=== PATIENT | female | born 1960 ===

== ENCOUNTER 2022-12-11 20:28 | Emergency (ER) | payer OTHER, SELFPAY ==
--- NOTE | ~2022-12-11 | XR_ITS ---
EXAMINATION: XR finger 2nd RT min 2V DATE: 12/11/2022 21:02 INDICATION: Right second digit swelling and pain TECHNIQUE: Dorsal palmar, lateral and 2 oblique views of the second digit were obtained COMPARISON: None FINDINGS: Bone alignment is normal. No fracture. Mild polyarticular osteoarthritis at the and first carpal meta carpal, second proximal and distal interphalangeal and a few of the remaining cartilage centrally vis ualized interphalangeal joints. No erosions to suggest inflammatory arthritis. Mild primarily along t he radial side predominant soft tissue swelling along the second digit. IMPRESSION: 1. Typical distribution of mild polyarticular osteoarthritis at the first carpal metacarpal and multi ple interphalangeal joints. No acute osseous abnormality. Reviewed, dictated and finalized at location A. IMPRESSION: 1. Typical distribution of mild polyarticular osteoarthritis at the first carpa l metacarpal and multiple interphalangeal joints. No acute osseous abnormality.
[2022-12-11 20:30] VITALS: BP 145/89; PULSE 91; RESP 16; TEMP 36.5; O2SAT 100
--- NOTE | 2022-12-11 20:43 | ED.WOUNDLAC ---
HPI - Wound/Laceration General Chief Complaint: Wound/Laceration Stated Complaint: finger pain Time Seen by Provider: 12/11/22 20:33 Source: patient and RN notes reviewed Mode of arrival: ambulatory Limitations: no limitations History of Present Illness HPI narrative: This is a 62 year old right hand dominant female who presents for evaluation of right index finger pain. She noticed pain around her right finger nail yesterday. She is now having throbbing pain to her finger tip. She also noticed tenderness and redness. She denies injuries. HE has been placing neosporin to her finger without relief. She has not taken any medication for pain. Related Data Home Medications Medication Instructions Recorded Confirmed atorvastatin 40 mg tablet 09/09/19 lisinopril 5 mg tablet 09/09/19 pantoprazole 40 mg tablet,delayed PO 09/09/19 release Allergies Allergy/AdvReac Type Severity Reaction Status Date / Time No Known Allergies Allergy Verified 12/11/22 20:32 Review of Systems Review of Systems: All systems reviewed & are unremarkable except as noted in HPI and below PMFSH Past Medical History Medical History (Updated 12/12/22 @ 00:00 by Meño Charlton) Hyperlipidemia Hypertension Family History Family History Other Diabetes mellitus Hypertension Social History Social History Smoking status: Former smoker Exam Const: General: no acute distress and alert Nutritional Appearance: well nourished Orientation/consciousness: patient oriented x3 HENMT: Head: normal to inspection Mouth: Yes Normal oral and palatal mucosa present Eyes: EOM: EOMs intact bilaterally Neck: Neck: normal visual inspection Chest: Chest palpation & inspection: normal inspection of the chest Resp: Effort & Inspection: normal respiratory effort Neuro: General: patient oriented x3 and moves all extremities Extrem: Other: right index finger with mild erythema around nail , no drainage, FROM present Psych: Mental Status: mental status grossly normal Affect: normal affect Attitude: cooperative Course Reevaluation(s) Reevaluation #1: I have discussed with patient plan to discharge on antibiotic. She seems to have paronychia although I do not see drainage at this point. Date: 12/11/22 Time: 21:11 Vital Signs Vital signs: Vital Signs Temperature 97.7 F 12/11/22 20:30 Pulse Rate 91 12/11/22 20:30 Respiratory Rate 16 12/11/22 20:30 Blood Pressure 145/89 H 12/11/22 20:30 Pulse Oximetry 100 12/11/22 20:30 Oxygen Delivery Room Air 12/11/22 20:30 Temperature 97.7 F 12/11/22 20:30 Pulse Rate 91 12/11/22 20:30 Respiratory Rate 16 12/11/22 20:30 Blood Pressure 145/89 H 12/11/22 20:30 Pulse Oximetry 100 12/11/22 20:30 Oxygen Delivery Room Air 12/11/22 20:30 MDM - Wound/Laceration Imaging Data Radiologist's impression: ITS Impressions Finger X-Ray 12/11/22 21:05 IMPRESSION: 1. 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 No acute osseous abnormality. Discharge Plan Discharge Clinical Impression: Paronychia Patient Disposition: Home, Self-Care Condition: Stable Instructions: Antibiotic Form, Paronychia (ED) Additional Instructions: I Recommend applying warm compress to your finger to help with inflammation. Take antibiotics as prescribed. Take aleve or ibuprofen for your pain. Prescriptions: New doxycycline monohydrate 100 mg capsule 100 mg PO BID Qty: 14 0RF No Action atorvastatin 40 mg tablet pantoprazole 40 mg tablet,delayed release (DR/EC) PO lisinopril 5 mg tablet amoxicillin 500 mg tablet 500 mg PO TID 7 Days Qty: 21 0RF Follow-up/Referrals: UNKNOWN,DOCTOR [Non-Staff]
[2022-12-11] MEDS: SULFAMETHOXAZOLE/TRIMETHOPRIM 800/160 MG DS TABLET 1 TAB PO (20:47)
[2022-12-11] MEDS: IBUPROFEN 600 MG TABLET PO (20:48)
== END 2022-12-11 21:32 | disposition home or self-care (01) ==
PROVIDERS: Emergency Provider General Practice
DX: L03.011 Cellulitis of right finger (principal); E78.5 Hyperlipidemia, unspecified; I10 Essential (primary) hypertension; Z87.891 Personal history of nicotine dependence; M19.041 Primary osteoarthritis, right hand; M18.9 Osteoarthritis of first carpometacarpal joint, unspecified
CPT/HCPCS: 73140; 99283; A9270

== ENCOUNTER 2025-03-04 18:47 | Emergency (ER) | payer OTHER, SELFPAY ==
--- OUTSIDE RECORDS SUMMARY | 2025-03-04 18:50 | XMS_ITS | Referral Summary ---
Author Organization [address] Address [address] [place] [id number] Care Team Providers Care Telecommunications Repairer Name Role Phone Erik Jeter MD Primary Care Provider Allergies Active Allergy Reactions Criticality Noted Date Comments Atorvastatin Muscle pain Medium 12/08/2020 Medications lisinopriL (PRINIVIL,ZESTR IL) 5 mg tablet 01/06/2021 Act stone rosuvastatin (CRESTOR) 20 mg tablet Take 1 tablet (20 mg total) by mouth daily Active esomeprazole DR (NexIUM) 40 mg capsule Take 40 mg by mouth 2 (two) times a day 10/12/2021 Active lidocaine (LIDODERM) 5 % 11/24/2021 Acti ve cholecalciferol (VITAMIN D-3) 5,000 unit capsule Take 1 capsule (5,000 Units total) by mouth daily Active tretinoin (RETIN-A) 0.05 % cream 09/20/2022 Active mupirocin (BACTROBAN) 2 % ointment 09/06/2022 Active azelaic acid (Finacea) 15 % gel 01/12/2022 Active fenofibrate (TRIGLIDE) 160 mg tablet 12/09/2022 Active Active Problems Problem Noted Date Diagnosed Date Adjustment reaction 01/28/2022 Alopecia 01/28/2022 Amenorrhea 01/28/2022 Overview (09/24/2022): will ask coworker to write for BCPs and patient will do home test next week if has not started and then restart; f/u if any concerns; labs ordered to recheck for other reasons; discussed BCP use Anemia 01/28/2022 Overview (09/24/2022): hx of anemia with the DUB, will see if controlling the DUB and resolved the anemia hx of anemia with the DUB, will see if controlling the DUB and resolved the anemia Carpal tunnel syndrome 01/28/2022 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 Dysfunction of eustachian tube 01/28/2022 Hyperprolactinemia 01/28/2022 Irregular menstrual cycle 01/28/2022 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 2 Overview (09/24/2022): 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 but cannot r/o basal cell ca--will send to derm--offered trial of cryo but pt perfers to be referred, due to location on side of nose bx in office would be difficult 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 but cannot r/o basal cell ca--will send to derm--offered trial of cryo but pt perfers to be referred, due to location on side of nose bx in office would be difficult Other biomechanical lesions of thoracic region 0 01/28/2022 Other diseases of lung 01/28/2022 Other disturbances of skin sensation 01/28/2022 Other headache syndrome 01/28/2022 Pain in joint, lower leg 01/28/2022 Palpitations 01/28/2022 Sinus tachycardia 01/28/2022 Symptomatic menopausal or female climacteric sta saqib 01/28/2022 PLMD (periodic limb movement disorder) 1 Assessment & Plan (10/01/2024 4:14 PM VP CARE MANAGEMENT): She is asymptomatic with respect to the PLMS and is on no medication for this. Assessment & Plan (09/23/2023 11:44 AM VP CARE MANAGEMENT): The patient denies that her limbs are moving at night when she sleeps Assessment & Plan (09/24/2022 11:54 AM VP CARE MANAGEMENT): The patient denies that her limbs are moving at night when she sleeps. Assessment & Plan (08/03/2021 1:39 PM VP CARE MANAGEMENT): Currently asymptomatic SIMRAN (obstructive sleep apnea) 08/03/2021 Overview (09/24/2022): Last Assessment & Plan: The patient will continue with CPAP therapy at 8 cm water pressure to treat obstructive sleep apnea. The patient received an order for full set of supplies. [employer] and the patient is benefitting from CPAP therapy Last Assessment & Plan: The patient will continue with CPAP therapy at 8 cm water pressure to treat obstructive sleep apnea. The patient received an order for full set of supplies. [employer] and the patient is benefitting from CPAP therapy Assessment & Plan (10/01/2024 4:14 PM VP CARE MANAGEMENT): The patient continues to benefit from CPAP at 8 cm water pressure for ongoing symptoms SIMRAN. I will have the overnight pulse oximetry recording reordered through [employer]. Her DME supplier is [employer]. She will follow up here in 1 year. Assessment & Plan (09/23/2023 11:44 AM VP CARE MANAGEMENT): Patient continue to wear her CPAP at 8 cm water pressure while sleeping. Her DME is [employer]. I have sent an order over for an overnight pulse ox to be completed on CPAP set at 8 cm water pressure due to having headaches the morning. Assessment & Plan (09/24/2022 11:53 AM VP CARE MANAGEMENT): Patient continue to wear her CPAP at 8 cm of water pressure while sleeping. Her DME is [employer]. The patient did bring her CPAP card in from her CPAP. There was incorrect information on the CPAP card. I have ordered the patient a new CPAP card set at 8 cm of water pressure to be provided by the patient. At this visit we are able to get information off of the modem. Assessment & Plan (08/03/2021 1:39 PM VP CARE MANAGEMENT): The patient will continue with CPAP therapy at 8 cm water pressure to treat obstructive sleep apnea. The patient received an order for full set of supplies. 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 Never 08/03/2021 Average Number of Drinks Not on file 021 Q3: How often do you have si x or more drinks on one occasion? Never 08/03/2021 Comments Unknown Sex and Gender Information Value Date Recorded Sex Assigned at Not on file Legal Sex Female 12:18 AM VP CARE MANAGEMENT Gender Identity Not on file Sexual Orientation Not on file Last Filed Vital Signs Vital Sign Reading Time Taken Comments Blood Pressure 116/68 10/01/2024 3:53 PM VP CARE MANAGEMENT Pulse 78 10/01/2024 3:53 PM VP CARE MANAGEMENT Temperature 36.1 C (97 F) 10/01/2024 3:53 PM VP CARE MANAGEMENT Respiratory Rate 18 10/01/2024 3:53 PM VP CARE MANAGEMENT Oxygen Saturation 97% 10/01/2024 3:53 PM VP CARE MANAGEMENT Inhaled Oxygen Concentration - - Weight 58.5 kg (129 lb) 10/01/2024 3:53 PM VP CARE MANAGEMENT Height 162.6 cm (5' 4) 10/01/2024 3:53 PM VP CARE MANAGEMENT Body Mass Index 22.14 10/01/2024 3:53 PM VP CARE MANAGEMENT Plan of Treatment Not on file Insurance [facility] Care Teams Telecommunications Repairer Relationship Specialty Start Date End Date Erik Jeter MD PCP - General Family Medicine 10/03/20
--- OUTSIDE RECORDS SUMMARY | 2025-03-04 18:50 | XMS_ITS | Clinical Summary ---
Author Organization [address] [place] [address] Address [address] [place] [id number] Care Team Providers Care Sales Operations Lead Name Role Phone Erik Jeter MD Primary [...] 1 Assessment & Plan (10/01/2024 4:14 PM TUTORING MANAGER): She is asymptomatic with respect to the PLMS and is on no medication for this. Assessment & Plan (09/23/2023 11:44 AM TUTORING MANAGER): The patient denies that her limbs are moving at night when she sleeps Assessment & Plan (09/24/2022 11:54 AM TUTORING MANAGER): The patient denies that her limbs are moving at night when she sleeps. Assessment & Plan (08/03/2021 1:39 PM TUTORING MANAGER): Currently asymptomatic SIMRAN (obstructive sleep apnea) 08/03/2021 Overview (09/24/2022): Last Assessment & Plan: The patient will continue with CPAP therapy at 8 cm water pressure to treat obstructive sleep apnea. The patient received an order for full set of supplies. [employer] and the patient is benefitting from CPAP therapy Last Assessment & Plan: The patient will continue with CPAP therapy at 8 cm water pressure to treat obstructive sleep apnea. The patient received an order for full set of supplies. [employer] and the patient is benefitting from CPAP therapy Assessment & Plan (10/01/2024 4:14 PM TUTORING MANAGER): The patient continues to benefit from CPAP at 8 cm water pressure for ongoing symptoms SIMRAN. I will have the overnight pulse oximetry recording reordered through [employer]. Her DME supplier is [employer]. She will follow up here in 1 year. Assessment & Plan (09/23/2023 11:44 AM TUTORING MANAGER): Patient continue to wear her CPAP at 8 cm water pressure while sleeping. Her DME is [employer]. I have sent an order over for an overnight pulse ox to be completed on CPAP set at 8 cm water pressure due to having headaches the morning. Assessment & Plan (09/24/2022 11:53 AM TUTORING MANAGER): Patient continue to wear her CPAP at [...] modem. Assessment & Plan (08/03/2021 1:39 PM TUTORING MANAGER): The patient will continue with CPAP therapy at 8 cm water pressure to treat obstructive sleep apnea. The patient received an order for full set of supplies. [employer] and the patient is benefitting from [...] 09/23/2023 Immunizations Immunization Administration Dates Next Due [employer] ([employer]) SARS-CoV-2 Vaccination 10/20/2020 Surgical History Surgery Date Site/Laterality Comments CHOLECYSTECTOMY Medical History Medical History Date Comments GERD (gastroesophageal reflux disease) Hypertension Sleep apnea Nasal lesion left nostril Family History Medical History Relation Name Comments Diabetes Father Family history of diabetes mellitus - (Added by TW Conv) Cancer Mother Family history of malignant neoplasm - (Added by TW Conv) Relation Name Status Comments Father Mother Social History Tobacco Use Types Packs/Day Years [...] on file Legal Sex Female 12:18 AM TUTORING MANAGER Gender Identity Not on file Sexual Orientation Not on file Obstetrics History Last Filed Vital Signs Vital Sign Reading Time Taken Comments Blood Pressure 116/68 10/01/2024 3:53 PM TUTORING MANAGER Pulse 78 10/01/2024 3:53 PM TUTORING MANAGER Temperature 36.1 C (97 F) 10/01/2024 3:53 PM TUTORING MANAGER Respiratory Rate 18 10/01/2024 3:53 PM TUTORING MANAGER Oxygen Saturation 97% 10/01/2024 3:53 PM TUTORING MANAGER Inhaled Oxygen Concentration - - Weight 58.5 kg (129 lb) 10/01/2024 3:53 PM TUTORING MANAGER Height 162.6 cm (5' 4) 10/01/2024 3:53 PM TUTORING MANAGER Body Mass Index 22.14 10/01/2024 3:53 PM TUTORING MANAGER Plan of Treatment Health Maintenance Due Date Last Done Comments Breast Cancer Screening-Mammogram 1960 Cervical Cancer Screening 1960 Colon Cancer Screening-Colonoscopy 1960 Depression Screening 1960 Hepatitis C Screening 1960 Regular Well Visit/Exam 18-64 1978 Pneumococcal vaccine <65 (1 of 2 - PCV) 1979 Zoster Vaccine (1 of 2) 2010 Covid-19 Vaccine (4 - 2023-2 5 season) 2024 04/09/2022, 06/26/2021, 10/20/2020 Influenza Vaccine (Season Ended) 2025 12/04/2021, 08/13/2020, 06/05/2015, Additional history exists DTaP/Tdap/Td Vaccine (3 - Td or Tdap) 12/05/2031 12/04/2021, 08/13/2011, 10/30/2003, Additional history exists Insurance [facility]S [facility] Care Teams Sales Operations Lead Relationship Specialty Start Date End Date Erik Jeter MD PCP - General Family Medicine 10/03/20
--- OUTSIDE RECORDS SUMMARY | 2025-03-04 18:50 | XMS_ITS | Clinical Summary ---
Author Organization [facility] [employer] Address [address] [place] [address] Care Team Providers Care Stock Lifter Name Role Phone Eder Humphrey Primary Care Provider [phone] Source Comments [facility],non-owned Affiliates and Associated Physician Practices is amultiple site organization consisting of ambulatory clinics and hospital sitesin [place], [place], [place] and [place]. This disclosure is being madepursuant to the Care Everywhere program and may not contain all information available regarding this patient. Last updated 18.[facility] [employer] Allergies Active Allergy Reactions Criticality Noted Date Comments Atorvastatin Myalgias Medium 12/08/2020 Medications * Be aware that medications may not be up to date on this document. Alwaysverify current medications with the patient. lisinopril (PRINIVIL;ZESTR IL) 5 MG tablet Take 1 (one) tablet by mouth DAILY 8 Active Ivermectin 1 % Apply to affected area as needed Cream 1 Active vitamin D3 (CHOLECALCIFERO L) 125 MCG (5000 UT) capsule Take 1 (one) capsule by mouth once daily Takes 3x per week 1 Active fenofibrate (LOFIBRA) 160 MG tablet Take 1 (one) tablet by mouth once daily 1 Active FINACEA 15 % gel Apply to affected area as needed 2 Active lidocaine (LIDODERM) 5 % patch as needed 2 Active tretinoin (Retin-A) 0.05 % cream as needed 3 Active famotidine (Pepcid) 20 MG tablet Take 1 (one) tablet by mouth as directed Takes 40 daily & 20 mg PRN in the evening. 3 Active rosuvastatin (Crestor) 20 MG tablet Take 1 (one) tablet by mouth once daily 3 Active Ruxolitinib Phosphate (Opzelura) 1.5 % CREA by Apply externally route once daily as needed Active polyethylene glycol (Golytely) solution Drink 3/4th of prep solution at 5pm the night before colonoscopy. Finish the prep at 4am the day of test. 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 Diabetes mellitus, type 2 10/11/2024 Chalazion left upper eyelid 10/11/2024 Cervicalgia 10/11/2024 Abdominal tenderness, unspecified site 5 Symptomatic menopausal or female climacteric sta saqib 01/28/2022 Sinus tachycardia 01/28/2022 Palpitations 01/28/2022 Pain in joint, lower leg 01/28/2022 Other headache syndrome 01/28/2022 Other disturbances of skin sensation 01/28/2022 Other diseases of lung 01/28/2022 Other biomechanical lesions of thoracic region 0 01/28/2022 Neoplasm of uncertain behavior of skin 2 Overview (01/28/2022): 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 but cannot r/o basal [...] nose bx in office would be difficult 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 01/28/2022 Irregular menstrual cycle 01/28/2022 Hyperprolactinemia 01/28/2022 Dysfunction of eustachian tube 01/28/2022 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 Carpal tunnel syndrome 01/28/2022 Anemia 01/28/2022 Overview (01/28/2022): hx of anemia with the DUB, will see if controlling the DUB and resolved the anemia hx of anemia with the DUB, will see if controlling the DUB and resolved the anemia Amenorrhea 01/28/2022 Overview (01/28/2022): will ask coworker to write for BCPs and patient will do home test next week if has not started and then restart; f/u if any concerns; labs ordered to recheck for other reasons; discussed BCP use Alopecia 01/28/2022 Adjustment reaction 01/28/2022 PLMD (periodic limb movement disorder) Overview (01/28/2022): Last Assessment & Plan: Currently asymptomatic SIMRAN (obstructive sleep apnea) 08/03/2021 Overview (01/28/2022): Last Assessment & Plan: The patient will continue with CPAP therapy at 8 cm water pressure to treat obstructive sleep apnea. The patient received an order for full set of supplies. [employer] and the patient is benefitting from CPAP therapy Last Assessment & Plan: The patient will continue with CPAP therapy at 8 cm water pressure to treat obstructive sleep apnea. The patient received an order for full set of supplies. [employer] and the patient is benefitting from CPAP therapy Elevated blood sugar 12/08/2020 Acid reflux 03/13/2018 Nonalcoholic steatohepatitis (NGO) 11/15/2017 Overview (02/08/2023): 10/06/20 Fibroscan CAP 340, LSM 5.1 kPa 10/26/21 Fibroscan CAP 359, LSM 5.0 kPa 02/07/23 Fibroscan CAP 337, LSM 4.6 kPa Essential hypertension 09/29/2017 Overview (01/28/2022): repeat BP 122/88; cont to monitor Precordial pain 09/22/2017 Hypertriglyceridemia 09/22/2017 Abnormal ECG 09/22/2017 Arthralgia of shoulder 02/07/2015 Social History Tobacco Use Types Packs/Day Years Used Date Smoking Tobacco: Former Cigarettes 1 - 1991 Smokeless Tobacco: Never Comments:quit 20 years ago Alcohol Use Standard Drinks/Week Comments No 0 (1 standard drink = 0.6 oz pur e alcohol) Comments No Sex and Gender Information Value Date Recorded Sex Assigned at Not on file Legal Sex Female 3:27 PM CDT Gender Identity Not on file Sexual Orientation Not on file Last Filed Vital Signs Vital Sign Reading Time Taken Comments Blood Pressure 115/66 10/15/2024 11:45 AM MACHINIST APPRENTICE [employer] Pulse 69 10/15/2024 11:45 AM [employer]ACHINIST [employer]ICE [employer] Temperature 36.7 C (98.1 F) 10/15/2024 10:33 AM MACHINIST APPRENTICE [employer]OD Respiratory Rate 16 10/15/2024 11:45 AM MACHINIST APPRENTICE [employer]OD Oxygen Saturation 96% 10/15/2024 11:45 AM MACHINIST APPRENTICE WO[employer] Inhaled Oxygen Concentration - - Weight 59 kg (130 lb) 10/11/2024 12:44 PM [employer]ACHINIST [employer]ICE [employer] Height 162.6 cm (5' 4) 10/11/2024 12:44 PM [employer]INIST [employer]ICE [employer] Body Mass Index 22.31 10/11/2024 12:44 PM [employer]ACHINIST [employer]ICE [employer] Plan of Treatment Upcoming Encounters Date Type Department Care Team (Late st Contact Info) Description 10/17/2025 11:30 AM MACHINIST APPRENTICE WOOD Procedure visit [facility] [address] [place] [phone] 10/17/2025 12:00 PM MACHINIST APPRENTICE [employer] Office Visit [facility] [address] [facility], [place] [phone] Ryley Martinez MD [address] [facility] [address] [place] [phone] Health Maintenance Due Date Last Done Comments COLOGUARD (AGES 45-75) - COLON CA SCREENING 1960 CT COLONOGRAPHY - COLON CA SCREENING 1960 FIT - COLON CA SCREENING 1960 FLEX SIG - COLON CA SCREENING 1960 MAMMOGRAM 1960 HIV SCREENING 1975 HEPATITIS C SCREENING 05/11/1978 DTAP/TDAP/TD VACCINES (1 - Tdap) 1979 PNEUMOCOCCAL VACCINE 50+ (1 of 2 - PCV) 1979 PAP SMEAR 1981 ZOSTER VACCINE (1 of 2) 2010 COVID-19 VACCINE (4 - season) 2024 04/09/2022, 06/26/2021, 10/20/2020 DEPRESSION SCREENING 08/15/2024 DIABETES - URINE PROTEIN SCREENING 08/15/2024 DIABETES RETINOPATHY SCREENING 10/11/2024 01/28/2022 DIABETES-FOOT EXAM WITH MONOFILAMENT 10/11/2024 DIABETES-HGB A1C 10/12/2024 04/12/2024, , 03/06/2020 INFLUENZA VACCINE (#1) 2025 , 08/13/2020, 06/05/2015, Additional history exists DIABETES-SERUM CREATININE 07/30/20252023, 04/12/2024, 09/04/2023, Additional history exists COLON MONITORING 10/15/2034 10/15/2024, 10/2024, 05/22/2021, Additional history exists COLONOSCOPY - COLON CA SCREENING 10/15/2034 10/15/2024, 10/15/2024, 05/22/2021, Additional history exists Colorectal Cancer Screening 10/15/2034 Respiratory Syncytial Virus (RSV) Vaccine Pt: or over 60 yrs (1 - 1-dose 75+ series) 2035 HEPATITIS B VACCINE Aged Out No longe r eligible based on patient's age to complete this topic HIB VACCINE Aged Out No longer eligi ble based on patient's age to complete this topic HPV VACCINE Aged Out No longer eligi ble based on patient's age to complete this topic MENINGOCOCCAL (Group B) VACCINE SHARED DECISION-MAKING Aged Out No longer eligible based on patient's age to complete this topic MENINGOCOCCAL GROUPS A/C/Y/W VACCINE Aged Out No longer eligible based on patient's age to complete this topic Goals Goal Patient Goal Type Associated Problems Recent Progress Patient-Stated? Author Medication Management General On track( 025 1:36 PM MACHINIST APPRENTICE WOOD) Tamika Monterroso RN Note: Expected end date: ongoing Interventions: Take all medications as prescribed Let your doctor know right away about any changes in your medications Make sure to request a refill of your medication at least one week prior to your last dose Procedures Procedure Name Priority Date/Time Associated Diagnosis Comments ENDOSCOPY, COLON, DIAGNOSTIC Routine 10/15/2024 10:49 AM [employer]ACHINIST [employer] COMPREHENSIVE METABOLIC PANEL Routine 07/30/2024 1:55 PM [employer]ACHINIST [employer] Acute diarrhea Nausea and vomiting, unspecified vomiting type HEMOGLOBIN A1C Routine 04/12/2024 2:33 PM CDT Metabolic dysfunction-associa sujata steatotic liver disease (MASLD) from Last 3 Months or Most Recently Relevant to Health Maintenance Results * Endoscopy, Colon, Diagnostic (10/15/2024 10:49 AM MACHINIST APPRENTICE WOOD) Report Endoscopy POC Endoscopy Department Report _ Patient Name: Bárbara Simon Procedure Date: 10/15/2024 10:49 AM Date of : 1960 Classification: Outpatient Gender: Female Ethnicity: Not or Race: _ Providers: Page Morris DO Referring MD: Eder Humphrey (Referring ) Procedure: Colonoscopy Indications: High risk colon cancer surveillance: Personal history of colonic polyps, Last colonoscopy: May 2021 Medications: Monitored Anesthesia Care Description of Procedure: Pre-Anesthesia Assessment: - Prior to the procedure, a History and Physical was performed, and patient medications and allergies were reviewed. The patient's tolerance of previous anesthesia was also reviewed. The risks and benefits of the procedure and the sedation options and risks were discussed with the patient. All questions were answered, and informed consent was obtained. Prior Anticoagulants: The patient has taken no anticoagulant or antiplatelet agents. ASA Grade Assessment: II - A patient with mild systemic disease. After reviewing the risks and benefits, the patient was deemed in satisfactory condition to undergo the procedure. After I obtained informed consent, the scope was passed under direct vision. Throughout the procedure, the patient's blood pressure, pulse, and oxygen saturations were monitored continuously. The Colonoscope was introduced through the anus and advanced to the terminal ileum, with identification of the appendiceal orifice and IC valve. The colonoscopy was performed without difficulty. The patient tolerated the procedure well. The quality of the bowel preparation was evaluated using the BBPS (Hollins Bowel Preparation Scale) with scores of: Right Colon = 3, Transverse Colon = 3 and Left Colon = 3 (entire mucosa seen well with no residual staining, small fragments of stool or opaque liquid). The total BBPS score equals 9. The terminal ileum, ileocecal valve, appendiceal orifice, and rectum were photographed. Findings: The perianal and digital rectal examinations were normal. The terminal ileum appeared normal. Two sessile polyps were found in the sigmoid colon. The polyps were 3 to 6 mm in size. These polyps were removed with a cold snare. Resection and retrieval were complete. Scattered small and large-mouthed diverticula were found in the entire colon. There was no evidence of diverticular bleeding. Non-bleeding internal hemorrhoids were found during retroflexion. The hemorrhoids were small and Grade I (internal hemorrhoids that do not prolapse). Estimated Blood Loss: Estimated blood loss: none. Complications: No immediate complications. Impression: - The examined portion of the ileum was normal. - Two 3 to 6 mm polyps in the sigmoid colon, removed with a cold snare. Resected and retrieved. - Moderate diverticulosis in the entire examined colon, most severe in the ascending colon. - Small internal hemorrhoids. Recommendation: - Discharge patient to home. - Patient has a contact number available for emergencies. The signs and symptoms of potential delayed complications were discussed with the patient. Return to normal activities tomorrow. Written discharge instructions were provided to the patient. - Continue present medications. - Await pathology results. - Repeat colonoscopy in 5 years for surveillance based on pathology results. - High fiber diet. Goal of 30 grams of fiber daily. - You can keep a food diary for one day to calculate your typical daily fiber intake and then supplement the rest with an [id number] fiber supplement. - Increasing your fiber intake gradually will slow down progression of the diverticular disease as well as regulate your bowels. You can use an over the counter fiber supplement such as sugar free metamucil. Begin by mixing this powder in a glass of water, 2 teaspoons twice per day for two weeks, then increase to 4 teaspoons twice per day for two weeks. Next increase to 6 teaspoons twice per day and continue this indefinitely. Consider adding high fiber foods into your diet. For example, add one apple every day for snack. Attending Participation: I personally performed the entire procedure. Procedure Code(s): --- Professional --- 86758, Colonoscopy, flexible; with removal of tumor(s), polyp(s), or other lesion(s) by snare technique Diagnosis Code(s): --- Professional --- Z86.010, Personal history of colonic polyps K64.0, First degree hemorrhoids D12.5, Benign neoplasm of sigmoid colon K57.30, Diverticulosis of large intestine without perforation or abscess without bleeding CPT copyright 2021 [employer]. All rights reserved. The codes documented in this report are preliminary and upon miter operator review may be revised to meet current compliance requirements. Page Morris DO 10/15/2024 11:35:49 AM This report has been signed electronically. Note Initiated On: 10/15/2024 10:49 AM Number of Addenda: [id number] [place] [address] PROVATION 10/15/2024 10:4 9 AM MACHINIST APPRENTICE WOOD us Page Morris DO GI PROCEDURE ORDERABLES Edited R esult - Final [facility] TANK[facility] * (ABNORMAL) COMPREHENSIVE METABOLIC PANEL (07/30/2024 1:55 PM [facility]) BUN 20 7 - 26 mg/dL 07/30/2024 3:03 PM [facility] Creatinine 0.96 0.56 - 0.96 mg/dL 07/30/2024 3:03 PM [facility] Sodium 139 136 - 145 mmol/L 07/30/2024 3:03 PM [facility] Potassium 3.5 3.5 - 4.5 mmol/L 07/30/2024 3:03 PM [facility] Chloride 107 98 - 107 mmol/L 07/30/2024 3:03 PM [facility] CO2 23 22 - 29 mmol/L 07/30/2024 3:03 PM [facility] Glucose 122(H) 70 - 99 mg/dL 07/30/2024 3:03 PM [facility] Calcium 9.4 8.4 - 10.2 mg/dL 07/30/2024 3:03 PM [facility] Protein Total 7.8 6.0 - 8.3 g/dL 07/30/2024 3:03 PM [facility] Albumin 4.2 3.4 - 5.0 g/dL 07/30/2024 3:03 PM [facility] Bilirubin Total 0.6 0.2 - 1.2 mg/dL 07/30/2024 3:03 PM [facility] Alkaline Phosphatase 90 40 - 150 U/L 07/30/2024 3:03 PM [facility] ALT 22 5 - 55 U/L 07/30/2024 3:03 PM [facility] AST 24 5 - 34 U/L 07/30/2024 3:03 PM [facility] Anion Gap 9 6 - 16 07/30/2024 3:03 PM [facility] BUN/Creatinine Ratio 21 7 - 23 07/30/2024 3:03 PM [facility] Osmolality Calculated 292 275 - 295 mOsm/kg 07/30/2024 3:03 PM [facility] Albumin/Globulin Ratio 1.2 1.1 - 2.3 07/30/2024 3:03 PM [facility] eGFR by CKD-EPI 66(L) >=90 mL/min/1.7 3 m2 07/30/2024 3:03 PM [facility] Blood BLOOD SPECIMEN / Unknown Lab Venipuncture / Unknown 07/30/2024 1:55 PM [employer]ACHIN[employer]ICE [employer]OD 07/30/2024 2:35 PM [facility] Davonte Adames DO LAB - CHEMISTRY ORDERABLES Final Result Performing Organization Address City/[facility]/ZIP Co de Phone Number [address] [phone], [place] [phone] * (ABNORMAL) HEMOGLOBIN A1C (04/12/2024 2:33 PM CDT) Hemoglobin A1c 6.5(H) <=5.6 % 04/12/2024 6:11 PM CDT [facility] Estimated Average Glucose 140 mg/dL 04/12/2024 6:11 PM T [facility] Comment: HbA1c Interpretation: Normal : < 5.7% Pre-diabetes: 5.7-6.4% Diabetes: Equal to or greater than 6.5% Test results diagnostic of diabetes should be repeated for confirmation. Treatment target values recommended by ADA and other clinical organizations should be used to evaluate metabolic control in patients. Reference: [place] [employer], Standards of Care in Diabetes -2020 In patients 70 years and older consider HbA1c target range of 7.0-7.5% (Reference: Gerry Urbina, et al. JAMDA. 2012) The Sebia assay for the measurement of HbA1c is a National Glycohemoglobin Standardization Program (NGSP) certified method. Blood BLOOD SPECIMEN / Unknown Lab Venipuncture / Unknown 04/12/2024 2:33 PM CDT 04/12/2024 5:28 PM CDT Ryley Martinez MD LAB - CHEMISTRY ORDERABLES Final Result Performing Organization Address City/[facility]/ZIP Co de Phone Number [address] [address], [place] [phone] from Last 3 Months or Most Recently Relevant to Health Maintenance Insurance [facility] [place] Care Teams Stock Lifter Relationship Specialty Start Date End Date Eder Humphrey [address] [facility] [address] [place] [phone] PCP - General 04/12/24
--- OUTSIDE RECORDS SUMMARY | 2025-03-04 18:50 | XMS_ITS | Encounter Summary ---
Author Organization [facility] Address [address] [place] [address] Care Team Providers Care Panama Hat Hydraulic Press Operator Name Role Phone Nadja Stewart MD Unavailable [phone] Eirk Jeter MD Primary Care Provider [phone] None, Provider Primary Care Provider Unavaila ble Encounter Details Date Type Department Care Team (Late Contact Info) Description 06/04/2020 Abstract [facility] at [address] [address] [place], [place] Social History Tobacco Use Types Packs/Day Years Used Date Smoking Tobacco: Former Cigarettes 0.1 4 Smokeless Tobacco: Never Alcohol Use Standard Drinks/Week Comments No 0 (1 standard drink = 0.6 oz pur e alcohol) Comments Unknown Sex and Gender Information Value Date Recorded Sex Assigned at Not on file Legal Sex Female 1:49 AM CDT Gender Identity Not on file Sexual Orientation Not on file 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 No / Unsure 06/02/2020 3:12 PM CDT documented as of this encounter Plan of Treatment Upcoming Encounters Date Type Department Care Team (Late st Contact Info) Description 12/25/2025 1:00 PM CDT Office Visit [facility], [address] [address] Nadja Stewart MD [facility]. [address] [address] documented as of this encounter Procedures Procedure Name Priority Date/Time Associated Diagnosis Comments COMPREHENSIVE METABOLIC PANEL Routine 11/11/2023 LIPID PANEL Routine 11/11/2023 LIPID PANEL Routine 09/03/2022 CBC, MANUAL DIFF Routine 09/03/2022 AST/SGOT Routine 12/04/2021 LIPID PANEL Routine 12/04/2021 ALT/SGPT Routine 12/04/2021 COMPREHENSIVE METABOLIC PANEL Routine 04/29/2021 LIPID PANEL Routine 04/29/2021 HEMOGLOBIN, GLYCOSYLATED Routine 04/29/2021 LIPID PANEL Routine 12/03/2020 VITAMIN D, 25 OH Routine 12/03/2020 CBC (OUTSIDE LAB) Routine 10/28/2020 COMPREHENSIVE METABOLIC PANEL Routine 10/28/2020 IRON BINDING TEST Routine 10/28/2020 IRON Routine 10/28/2020 FERRITIN Routine 10/28/2020 AST/SGOT Routine 07/04/2020 LIPID PANEL Routine 07/04/2020 ALT/SGPT Routine 07/04/2020 FERRITIN Routine 04/17/2020 IRON BINDING TEST Routine 03/19/2020 IRON Routine 03/19/2020 FERRITIN Routine 03/19/2020 COMPREHENSIVE METABOLIC PANEL Routine 03/06/2020 LIPID PANEL Routine 03/06/2020 HEMOGLOBIN, GLYCOSYLATED Routine 03/06/2020 VITAMIN D, 25 OH Routine 03/06/2020 FERRITIN Routine 03/06/2020 CBC (OUTSIDE LAB) Routine 02/22/2020 THYROID STIM HORMONE TSH Routine 02/22/2020 documented in this encounter Results * COMPREHENSIVE METABOLIC PANEL (11/11/2023) SODIUM S/P/B 143 POTASSIUM S/P/B 3.8 CO2 25 CHLORIDE S/P/B 108 GLUCOSE 122 mg/dL CALCIUM S/P/B 9.8 BUN 17 CREATININE S/P/B 0.90 0.5 - 1.0 EGFR NON-AFR. AMER. 72 <=90 ALKALINE PHOSPHATASE S/P/B 83 ALT 22 AST 23 BILIRUBIN TOTAL S/P/B 0.4 ALBUMIN S/P/B 4.2 3.5 - 5.0 TOTAL PROTEIN S/P/B 7.2 11/11/2023 us Default History [facility] LABORATORY Final Result * LIPID PANEL (11/11/2023) CHOLESTEROL 126 HDL 68 TRIGLYCERIDES 81 LDL (CALCULATED) 49 11/11/2023 us Default History [facility] LABORATORY Edited Result - Final * LIPID PANEL (09/03/2022) CHOLESTEROL 196 TRIGLYCERIDES 189 HDL 77 LDL (CALCULATED) 85 Narrative Resulting Agency Comment us Default History [facility] LABORATORY Final Result * CBC, MANUAL DIFF (09/03/2022) WBC 6.1 HGB 12.9 HCT 39.3 PLT 234 Narrative Resulting Agency Comment us Default History [facility] LABORATORY Final Result * ALT/SGPT (12/04/2021) ALT 49 12/04/2021 us Doc [facility] Final Result * AST/SGOT (12/04/2021) AST 43 12/04/2021 [facility] Final Result * LIPID PANEL (12/04/2021) CHOLESTEROL 213 HDL 69 TRIGLYCERIDES 205 LDL (CALCULATED) 111 12/04/2021 [facility] Edited Resul t - Final * HEMOGLOBIN, GLYCOSYLATED (04/29/2021) HGB A1C 6.2 % 04/29/2021 us Doc [facility] Final Result * LIPID PANEL (04/29/2021) CHOLESTEROL 176 HDL 71 TRIGLYCERIDES 205 LDL (CALCULATED) 70 04/29/2021 us Doc [facility] Final Result * COMPREHENSIVE METABOLIC PANEL (04/29/2021) SODIUM S/P/B 142 POTASSIUM S/P/B 4.1 CO2 26 CHLORIDE S/P/B 103 GLUCOSE 105 mg/dL CALCIUM S/P/B 10.5 BUN 13 CREATININE S/P/B 0.90 0.5 - 1.0 EGFR AFR. AMER. 80 <=90 EGFR NON-AFR. AMER. 70 <=90 ALKALINE PHOSPHATASE S/P/B 97 ALT 33 AST 26 BILIRUBIN TOTAL S/P/B 0.5 ALBUMIN S/P/B 4.2 3.5 - 5.0 TOTAL PROTEIN S/P/B 7.3 04/29/2021 us Doc [facility] Final Result * VITAMIN D, 25 OH (12/03/2020) VITAMIN D 25 HYDROXY S/P/B 10.4 12/03/2020 us Doc [facility] Final Result * LIPID PANEL (12/03/2020) CHOLESTEROL 209 HDL 63 TRIGLYCERIDES 275 LDL (CALCULATED) 97 12/03/2020 us Doc [facility] Final Result * IRON BINDING TEST (10/28/2020) IRON BINDING CAPACITY 254 10/28/2020 us Doc [facility] Final Result * IRON (10/28/2020) IRON 80 10/28/2020 us Doc [facility] Edited Resul t - Final * CBC (OUTSIDE LAB) (10/28/2020) WBC 6.1 HGB 12.7 HCT 37.3 PLT 191 10/28/2020 us Doc [facility] LAB-OUTSIDE/ABSTRACTED Edite d Result - Final * COMPREHENSIVE METABOLIC PANEL (10/28/2020) Pathologist [facility] SODIUM S/P/B 145 POTASSIUM S/P/B 3.9 CO2 25 CHLORIDE S/P/B 108 GLUCOSE 102 mg/dL CALCIUM S/P/B 8.7 BUN 14 CREATININE S/P/B 0.90 0.5 - 1.0 EGFR AFR. AMER. 80 <=90 EGFR NON-AFR. AMER. 70 <=90 ALKALINE PHOSPHATASE S/P/B 135 ALT 28 AST 20 BILIRUBIN TOTAL S/P/B 0.4 ALBUMIN S/P/B 4.3 3.5 - 5.0 TOTAL PROTEIN S/P/B 7.0 10/28/2020 us Doc [facility] Final Result * FERRITIN (10/28/2020) [facility] FERRITIN 194.7 10/28/2020 us Doc [facility] Edited Resul t - Final * LIPID PANEL (07/04/2020) [facility] CHOLESTEROL 203 HDL 67 TRIGLYCERIDES 242 LDL (CALCULATED) 98 07/04/2020 us Doc [facility] Final Result * ALT/SGPT (07/04/2020) [facility] ALT 28 6 - 55 07/04/2020 us Doc [facility] Final Result * AST/SGOT (07/04/2020) [facility] AST 25 5 - 34 07/04/2020 us Doc [facility] Final Result * FERRITIN (04/17/2020) [facility] FERRITIN 197.8 10 - 120 04/17/2020 us Doc [facility] Final Result * FERRITIN (03/19/2020) FERR[facility]IN 231.4 10 - 120 03/19/2020 us Doc [facility] Final Result * IRON BINDING TEST (03/19/2020) IRON BINDING CAPACITY 280 250 - 450 03/19/2020 us Doc [facility] Final Result * IRON (03/19/2020) IRON 66 27 - 159 03/19/2020 us Doc [facility] Final Result * HEMOGLOBIN, GLYCOSYLATED (03/06/2020) HGB A1C 5.9 % 03/06/2020 us Doc [facility] Final Result * VITAMIN D, 25 OH (03/06/2020) VITAMIN D 25 HYDROXY S/P/B 16.2 03/06/2020 us Doc [facility] Final Result * LIPID PANEL (03/06/2020) CHOLESTEROL 290 HDL 66 TRIGLYCERIDES 408 LDL (CALCULATED) 162 03/06/2020 us Doc [facility] Final Result * FERRITIN (03/06/2020) FERRITIN 256.5 10 - 120 03/06/2020 us Doc [facility] Final Result * (ABNORMAL) COMPREHENSIVE METABOLIC PANEL (03/06/2020) SODIUM S/P/B 142 POTASSIUM S/P/B 4.1 CO2 27 CHLORIDE S/P/B 104 GLUCOSE 90 mg/dL CALCIUM S/P/B 9.9 BUN 11 CREATININE S/P/B 0.80 0.5 - 1.0 EGFR AFR. AMER. 93(A) <=90 EGFR NON-AFR. AMER. 81 <=90 ALKALINE PHOSPHATASE S/P/B 132 ALT 31 AST 25 BILIRUBIN TOTAL S/P/B 0.7 ALBUMIN S/P/B 4.3 3.5 - 5.0 TOTAL PROTEIN S/P/B 8.1 03/06/2020 us Doc [facility] Final Result * THYROID STIM HORMONE, TSH (02/22/2020) Pathologist [facility] TSH 2.62 0.34 - 4.94 02/22/2020 us Doc [facility] Final Result * CBC (OUTSIDE LAB) (02/22/2020) Pathologist [facility] WBC 6.0 HGB 12.6 HCT 38.0 PLT 226 02/22/2020 us Doc [facility] LAB-OUTSIDE/ABSTRACTED Final Result documented in this encounter Visit Diagnoses Not on filedocumented in this encounter Additional Health Concerns Infection Onset Date Last Indicated Resolved Time COVID-19 Rule Out 09/04/2023 09/04/2023 09/04/2023 5:56 PM CUST[employer]S VERIFIER documented as of this encounter Care Teams Panama Hat Hydraulic Press Operator Relationship Specialty Start Date End Date Erik Jeter MD [address] [phone] PCP - General FAMILY PRACTICE 05/15/20 02/04/25 None, Provider, PCP - General UNKNOWN PHYSICIAN SPECIALTY 02/05/25 Nadja Stewart MD [facility]. [facility] [address] [place], [place] [id number] [place] [employer] Sander Setter CARDIOVASCULAR DISEASE 09/08/17 documented as of this encounter
--- OUTSIDE RECORDS SUMMARY | 2025-03-04 18:52 | XMS_ITS | Patient Health Record ---
Author Organization [facility] Address [address] [place], [place] [id number] Care Team Providers Care Gas Torch Solderer Name Role Phone KWESI VILLALPANDO Unavailable [phone] Marek Lyles Unavailable Unavailable Reason For Referral No Information Plan Of Treatment No Information Insurance Providers Payer Name Payer Address Payer Phone Subscriber Number Group Number Insured Name Patient Relationship to Insured Coverage Start Date Coverage End Date [facility] [address] [place] [address] [id number] [id number] SIMON Self - patient is the insured
--- OUTSIDE RECORDS SUMMARY | 2025-03-04 18:52 | XMS_ITS | Continuity of Care Document ---
Author Name [facility] Organization [facility] Care Team Providers Care Bottle Capper Name Role Phone [facility] Unavailable Unavailable Problems Combined list of problems from Department of Defense and Veterans Affairs facilities. It does not include entries that were removed or entered in error. Problem Status Onset Date Problem Type Date of Resolution Comments Source Somatic dysfunction of back region Active 025 Diagnosis 6130C-Af -C-375Th [facility]gr[facility] yu Adjustment disorder Active 022 Condition 0055C-37 5th [facility] Alopecia Active 022 Condition 5C-37 5th [facility] Anemia1 Active 022 Condition Outside Source Comment: Overview: hx of anemia with the DUB, will [...] controlling the DUB and resolved the anemia 6130C-Af -C-375Th [facility] yu Obstructive sleep apnea syndrome5 Active 021 Condition Outside Source Comment: Overview: Last Assessment & Plan: The patient will continue with CPAP therapy at 8 cm water pressure to treat obstructive sleep apnea. The patient received an order for full set of supplies. [employer] and the patient is benefitting from CPAP therapy Last Assessment & Plan: The patient will continue with CPAP therapy at 8 cm water pressure to treat obstructive sleep apnea. The patient received an order for full set of supplies. [employer] and the patient is benefitting from CPAP therapy 5C-37 5th [facility] Periodic limb movement disorder6 Active 021 Condition Outside Source Comment: Overview: Last Assessment & Plan: The patient denies that her limbs are moving at night when she sleeps 6130C-Af -C-375Th [facility] Gastroesophageal reflux disease Active 018 Condition 0055C-37 5th [facility] Nonalcoholic steatohepatitis4 Active 018 Condition Outside Source Comment: Overview: 10/06/20 Fibroscan CAP 340, LSM 5.1 kPa 10/26/21 Fibroscan CAP 359, LSM 5.0 kPa 6130C-Af -C-375Th Medgr[facility] Essential hypertension2 Active 018 Condition Outside Source Comment: Overview: repeat BP 122/88; cont to monitor 5C-37 5th [facility] Cervicalgia Active Condition 6130C-Af -C-375Th Med[facility] Diabetes mellitus type 2 Active Condition 6130C-Af -C-375Th Medgrp-S [facility] Diverticulosis Active Condition 0055C-3 7 5th [facility] Hyperlipidemia3 Active Condition Outs [place] Source Comment: renew meds, labs due next month 6130C-Af -C-375Th Medgrp[facility]S [facility] Hyperprolactinemia Active Condition 613 0C-Af -C-375Th Medgr[facility]-S [facility] Narcolepsy Active Condition 6130C-Af -C-375Th Medgr[facility] Vitamin D deficiency, unspecified Active Condition 0055C-37 5th [facility] Chalazion left upper eyelid Active Condition DoD Abdominal tenderness, unspecified site Active Condition DoD Other disturbances of skin sensation Active Condition DoD Other biomechanical lesions of sacral region Active Condition DoD Other biomechanical lesions of thoracic region Active Condition DoD Other biomechanical lesions of lumbar region Active Condition DoD TENSION-TYPE HEADACHE Inactive Condition DoD NORMAL ROUTINE HISTORY AND PHYSICAL ADULT (18-65) Inactive Condition DoD ACNE CYSTIC Inactive Condition DoD CHALAZION LEFT EYE Inactive Condition Do D HERPES SIMPLEX TYPE I Inactive Condition DoD Outpatient Physician Consultation Active Condition DoD PATELLAR CHONDROMALACIA Active Condition DoD joint pain, localized in the knee Active Condition DoD VAGINITIS Inactive Condition DoD X-Ray Chest Lungs Multiple Pulmonary Nodules Active Condition DoD cough Inactive Condition DoD irregular length of menstrual periods Active Condition DoD EUSTACHIAN TUBE DYSFUNCTION Active Condition DoD FINGER SPRAIN LEFT HAND Inactive Condition DoD HEADACHE SYNDROMES Active Condition DoD OTITIS MEDIA ACUTE SEROUS LEFT EAR Inactive Condition DoD earache Inactive Condition DoD ADJUSTMENT DISORDER Active Condition Do D MENOPAUSE SYMPTOMATIC Active Condition DoD CERVICAL NEOPLASM - ENDOCERVIX Active Condition DoD visit for: screening exam diabetes mellitus Inactive Condition DoD SINUS TACHYCARDIA Active Condition DoD HYPERPROLACTINEMIA Active Condition DoD MUSCLE SPASM Inactive Condition DoD Laboratory Studies Inactive Condition Do D abdominal pain in the right upper belly (RUQ) Inactive Condition DoD Alopecia Active Condition DoD visit for: screening exam malignant neoplasm breast Inactive Condition DoD Cervix Sample Taken For Pap Smear Inactive Condition DoD UPPER RESPIRATORY INFECTION Inactive Condition DoD CERUMEN IMPACTION - RIGHT EAR Inactive Condition DoD FINGER SPRAIN Inactive Condition DoD NARCOLEPSY Active Condition DoD IRRITABLE BOWEL SYNDROME Inactive Condition lower abd pain, characteristic relief with BM suggestive of spasm, will try Levsin and see if that works. Offered C-scope screening. Pt declines at this pt. Fam hx not first degree relative will not push unless symptoms not relieved or more characteristic bloody stool, change in bowel habits occur DoD Snoring Inactive Condition see above (ordered in [place] due to ALHTA issues) DoD UTERINE NEOPLASM, BENIGN - LEIOMYOMA Inactive Condition minimal c hange from 10/18 DoD lightheadedness Inactive Condition 2 ep isodes, brief in nature, several days ago--labs reassuring. Discussed with patient options from here. Ensuring she is getting enough fluids, eating and sleeping well is always beneficial. This may have been a viral illness that has passed. Certainly her disposion to hypoglycemia may have contributed. And then other more concerning reasons for lightheadedness cannot be discounted but without other associated are less likely. Suggestions as to next approach were reivewed. Pt agreed to keep a log of symptoms. If they are recuring she is to note eating patterns, time of day, and any associated symptoms. Any red flag symptoms she will seek care--chest pain, palpitations, SOB, diaphoresis, HUSTON, actual syncope. DoD urinary frequency increased Inactive Condition will screen for infection and sugar, FBS in the intolarnt range. DoD visit for: contraceptive surveillance pill Inactive Condition pt has 3 r f's left DoD pelvic pain Inactive Condition nl US, f ibroid not likely source of pain; discussed possible GI eval for pain, could consider referral to SHAFT HEADMAN MD for poss diag lap if pain persists DoD visit for: screening exam for malignant neoplasm cervix Inactive Condition DoD Gynecologic Services Contraceptive Management Inactive Condition renewed DoD FATIGUE Inactive Condition likely rel ated to freq noctural awakings -- will get sleep study DoD SINUSITIS Inactive Condition Pt with ea rly sinusitis, but with her substantial history of severe sxs and the amount of facial pain/puffiness will give rx for abx to use if she does not improve in the next couple of days. Asked her to try symptomatic treatment first to see if she improves. Counseled on importance of using the whole course of abx when she does take it. DoD visit for: issue repeat prescription Inactive Condition A-Pt wit h BCP needP-Refilled until next pap due DoD PALPITATIONS Inactive Condition event m onitor reviewed in chart review--normal, no murmur on exam . Pt quite concerned and has hx of ?abnl valve--will send to cards and see if they wish to do echo to better clarify symptoms. Possible MVP DoD METRORRHAGIA Inactive Condition DoD CARPAL TUNNEL SYNDROME Active Condition DoD Occupational Therapy Inactive Condition Good progress -- goals are ongoing. DoD HYPERLIPIDEMIA Active Condition renew meds, labs due next month DoD Blood Pressure Isolated Elevated Active Condition DoD feared medical condition not demonstrated Inactive Condition DoD abdominal pain above the pubic area (suprapubic) Inactive Condition I am uncertain as to the source of this discomfort, but I do not feel that it is likely something serious. I recommended to the patient that she do a pain diary and bring this back for my review. DoD ANEMIA Active Condition hx of anem ia with the DUB, will see if controlling the DUB and resolved the anemia DoD joint pain fingers Inactive Condition e rosiooloy unclear, will do OT testing and get reading on formal strength. May need EMG. 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 I reviewed with her the Neurology note and my understanding from that. Offfered to her a second opinion referral if she desired. However at this time she declined stating if symptoms persist she would (the lightheadedness). DoD MENOMETRORRHAGIA Inactive Condition DoD PICA Inactive Condition Will check CBC. DoD visit for: administrative purpose Inactive Condition discussed offic e vs OR scope, Dr bojorquez only does in OR; Dr Mcneal would do in either place, pt desires to make appt with Dr Mcneal to discuss 2 different options in detail DoD MENORRHAGIA Inactive Condition abn US; pt states had difficulty with in office EMB, unsure would tolerate in office hysteroscopy. Will discuss with SHAFT HEADMAN MD on Tuesday and determine plan for in office scope or scheduled in OR. 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 she said she will. if still having symptoms, consider adding singulair. if still not improving, referr DoD EPIDERMAL INCLUSION CYST Inactive Condition lesion is probably EIC and I explained that this is benign, nonmalignant but if annoying to patient could remove. she would like upholstery cutter to look at it and remove and do full skin exam. referral entered. [facility] Preventive Medicine Estab Patient Checkup Adult 40-64 Inactive Condition ordered mammogram. pt will have well woman and breast exam at [facility] ob dept. DoD Medications Combined list of outpatient medications from Department of Defense and Veterans Affairs facilities.Medications provided include 1) outpatient medications from the last 15 months, and 2) patient-reported medications. Medication Details Route Status Patient Instructions Prescription Expires Prescription Number Last Dispense Date Ordering Provider Order Date Order Qty Source azelaic acid 15% topical gel 1 appl(s), Topical, BID, # 30 g, 0 total refill(s ), Rudolph gonzalez, Pharmacy : [facility] Topica l (on the skin) Ordered 4 2023 30.0 6130C-A f-C-375 Th Medgrp Dominik azelaic acid 15% topical gel 0 Refill(s ), 0 total refill(s ), Soft Stop Discont inued 11/06/20242024 6130C-A f-C-375 Th Medgrp- Dominik azelaic acid 15% topical gel APPLY TO AFFECTED AREAS OF FACE TWICE A DAY NEEDED FOR ROSACEA FLARE DIRECTED , # 50 g, 6 total refill(s ), Acute Complet ed 08/31/2023 3 2023 50.0 Ambulat ory Pharmac y calcium (as carbonate) 600 mg oral tablet 0 Refill(s ), 0 total refill(s ), Soft Stop [facility] cholecalcif alan 125 mcg (5,000 units) capsule See Instruct ions, # 36 EA, 3 total refill(s ), Acute Complet ed 08/31/2023 3 2023 36.0 Ambulat ory Pharmac y cholecalcif alan 125 mcg (5000 intl units) oral capsule 0 Refill(s ), once daily Takes 3x per week, 0 total refill(s ), Soft Stop Discont inued 09/19/20232023 0055C-3 75th MED[facility]- Dominik conjugated estrogens 0.625 mg/g vaginal cream with applicator PLACE 1GM VAGINALL Y TWO TIMES PER WEEK; APPLY SMALL AMOUNT TO POST INTROITU S DAILY, # 30 g, 3 total refill(s ), Acute Complet ed 08/31/2023 3 2023 30.0 Ambulat ory Pharmac y desonide 0.05% ointment [15g] See Instruct ions, Topical, # 30 g, 1 total refill(s ), Hard Stop Topica l (on the skin) Complet ed 10/09/2024 4 2024 30.0 Ambulat ory Pharmac y desonide 0.05% topical ointment See Instruct ions, PRN dry skin, Topical TID, # 60 g, 1 total refill(s ), Maintena nce, Pharmacy : [facility] Ordered 5 2024 60.0 0055C-3 [facility] esomeprazol e 40 mg oral delayed release capsule 90 cap(s), 0 total refill(s ), Soft Stop Discont inued 03/08/20232022 6130C-A f-C-375 Th Medgrp- Dominik esomeprazol e DR 40 mg capsule See Instruct ions, # 30 EA, 5 total refill(s ), Hard Stop Complet ed 09/19/2023 3 2023 30.0 Ambulat ory Pharmac y famotidine 20 mg oral tablet 1 tab(s), Oral, Daily, # 90 tab(s), 3 total refill(s ), Maintena nce, Pt takes Famotidi ne 40mg in AM and 20mg in PM, Pharmacy : [facility] Oral (given by mouth) Ordered 5 2024 90.0 6130C-A f-C-375 Th Medgrp- Dominik famotidine 20 mg oral tablet 90 tab(s), 0 Refill(s ), 0 total refill(s ), Soft Stop Discont inued 09/19/20232023 0055C-3 75th [facility]- Dominik famotidine 20 mg tablet See Instruct ions, # 90 EA, 2 total refill(s ), Acute Complet ed 07/06/2023 3 2022 90.0 Ambulat ory Pharmac y famotidine 40 mg oral tablet 90 tab(s), 0 Refill(s ), 0 total refill(s ), Soft Stop Discont inued 09/13/20232023 0055C-3 75th [facility]- Dominik famotidine 40 mg tablet = 1 tab(s), Oral, every day at bedtime, # 90 EA, 0 total refill(s ), Soft Stop Oral (given by mouth) Ordered 5 2024 90.0 Ambulat ory Pharmac y fenofibrate 160 mg oral tablet 1 tab(s), Oral, Daily, # 90 tab(s), 3 total refill(s ), [facility], Pharmacy : [facility] Oral (given by mouth) Ordered 2024 90.0 6130C-A f-C-375 Th Medgrp- Dominik fenofibrate 160 mg oral tablet 90 tab(s), 0 total refill(s ), Soft Stop Discont inued 09/13/20232023 6130C-A f-C-375 Th Medgrp- Dominik fenofibrate 160 mg oral tablet 1 tab(s), Oral, Daily, # 90 tab(s), 3 total refill(s ), [facility], Pharmacy : [facility] Oral (given by mouth) Ordered 09/13/2024 5 2023 90.0 6130C-A f-C-375 Th Medgrp- Dominik fenofibrate 160 mg tablet See Instruct ions, # 90 EA, 1 total refill(s ), Acute Discont inued 09/19/2023 3 2023 90.0 Ambulat ory Pharmac y fenofibrate 54 mg oral tablet 90 tab(s), 0 total refill(s ), Soft Stop Discont inued 09/13/20232023 6130C-A f-C-375 Th Medgrp- Dominik fenofibrate 54 mg oral tablet 1 tab(s), Oral, Daily, # 90 tab(s), 3 total refill(s ), [facility], Pharmacy : [facility] Oral (given by mouth) Ordered 5 2024 90.0 6130C-A f-C-375 Th Medgrp- Dominik Finacea 15% topical gel 50 g, 0 total refill(s ), Soft Stop Complet ed 09/19/20232023 6130C-A f-C-375 Th Medgrp- Dominik Freestyle Lite Monitor See Instruct ions, Use to check blood glucose every morning and evening, # 1 EA, 0 total refill(s ), Maintena nce, Supply, [facility] Ordered 4 2023 1.0 6130C-A f-C-375 Th Medgrp- Dominik glucose test strip (freestyle lite) 1 strip(s) , N/A, AC and bedtime, # 200 EA, 0 total refill(s ), Maintena nce, Supply, Pharmacy : [facility] Not Applic able Ordered 4 2023 200.0 6130C-A f-C-375 Th Medgrp- Dominik GoLYTELY 3350 with electrolyte powder (4000mL) See Instruct ions, # 4000 mL, 0 total refill(s ), Hard Stop Discont inued 11/06/2024 4 2024 4000.0 Ambulat ory Pharmac y isopropyl alcohol 70% topical pad 1 EA, N/A, As Directed , # 200 EA, 3 total refill(s ), Maintena nce, Supply, Pharmacy : [facility] Not Applic able Ordered 4 2023 200.0 6130C-A f-C-375 Th Medgrp- Dominik ivermectin 1% topical cream 0 Refill(s ), 0 total refill(s ), Soft Stop Complet ed 09/19/20232023 0055C-3 75th [facility] lancet freestyle 28g See Instruct ions, Use to check blood glucose, # 200 EA, 0 total refill(s ), Maintena nce, Supply, [facility] Ordered 4 2023 200.0 6130C-A f-C-375 Th Medgrp- Dominik Lexapro 10 mg oral tablet 1 tab(s), Oral, Daily, # 30 tab(s), 0 total refill(s ), Maintena nce, Pharmacy : [facility] Oral (given by mouth) Ordered 5 2024 30.0 6130C-A f-C-375 Th Medgrp- Dominik lidocaine 5% topical film 1 patch(es ), Topical, Daily, Leave on for up to 12 hours within a 24 hour period (12 hours on, 12 hours off), # 30 patch(es ), 3 total refill(s ), [facility], Pharmacy : [facility] Topica l (on the skin) Ordered 4 2023 30.0 6130C-A f-C-375 Th Medgrp- Dominik lidocaine 5% topical film 0 Refill(s ), as needed, 0 total refill(s ), Soft Stop Complet ed 09/19/20232023 0055C-3 75th [facility] lidocaine 5% topical film 0 Refill(s ), 0 total refill(s ), Soft Stop Discont inued 11/09/20232023 6130C-A f-C-375 Th Medgrp- Dominik lidocaine 5% topical film 1 patch(es ), Topical, Daily, remove patches after 12 hours, X 30 days, # 30 patch(es ), 3 total refill(s ), Acute, Pharmacy : [facility] Topica l (on the skin) Complet ed 03/08/2024 4 2023 30.0 6130C-A f-C-375 Th Medgrp- Dominik lisinopril 5 mg oral tablet 1 tab(s), Oral, Daily, for blood pressure , # 90 tab(s), 3 total refill(s ), [facility], Pharmacy : [facility] Oral (given by mouth) Discont inued 09/17/2024 4 2024 90.0 6130C-A f-C-375 Th Medgrp- Dominik lisinopril 5 mg oral tablet 90 tab(s), 0 total refill(s ), Soft Stop Discont inued 09/13/20232023 6130C-A f-C-375 Th Medgrp- Dominik lisinopril 5 mg oral tablet 1 tab(s), Oral, Daily, # 90 tab(s), 3 total refill(s ), [facility], Pharmacy : [facility] Oral (given by mouth) Ordered 5 2024 90.0 6130C-A f-C-375 Th Medgrp- Dominik lisinopril 5 mg tablet See Instruct ions, # 90 EA, 2 total refill(s ), Acute Complet ed 07/06/2023 3 2022 90.0 Ambulat ory Pharmac y loperamide 2 mg capsule See Instruct ions, # 30 EA, 0 total refill(s ), Hard Stop Complet ed 08/08/2024 4 2023 30.0 Ambulat ory Pharmac y MetFORMIN (Eqv-Fortam et) 500 mg oral tablet, extended release 1 tab(s), Oral, Daily, # 90 tab(s), 0 total refill(s ), [facility], Pharmacy : [facility] Oral (given by mouth) Discont inued 09/12/2024 4 2024 90.0 6130C-A f-C-375 Th Medgrp- Dominik MetFORMIN (Eqv-Fortam et) 500 mg oral tablet, extended release 1 tab(s), Oral, Daily, # 90 tab(s), 3 total refill(s ), [facility], Pharmacy : [facility] Oral (given by mouth) Ordered 5 2024 90.0 6130C-A f-C-375 Th Medgrp- Dominik mupirocin 2% topical cream See Instruct ions, PRN rash, apply a thin film to rash by right eye as needed, # 30 g, 1 total refill(s ), [facility], Pharmacy : [facility] Ordered 4 2023 30.0 0055C-3 75th [facility]- [facility] mupirocin 2% topical cream 0 Refill(s ), 0 total refill(s ), Soft Stop Discont inued 11/07/20232023 6130C-A f-C-375 Th Medgrp- Dominik mupirocin 2% topical ointment 22 g, 0 total refill(s ), Soft Stop Complet ed 09/19/20232023 6130C-A f-C-375 Th Medgrp- Dominik ondansetron 4 mg tablet See Instruct ions, # 30 EA, 0 total refill(s ), Hard Stop Discont inued 11/06/2024 4 2024 30.0 Ambulat ory Pharmac y Opzelura 1.5% topical cream Apply external ly, 0 Refill(s ), by Apply external ly route once daily, 0 total refill(s ), Soft Stop Complet ed 09/19/20232023 0055C-3 75th [facility] Pepcid 20 mg oral tablet 1 tab(s), Oral, BID, # 180 tab(s), 3 total refill(s ), [facility], Pharmacy : [facility] Oral (given by mouth) Discont inued 03/28/2024 4 2023 180.0 6130C-A f-C-375 Th Medgrp- Dominik Pepcid 40 mg oral tablet 1 tab(s), Oral, every day at bedtime, # 90 tab(s), 2 total refill(s ), [facility], Pharmacy : [facility] Oral (given by mouth) Discont inued 10/31/2024 5 2024 90.0 6130C-A f-C-375 Th Medgrp- Dominik Pepcid 40 mg oral tablet 1 tab(s), Oral, every day at bedtime, # 90 tab(s), 3 total refill(s ), [facility], Pharmacy : [facility] Oral (given by mouth) Discont inued 03/28/2024 4 2023 90.0 6130C-A f-C-375 Th Medgrp- Dominik pimecrolimu s 1% topical cream 30 g, 0 Refill(s ), APPLY TOPICALL Y TO THE AFFECTED AREA EVERY NIGHT AT BEDTIME FOR 14 DAYS APPLY TO EYE EVERY NIGHT AT BEDTIME FOR 14 DAYS, 0 total refill(s ), Soft Stop Ordered 02/23/ 2024 6130C-A f-C-375 Th Medgrp- Dominik polyethylen e glycol 3350 with electrolyte s oral powder for reconstitut ion 0 Refill(s ), Drink 1/2 of prep at 5pm the night before test. Finish the prep at 4am the day of test., 0 total refill(s ), Soft Stop Discont inued 11/07/20232023 6130C-A f-C-375 Th Medgrp- Dominik Premarin 0.625 mg/g vaginal cream with applicator 30 unknown unit, 0 total refill(s ), Soft Stop Complet ed 09/19/20232023 6130C-A f-C-375 Th Medgrp- Dominik rosuvastati n 20 mg oral tablet 1 tab(s), Oral, Daily, for choleste rol, # 90 tab(s), 3 total refill(s ), Maintena [facility], Pharmacy : [facility] Oral (given by mouth) Ordered 5 2024 90.0 6130C-A f-C-375 Th Medgrp- Dominik rosuvastati n 20 mg oral tablet 90 tab(s), 0 total refill(s ), Soft Stop Discont inued 09/19/20232023 6130C-A f-C-375 Th Medgrp- Dominik rosuvastati n 20 mg oral tablet 1 tab(s), Oral, Daily, 90 tab(s), # 90 tab(s), 3 total refill(s ), [facility], Pharmacy : [facility] Oral (given by mouth) Discont inued 02/07/2025 5 2024 90.0 6130C-A f-C-375 Th Medgrp- Dominik rosuvastati n 20 mg tablet See dose instruct ions in comments , # 90 EA, 2 total refill(s ), Acute Complet ed 07/06/2023 3 2022 90.0 Ambulat ory Pharmac y tretinoin 0.05% cream [45g] See Instruct ions, Topical, # 45 g, 1 total refill(s ), Hard Stop Topica l (on the skin) Complet ed 10/11/2024 4 2024 45.0 Ambulat ory Pharmac y tretinoin 0.05% topical cream APPLY TO FACE AT BEDTIME DIRECTED , # 45 g, 5 total refill(s ), Acute Complet ed 09/19/2023 3 2023 45.0 Ambulat ory Pharmac y tretinoin 0.05% topical cream 0 Refill(s ), 0 total refill(s ), Soft Stop Discont inued 09/13/20232023 0055C-3 75[facility] tretinoin 0.05% topical cream See Instruct ions, Apply to entire face qhs, no sooner than 15min after washing and moisturi zing, # 45 g, 6 total refill(s ), Rudolph [facility], Pharmacy : [facility] Ordered 5 2024 45.0 0055C-3 75[facility]ik triamcinolo ne 0.1% topical ointment 15 g, APPLY TO AFFECTED AREA DAILY NEEDED FOR RASH. DO NOT USE LONGER THAN 1 WEEK, 0 total refill(s ), Soft Stop Discont inued 11/06/20242024 6130C-A f-C-375 Th Medgrp- Dominik triamcinolo ne 0.1% topical ointment See Instruct ions, apply a thin film to affected area on dry patches 2-3x/wk prn, # 60 g, 1 total refill(s ), Rudolph [facility] [place], Pharmacy : [facility] Ordered 5 2024 60.0 0055C-3 [facility]- [place] Vitamin D3 5000 Unknown, ORAL, 1 Refill(s ), 0 total refill(s ), Soft Stop Discont inued 09/13/20232023 6130C-A f-C-375 [facility]- [place] Vitamin D3 125 mcg (5000 intl units) oral capsule 36 cap(s), 0 total refill(s ), Soft Stop Discont inued 09/13/20232023 6130C-A f-C-375 [facility]- [place] Vitamin D3 125 mcg (5000 intl units) oral capsule 1 cap(s), Oral, Daily, with food, # 90 cap(s), 3 total refill(s ), Maintena yimie, Pharmacy : [facility] Oral (given by mouth) Discont inued 11/07/20232023 90.0 0055C-3 [facility]- [place] Vitamin D3 125 mcg (5000 intl units) oral tablet 1 tab(s), Oral, Daily, # 90 tab(s), 3 total refill(s ), Maintena nce, original order by Mrs. Rodriguez, Pharmacy : [facility] Oral (given by mouth) Ordered 5 2024 90.0 0055C-3 [facility]- [place] Vitamin D3 125 mcg (5000 intl units) oral tablet 1 tab(s), Oral, Daily, # 90 tab(s), 3 total refill(s ), Maintena nce, original order by Mrs. Rodriguez, Pharmacy : [facility] Oral (given by mouth) Discont inued 11/06/2024 5 2024 90.0 0055C-3 [facility] [place] Voltaren 1% topical gel See instruct ions, Apply small amount to affected area topicall y four times daily as needed for pain. Max total body dose of 32 grams per day, # 100 g, 0 total refill(s ), Maintena yimie, Pharmacy : [facility] Discont inued 09/13/2023 3 2023 100.0 6130C-A f-C-375 Th [facility] Dominik Allergies, Adverse Reactions, Alerts Combined list of allergies from Department of Defense and Veterans Affairs facilities. It does not include entries that were removed or entered in error. Substance Category Reaction Severity Reaction type Status Date Reported Comments Source atorvastatin Propensity to adverse reactions to drug Myalgias Mild Active 1 6130C-A f-C-375 Th [facility]- Dominik LIPITOR Drug allergy (disorder) active 1 DoD Immunizations Combined list of available immunizations from the Department of Defense and Veterans Affairs facilities. 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 complet ed COVID-19 vaccine(N ovavax 12y+) 09/09/23 Given 0055C-3 [facility] COVID Vaccine Moderna 2021 zzLef t Arm complet ed COVID Vaccine Moderna 04/09/22 Given Ambulat ory Pharmac y COVID Vaccine Moderna 2021 complet ed COVID Vaccine Moderna 04/09/22 Given Ambulat ory Pharmac y SARS-COV-2 (COVID-19) vaccine, mRNA, spike protein, LNP, preservative free, 100 mcg or 50 mcg dose 1 2021 Unknown, Provider Moderna [employer] (MOD) complet ed SARS-COV- 2 (COVID-19 ) vaccine, mRNA, spike protein, LNP, preservat stone free, 100 mcg or 50 mcg dose DoD tetanus-dipht h toxoids (Td) adult/adol 2021 zzRig ht Arm [id number] 09 sanofi pasteur complet ed tetanus-d iphth toxoids (Td) adult/ado l 12/04/21 Given Ambulat ory Pharmac y influenza, injectable, quadrivalent- pf 2021 zzRig ht Arm [id number] 150 GlaxoSmithKli ne complet ed influenza , injectabl e, quadrival ent-pf 12/04/21 Given Ambulat ory Pharmac y influenza, injectable, quadrivalent- pf 2021 [id number] 150 GlaxoSmithKli ne complet ed influenza , injectabl e, quadrival ent-pf 12/04/21 Given Ambulat ory Pharmac y tetanus-dipht h toxoids (Td) adult/adol 2021 [id number] 09 sanofi pasteur complet ed tetanus-d iphth toxoids (Td) adult/ado l 12/04/21 Given Ambulat ory Pharmac y influenza virus vaccine, unspecified 2021 CAPTCHRISTOPH ERRWEISGARBER [id number] 88 complet ed influenza virus vaccine, unspecifi ed 12/04/21 Recorded 6130C-A f-C-375 [facility] tetanus and diphtheria toxoids, adsorbed, preservative free, for adult use (2 Lf of tetanus toxoid and 2 Lf of diphtheria toxoid) 1 2021 Unknown, Provider [id number] 09 Sanofi Pasteur ([facility]) complet ed tetanus and diphtheri a toxoids, adsorbed, preservat stone free, for adult use (2 Lf of tetanus toxoid and 2 Lf of diphtheri a toxoid) DoD Influenza, injectable, quadrivalent, preservative free 1 2021 Unknown, Provider [id number] [address] [place] [address] (SKB) complet ed Influenza , injectabl e, quadrival ent, preservat stone free DoD SARS-CoV-2 (COVID-19) Ad26 vaccine, rec 2020 212 complet ed SARS-CoV- 2 (COVID-19 ) Ad26 vaccine, rec 06/26/21 Given Ambulat ory Pharmac y COVID-19 vaccine, vector-nr, rS-Ad26, PF, 0.5 mL 2020 ALUL, () Not Given COVID-19 vaccine, vector-nr , rS-Ad26, PF, 0.5 mL DoD SARS-CoV-2 (COVID-19) Ad26 vaccine, rec 2020 TRANSCR IBED 212 complet ed SARS-CoV- 2 (COVID-19 ) Ad26 vaccine, rec 10/20/20 Given Ambulat ory Pharmac y SARS-CoV-2 (COVID-19) Ad26 vaccine, rec 2020 TRANSCR IBED 212 complet ed SARS-CoV- 2 (COVID-19 ) Ad26 vaccine, rec 10/20/20 Given Ambulat ory Pharmac y SARS-COV-2 (COVID-19) vaccine, vector non-replicati ng, recombinant spike protein-Ad26, preservative free, 0.5 mL 1 2020 Unknown, Provider 212 Marva (ADÁN) complet ed SARS-COV- 2 (COVID-19 ) vaccine, vector non-repli cating, recombina nt spike protein-A d26, preservat stone free, 0.5 mL DoD influenza, injectable, quadrivalent- pf [facility] [id number] 150 Se[employer]irus complet ed influenza , injectabl e, quadrival ent-pf 08/13/20 Given Ambulat ory Pharmac y influenza, injectable, quadrivalent- pf 2019 [id number] 868 150 Se[employer] complet ed influenza , injectabl e, quadrival ent-pf 08/13/20 Given Ambulat ory Pharmac y influenza virus vaccine, unspecified 2019 GILSON MERCADOBER [id number] 88 complet ed influenza virus vaccine, unspecifi ed 08/13/20 Recorded 6130C-A f-C-375 Th [facility] Influenza, injectable, quadrivalent, preservative free 1 2019 Unknown, Provider [id number] 868 150 Seqirus (SEQ) complet ed Influenza , injectabl e, quadrival ent, preservat stone free DoD influenza, injectable, quadrivalent- pf [id number] GlaxoSmithKli ne complet ed influenza , injectabl e, quadrival ent-pf 06/05/15 Given Ambulat ory Pharmac y influenza, injectable, quadrivalent- pf 2014 [id number] 150 GlaxoSmithKli ne complet ed influenza , injectabl e, quadrival ent-pf 06/05/15 Given Ambulat ory Pharmac y influenza virus vaccine, unspecified 2014 RENERISTOPH PAVITHRAGARBER [id number] 88 complet ed influenza virus vaccine, unspecifi ed 06/05/15 Recorded 6130C-A f-C-375 Th [facility] Influenza, injectable, quadrivalent, preservative free 1 2014 Unknown, Provider [id number] 150 [employer] (SKB) complet ed Influenza , injectabl e, quadrival ent, preservat stone free DoD influenza, seasonal, injectable-pf 2013 zzRig Arm [id number] 140 Novartis Pharmaceut[employer] ls complet ed influenza , seasonal, injectabl e-pf 05/31/14 Given Ambulat ory Pharmac y influenza, seasonal, injectable-pf 2013 [id number] 140 Novartis Pharmaceutica ls complet ed influenza , seasonal, injectabl e-pf 05/31/14 Given Ambulat ory Pharmac y influenza virus vaccine, unspecified 2013 GILSON ALVARENGA [id number] 88 complet ed influenza virus vaccine, unspecifi ed 05/31/14 Recorded 6130C-A f-C-375 [facility] [place] Influenza, seasonal, injectable, preservative free 1 2013 Unknown, Provider [id number] 140 [employer]. (NOV) complet ed Influenza , seasonal, injectabl e, preservat stone free DoD influenza, seasonal, injectable-pf 2012 zzLef t Arm [id number] 140 sanofi pasteur complet ed influenza , seasonal, injectabl e-pf 06/01/13 Given Ambulat ory Pharmac y influenza, seasonal, injectable-pf 2012 [id number] 140 sanofi pasteur complet ed influenza , seasonal, injectabl e-pf 06/01/13 Given Ambulat ory Pharmac y influenza virus vaccine, unspecified 2012 GILSON ALVARENGA [id number] 88 complet ed influenza virus vaccine, unspecifi ed 06/01/13 Recorded 6130C-A f-C-375 [facility] [place] Influenza, seasonal, injectable, preservative free 3 2012 Unknown, Provider [id number] 140 Sanofi Pasteur ([facility]) complet ed Influenza , seasonal, injectabl e, preservat stone free DoD influenza, seasonal, injectable-pf 2012 zzLef t Arm [id number] 140 sanofi pasteur complet ed influenza , seasonal, injectabl e-pf 08/28/12 Given Ambulat ory Pharmac y influenza virus vaccine, unspecified 2012 GILSON ALVARENGA [id number] 88 complet ed influenza virus vaccine, unspecifi ed 08/28/12 Recorded 6130C-A f-C-375 [facility] [place] Influenza, seasonal, injectable, preservative free 2 2012 Unknown, Provider [id number] 140 Sanofi Pasteur ([facility]) complet ed Influenza , seasonal, injectabl e, preservat stone free DoD tetanus, diphtheria, acellular pertu is 2010 zEdis t Arm [id number] 115 [facility] complet ed tetanus, diphtheri a, acellular pertussis 08/13/11 Given Ambulat ory Pharmac y tetanus, diphtheria, acellular pertu is 2010 [id number] 115 [facility] complet ed tetanus, diphtheri a, acellular pertussis 08/13/11 Given Ambulat ory Pharmac y tetanus toxoid, reduced diphtheria toxoid, and acellular pertu is vaccine, adsorbed 1 2010 Unknown, Provider [id number] 115 [facility] (SKB) complet ed tetanus toxoid, reduced diphtheri a toxoid, and acellular pertussis vaccine, adsorbed DoD tetanus-dipht h toxoids (Td) adult/adol 2003 zzLef t Arm [id number] 09 sanofi pasteur complet ed tetanus-d iphth toxoids (Td) adult/ado l 10/30/03 Given Ambulat ory Pharmac y tetanus and diphtheria toxoids, adsorbed, preservative free, for adult use (2 Lf of tetanus toxoid and 2 Lf of diphtheria toxoid) 1 2003 Unknown, Provider [id number] 09 Sanofi Pasteur ([facility]) complet ed tetanus and diphtheri a toxoids, adsorbed, preservat stone free, for adult use (2 Lf of tetanus toxoid and 2 Lf of diphtheri a toxoid) DoD influenza virus vaccine, whole virus 2002 zzLef t Arm [id number] 16 sanofi pasteur complet ed influenza virus vaccine, whole virus 07/25/03 Given Ambulat ory Pharmac y influenza virus vaccine, whole virus 2002 [id number] 16 sanofi pasteur complet ed influenza virus vaccine, whole virus 07/25/03 Given Ambulat ory Pharmac y influenza virus vaccine, unspecified 2002 CAPTCHRISTOPH ERRWEISGARBER [id number] 88 complet ed influenza virus vaccine, unspecifi ed 07/25/03 Recorded 6130C-A f-C-375 [facility] influenza virus vaccine, whole virus 1 2002 Unknown, Provider [id number] 16 Sanofi Pasteur ([facility]) complet ed influenza virus vaccine, whole virus DoD tuberculin purified protein derivative 2001 [id number] 96 sanofi pasteur complet ed tuberculi n purified protein derivativ e 02/14/02 Given Ambulat ory Pharmac y hepatitis A adult vaccine 2000 zzLef t Arm [id number] 52 [employer] complet ed hepatitis A adult vaccine 12/21/00 Given Ambulat ory Pharmac y hepatitis B adult vaccine 2000 zzLef t Arm 43 complet ed hepatitis B adult vaccine 12/21/00 Given Ambulat ory Pharmac y hepatitis A adult vaccine 2000 [id number] 52 [employer]ck & [employer] Inc complet ed hepatitis A adult vaccine 12/21/00 Given Ambulat ory Pharmac y hepatitis B adult vaccine 2000 43 complet ed hepatitis B adult vaccine 12/21/00 Given Ambulat ory Pharmac y HepB, Adult 2000 DARLENERUNN ER 43 complet ed Result Comment: Route: Unknown Manufactu rer: () 0055C-3 [facility]- [place] hepatitis B vaccine, adult dosage 3 2000 Unknown, Provider 43 () complet ed hepatitis B vaccine, adult dosage DoD hepatitis A vaccine, adult dosage 2 2000 Unknown, Provider [id number] 52 Merck (MSD) complet ed hepatitis A vaccine, adult dosage DoD tuberculin purified protein derivative 2000 [id number] 96 [employer] complet ed Patient Tolerance : Negative Ambulat ory Pharmac y tuberculin skin test; purified protein derivative solution, intradermal 1 2000 Unknown, Provider [id number] 96 [employer] (CON) complet ed tuberculi n skin test; purified protein derivativ e solution, intraderm al DoD hepatitis B adult vaccine 1998 zzLef t Arm 43 complet ed hepatitis B adult vaccine 05/19/99 Given Ambulat ory Pharmac y hepatitis B adult vaccine 1998 43 complet ed hepatitis B adult vaccine 05/19/99 Given Ambulat ory Pharmac y HepB, Adult [facility] ER 43 complet ed Result Comment: Route: Unknown Manufactu rer: () 0055C-3 [facility]- [place] hepatitis B vaccine, adult dosage 2 1998 Unknown, Provider 43 () complet ed hepatitis B vaccine, adult dosage DoD typhoid vaccine, inactivated 1998 zzLef t Arm 101 complet ed typhoid vaccine, inactivat ed 04/15/99 Given Ambulat ory Pharmac y typhoid vaccine, inactivated 1998 101 complet ed typhoid vaccine, inactivat ed 04/15/99 Given Ambulat ory Pharmac y typhoid vaccine, parenteral, other than acetone-kille d, dried 1 1998 Unknown, Provider 41 () complet ed typhoid vaccine, parentera l, other than acetone-k illed, dried DoD hepatitis B adult vaccine 1998 zzLef t Arm 43 complet ed hepatitis B adult vaccine 04/14/99 Given Ambulat ory Pharmac y hepatitis A adult vaccine 1998 zzLef t Arm 52 complet ed hepatitis A adult vaccine 04/14/99 Given Ambulat ory Pharmac y HepB, Adult 1998 CHRISTO ER 43 complet ed Result Comment: Route: Unknown Manufactu rer: () 0055C-[address] [place] [address] hepatitis B vaccine, adult dosage 1 1998 Unknown, Provider 43 () complet ed hepatitis B vaccine, adult dosage DoD hepatitis A vaccine, adult dosage 1 1998 Unknown, Provider 52 () complet ed hepatitis A vaccine, adult dosage DoD measles/mumps /rubella virus vaccine 1993 zzLef t Arm 03 complet ed measles/m umps/rube lla virus vaccine 06/09/94 Given Ambulat ory Pharmac y tetanus-dipht h toxoids (Td) adult/adol 1993 zzLef t Arm 09 complet ed tetanus-d iphth toxoids (Td) adult/ado l 06/09/94 Given Ambulat ory Pharmac y tetanus-dipht h toxoids (Td) adult/adol 1993 09 complet ed tetanus-d iphth toxoids (Td) adult/ado l 06/09/94 Given Ambulat ory Pharmac y measles/mumps /rubella virus vaccine 1993 03 complet ed measles/m umps/rube lla virus vaccine 06/09/94 Given Ambulat ory Pharmac y measles, mumps and rubella virus vaccine 1 1993 Unknown, Provider 03 () complet ed measles, mumps and rubella virus vaccine DoD tetanus and diphtheria toxoids, adsorbed, preservative free, for adult use (2 Lf of tetanus toxoid and 2 Lf of diphtheria toxoid) 1 1993 Unknown, Provider 09 () complet ed tetanus and diphtheri a toxoids, adsorbed, preservat stone free, for adult use (2 Lf of tetanus toxoid and 2 Lf of diphtheri a toxoid) DoD hepatitis A adult vaccine 1990 zzLef t Arm 52 complet ed hepatitis A adult vaccine 04/14/91 Given Ambulat ory Pharmac y hepatitis A adult vaccine 1990 52 complet ed hepatitis A adult vaccine 04/14/91 Given Ambulat ory Pharmac y hepatitis A vaccine, adult dosage 1 1990 Unknown, Provider 52 () complet ed hepatitis A vaccine, adult dosage DoD Results Combined list of recent chemistry, hematology and other laboratory results from Department of Defense and Veterans Affairs, ranging from 15 months to all on record, depending upon the facility. Order Name Results Value Reference Range Date Interpretation Specimen Comments Source Chemistry eGFR CKD EPI 56 mL/min /1.73_ m2 11/06 Interpretive Data: Estimated Glomerular Filtration Rate (eGFR) calculated using the 2020 Chronic Kidney Disease-Epid emiology (CKD-EPI) Collaboratio n creatinine equation; units of measure are mL/min/1.73 m2. Results are only valid for adults (>=18 years) whose serum creatinine is in steady state. eGFR calculations are not valid for patients with acute kidney injury and for patients on dialysis. Creatinine-b ased estimates of kidney function may also be inaccurate in patients with reduced creatinine generation due to decreased muscle mass (e.g., malnutrition , severe hypoalbumine demetri, sarcopenia, chronic neuromuscula r disease, amputations, severe heart failure or liver disease) and in patients with increased creatinine generation due to increased muscle mass (e.g., muscle builders, anabolic steroids) or increased dietary intake. CKD is diagnosed based on abnormalitie s of kidney structure or function, present for >3 months, with implications for health and disease. CKD is classified and staged based on cause, eGFR and albuminuria (quantified as urine albumin to creatinine ratio). An eGFR >60 mL/min/1.73 m2 in the absence of increased urine albumin excretion or structural abnormalitie s does not CKD. eGFR provides only an estimate of measured GFR within +/- 30% for most patients. As mentioned, nutritional status and muscle mass, among many factors, may lead to inaccuracy in the estimate. Consider ordering the creatinine-c ystatin C panel if better accuracy is needed for clinical decision-miller ing. eGFR (mL/min/1.73 m2) CKD stage Interpretati on Normal 60-89 Mild decrease 45-59 Mild to moderate decrease 30-44 Moderate to severe decrease 15-29 Severe decrease <15 Kidney [address] [place] [address] Chemistry Vitamin D 25 OH 57.2 ng/mL 30.0 - 100.0 11/06 N Interpretive Data: Classificati on of Vitamin D Status: Deficient: <20 ng/mL Insufficient : 20-29 ng/mL Sufficient: 30-100 ng/mL Possible Toxicity: >100 ng/mL This assay is for the quantitative determinatio n of total 25 (OH) vitamin D. It is intended as an aid in the determinatio n of vitamin D sufficiency. Results should always be interpreted in conjunction with the patient's medical history, clinical presentation , and other findings. Testing performed by Electrochemi luminescence . 5600A-U [id number] Chemistry LDL 91 mg/dL 100 - 130 11/06 L Interpretive Data: AGES 0-19: Desirable: < 110 mg/dL Borderline High: 110-129 mg/dL High: >/= 130 mg/dL ADULTS: Desirable: <100 mg/dL Near/above optimal: 100-130 mg/dL Borderline High: 131-159 mg/dL High: 160-189 mg/dL Very High: 190 mg/dL [address] [place] [address] Chemistry LDL/HDL 1 11/[address] [place] [address] Chemistry Triglycerid es 121 mg/dL 7 - 149 11/06 N Interpretive Data: AGES 0-9: Desirable: < 75 mg/dL Borderline High: 75-99 mg/dL High: >/= 100 mg/dL AGES 10-19: Desirable: < 90 mg/dL Borderline High: 90-129 mg/dL High: >/= 130 mg/dL ADULTS: Desirable: < 150 mg/dL Borderline High: 150-199 mg/dL High: >/= 240 mg/dL Very High: >/= 500 mg/dL [address] [place] [address] Chemistry Chol/HDL 2 mg/dL 11/[address] [place] [address] Chemistry HDL Cholesterol 92 mg/dL 40 - 59 11/06 H Interpretive Data: HDL (HIGH DENSITY LIPOPROTEIN) : ADULTS: Low: < 40 mg/dL High: >/= 60 mg/dL AGES 0 -19: Low: < 40 mg/dL Borderline Low: 40 - 45 mg/dL Acceptable: > 45 mg/dL [address] [place] [address] Chemistry Cholesterol Total 205 mg/dL 11/06 H Interpretive Data: According to the [place] [employer]: AGES 0-19: Desirable: < 170 mg/dL Borderline High: 170-199 mg/dL High Blood Cholesterol: >/= 200 mg/dL ADULTS: Desirable < 200 mg/dL Borderline High: 200-239 mg/dL High Blood Cholesterol: >/= 240 mg/dL [address] [place] [address] Chemistry TSH 2.320 mIU/L 0.270 - 4.200 11/06 N Interpretive Data: Recommend: TPO/Thyroper oxidase Antibody when TSH result is > 4.2 uIU/mL 5600A-U [facility] Hematology Hematocrit 39 % 34 - 46 11/06 N - [address] [place] [address] Hematology Hemoglobin 12.9 g/dL 11.0 - 15.0 11/06 N [address] [place] [address] Chemistry CO2 26 mmol/L 22 - 29 11/06 N -[address] [place] [address] Chemistry Chloride 107 mmol/L 98 - 107 11/06 N -[address] [place] [address] Chemistry AGAP 8.00 0.00 - 15.00 11/06 N -[address] [place] [address] Chemistry Creatinine Level 1.10 mg/dL 0.57 - 1.11 11/06 N 5A-[address] [place] [address] Chemistry Glucose Lvl 101 mg/dL 74 - 99 11/06 H -[address] [place] [address] Chemistry Albumin 4.40 g/dL 3.50 - 5.20 11/06 N 0055A-[address] [place] [address] Chemistry Alk Phos 81 U/L 40 - 150 11/06 N 005-[address] [place] [address] Chemistry Potassium Lvl 4.2 mmol/L 3.5 - 5.1 11/06 N 0055A-[address] [place] [address] Chemistry AST 18 U/L 5 - 34 11/06 N 0055A-[address] [place] [address] Chemistry ALT 16 U/L 5 - 55 11/06 N 0055A-3 [facility] Chemistry Protein Total 7.7 g/dL 6.4 - 8.3 11/06 N 0055A-[address] [place] [address] Chemistry BUN 23 mg/dL 7 - 20 11/06 H 5A-[address] [place] [address] Chemistry Bilirubin Total 0.3 mg/dL 0.2 - 1.2 11/06 N 5A-3 [facility] Chemistry BUN/Creat Ratio 21 mg/dL 12 - 20 11/06 H 5A-[address] [place] [address] Chemistry Sodium 141 mmol/L 136 - 145 11/06 N -[address] [place] [address] Chemistry Calcium 10.1 mg/dL 8.4 - 10.2 11/06 N - [address] [place] [address] Chemistry Vitamin B12 394 pg/mL 232 - 1245 11/06 N Interpretive Data: Samples should not be taken from patients receiving therapy with high biotin doses (i.e. >5 mg/day) until at least 8 hours following the last biotin administrati on. 0117A-A F-ASU-5 9 [facility] Chemistry Folate Lvl 8.1 ng/mL 4.8 - 24.2 11/06 N Interpretive Data: Samples should not be taken from patients receiving therapy with high biotin doses (i.e. >5 mg/day) until at least 8 hours following the last biotin administrati on. Please note that these values were obtained in the [place] during National Health and Nutrition Examination Survey (NHANES), 1999 -2004. it should be taken into consideratio n that differences in the expected values may exist with respect to population and dietary status. 0117A-A F-ASU-5 9th [facility] Chemistry TIBC 385 ug/dL 250 - 400 11/06 N 5600A-U [facility] Chemistry Transferrin Sat 18 % 14 - 50 11/06 N 5600A-U [facility] Chemistry Iron 70 ug/dL 37 - 145 11/06 N Interpretive Data: METHODOLOGY: Testing performed by colorimetric assay. 5600A-U [facility] Chemistry UIBC, 315.0 ug/dL 112.0 - 347.0 11/06 N 5600A-U [facility] Chemistry Ferritin Lvl 328.00 ng/mL 13.00 - 150.00 11/06 H Interpretive Data: METHODOLOGY: Testing performed by electrochemi luminescent immunoassay (ECLIA). 5600A-U [facility] Chemistry Hemoglobin A1c 6.1 % 4.0 - 5.6 11/06 H Interpretive Data: Normal: 4.0 - 5.6% Increased Risk: 5.7 - 6.4% Diabetic Range: 6.5% For patients without diabetes, the normal range for the hemoglobin A1c test is between 4% and 5.6%. Hemoglobin A1c levels between 5.7% and 6.4% indicate increased risk of diabetes, and levels of 6.5% or higher indicate diabetes. Because studies have repeatedly shown that [id number]-[id number] ol diabetes results in complication s from the disease, the goal for people with diabetes is a hemoglobin A1c less than 7%. The higher the hemoglobin A1c, the higher the risks of developing complication s related to diabetes. If confirmation is needed, consider recalling the patient and ordering Hemoglobin Electrophore sis. - [address] [place] [address] Chemistry eAvg Glucose 128 mg/dL 11/06-[address] [place] [address]- Dominik Chemistry Ur Microalbumi n 7 mg/L 06/04 N Interpretive Data: To minimize intra-indivi dual variation, analysis of three random urine samples collected over the course of a week has also been recommended. -[address] [place] [address]- [place] Chemistry Ur Creat 79 mg/dL 06/04-[address] [place] [address]- [place] Chemistry Ur Microalb/Ur Creat Ratio 9 mg/gCr 06/04 N -[address] [place] [address]- [place] Chemistry Ur Microalbumi n 13 mg/L 11/10 N Interpretive Data: To minimize intra-indivi dual variation, analysis of three random urine samples collected over the course of a week has also been recommended. -[address] [place] [address]- [place] Chemistry ALT 22 U/L 5 - 55 11/10 N -[address] [place] [address] Chemistry Alk Phos 83 U/L 40 - 150 11/10 N 0055A-[address] [place] [address] Chemistry Albumin 4.20 g/dL 3.50 - 5.20 11/10 N 0055A-[address] [place] [address] Chemistry Sodium 143 mmol/L 136 - 145 11/10 N 0055A-[address] [place] [address] Chemistry Potassium Lvl 3.8 mmol/L 3.5 - 5.1 11/10 N 0055A-[address] [place] [address] Chemistry AGAP 10.00 0.00 - 15.00 11/10 N 0055A-[address] [place] [address] Chemistry Glucose Lvl 122 mg/dL 74 - 99 11/10 H 5A-[address] [place] [address] Chemistry Creatinine Level 0.90 mg/dL 0.57 - 1.11 11/10 N 0055A-[address] [place] [address] Chemistry Protein Total 7.2 g/dL 6.4 - 8.3 11/10 N 0055A-[address] [place] [address] Chemistry CO2 25 mmol/L - 11/10 N 0055A-[address] [place] [address] Chemistry Chloride 108 mmol/L 98 - 107 11/10 H 5A-[address] [place] [address] Chemistry Calcium 9.8 mg/dL 8.4 - 10.2 11/10 N 0055A-[address] [place] [address] Chemistry BUN 17 mg/dL 7 - 20 11/10 N 0055A-[address] [place] [address] Chemistry Bilirubin Total 0.4 mg/dL 0.2 - 1.2 11/10 N 0055A-[address] [place] [address] Chemistry AST 23 U/L 5 - 34 11/10 N 0055A-[address] [place] [address] Chemistry BUN/Creat Ratio 19 mg/dL 12 - 20 11/10 N 0055A-[address] [place] [address] Chemistry TSH 1.760 mIU/L 0.270 - 4.200 11/10 N Interpretive Data: Recommend: TPO/Thyroper oxidase Antibody when TSH result is > 4.2 uIU/mL 5600A-U [facility] Chemistry Chol/HDL 2 mg/dL 11/10 0055A-[address] [place] [address] Chemistry Cholesterol Total 126 mg/dL 11/10 N Interpretive Data: According to the [place] [employer]: AGES 0-19: Desirable: < 170 mg/dL Borderline High: 170-199 mg/dL High Blood Cholesterol: >/= 200 mg/dL ADULTS: Desirable < 200 mg/dL Borderline High: 200-239 mg/dL High Blood Cholesterol: >/= 240 mg/dL [address] [place] [address] Chemistry LDL 49 mg/dL 100 - 130 11/10 L Interpretive Data: AGES 0-19: Desirable: < 110 mg/dL Borderline High: 110-129 mg/dL High: >/= 130 mg/dL ADULTS: Desirable: <100 mg/dL Near/above optimal: 100-130 mg/dL Borderline High: 131-159 mg/dL High: 160-189 mg/dL Very High: 190 mg/dL [address] [place] [address] Domin[facility] Chemistry HDL Cholesterol 68 mg/dL 40 - 59 11/10 H Interpretive Data: HDL (HIGH DENSITY LIPOPROTEIN) : ADULTS: Low: < 40 mg/dL High: >/= 60 mg/dL AGES 0 -19: Low: < 40 mg/dL Borderline Low: 40 - 45 mg/dL Acceptable: > 45 mg/dL [address] [place] [address] Dominik Chemistry Triglycerid es 81 mg/dL 7 - 149 11/10 N Interpretive Data: AGES 0-9: Desirable: < 75 mg/dL Borderline High: 75-99 mg/dL High: >/= 100 mg/dL AGES 10-19: Desirable: < 90 mg/dL Borderline High: 90-129 mg/dL High: >/= 130 mg/dL ADULTS: Desirable: < 150 mg/dL Borderline High: 150-199 mg/dL High: >/= 240 mg/dL Very High: >/= 500 mg/dL [address] [place] [address] Dominik Chemistry LDL/HDL 1 11/[address] [place] [address] Dominik Chemistry Hemoglobin A1c 6.9 % 4.0 - 5.6 11/10 H Interpretive Data: Normal: 4.0 - 5.6% Increased Risk: 5.7 - 6.4% Diabetic Range: 6.5% For patients without diabetes, the normal range for the hemoglobin A1c test is between 4% and 5.6%. Hemoglobin A1c levels between 5.7% and 6.4% indicate increased risk of diabetes, and levels of 6.5% or higher indicate diabetes. Because studies have repeatedly shown that rcg-rg-ecipq ol diabetes results in complication s from the disease, the goal for people with diabetes is a hemoglobin A1c less than 7%. The higher the hemoglobin A1c, the higher the risks of developing complication s related to diabetes. If confirmation is needed, consider recalling the patient and ordering Hemoglobin Electrophore sis. 0055A-3 [facility] Chemistry eAvg Glucose 151 mg/dL 11/10 0055A-3 [facility] Chemistry TSH 1.760 mIU/L 0.270 - 4.200 11/10 N Interpretive Data: Recommend: TPO/Thyroper oxidase Antibody when TSH result is > 4.2 uIU/mL 5600A-U [employer] Chemistry Vitamin D 25 OH 22.4 ng/mL 30.0 - 100.0 11/10 L Interpretive Data: Classificati on of Vitamin D Status: Deficient: <20 ng/mL Insufficient : 20-29 ng/mL Sufficient: 30-100 ng/mL Possible Toxicity: >100 ng/mL This assay is for the quantitative determinatio n of total 25 (OH) vitamin D. It is intended as an aid in the determinatio n of vitamin D sufficiency. Results should always be interpreted in conjunction with the patient's medical history, clinical presentation , and other findings. Testing performed by [employer] . 5600A-U [facility] Chemistry eGFR CKD EPI 72 mL/min /1.73_ m2 11/10 Interpretive Data: Estimated Glomerular Filtration Rate (eGFR) calculated using the 2020 Chronic Kidney Disease-Epid emiology (CKD-EPI) Collaboratio n creatinine equation; units of measure are mL/min/1.73 m2. Results are only valid for adults (>=18 years) whose serum creatinine is in steady state. eGFR calculations are not valid for patients with acute kidney injury and for patients on dialysis. Creatinine-b ased estimates of kidney function may also be inaccurate in patients with reduced creatinine generation due to decreased muscle mass (e.g., malnutrition , severe hypoalbumine demetri, sarcopenia, chronic neuromuscula r disease, amputations, severe heart failure or liver disease) and in patients with increased creatinine generation due to increased muscle mass (e.g., muscle builders, anabolic steroids) or increased dietary intake. CKD is diagnosed based on abnormalitie s of kidney structure or function, present for >3 months, with implications for health and disease. CKD is classified and staged based on cause, eGFR and albuminuria (quantified as urine albumin to creatinine ratio). An eGFR >60 mL/min/1.73 m2 in the absence of increased urine albumin excretion or structural abnormalitie s does not CKD. eGFR provides only an estimate of measured GFR within +/- 30% for most patients. As mentioned, nutritional status and muscle mass, among many factors, may lead to inaccuracy in the estimate. Consider ordering the creatinine-c ystatin C panel if better accuracy is needed for clinical decision-miller ing. eGFR (mL/min/1.73 m2) CKD stage Interpretati on Normal 60-89 Mild decrease 45-59 Mild to moderate decrease 30-44 Moderate to severe decrease 15-29 Severe decrease <15 Kidney failure 0055A-3 [facility] Vital Signs Combined list of inpatient and outpatient Vital Signs from Department of Defense and Veterans Affairs, ranging from 12 months to all on record, depending upon the facility. Vital Sign Value Date Comments Source Temperature Oral 36.7 Courtney 09/19/2023 21:09:00 0275S-Vy-V-[facility] Peripheral Pulse Rate 77 bpm 05/31/2024 14:08:00 0351I-Ss-E-[facility] Respiratory Rate 14 br/min 05/31/2024 14:08:00 1066D-Nf-B-[facility] Temperature Oral 36.6 Courtney 05/31/2024 14:08:00 8802A-Rr-Y-[facility] BP Site Left arm 05/31/2024 14:08:00 6130C -Af-C-[facility] Blood Pressure Manual Automatic 05/31/2024 14:08:00 2657L-Pe-X-[facility] Systolic Blood Pressure 97 mm[Hg] 05/31/2024 14:08:00 6074V-Fp-R-[facility] Diastolic Blood Pressure 64 mm[Hg] 05/31/2024 14:08:00 1890C-Ar-F-[facility] Mean Arterial Pressure, Calc 75 mm[Hg] 05/31/2024 14:08:00 7244U-Ec-B-3 [facility] Respiratory Rate 16 br/min 01/10/2024 14:06:00 3209I-Be-V-[facility] BP Site Right arm 01/09/2025 15:16:00 6130C -Af-C-[facility] Systolic Blood Pressure 117 mm[Hg] 01/09/2025 15:16:00 5579Z-Cl-Y-[facility] Diastolic Blood Pressure 70 mm[Hg] 01/09/2025 15:16:00 9371X-Ih-C-[facility] Peripheral Pulse Rate 83 bpm 01/09/2025 15:16:00 8640G-Bn-V-[facility] Mean Arterial Pressure, Calc 86 mm[Hg] 01/09/2025 15:16:00 3767P-Mj-B-3 [facility] Blood Pressure Manual Automatic 01/09/2025 15:16:00 0557A-Cx-I-[facility] Mean Arterial Pressure, Calc 95 mm[Hg] 11/30/2024 19:10:00 8420Q-Xe-G-3 [facility] Peripheral Pulse Rate 104 bpm 11/30/2024 19:10:00 6721J-Ac-K-[facility] Respiratory Rate 16 br/min 11/30/2024 19:10:00 6272R-Ma-X-[facility] BP Site Left arm 11/30/2024 19:10:00 6130C -Af-C-[facility] Blood Pressure Manual Automatic 11/30/2024 19:10:00 1296K-Ag-G-[facility] Systolic Blood Pressure 119 mm[Hg] 11/30/2024 19:10:00 7554E-Yv-C-[facility] Diastolic Blood Pressure 83 mm[Hg] 11/30/2024 19:10:00 0388B-Bq-V-[facility] Blood Pressure Manual Automatic 09/21/2024 19:18:00 0686W-Oa-J-[facility] Peripheral Pulse Rate 103 bpm 09/21/2024 19:18:00 9255K-Ud-C-[facility] Respiratory Rate 22 br/min 09/21/2024 19:18:00 1558H-Mq-U-[facility] Temperature Oral 37.3 Courtney 09/21/2024 19:18:00 8555P-Ag-X-[facility] BP Site Left arm 09/21/2024 19:18:00 6130C -Af-C-[facility] Systolic Blood Pressure 101 1 09/21/2024 19:18:00 6360G-Kg-A-[facility] Diastolic Blood Pressure 67 mm[Hg] 09/21/2024 19:18:00 4060C-Uo-A-[facility] Mean Arterial Pressure, Calc 78 mm[Hg] 09/21/2024 19:18:00 7925F-Xn-I-3 [facility] Systolic Blood Pressure 115 mm[Hg] 09/14/2024 16:51:00 7130T-Au-Q-[facility] Diastolic Blood Pressure 73 mm[Hg] 09/14/2024 16:51:00 3575W-Nz-M-[facility] BP Site Left arm 09/14/2024 16:51:00 6130C -Af-C-[facility] Blood Pressure Manual Automatic 09/14/2024 16:51:00 0542S-Mt-C-[facility] Peripheral Pulse Rate 70 bpm 09/14/2024 16:51:00 0441N-Gp-I-[facility] Mean Arterial Pressure, Calc 87 mm[Hg] 09/14/2024 16:51:00 6713R-Dx-W-3 [facility] BP Site Right arm 02/04/2025 15:22:00 6130C -Af-C-[facility] Blood Pressure Manual Automatic 02/04/2025 15:22:00 0090J-Ss-D-[facility] Mean Arterial Pressure, Calc 73 mm[Hg] 02/04/2025 15:22:00 2818L-Ua-J-3 [facility] Peripheral Pulse Rate 92 bpm 02/04/2025 15:22:00 3261J-Dx-O-[facility] Systolic Blood Pressure 96 mm[Hg] 02/04/2025 15:22:00 6853E-Fc-D-[facility] Diastolic Blood Pressure 62 mm[Hg] 02/04/2025 15:22:00 5861Z-Tf-K-[facility] Respiratory Rate 14 br/min 05/17/2024 20:16:00 7773T-Zl-L-[facility] Respiratory Rate 18 br/min 11/04/2023 14:38:00 4630M-Cy-P-[facility] Temperature Oral 36.5 Courtney 09/13/2023 21:08:00 0055C-[facility] Temperature Oral 36.7 Courtney 12/02/2023 13:45:00 3985V-Qu-M-[facility] Respiratory Rate 16 br/min 12/02/2023 13:45:00 5894L-Vh-C-[facility] Respiratory Rate 18 br/min 01/31/2024 20:09:00 4954N-Py-C-[facility] Mean Arterial Pressure, Calc 77 mm[Hg] 11/06/2024 18:06:00 0055C-[facility] Systolic Blood Pressure 101 mm[Hg] 11/06/2024 18:06:00 0055C-[facility] Diastolic Blood Pressure 65 mm[Hg] 11/06/2024 18:06:00 0055C-[facility] BP Site Left arm 11/06/2024 18:06:00 0055C -[facility] Temperature Oral 36.6 Courtney 11/06/2024 18:06:00 0055C-[facility] Peripheral Pulse Rate 98 bpm 11/06/2024 18:06:00 0055C-[facility] Blood Pressure Manual Automatic 11/06/2024 18:06:00 0055C-[facility] Peripheral Pulse Rate 92 bpm 06/29/2024 21:03:00 8232C-Os-J-[facility] Blood Pressure Manual Automatic 06/29/2024 21:03:00 8586Z-Rv-Z-[facility] BP Site Left arm 06/29/2024 21:03:00 6130C -Af-C-[facility] Systolic Blood Pressure 114 mm[Hg] 06/29/2024 21:03:00 1345F-Zf-A-[facility] Diastolic Blood Pressure 72 mm[Hg] 06/29/2024 21:03:00 5521S-Dq-P-[facility] Mean Arterial Pressure, Calc 86 mm[Hg] 06/29/2024 21:03:00 1690W-Vy-E-3 [facility] Peripheral Pulse Rate 97 bpm 12/12/2024 15:07:00 9445Y-Gr-L-[facility] Respiratory Rate 18 br/min 12/12/2024 15:07:00 8750Q-Wl-J-[facility] BP Site Left arm 12/12/2024 15:07:00 6130C -Af-C-[facility] Systolic Blood Pressure 114 mm[Hg] 12/12/2024 15:07:00 3840Y-Uz-O-[facility] Diastolic Blood Pressure 72 mm[Hg] 12/12/2024 15:07:00 5119B-Rs-Z-[facility] Mean Arterial Pressure, Calc 86 mm[Hg] 12/12/2024 15:07:00 9530M-Wq-C-3 [facility] Blood Pressure Manual Automatic 12/12/2024 15:07:00 8155Q-Qo-Y-[facility] BP Site Left arm 09/12/2024 16:52:00 6130C -Af-C-[facility] Blood Pressure Manual Automatic 09/12/2024 16:52:00 2668D-Ti-B-[facility] Respiratory Rate 18 br/min 09/12/2024 16:52:00 5428M-Nn-G-[facility] Temperature Oral 36.8 Courtney 09/12/2024 16:52:00 2134T-Bo-G-[facility] Mean Arterial Pressure, Calc 85 mm[Hg] 09/12/2024 16:52:00 9252C-Lo-Y-3 [facility] Peripheral Pulse Rate 98 bpm 09/12/2024 16:52:00 7046F-Jp-H-[facility] Systolic Blood Pressure 100 mm[Hg] 09/12/2024 16:52:00 1252Y-Bh-M-[facility] Diastolic Blood Pressure 78 mm[Hg] 09/12/2024 16:52:00 8053F-Oe-I-[facility] Encounters Combined list of: 1) Encounters from Department of Veterans Affairs facilities going backup to the last 18 months, not all VA inpatient encounters are included; 2) Encounters from the Department of Defense facilities going backup to 280 months. Location Location Details Encounter Type Encounter Number Reason For Visit Attending Provider ADM Date DC Date Status Disposition Source [address] [place] [address] Dominik MILLAB ([facility] [facility])(Janae rology) OUTPATIENT [id number] left arm PINKY Odell 07/21 Released w/o Limitations [address] [place] [address] Dominik MILLAB ([facility])(N eurolog y) [address] [place] [address] [place] [facility]Janae rology[place] TELE CONSULT [id number] PINKY MITCHELL 11/[address] [place] [address] Domin[place] [facility] eurolog y[place] [address] [place] [address] Dominik LOYOLAB [facility]Janae rology[place] TELE CONSULT [id number] PINKY MITCHELL 01/[address] [place] [address] Dominik MILLAB [facility]N eurolog y[place] [address] [place] [address] Dominik LO[place]AB [facility]co [place] [facility] Fam Res Tm Green) OUTPATIENT [id number] f/u sinus SPRING LAYNE 02/16 Released w/o Limitations [address] [place] [address] Dominik LOYOLAB ([facility] [facility])(S cott [facility] Fam Res Tm Green) [address] [place] [address] Dominik [place] [facility]Janae rology) TELE CONSULT [id number] PINKY MITCHELL 02/[address] [place] [address] Dominik MILLAB [facility]N eurolog y) [address] [place] [address] Dominik MILLAB [facility]Tin matology) OUTPATIENT [id number] skin lesion not resolvi ng DONNY ORONA L 03/30 Released w/o Limitations [address] [place] [address] Dominik B ([facility])(D ermatol ogy) [address] [place] [address] Dominik B ([facility] [facility])(Sco tt [facility] FAMRES Tm Blue) OUTPATIENT [id number] Irregul ar periods PRIETO ORTIZ L 07/14 Released w/o Limitations [address] [place] [address] Dominik B [facility] [facility] FAMRES Tm Blue) [address] [place] [address] Dominik B [facility]Sco tt [facility] FAMRES Tm Blue) OUTPATIENT [id number] 2wk period, hx of BCP usage to control irregul corinnaphi SARAHY GUERRA Beatrice 09/21 Released w/o Limitations [address] [place] [address] Dominik B ([facility] [facility])(S cott [facility] FAMRES Tm Blue) [address] [place] [address] Dominik [facility])(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) OUTPATIENT [id number] menomet rorrhag ia CASSIUS RODRIGUEZ 09/29 Released w/o Limitations [address] [place] [address] Dominik B [facility]G ynecolo gy) [address] [place] [address] Dominik B [facility]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) TELE CONSULT [id number] Boo RODRIGUEZ, CASSIUS R 10/28 [facility] [employer] ([facility])(G ynecolo gy) [facility] [employer] ([facility] [place])(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) TELE CONSULT [id number] U/S Results CASSIUS RODRIGUEZ R 11/12 [facility] [employer] ([facility])(G ynecolo gy) [facility] [employer] ([facility] [place] [facility])(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) TELE CONSULT [id number] U/S Results CASSIUS RODRIGUEZ R 11/18 [facility] [employer] ([facility] [facility])(G ynecolo gy) [facility] [employer] ([facility])(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) TELE CONSULT [id number] f/u CASSIUS RODRIGUEZ R 11/[address] [place] [address] Group [employer] ([facility])(G ynecolo gy) [facility] [employer] ([facility])(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) OUTPATIENT [id number] Discuss Hystero scopy (Per Ann Marie ) ANTHONY MCNEAL 12/23 Released w/o Limitations [facility] [employer] ([facility])(G ynecolo gy) [facility] [employer] ([facility])(Janae rology) TELE CONSULT [id number] PINKY MITCHELL 12/28 [facility] [employer] ([facility] [place])(N eurolog y) [facility] [employer] ([facility] [facility])(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) OUTPATIENT [id number] Hystero scopy ANTHONY MCNEAL 12/30 Released w/o Limitations [facility] [employer] ([facility] [facility])(G ynecolo gy) [facility] [employer] ([facility] [facility])(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) TELE CONSULT [id number] emb results ANTHONY MCNEAL 01/05 [facility] [employer] ([facility])(G ynecolo gy) [facility] [employer] ([facility] [place])(Janae rology) TELE CONSULT [id number] PINKY MITCHELL 01/12 [facility] [employer] ([facility])(N eurolog y) [facility] [employer] ([facility] [facility])(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) TELE CONSULT [id number] ANTHONY MCNEAL 01/[address] [place] [address] [employer] ([facility])(G ynecolo gy) [facility] Dominik LOYOLAB ([facility])(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) TELE CONSULT [id number] nurse call - do not call pt (ua test result) ANTHONY MCNEAL 01/[address] [place] [address] Dominik LOYOLAB ([facility] [facility])(G ynecolo gy) [address] [place] [address] [employer] ([facility])(Janae rology) OUTPATIENT [id number] PINKY MITCHELL 01/19 Released w/o Limitations [address] [place] [address] Dominik LOYOLAB ([facility])(N eurolog y) [facility] Dominik LOYOLAB ([facility] [place])(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) TELE CONSULT [id number] test result ANTHONY MCNEAL 01/[address] [place] [address] Dominik LOYOLAB ([facility] [facility])(G ynecolo gy) [address] [place] [address] [employer] [facility]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) TELE CONSULT [id number] calling for test results ANTHONY MCNEAL 02/[address] [place] [address] Dominik LOYOL[place] [facility]G ynecolo gy) [address] [place] [address] Dominik [place]YOLAB [facility]Sco tt [facility] Fam Res Tm Green) OUTPATIENT [id number] well woman exam TIFF FAM 05/31 Released w/o Limitations [address] [place] [address] Dominik LOYOLAB ([facility] [facility])(S cott [facility] Fam Res Tm Green) [address] [place] [address] Dominik [place] [facility]Occ upational Therapy) OUTPATIENT [id number] joint pain fingers CHE WYATT A 06/03 Released w/o Limitations [facility] Dominik LOYOLAB ([facility])(O ccupati onal Therapy ) [facility] Dominik [place]YOLAB [facility]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) OUTPATIENT [id number] 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 ANTHONY MCNEAL 06/14 Released w/o Limitations [address] [place] [address] Dominik LOYOLAB ([facility])(G ynecolo gy) [facility] [employer] ([facility])(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) TELE CONSULT [id number] blood pressur e check ANTHONY MCNEAL 06/[address] [place] [address] [employer] [facility]G ynecolo gy) [facility] [employer] ([facility])(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) TELE CONSULT [id number] B/p checkup ANTHONY MCNEAL 06/[address] [place] [address] Dominik ELIZONDO ([facility] [facility])(G ynecolo gy) [address] [place] [address] Dominik ELIZONDO ([facility] [facility])(Sco tt [facility] Fam Res Tm Green) TELE CONSULT [id number] lab results TIFF FAM 06/[address] [place] [address] Dominik ELIZONDO ([facility] [facility])(S cott [facility] Fam Res Tm Green) [address] [place] [address] Dominik ELIZONDO ([facility])(Occ upational Therapy) OUTPATIENT [id number] CHE WYATT 06/28 Released w/o Limitations [address] [place] [address] Dominik ELIZONDO ([facility] [place])(O ccupati onal Therapy ) [address] [place] [address] Dominik ELIZONDO ([facility] [place])(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 PHONE:[phone]*H TIFF FAM 01/04 Released w/o Limitations [address] [place] [address] Dominik ELIZONDO ([facility]S cott [facility] [employer] [place]) [address] [place] [address] Dominik ELIZONDO ([facility] [facility])(Sco tt [facility] [employer] [place]) TELE CONSULT [id number] End[employer] py results /BP concern s TIFF FAM 02/[address] [place] [address] Dominik ELIZONDO ([facility])(S cott [facility] [place]) [address] [place] [address] Dominik ELIZONDO ([facility] [facility])(Sco tt [facility] [employer] [place] [place]) OUTPATIENT [id number] fol upper endosco VINOD Macias 03/23 Released w/o Limitations [address] [place] [address] Dominik ELIZONDO ([facility] [facility])(S cott [facility] [employer]) [address] [place] [address] Dominik ELIZONDO ([facility] [facility])(Sco tt [facility] F[facility] [employer] [place]) OUTPATIENT [id number] 2 spots on nose, not going away 229 [id number]# TIFF FAM 05/02 Released w/o Limitations [address] [place] [address] Dominik ELIZONDO ([facility] [facility])(S cott [facility] [employer]) [address] [place] [address] Dominik ELIZONDO ([facility]Sco tt [facility] F[facility] [employer]) TELE CONSULT [id number] lab results TIFF FAM 05/[address] [place] [address] Group Dominik LOYOLAB ([facility] [facility])(S cott [facility] F[facility] [employer] [place]) [address] [place] [address] Dominik LOYOLAB ([facility])(Sco tt [facility] Fam [employer] [place]) TELE CONSULT [id number] Med request TIFF FAM 06/[address] [place] [address] Group Dominik LOYOLAB ([facility])(S cott [facility] F[facility] [employer] [place] [place]) [address] [place] [address] Dominik LOYOLAB [facility] [facility] FAMRES Tm [employer]) OUTPATIENT [id number] sinus congest OLGA Weems 06/20 Released w/o Limitations [address] [place] [address] Dominik LOYOLAB ([facility] [facility])(S cott [facility] FAM[employer]) [address] [place] [address] Dominik [place]AB [facility] [facility] F[facility] [employer] [place]) OUTPATIENT [id number] fol triglyc erides/ hrt monitor TIFF FAM 07/03 Released w/o Limitations [address] [place] [address] Dominik LOYOLAB ([facility] [facility]S cott [facility] [employer] [place]) [address] [place] [address] Dominik LOYOLAB [facility]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) OUTPATIENT [id number] annual exam CASSIUS RODRIGUEZ 11/13 Released w/o Limitations [address] [place] [address] Dominik LOYOLAB ([facility] [facility])(G ynecolo gy) [address] [place] [address] Dominik LOYOLAB ([facility])(Sco tt [facility] [employer]) OUTPATIENT [id number] F/U ELEV. CHOLEST ALAN TIFF FAM 11/22 Released w/o Limitations [address] [place] [address] Dominik LOYOLAB ([facility]S cott [facility] [employer]) [address] [place] [address] Dominik LOYOLAB [facility]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) TELE CONSULT [id number] returne d your call CASSIUS RODRIGUEZ 11/[address] [place] [address] Dominik LOYOLAB [facility]G ynecolo gy) [address] [place] [address] Dominik LOYOLAB [facility] [facility] F[facility] [employer] [place]) OUTPATIENT [id number] f/u results TIFF FAM 12/18 Released w/o Limitations [address] [place] [address] Dominik LOYOLAB ([facility] [facility])(S [facility] F[facility] [employer]) [facility] Dominik LOYOLAB ([facility]Sco tt [facility] [place] [place]) OUTPATIENT [id number] one ovary that manish madrigal ev al for mri TIFF FAM 04/30 Released w/o Limitations [facility] Dominik LOYOLAB ([facility]S [facility] [employer]) [facility] [employer] ([facility] [facility]Sco tt [facility] Fam Res [employer] [place]) TELE CONSULT [id number] Non-for mulary medicat ion - PCM EVE Palumbo 05/[address] [place] [address] Dominik LOYOLAB ([facility] [facility]S [facility] [employer] [place]) [address] [place] [address] Dominik LOYOLAB ([facility])(Occ upational Therapy) OUTPATIENT [id number] FINGER SPRAIN JIMMY HUMPHRIES L 05/08 Released w/o Limitations [facility] Dominik LOYOLAB ([facility] [facility])(O ccupati onal Therapy ) [address] [place] [address] Dominik LOYOLAB ([facility]Sco tt [facility] F[employer]) OUTPATIENT [id number] pelvic exam TIFF FAM 05/20 Released w/o Limitations [facility] Dominik LOYOLAB ([facility])(S [facility] F[employer]) [address] [place] [address] [employer] ([facility] [facility])(Occ upational Therapy) OUTPATIENT [id number] LILA HUMPHRIESA L 05/24 Released w/o Limitations [address] [place] [address] [employer] ([facility] [facility])(O ccupati onal Therapy ) [facility] [employer] ([facility])(Occ upational Therapy) OUTPATIENT [id number] DAVID HIGUERA 05/29 Released w/o Limitations [address] [place] [address] [employer] ([facility])(O ccupati onal Therapy ) [address] [place] [address] [employer] ([facility])(Occ upational Therapy) OUTPATIENT [id number] OLGA LOGAN 05/31 Released w/o Limitations [address] [place] [address] [employer] ([facility])(O ccupati onal Therapy ) [address] [place] [address] [employer] ([facility])(Occ upational Therapy) OUTPATIENT [id number] OLGA LOGAN 06/03 Released w/o Limitations [address] [place] [address] [employer] ([facility] [facility])(O ccupati onal Therapy ) [facility] Dominik MILLAB ([facility])(Occ upational Therapy) OUTPATIENT [id number] DAVID HIGUERA 06/11 Released w/o Limitations Medical [facility] Dominik MILLAB ([facility] [facility])(O ccupati onal Therapy ) [facility] Dominik MILLAB ([facility])(Sco tt [facility] F[employer]) OUTPATIENT [id number] Sinus problem s SHAWN PARRA 08/16 Released w/o Limitations Medical [facility] Dominik MILLAB ([facility])(S cott OF F[facility] [employer]) [facility] Dominik MILLAB ([facility])(Sco tt [facility] Fam Res [employer]) TELE CONSULT [id number] Call Back TIFF FAM 08/[address] [place] [address] Dominik MILLAB ([facility])(S cott [facility] F[employer]) [address] [place] [address] Dominik MILLAB ([facility] [facility])(Sco tt [facility] Fam [employer]) OUTPATIENT [id number] left ear pain,no drainag e CHARIS CLARK 08/23 Released w/o Limitations Medical [facility] Dominik MILLAB ([facility] [facility])(S cott OF F[employer]) [address] [place] [address] Dominik MILLAB ([facility])(Sco tt [facility] Fam [employer]) OUTPATIENT [id number] pap smear [phone] TIFF FAM 01/09 Released w/o Limitations [address] [place] [address] Dominik MILLAB ([facility] [facility])(S cott OF [employer]) [facility] Dominik MILLAB ([facility])(Sco tt [facility] Fam Res [employer]) TELE CONSULT [id number] Lab results TIFF FAM 01/15 [facility] [employer] ([facility])(S cott OF F[employer]) [facility] [employer] ([facility])(Sco tt [facility] FAMRES Tm Blue) TELE CONSULT [id number] medical inquiry TIFF FAM 01/[address] [place] [address] [employer] ([facility])(S cott [facility] FAMRES Tm Blue) [address] [place] [address] [employer] ([facility])(Sco tt [facility] FAMRES Tm Blue) TELE CONSULT [id number] medical inquiry TIFF FAM 02/06 [facility] Dominik MILLAB ([facility] [facility])(S cott OF FAMRES Tm Blue) [facility] Dominik MILLAB ([facility])(Sco tt [facility] FAMRES [employer]m [employer]) TELE CONSULT [id number] medical /lab concern TIFF FAM 04/24 [facility] Dominik MILLAB ([facility])(S cott OF FAMRES [employer]m Blue) [facility] Dominik MILLAB ([facility] [facility])(Sco tt [facility] Fam Res [employer]) OUTPATIENT [id number] flu [phone] MURALI BENNETT 05/16 Released w/o Limitations [facility] Dominik MILLAKevin ([facility])(S cott OF F[facility] [employer]) [facility] Dominik [facility]ILLAKevin [facility] Fam Res [place] [place]) OUTPATIENT [id number] F/U FROM A PROCEDU RE [phone] TIFF FAM 07/28 Released w/o Limitations [facility] Dominik MILLAKevin ([facility])(S cott [facility] Fam [employer]) [facility] Dominik MILLAKevin ([facility])(Sco tt [facility] Fam Res [employer]) TELE CONSULT [id number] med refill TIFF FAM 09/17 [facility] Dominik MILLAKevin ([facility])(S cott [facility] Fam [facility] [employer] [place]) [facility] Dominik MILLAKevin ([facility])(Sco tt [facility] Fam Res [employer]) TELE CONSULT [id number] change med TIFF FAM 12/02 [facility] Dominik MILLAKevin ([facility])(S cott [facility] Fam [employer] [place]) [facility] Dominki MILLAB ([facility])(Sco tt [facility] Fam Res [employer]) TELE CONSULT [id number] request s call back TIFF FAM 12/15 [facility] Dominik MILLAKevin ([facility])(S cott [facility] F[facility] [employer] [place]) [facility] Dominik [place]ILLAKevin [facility] Fam Res [employer] [place]) OUTPATIENT [id number] 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 [id number] TIFF FAM 02/26 Released w/o Limitations [facility] Dominik MILLAB ([facility] [facility])(S cott [facility] Fam Res [employer] [place]) [address] [place] [address] Dominik MILLAKevin [facility] Fam Res [place] [place]) TELE CONSULT [id number] lab results TIFF FAM 03/[address] [place] [address] Dominik MILLAKevin [facility] [facility] Fam Res [place] [place]) [address] [place] [address] Dominik MILLAKevin [facility] tt [facility] Fam Res [place] [place]) TELE CONSULT [id number] mammo results TIFF FAM 04/[address] [place] [address] Dominik ELIZONDO [facility] [facility] Fam [employer] [place] [place]) [address] [place] [address] Dominik MILLAKevin [facility] tt [facility] Fam Res [employer] [place]) TELE CONSULT [id number] med refill MICHAEL CHAIDEZ 05/[address] [place] [address] Dominik MILLAKevin [facility] [facility] Fam [employer] [place] [place]) [address] [place] [address] Dominik MILLAKevin [facility] tt [facility] FAMRES Tm Blue) TELE CONSULT [id number] referra l renewal MICHAEL CHAIDEZ 07/[address] [place] [address] Dominik ELIZONDO [facility] [facility] FAMRES [employer]m Blue) [address] [place] [address] Dominik MILLAKevin [facility] tt [facility] Fam [employer] [place]) TELE CONSULT [id number] T con for referra gillespie for cardiol ogy Dr Fam phone [phone] TIFF FAM 08/[address] [place] [address] Dominik MILLAKevin [facility] [facility] Fam [employer] [place] [place]) [address] [place] [address] Dominik MILLAKevin [facility] Fam Res [place] [place]) OUTPATIENT [id number] resched -f/u female issues ASHLEY POLK 09/28 Released w/o Limitations [address] [place] [address] Dominik MILLAKevin [facility] [facility] Fam [employer] [place]) [address] [place] [address] Dominik MILLAKevin [facility] [place] [facility] Fam [employer] [place]) OUTPATIENT [id number] Female concern s TIFF FAM 10/22 Released w/o Limitations [address] [place] [address] Dominik ELIZONDO [facility] [facility] Fam [employer] [place]) [address] [place] [address] Dominik ELIZONDO [facility]Sco tt [facility] Fam Res [place] [place]) TELE CONSULT [id number] T con for med refill Dr Fam phone [phone] TIFF FAM 11/[address] [place] [address] Group Dominik LOYOLAB ([facility])(S cott OF Fam Res [employer]) [address] [place] [address] Dominik LOYOLAB ([facility] [facility])(Sco tt [facility] Fam Res [place] [place]) TELE CONSULT [id number] rx refill - [phone] CAD VLC [phone] 1c TIFF FAM 12/[address] [place] [address] Dominik LOYOLAB ([facility])(S cott OF Fam [employer]) [address] [place] [address] Dominik LOYOLAB ([facility])(Sco tt [facility] Fam Res [employer]) OUTPATIENT [id number] ear pain [phone] CUAUHTEMOC FROST 12/11 Released w/o Limitations [address] [place] [address] Dominik LOYOLAB ([facility])(S cott [facility] Fam [employer]) [address] [place] [address] [employer] ([facility])(Sco tt [facility] Fam Res [employer] [place]) TELE CONSULT [id number] T con for F/U appt Dr Fam phone [phone] HARLYE GAMINO 12/[address] [place] [address] Dominik LOYOLAB ([facility])(S cott [facility] Fam [employer]) [address] [place] [address] [employer] ([facility])(Sco tt [facility] Fam [employer] [place]) OUTPATIENT [id number] f/u left ear infecti on TIFF FAM 12/28 Released w/o Limitations [address] [place] [address] Dominik LOYOLAB ([facility])(S cott [facility] Fam [employer]) [address] [place] [address] Dominik LOYOLAB ([facility])(Sco tt [facility] Fam [employer] [place] [place]) OUTPATIENT [id number] Pap/Cheri ual exam TIFF FAM 01/14 Released w/o Limitations [address] [place] [address] Dominik LOYOLAB ([facility]S cott [facility] Fam [employer]) [address] [place] [address] [employer] ([facility] [place])(Sco tt [facility] Fam Res [place] [place]) OUTPATIENT [id number] FU L ear TIFF FAM 01/28 Released w/o Limitations [address] [place] [address] Dominik LOYOLAB ([facility]S cott [facility] Fam [employer]) [address] [place] [address] [employer] ([facility])(Sco tt [facility] Fam Res [place] [place]) TELE CONSULT [id number] mammo results TIFF FAM 05/[address] [place] [address] Dominik LOYOLAB ([facility])(S cott OF Fam [employer]) [address] [place] [address] Dominik LOYOLAB ([facility] [facility])(Sco tt [facility] Fam Res [employer] [place]) TELE CONSULT [id number] Meds needed/ Sarwat /fxs TIFF FAM 06/[address] [place] [address] Dominik LOYOLAB [facility] OF Fam [employer] [place] [place]) [address] [place] [address] Dominik LOYOLAB [facility] [place] [facility] Fam Res [employer] [place]) TELE CONSULT [id number] Meds refills /Lindsa y/fxs TIFF FAM 07/[address] [place] [address] Dominik B [facility] [facility] Fam [employer] [place]) [address] [place] [address] Dominik LOYOLAB [facility]S[facility] tt [facility] Fam Res [place] [place]) TELE CONSULT [id number] request ing appt sooner - Sarwat - [phone] - tsg PRADIP SEHFFIELD 07/[address] [place] [address] Dominik [facility])(S cott [facility] Fam Res [place]) [address] [place] [address] Dominik LOYOLAB [facility]Sco [place] [facility] FAMRES Tm Blue) OUTPATIENT [id number] f\u cough TIFF FAM 07/23 Released w/o Limitations [address] [place] [address] Dominik [facility])(S cott [facility] FAMRES Tm Blue) [address] [place] [address] Dominik LOYOLAB [facility]Sco tt [facility] Fam Res [place] [place]) TELE CONSULT [id number] xray results TIFF FAM 07/[address] [place] [address] Dominik MILLAB [facility]S cott [facility] Fam Res [place] [place]) [address] [place] [address] Dominik MILLAB [facility]Sco tt [facility] Fam Res [employer] [place]) TELE CONSULT [id number] CT results - Sarwat [phone] - tsg TIFF FAM 07/[address] [place] [address] Dominik B [facility]S cott [facility] Fam Res [place] [place]) [address] [place] [address] [employer] [facility]Sco tt [facility] Fam Res [place] [place]) TELE CONSULT [id number] lab results TIFF FAM 08/[address] [place] [address] Dominik ELIZONDO [facility]S cott [facility] Fam Res [place] [place]) [address] [place] [address] Dominik ELIZONDO ([facility] [facility]Sco tt [facility] Fam Res [place] [place]) TELE CONSULT [id number] HARLEY Sanford 09/[address] [place] [address] Dominik ELIZONDO ([facility]S cott [facility] Fam Res [place] [place]) [address] [place] [address] Dominik ELIZONDO [facility]Sco tt [facility] Fam Res [employer]) TELE CONSULT [id number] Notes Entered by: SYLVIE MANZO CIA 15 Oct 2011 1445 ------- ------- ------- ------- -- Refill meds - Sarwat - cad/pm TIFF FAM 10/[address] [place] [address] Dominik ELIZONDO ([facility]S cott [facility] Fam Res [place]) [address] [place] [address] [facility]Sco tt [facility] Fam Res [employer]) OUTPATIENT [id number] f/u ultraso und [id number] TIFF FAM 10/25 Released w/o Limitations [address] [place] [address] Dominik ELIZONDO [facility]S [place] [facility] Fam Res [employer]) [address] [place] [address] Dominik ELIZONDO [facility]Sco tt [facility] Fam Res [employer]) TELE CONSULT [id number] TIFF Calzada 11/[address] [place] [address] Dominik ELIZONDO ([facility])(S cott [facility] Fam Res [employer] [address] [place] [address] Dominik [facility]Sco tt [facility] FAMRES Tm Blue) TELE CONSULT [id number] MED Issue TIFF FAM 12/[address] [place] [address] Dominik ELIZONDO [facility]S [place] [facility] FAMRES [employer]m Blue) [address] [place] [address] Dominik ELIZONDO [facility]Sco tt [facility] FAMRES [employer]m Blue) TELE CONSULT [id number] virtual clinic encount er TIFF FAM 12/[address] [place] [address] Dominik ELIZONDO [facility]S [place] [facility] FAMRES [employer]m [employer]) [address] [place] [address] Dominik ELIZONDO [facility]Sco tt [facility] Fam Res [employer]) OUTPATIENT [id number] FU discuss meds/la st visit w/provi tin TIFF FAM J 12/29 Released w/o Limitations [address] [place] [address] Dominik LOYOLAB ([facility] [facility]S cott [facility] Fam Res [employer] [address] [place] [address] Dominik LOYOLAB [facility]Sco tt [facility] FAMRES Tm Blue) TELE CONSULT [id number] TIFF Hernadez 01/[address] [place] [address] Dominik LOYOLAB [facility]S cott [facility] FAMRES Tm Blue) [address] [place] [address] Dominik LOYOLAB [facility]Sco tt [facility] FAMRES [employer]m Blue) OUTPATIENT [id number] pain in both knees SARAHY CADET 03/23 Released w/o Limitations [address] [place] [address] Dominik LOYOLAB ([facility] [facility]S cott OF FAMRES [employer]m Blue) [address] [place] [address] Dominik LOYOLAB [facility]S[facility] FAMRES Tm Blue) TELE CONSULT [id number] Notes Entered by: ANDRE MOHAN 03 May 2012 1030 ------- ------- ------- ------- -- Jorge cerrato tlt SARAHY CADET 05/[address] [place] [address] Dominik [place] [facility]S [place] [facility] FAMRES Tm Blue) [address] [place] [address] Dominik [place] [facility]Sco tt [facility] FAMRES Tm Blue) OUTPATIENT [id number] F/U [phone] SARAHY CADET 05/26 Released w/o Limitations [address] [place] [address] Dominik [place] [facility]S cott [facility] FAMRES Tm Blue) [address] [place] [address] Dominik [place] [facility]Sco tt [facility] FAMRES Tm Blue) TELE CONSULT [id number] Notes Entered by: SARAHY CADET 09 Jun 2012 1423 ------- ------- ------- ------- -- Xray results SARAHY CADET 06/[address] [place] [address] Dominik MILLAKevin [facility]S cott [facility] FAMRES Tm Blue) [address] [place] [address] Dominik MILLAB [facility]Sco tt [facility] FAMRES Tm Blue) TELE CONSULT [id number] Notes Entered by: TIFF BOOTH 24 Jul 2012 1344 ------- ------- ------- ------- -- Network Results - DERMATO LOGY 2 TIFF FAM 07/[address] [place] [address] Dominik [facility])(S cott OF FAMRES Tm Blue) [address] [place] [address])(Sco tt [facility] FAMRES Tm Blue) OUTPATIENT [id number] Sore on lips [phone] KHADAR CHURCH 08/17 Released w/o Limitations [address] [place] [address] Dominik [facility]S cott [facility] FAMRES Tm Blue) [address] [place] [address] Dominik B [facility]Sco tt [facility] FAMRES Tm Blue) TELE CONSULT [id number] Notes Entered by: ANDRE MOHAN 18 Aug 2012 0854 ------- ------- ------- ------- -- JOSE Funez 08/[address] [place] [address] Dominik [facility])(S cott [facility] FAMRES Tm Blue) [address] [place] [address] Dominik [facility])(Sco tt [facility] FAMRES Tm Blue) TELE CONSULT [id number] Notes Entered by: ANDRE MOHAN 13 Sep 2012 1101 ------- ------- ------- ------- -- Eye pain JOSE Shah 09/[address] [place] [address] Dominik [facility])(S cott [facility] FAMRES Tm Blue) [address] [place] [address] Dominik [facility])(Sco tt [facility] FAMRES Tm Blue) OUTPATIENT [id number] right eye lower corner, somethi there scratch ing eye [phone] SARAHY CADET 09/15 Released w/o Limitations [address] [place] [address] Dominik [facility]S cott [facility] FAMRES Tm Blue) [address] [place] [address] Dominik [facility])(Sco tt [facility] FAMRES Tm Blue) TELE CONSULT [id number] Notes Entered by: JOSE FUNES 14 Nov 2012 1642 ------- ------- ------- ------- -- Dr. Cadet: Renewed triglid e 160 mg po daily #90, w/#3ref ills, fax to SARAHY Devine 11/[address] [place] [address])(S cott [facility] FAMRES Tm Blue) [address] [place] [address])(Sco tt [facility] FAMRES Tm Blue) TELE CONSULT [id number] Notes Entered by: ANDRE MOHAN 10 Jan 2013 1543 ------- ------- ------- ------- -- Discuss aamir [facility] anjel for special [id number] [phone] or [phone] JOSE FUNES 01/[address] [place] [address])(S cott [facility] FAMRES Tm Blue) [address] [place] [address])(Sco tt [facility] FAMRES Tm Blue) TELE CONSULT [id number] Notes Entered by: DILMA CAMERON 09 Mar 2013 1208 ------- ------- ------- ------- -- EST - Chichi - [phone] [id number]) JOSE FUNES 03/[address] [place] [address])(S cott [facility] FAMRES Tm Blue) [address] [place] [address])(Sco tt [facility] FAMRES Tm Blue) OUTPATIENT [id number] Pt st an appt for sachi SALCEDO-LINDA ARREDONDO 03/26 Released w/o Limitations [address] [place] [address])(S cott [facility] FAMRES Tm Blue) [address] [place] [address])(Sco tt [facility] Fam Res Tm Green) TELE CONSULT [id number] Notes Entered by: CORONA TAYLOR 17 Apr 2013 1320 ------- ------- ------- ------- -- Network Results -DERMAT OLOGY 3 SARAHY CADET 04/[address] [place] [address])(S [facility] Fam Res Tm Green) [address] [place] [address] Dominik [facility])(Sco tt [facility] FAMRES Tm Blue) OUTPATIENT [id number] ANNUAL WELL WOMEN EXAM (PAP) SARAHY CADET 04/23 Released w/o Limitations [address] [place] [address] Dominik ELIZONDO [facility]S [facility] FAMRES Tm Blue) [address] [place] [address] Dominik [facility])(Sco tt [facility] Tm Blue) TELE CONSULT [id number] Notes Entered by: ANDRE MOHAN 25 Apr 2013 1515 ------- ------- ------- ------- -- Mucinex not ordered Chichi [phone]-call back when meds are in SARAHY CADET 04/[address] [place] [address] Dominik MILLAKevin [facility] [address] [place] [address] Dominik [facility])([facility]co tt [facility] Tm Blue) TELE CONSULT [id number] Notes Entered by: LUISANA PEÑA 27 Apr 2013 1116 ------- ------- ------- ------- -- Medicat ion request KELVIN PEÑA 04/[address] [place] [address] Dominik MILLAKevin [facility]S [facility] FAMRES Tm Blue) [address] [place] [address] Dominik ELIZONDO [facility]Sco tt [facility] Fam Res Tm Green) TELE CONSULT [id number] Notes Entered by: SARAHY CADET 28 Apr 2013 0718 ------- ------- ------- ------- -- pap JUANJOSE HILTON 04/[address] [place] [address] Dominik [facility]S [facility] Fam Res Tm Green) [address] [place] [address] Dominik [facility])(Sco tt [facility] FAMRES Tm Blue) TELE CONSULT [id number] Notes Entered by: MARVEL JEFF 04 Jul 2013 0856 ------- ------- ------- ------- -- Lab order MARVEL JEFF 07/[address] [place] [address] Dominik [facility] [facility]S [facility] FAMRES Tm Blue) [address] [place] [address] Dominik [facility])(Sco tt [facility] Fam Res Tm Green) TELE CONSULT [id number] Notes Entered by: SARAHY CADET 11 Jul 2013 0028 ------- ------- ------- ------- -- labs SARAHY CADET 07/[address] [place] [address] Dominik [facility])(S [facility] Fam Res Tm Green) [address] [place] [address] Dominik B [facility]Sco tt [facility] FAMRES Tm Blue) OUTPATIENT [id number] [facility] [id number] SARAHY CADET 08/13 Released w/o Limitations [address] [place] [address] Dominik [facility]S [facility] FAMRES Tm Blue) [address] [place] [address] Dominik [place] [facility]Sco tt [facility] FAMRES Tm Blue) TELE CONSULT [id number] Notes Entered by: SHAWN RAMIREZ 27 Aug 2013 1400 ------- ------- ------- ------- -- Rx Renewal -MARVEL Grace 08/[address] [place] [address] Dominik [facility])([facility] FAMRES Tm Blue) [address] [place] [address] Dominik [facility]Sco tt [facility] Fam Res Tm Gold) TELE CONSULT [id number] Notes Entered by: SARAHY CADET 28 Aug 2013 1335 ------- ------- ------- ------- -- Pineal cyst SARAHY CADET 08/[address] [place] [address] Dominik ELIZ[place]DO [facility]S [facility] Fam Res Tm Gold) [address] [place] [address] Dominik [place] [facility]Sco tt [facility] FAMRES Tm Blue) TELE CONSULT [id number] Notes Entered by: TIFF BOOTH 08 Oct 2013 1240 ------- ------- ------- ------- -- Network Results - DERMATO LOGY - 10/02/13 MATIAS-LINDA ARREDONDO 10/[address] [place] [address] Dominik [employer] [facility]S cott [facility] FAMRES Tm Blue) [address] [place] [address] [employer] [facility]Sco tt [facility] Fam Res Tm Gold) TELE CONSULT [id number] Notes Entered by: SHONA HURST 28 Dec 2013 0632 ------- ------- ------- ------- -- Sx/stom ach pain/wi lson/22 0.6970* SAPPHIRE HENRY 12/[address] [place] [address] Dominik [facility] [facility]S [facility] Fam Res Tm Gold) [address] [place] [address] [employer] [facility]Nmo tt [facility] Fam Res Tm Gold) TELE CONSULT [id number] Notes Entered by: MARVEL JEFF 03 Jan 2014 0808 ------- ------- ------- ------- -- MARVEL Swan 01/[address] [place] [address] Dominik [place] [facility]S [facility] Fam Res Tm Gold) [address] [place] [address] [employer] [facility]Nmo tt [facility] Fam Res Tm Gold) OUTPATIENT [id number] physica l - cough - [phone] SARAHY CADET 06/03 Released w/o Limitations [address] [place] [address] Dominik [facility] [facility]S [facility] Fam Res Tm Gold) [address] [place] [address] Dominik B [facility]) OUTPATIENT [id number] [facility] SARAHY CADET 06/07 Released w/o Limitations [address] [place] [address] [employer] [facility]M inor Proced[facility] re Clinic) [address] [place] [address] [employer] [facility]Nmo tt [facility] Fam Res Tm Red) TELE CONSULT [id number] Notes Entered by: SARAHY CADET 19 Jun 2014 1107 ------- ------- ------- ------- -- SARAHY Raya 06/[address] [place] [address] Dominik MILLAB [facility]S [facility] Fam Res Tm Red) [address] [place] [address] Dominik [place] [facility]Sco tt [facility] Fam Res Tm Gold) TELE CONSULT [id number] Notes Entered by: ALEJANDRO VILLELA 20 Jun 2014 1536 ------- ------- ------- ------- -- Medicat ion Solis /CHICHI /ALEJANDRO RETANA 06/20 Released to Self [facility] Dominik [facility] [facility]S [facility] Fam Res Tm Gold) [facility] Dominik MILLAB [facility]) OUTPATIENT [id number] F/U LBP SARAHY CADET 07/01 Released w/o Limitations [facility] Dominik MILLAB ([facility]M inor Procedu re Clinic) [address] [place] [address] Group Dominik MILLAB [facility]Nmo [facility] Fam Res Tm Gold) OUTPATIENT [id number] routine exam SARAHY CADET 07/08 Released w/o Limitations [address] [place] [address] Group Dominik MILLAB ([facility])(S [facility] Fam Res Tm Gold) [facility] Dominik MILLAB [facility]) OUTPATIENT [id number] F/U LOW BACK PAIN. SARAHY CADET 07/23 Released w/o Limitations [address] [place] [address] Group Dominik LOYOLAB ([facility])(M inor Procedu re Clinic) [address] [place] [address] Group Dominik MILLAB [facility] Fam Res Tm Red) TELE CONSULT [id number] Notes Entered by: SARAHY CADET 23 Jul 2014 1408 ------- ------- ------- ------- -- Endomet rial strip SARAHY CADET 07/[address] [place] [address] Group Dominik LOYOLAB ([facility])(S [facility] Fam Res Tm Red) [facility] Dominik MILLAB ([facility])(Min or Procedure Clinic) OUTPATIENT [id number] lower back pain SHAY HUGHES 08/21 Released w/o Limitations [address] [place] [address] Group Dominik MILLAB ([facility])(M inor Procedu re Clinic) [facility] Dominik MILLAB ([facility])(Sco tt [facility] Fam Res Tm Green) TELE CONSULT [id number] Notes Entered by: ALLISON NIXON 22 Aug 2014 0951 ------- ------- ------- ------- -- Network Results - Physica l Therapy 5 SARAHY CADET 08/[address] [place] [address] Dominik MILLAKevin [facility]S cott OF Fam Res Tm Green) [address] [place] [address] Dominik [facility])(Sco tt [facility] Fam Res Tm Green) OUTPATIENT [id number] Notes Entered by: SARAHY CADET 03 Sep 2014 1648 ------- ------- ------- ------- -- neck and SARAHY Yoon 09/03 Released w/o Limitations [address] [place] [address] Dominik MILLAKevin [facility]S cott [facility] Fam Res Tm Green) [address] [place] [address] Dominik MILLAKevin [facility]Sco tt [facility] [employer] Tm Blue) TELE CONSULT [id number] Notes Entered by: PRADIP MARQUEZ 13 Sep 2014 1357 ------- ------- ------- ------- -- Network results Physica l Therapy 015 SARAHY CADET 09/[address] [place] [address] Dominik MILLAKevin [facility] [address] [place] [address] Dominik MILLAKevin [facility] Procedure [facility]) OUTPATIENT [id number] F/U right neck and SHAY Beltran 09/25 Released w/o Limitations [address] [place] [address] Dominik MILLAKevin [facility]M [facility]or Proced[facility] re Clinic) [address] [place] [address] Dominik MILLAB [facility]Sco tt [facility] [employer] Res Tm Green) TELE CONSULT [id number] Notes Entered by: ALLISON NIXON 02 Oct 2014 1041 ------- ------- ------- ------- -- Network Results - Physica l Therapy 5 SARAHY CADET 10/[address] [place] [address] Dominik MILLAKevin [facility]S cott [facility] [employer] Res Tm Green) [address] [place] [address] Dominik [facility])(Min or Procedure Clinic) OUTPATIENT [id number] f/u upper back and neck pain DC OLIVEIRA Hugh 10/24 Released w/o Limitations [address] [place] [address] Dominik [facility])( inor Procedu re Clinic) [address] [place] [address] Dominik [facility])(Nmo tt [facility] Fam Res Tm Gold) OUTPATIENT [id number] f/u ultraso und SARAHY CADET 10/29 Released w/o Limitations [address] [place] [address] Dominik [facility])(S [facility] Fam Res Tm Gold) [address] [place] [address] Dominik [facility])([facility] FAMRES Tm Blue) TELE CONSULT [id number] Notes Entered by: PRADIP MARQUEZ 05 Nov 2014 1013 ------- ------- ------- ------- -- Network results Physica l Therapy 015 SARAHY CADET 11/[address] [place] [address] Dominik [facility])([facility] FAMRES Tm Blue) [address] [place] [address] Dominik [facility])(Min or Procedure Clinic) OUTPATIENT [id number] F/U BACK PAIN HAILEEJAYNA KernsVerna Nelson 11/15 Released w/o Limitations [address] [place] [address] Dominik [facility])([facility] Procedu re [facility]) [address] [place] [address] Dominik [facility])(Nmo tt [facility] Fam Res Tm Gold) TELE CONSULT [id number] Notes Entered by: SARAHY CADET 20 Nov 2014 1228 ------- ------- ------- ------- -- clautro phobia SARAHY CADET 11/[address] [place] [address] Dominik [facility])([facility] Fam Res Tm Gold) [address] [place] [address] Dominik [facility])([facility] tt [facility] Fam Res Tm Gold) TELE CONSULT [id number] Notes Entered by: SHANTEL BROWNE 29 Nov 2014 1506 ------- ------- ------- ------- -- Open SAKSHI / Chichi / [phone] TITA BROWNE 11/29 Referred for Appointment [employer] Dominik LOYOLAB ([facility])([facility] Fam Res Tm Gold) [facility] Dominik LOYOLAB ([facility])([facility] Fam Res Tm Gold) TELE CONSULT [id number] Notes Entered by: MAYO ELENA 03 Dec 2014 0738 ------- ------- ------- ------- -- TITA Roldan 12/03 Referred for Appointment [employer] Dominik LOYOLAB ([facility])([facility] Fam Res Tm Gold) [facility] Dominik [facility] Fam Res Tm Gold) TELE CONSULT [id number] Notes Entered by: SHANTEL BROWNE 20 Dec 2014 1417 ------- ------- ------- ------- -- MRI results / Chichi / [phone] TITA BROWNE 12/20 Referred for Appointment [facility] Dominik LOYOLAB ([facility])([facility] Fam Res Tm Gold) [facility] Dominik [facility] [facility]) OUTPATIENT [id number] F/U UPPER BACK DC OLIVEIRA 01/17 Released w/o Limitations [employer] Dominik LOYOLAB ([facility])(M inor Procedu re Clinic) [facility] Dominik LOYOLAB ([facility])(Min or Procedure Clinic) OUTPATIENT [id number] F/U SARAHY SKELTON 01/31 Released w/o Limitations [employer] Dominik LOYOLAB ([facility])(M inor Procedu re Clinic) [facility] Dominik LOYOLAB ([facility])(Min or Procedure Clinic) OUTPATIENT [id number] adolph frost f/u DC OLIVEIRA 02/10 Released w/o Limitations [employer] ([facility])(M inor Procedu re Clinic) [facility] Dominik MILLAB ([facility])([facility] Fam Res Tm Gold) TELE CONSULT [id number] Notes Entered by: MAYO ELENA 21 Feb 2015 1344 ------- ------- ------- ------- -- Micaelvis retro referra TITA Mcdermott 02/21 Referred for Appointment [facility] Dominik LOYOLAB ([facility])(S [facility] Fam Res Tm Gold) [facility] Dominik LOYOLAB ([facility])(Min or Procedure Clinic) OUTPATIENT [id number] F/u left shoulde r. JAKET appoint DC De Luna 03/13 Released w/o Limitations [facility] Dominik LOYOLAB ([facility])(M inor Procedu re Clinic) [facility] Dominik LOYOLAB ([facility])(Sco tt [facility] Fam Res Tm Gold) TELE CONSULT [id number] Notes Entered by: MAYO ELENA 07 Apr 2015 0751 ------- ------- ------- ------- -- Perlita medicat TITA Hutchison 04/07 Referred for Appointment [facility] Dominik LOYOLAB ([facility])(S [facility] Fam Res Tm Gold) [facility] Dominik LOYOLAB ([facility])(Min or Procedure Clinic) OUTPATIENT [id number] F/U JAKET DC OLIVEIRA 04/24 Released w/o Limitations [facility] Dominik LOYOLAB ([facility])(M inor Procedu re Clinic) [facility] Dominik LOYOLAB ([facility])(Min or Procedure Clinic) OUTPATIENT [id number] Upper back/ne ck pain DC OLIVEIRA 06/03 Released w/o Limitations [facility] Dominik LOYOLAB ([facility])(M inor Procedu re Clinic) [facility] [employer] ([facility])(Sco tt [facility] Fam Res Tm Red) OUTPATIENT [id number] X/B head congest ion, mucus/ PAN vargas JORDAN J 06/16 Released w/o Limitations [facility] [employer] ([facility])(S cott [facility] Fam Res Tm Red) [facility] [employer] ([facility])(Sco tt [facility] FAMRES Tm Blue) OUTPATIENT [id number] R- foot pains X 1week,2 [id number] SHAY HUGHES 06/23 Released w/o Limitations [address] [place] [address] Dominik ELIZONDO [facility] FAMRES Tm Blue) [address] [place] [address] Dominik ELIZONDO [facility] Fam Res Tm Gold) TELE CONSULT [id number] Notes Entered by: FLORIDA HARRY 26 Jun 2015 0820 ------- ------- ------- ------- -- Med questio n/althea r/ 0730-16 30 TITA BROWNE 06/26 Referred for Appointment [address] [place] [address] Dominik ELIZONDO [facility] Fam Res Tm Gold) [address] [place] [address] Dominik ELIZONDO [facility] Fam Res Tm Gold) TELE CONSULT [id number] Notes Entered by: VERNON MARCOS 26 Jun 2015 1039 ------- ------- ------- ------- -- Network Results -ORTHOP EDICS 01/20/15 SDG SHAY ROGERS 06/[address] [place] [address] Dominik ELIZONDO [facility] Fam Res Tm Gold) [address] [place] [address] Dominik ELIZONDO [facility] Fam Res Tm Gold) TELE CONSULT [id number] Notes Entered by: ALEJANDRO VILLELA 27 Jun 2015 1106 ------- ------- ------- ------- -- Medicat ion request /Cecilia h/[phone] PIERO REDMAN 06/[address] [place] [address] Dominik ELIZONDO [facility] Fam Res Tm Gold) [address] [place] [address] Dominik ELIZONDO [facility] Procedure Clinic) OUTPATIENT [id number] F/U OMT SHAY HUGHES 07/03 Released w/o Limitations [address] [place] [address] Dominik ELIZONDO [facility]M inor Procedu re Clinic) [address] [place] [address] Dominik MIKHAIL [facility] Procedure [facility]) OUTPATIENT [id number] f/u VERNON OLIVEIRAR S 07/31 Released w/o Limitations [facility] [employer] EL[employer]ONDO ([facility]M inor Procedu re Clinic) [address] [place] [address] Group [employer] ELIZON[employer] ([facility])(Min or Procedure Clinic) OUTPATIENT [id number] F/U OMT VERNON OLIVEIRAR S 08/28 Released w/o Limitations [facility] [employer] EL[employer] ([facility]M inor Procedu re Clinic) [address] [place] [address] Group [employer] ELIZ[employer] ([facility]Min or Procedure Clinic) OUTPATIENT [id number] f/u VERNON OLIVEIRAR S 09/09 Released w/o Limitations [facility] [employer] ([facility]M inor Procedu re Clinic) [address] [place] [address] Group [facility] [place]ONDO [facility] [facility] Fam Res Tm Gold) TELE CONSULT [id number] Notes Entered by: MAYO ELENA 26 Sep 2015 1629 ------- ------- ------- ------- -- Micare medicat ion request TITA BROWNE 09/26 Referred for Appointment [address] [place] [address] Group [employer] ELIZONDO ([facility])(S cott [facility] Fam Res Tm Gold) [address] [place] [address] Group [employer] ELIZON[employer] ([facility])(Min or Procedure Clinic) OUTPATIENT [id number] f/u OMT CONCHA PERLA 10/09 Released w/o Limitations [facility] [employer] ([facility]M inor Procedu re Clinic) [address] [place] [address] Group [employer] ELIZON[employer] ([facility]Min or Procedure Clinic) OUTPATIENT [id number] f/u OMT STEPHANY MUIR 10/22 Released w/o Limitations [address] [place] [address] Group [employer] ELIZON[employer] ([facility]M inor Procedu re Clinic) [address] [place] [address] Group [employer] LOYOLAB ([facility])(Sco tt [facility] Fam Res Tm Gold) TELE CONSULT [id number] Notes Entered by: FLORIDA HARRY 03 Nov 2015 0842 ------- ------- ------- ------- -- NAL UC F/U and Retro ref req/Sny tin/[phone] TITA BROWNE 11/02 Referred for Appointment [employer] ([facility])([facility] Fam Res Tm Gold) [employer] ([facility])(Min or Procedure Clinic) OUTPATIENT [id number] f/u ANITHA Clay 11/17 Released w/o Limitations [employer] ([facility]M inor Procedu re Clinic) [employer] ([facility])([facility] Fam Res Tm Gold) TELE CONSULT [id number] Notes Entered by: Kevin PLATT 26 Nov 2015 1555 ------- ------- ------- ------- -- Referra TITA Mcdermott (Snyder ) 11/25 Referred for Appointment [employer] ([facility])([facility] Fam Res Tm Gold) [facility] [employer] ([facility])(Min or Procedure Clinic) OUTPATIENT [id number] F/U OMT STEPHANY MUIR 12/02 Released w/o Limitations [employer] ([facility])(M inor Procedu re Clinic) [facility] [employer] LOYOLAB ([facility])([facility] Fam Res Tm Gold) TELE CONSULT [id number] Notes Entered by: Kevin PLATT 08 Dec 2015 1613 ------- ------- ------- ------- -- Med refmakenna (TITA Card 12/07 Referred for Appointment [employer] ([facility])([facility] Fam Res Tm Gold) [employer] ([facility])(Min or Procedure Clinic) OUTPATIENT [id number] f/u OMT PIERO REDMAN 12/16 Released w/o Limitations [employer] ([facility])(M inor Procedu re Clinic) [employer] ([facility]Min or Procedure Clinic) OUTPATIENT [id number] F/U OMT SARWAT MCNALLY 03/05 Released w/o Limitations [employer] ([facility]M inor Procedu re Clinic) [employer] ([facility])(Sco tt [facility] Fam Res Tm Gold) OUTPATIENT [id number] R side pain x 2 wks SHAY ROGERS 03/25 Released w/o Limitations [employer] ([facility])(S cott [facility] Fam Res Tm Gold) [facility] [employer] ([facility]Min or Procedure Clinic) OUTPATIENT [id number] NECK PAIN SHALA MOSER Santosh 04/05 Released w/o Limitations [employer] ([facility] [facility])(M inor Procedu re Clinic) [facility] [employer] ([facility]Min or Procedure Clinic) OUTPATIENT [id number] F/U OMT] GEOVANNA BELTRAN 05/07 Released w/o Limitations [employer] ([facility] [facility])(M inor Procedu re Clinic) [facility] [employer] ([facility]Min or Procedure Clinic) OUTPATIENT [id number] F/U OMT STACIA RAINES 05/28 Released w/o Limitations [employer] ([facility])(M inor Procedu re Clinic) [facility] [employer] ([facility])(Sco tt [facility] Fam Res Tm Gold) OUTPATIENT [id number] Derm issue on chest [id number] MATIAS-LINDA ARREDONDO 06/01 Released w/o Limitations [employer] ([facility])(S [facility] Fam Res Tm Gold) [facility] [employer] ([facility])(Sco tt [facility] FAMRES Tm Blue) TELE CONSULT [id number] Notes Entered by: PRADIP MARQUEZ 08 Jun 2016 1227 ------- ------- ------- ------- -- Network results Urgent Care 016 SHAY ANDERSEN 06/08 [employer] ([facility])(S [facility] FAMRES Tm Blue) [facility] [employer] ([facility])(Min or Procedure Clinic) OUTPATIENT [id number] OMT f/u DC OLIVEIRA 06/30 Released w/o Limitations [address] [place] [address] [employer] ([facility])(M inor Procedu re Clinic) [address] [place] [address] [employer] ([facility])(Min or Procedure Clinic) OUTPATIENT [id number] Inflame d seborrh eic keratos is CA RODRIGUEZ 07/05 Released w/o Limitations [address] [place] [address] [employer] LOY[employer] ([facility])( inor Procedu re Clinic) [address] [place] [address] [facility] [place] [facility] Fam Res Tm Red) TELE CONSULT [id number] Notes Entered by: Hugh RODRIGUEZ 19 Jul 2016 1548 ------- ------- ------- ------- -- Biopsy Results SHARI MORENO 07/[address] [place] [address] [employer] LOY[employer] ([facility])(S [facility] Fam Res Tm Red) [address] [place] [address] [facility] [place] tt [facility] Fam Res Tm Gold) TELE CONSULT [id number] Notes Entered by: Carlitos COPELAND 19 Jul 2016 1603 ------- ------- ------- ------- -- Skin Tissue Biopsy Results Request / Darren/ 220.697 0 - CA Azar 07/[address] [place] [address] [employer] LOYOLAB ([facility])(S [facility] Fam Res Tm Gold) [address] [place] [address] [facility] [place]OL[facility] [place] Procedure [facility]) OUTPATIENT [id number] T f/u ARASH FONTANEZ 07/21 Released w/o Limitations [address] [place] [address] [employer] LOY[employer] ([facility])(M inor Procedu re Clinic) [address] [place] [address] [facility] LO[place]OLAB [facility]Nmo tt [facility] Fam Res Tm Gold) TELE CONSULT [id number] Notes Entered by: VERNELL KERN 28 Jul 2016 1114 ------- ------- ------- ------- -- Biopsy Results / Darren / [phone] 0 - TITA Velasco 07/28 Referred for Appointment [address] [place] [address] [employer] LOYOLAB [facility] Fam Res Tm Gold) [facility] [employer] LOY[employer]Sco tt [facility] Fam Res Tm Green) TELE CONSULT [id number] Notes Entered by: LINDA HOLBROOK 12 Aug 2016 0938 ------- ------- ------- ------- -- LINDA Roldan 08/[address] [place] [address] Group [employer] LOYOLAB [facility]S [facility] Fam Res Tm Green) [address] [place] [address] Group [employer] LOY[employer] ([facility])(Sco tt [facility] Fam Res Tm Gold) OUTPATIENT [id number] f/u on biospy - invite [facility] Tiffany to this appt - [id number] LINDA MCKINNEY 08/24 Released w/o Limitations [address] [place] [address] Group [employer] LOY[employer] ([facility])(S [facility] Fam Res Tm Gold) [address] [place] [address] [employer] [place] Procedure [place]) OUTPATIENT [id number] F/U OMT neck . LIONEL TORRES 09/01 Released w/o Limitations [address] [place] [address] Group [employer] LOYOLAB ([facility])(M inor Procedu re Clinic) [address] [place] [address] [employer]ik MILLAB [facility]Tin matology) OUTPATIENT [id number] Actinic keratos is JUAN MORALES 09/24 Released w/o Limitations [address] [place] [address] [employer] MILLAB ([facility])(D ermatol ogy) [address] [place] [address] [employer] M[employer] ([facility])(Min or Procedure Clinic) OUTPATIENT [id number] OMT F/U shoulde rs and neck DC OLIVEIRA 09/27 Released w/o Limitations [address] [place] [address] Group [employer] ([facility])(M inor Procedu re Clinic) [address] [place] [address] [employer] MILLAB [facility]Tin matology) OUTPATIENT [id number] Notes Entered by: EDDA DAI 01 Oct 2016 0956 ------- ------- ------- ------- -- Suture Removal JUAN MORALES 10/01 Released w/o Limitations [address] [place] [address] [employer] ([facility])(D ermatol ogy) [facility] [employer] ([facility])(Min or Procedure Clinic) OUTPATIENT [id number] OMT f/u LIONEL TORRES 10/13 Released w/o Limitations [employer] ([facility])(M inor Procedu re Clinic) [facility] [employer] ([facility])(Min or Procedure Clinic) OUTPATIENT [id number] OMT F/u DC OLIVEIRA 11/08 Released w/o Limitations [employer] ([facility])(M inor Procedu re Clinic) [facility] [employer] ([facility])(Car e Coordinat ion Clinic) TELE CONSULT [id number] Notes Entered by: BRENDA SANCHEZ 15 Nov 2016 1042 ------- ------- ------- ------- -- HU AUSTIN iVllasenor 11/15[facility] [employer] MILL[employer] ([facility])(C are Coordin ation Clinic) [facility] [employer] ([facility])(Min or Procedure Clinic) OUTPATIENT [id number] OMT f/u DC OLIVEIRA 12/13 Released w/o Limitations [employer] ([facility])(M inor Procedu re Clinic) [facility] [employer] ([facility])(Min or Procedure Clinic) OUTPATIENT [id number] OMT f/u SHAY HUGHES 12/31 Released w/o Limitations [employer] ([facility])(M inor Procedu re Clinic) [facility] [employer] ([facility])(Tin matology) OUTPATIENT [id number] poss keloid on chest JUAN MORALES 01/03 Released w/o Limitations [facility] [employer] ([facility])(D ermatol ogy) [facility] [employer] ([facility])(Sco tt [facility] Fam Res Tm Gold) OUTPATIENT [id number] left thumb pain - [id number] ROXANNA SANTILLAN 01/18 Released w/o Limitations [employer] ([facility])(S cott [facility] Fam Res Tm Gold) [facility] [employer] ([facility])(Sco tt [facility] Fam Res Tm Red) TELE CONSULT [id number] Notes Entered by: HARLEY SANDERSON 19 Jan 2017 1134 ------- ------- ------- ------- -- Sx: Sx persist /Splint for thumb/C agle/61 8.220.6 970/clm SHARI MORENO 01/[address] [place] [address] [facility] Kevin [facility]S cott [facility] Res Tm Red) [address] [place] [address] Dominik [facility]) TELE CONSULT [id number] Notes Entered by: Helena GILES 21 Jan 2017 1533 ------- ------- ------- ------- -- Network Results PHYSICA L/OCCUP ATIONAL Therapy 017 TODD KNIGHT 01/[address] [place] [address] [facility] Kevin [facility] Tm Blue) [address] [place] [address] [facility]ik [facility])(Sco tt [facility] Blue) OUTPATIENT [id number] OMT f/u SHAY HUGHES 02/02 Released w/o Limitations [address] [place] [address] Dominik Kevin [facility]S cott [facility] FAMRES Tm Blue) [address] [place] [address] Dominik [facility])(Min or Procedure Clinic) OUTPATIENT [id number] Trigger injecti on HSAY HUGHES 02/04 Released w/o Limitations [address] [place] [address] Dominik Kevin [facility] inor Procedu re Clinic) [address] [place] [address] Dominik B [facility]) OUTPATIENT [id number] OMT f/u SHAY HUGHES 03/03 Released w/o Limitations [address] [place] [address] Dominik Kevin [facility]S cott [facility] FAMRES Tm Blue) [address] [place] [address] Dominik B [facility]Sco tt [facility] Tm Blue) TELE CONSULT [id number] Notes Entered by: PRADIP MARQUEZ 16 Mar 2017 0821 ------- ------- ------- ------- -- Network results Physica l Therapy 017 SHAY STEWART 03/[address] [place] [address] [employer] ELIZONDO ([facility])(S cott [facility] FAMRES Tm Blue) [address] [place] [address] [employer]ik ELIZONDO ([facility])(Sco tt [facility] Fam Res Tm Green) OUTPATIENT [id number] derm check on neck DC OLIVEIRA 03/25 Released w/o Limitations [address] [place] [address] [employer] ELIZONDO ([facility])(S cott [facility] Fam Res Tm Green) [address] [place] [address] [employer] MILLAB ([facility])(Min or Procedure Clinic) OUTPATIENT [id number] OMT f/u CAROL ANN KHAN 04/08 Released w/o Limitations [address] [place] [address] [employer]ik MILLAKevin ([facility])(M inor Procedu re Clinic) [address] [place] [address] [employer]ik MILL[employer] ([facility])(Sco tt [facility] Fam Res Tm Green) OUTPATIENT [id number] Abdomin al issues, white tongue, 220.697 0 DC OLIVEIRA 04/26 Released w/o Limitations [address] [place] [address] [employer] ELIZ[employer]DO ([facility])(S cott [facility] Fam Res Tm Green) [address] [place] [address] [employer]ik MILLAKevin ([facility])(Min or Procedure Clinic) OUTPATIENT [id number] OMT F/U SHOULDE R PAIN. STACIA RAINES 05/13 Released w/o Limitations [address] [place] [address] [employer] ([facility])(M inor Procedu re Clinic) [address] [place] [address] Dominik MILLAB [facility]Sco tt [facility] Fam Res Tm Green) OUTPATIENT [id number] OMT F/U cervica l pain. DC OLIVEIRA 06/15 Released w/o Limitations [address] [place] [address] [employer] ([facility])(S cott [facility] Fam Res Tm Green) [address] [place] [address] [employer] ([facility])(Min or Procedure Clinic) OUTPATIENT [id number] OMT f/u SHALA MOSER 07/15 Released w/o Limitations [address] [place] [address] [employer] ([facility])(M inor Procedu re Clinic) [address] [place] [address] [employer] ([facility])(Sco tt [facility] Fam Res Tm Green) OUTPATIENT [id number] L and R heel pain, 667.107 9 DC OLIVEIRA Hugh 08/19 Released w/o Limitations [address] [place] [address] [facility]S [facility] Fam Res Tm Green) [address] [place] [address] Dominik [facility])(Sco tt [facility] Res Tm Green) TELE CONSULT [id number] Notes Entered by: JIMMY SONG 26 Aug 2017 0753 ------- ------- ------- ------- -- Request to speak to the nurse - Referra verna Rodriguez - - tsg SHRAI MORENO 08/[address] [place] [address] Dominik [facility])(S [facility] Res Green) [address] [place] [address] Dominik [facility])(Min or Procedure Clinic) OUTPATIENT [id number] F/U OMT cervica l and thoraci c somatic dysfunc tion. BARON COPELAND 09/08 Released w/o Limitations [address] [place] [address] Dominik [facility])(M inor Procedu re Clinic) [address] [place] [address] [facility]Min or Procedure Clinic) OUTPATIENT [id number] OMT F/U cervica l, thoraci c nad upper extremi ty somatic dysfunc tion. LORNA GARCIA 10/05 Released w/o Limitations [address] [place] [address] Dominik [facility])(M inor Procedu re Clinic) [address] [place] [address] Dominik [facility])([facility]) TELE CONSULT [id number] Notes Entered by: iDane MORENO 06 Oct 2017 2314 ------- ------- ------- ------- -- Request s med refill for Lipitor , contact #:[phone] SHARI MORENO 10/[address] [place] [address] [facility] [address] [place] [address] [facility])(Sco tt [facility] Res Tm Green) TELE CONSULT [id number] Notes Entered by: Carlitos VALDIVIA 10 Oct 2017 1430 ------- ------- ------- ------- -- Network results Dermato logy 018 CA CROCKER 10/[address] [place] [address])(S cott [facility] Fam Res Tm Green) [address] [place] [address])(Sco tt [facility] Fam Res Tm Green) TELE CONSULT [id number] Notes Entered by: SHEILA ARCHIBALD 14 Oct 2017 1154 ------- ------- ------- ------- -- Medical Necessi ty Form for Med Lore /Tiffany/ SHARI MORENO 10/[address] [place] [address])(S cott [facility] Fam Res Tm Green) [address] [place] [address])(Sco tt [facility] Fam Res Tm Green) TELE CONSULT [id number] Notes Entered by: VERNON MARCOS 24 Oct 2017 1336 ------- ------- ------- ------- -- Network Results -CARDIO LOGY 09/22/17 CA BROWN 10/[address] [place] [address])(S cott [facility] Fam Res Tm Green) [address] [place] [address])(Sco tt [facility] Fam Res Tm Green) TELE CONSULT [id number] Notes Entered by: Carlitos COPELAND 24 Oct 2017 1549 ------- ------- ------- ------- -- Medicat ion Not in Pharmac y/ Tiffany/ [phone] or [phone] 0 - SHARI Price 10/[address] [place] [address])(S cott [facility] Fam Res Tm Green) [address] [place] [address])(Min or Procedure Clinic) OUTPATIENT [id number] OMT F/U Somatic dysfunc tion, thoraci c, head and rib cage. SHALA MOSER 10/28 Released w/o Limitations [address] [place] [address])(M inor Procedu re Clinic) [address] [place] [address])(Bas e Operation al Medicine Clin) TELE CONSULT [id number] Notes Entered by: Randal OLIVEIRA 31 Oct 2017 1522 ------- ------- ------- ------- -- Non-for mulary request DC OLIVEIRA 10/[address] [place] [address] Dominik [facility])(B ase Operati onal Medicin e Clin) [address] [place] [address])(Sco tt [facility] FAMRES Tm Blue) TELE CONSULT [id number] Notes Entered by: SUZANNE MONET 01 Nov 2017 1348 ------- ------- ------- ------- -- Network Results - Dermato logy 09/13/17 CA RODRIGUEZ 11/[address] [place] [address])(S cott [facility] FAMRES Tm Blue) [address] [place] [address])(Sco tt [facility] Fam Res Tm Green) OUTPATIENT [id number] right knee pain/di scomfor t x 2 weeks LORNA GARCIA 11/28 Released w/o Limitations [address] [place] [address])(S cott [facility] Fam Res Tm Green) [address] [place] [address])(Sco tt [facility] Fam Res Tm Green) OUTPATIENT [id number] OMT F/U somsati c dysfunc tions of cervica l and toracic ,rib cage. PERLA HOSKINS 12/02 Released w/o Limitations [address] [place] [address])(S cott [facility] Fam Res Tm Green) [address] [place] [address])(Sco tt [facility] Fam Res Tm Green) TELE CONSULT [id number] Notes Entered by: VICKIE ROWE 15 Dec 2017 1442 ------- ------- ------- ------- -- Med Renewal Request / Tiffany/ [phone] 0 - aleshatonya SHARI MORENO 12/[address] [place] [address] Dominik ELIZONDO [facility]S cott [facility] Fam Res Tm Green) [address] [place] [address] Dominik [facility]Sco tt [facility] Fam Res Tm Green) OUTPATIENT [id number] OMT F/U segment al and somatic dysfunc tion cervica l/rib cage. JAVIER HUA 01/11 Released w/o Limitations [address] [place] [address] Dominik ELIZONDO [facility]S cott [facility] Fam Res Tm Green) [address] [place] [address] Dominik ELIZONDO [facility]Sco tt [facility] Fam Res Tm Green) TELE CONSULT [id number] Notes Entered by: PERLA HOSKINS 17 Jan 2018 1045 ------- ------- ------- ------- -- PERLA Ribera 01/[address] [place] [address] Dominik ELIZONDO [facility]S cott [facility] Fam Res Tm Green) [address] [place] [address] Dominik ELIZONDO [facility]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) OUTPATIENT [id number] annual wwe - [phone] or [phone] CASSIUS RODRIGUEZ 01/24 Released w/o Limitations [address] [place] [address] Dominik ELIZONDO [facility]G ynecolo gy) [address] [place] [address] Dominik ELIZONDO [facility]Sco tt [facility] Fam Res Tm Green) OUTPATIENT [id number] OMT segment al and somatic dysfuns tion thoraci c region. SHALA MOSER 03/06 Released w/o Limitations [address] [place] [address] Dominik ELIZONDO [facility]S cott [facility] [facility] [employer] [employer]) [address] [place] [address] Dominik [place]IZONDO [facility]Sco [place] [facility] [employer]) OUTPATIENT [id number] OMT PERLA HOSKINS 04/10 Released w/o Limitations [address] [place] [address] Dominik ELIZONDO [facility] [facility] [employer]) [address] [place] [address] Dominik LOYOLAB [facility]Sco tt [facility] [employer]) OUTPATIENT [id number] trigger finger LORNA GARCIA 05/31 Released w/o Limitations [address] [place] [address] Dominik ELIZONDO [facility] [facility] [employer]) [address] [place] [address] Group Dominik ELIZONDO ([facility])(Sco tt [facility] [employer]) OUTPATIENT [id number] right ear pain BARON COPELAND 06/01 Released w/o Limitations [address] [place] [address] Dominik ELIZONDO [facility] [facility] [employer]) [address] [place] [address] Dominik [facility]co tt [facility] [employer]) OUTPATIENT [id number] OMT F/U somatic thoraci c dysfunc david. STEPHANY MUIR 06/16 Released w/o Limitations [address] [place] [address] Dominik ELIZONDO [facility] [facility] [employer]) [address] [place] [address] Dominik ELIZONDO [facility]Sco tt [facility] [employer]) TELE CONSULT [id number] Notes Entered by: VICKIE ROWE 03 Jul 2018 1421 ------- ------- ------- ------- -- Next Step of Treatme nt - R Hand X-ray/ Tiffany/ - LORNA Oneil 07/03 Referred for Appointment [address] [place] [address] Dominik ELIZONDO [facility] [facility] [employer]) [address] [place] [address] Dominik ELIZONDO [facility]Sco tt [facility] [employer]) TELE CONSULT [id number] Notes Entered by: SHEILA ARCHIBALD 17 Oct 2018 0908 ------- ------- ------- ------- -- Referra l Renewal Request /Tiffany/ [phone] SHARI MORENO 10/17 Referred for Appointment [address] [place] [address] Group Dominik ELIZONDO [facility] [facility] [employer]) [address] [place] [address] Dominik [facility]DO [facility]co tt [facility] [employer]) OUTPATIENT [id number] OMT/nec k,mid back LORNA GARCIA 11/02 Released w/o Limitations [address] [place] [address] Dominik ELIZONDO [facility] [facility] [employer]) [facility] Dominik ELIZONDO ([facility]Sco tt [facility] [employer]) OUTPATIENT [id number] OMT LORNA GARCIA 11/23 Released w/o Limitations [facility] Dominik ELIZONDO ([facility])(S cott [facility] [employer]) [facility] Dominik ELIZONOD [facility]) OUTPATIENT [id number] Notes Entered by: KURT DICKENS 08 Dec 2018 1439 ------- ------- ------- ------- -- Pre-KURT Medel 12/08 Released w/o Limitations [address] [place] [address] Group Dominik ELIZONDO [facility]N utritio efren Medicin e) [facility] Dominik ELIZONDO ([facility])(Sco tt [facility] [employer]) OUTPATIENT [id number] OMT F/U upper back pain LORNA GARCIA 12/18 Released w/o Limitations [facility] Dominik ELIZONDO ([facility])(S cott [facility] [employer]) [facility] Dominik ELIZONDO [facility]Sco tt [facility] [employer]) TELE CONSULT [id number] 3 Notes Entered by: CHAPITO PRICE 04 Jan 2019 1438 ------- ------- ------- ------- -- Husam lam /tiffany/ SHARI Mcnamara 01/04 Referred for Appointment [facility] Dominik ELIZONDO ([facility]S cott [facility] [employer]) [facility] Dominik [facility]co tt [facility] [employer]) OUTPATIENT [id number] 0 OMT F/U upper back pain LORNA GARCIA 01/29 Released w/o Limitations [address] [place] [address] Group Dominik ELIZONDO ([facility])(S cott [facility] [employer]) [facility] Dominik ELIZONDO [facility]Sco tt [facility] [employer]) TELE CONSULT [id number] Notes Entered by: FLORIDA HARRY 06 Feb 2019 0928 ------- ------- ------- ------- -- Med renewal /tiffany/ SARAHY Albright 02/06 Medication Refill Forwarded [address] [place] [address] Dominik ELIZONDO [facility] [facility] [employer]) [address] [place] [address] Dominik [facility])(Sco tt [facility] [employer]) TELE CONSULT [id number] Notes Entered by: VERNON MARCOS 07 Mar 2019 1000 ------- ------- ------- ------- -- Network Results DERM 02/22/19 CA BROWN 03/[address] [place] [address] Dominik [facility])(S cott [facility] [employer]) [address] [place] [address])(Sco tt [facility] [employer]) OUTPATIENT [id number] shoulde r pain [phone] LORNA GARCIA 05/15 Released w/o Limitations [address] [place] [address] Dominik [facility])(S cott [facility] [employer]) [address] [place] [address])(Sco tt [facility] [employer]) OUTPATIENT [id number] 9 R- elbow pain,[phone] CA RODRIGUEZ 06/07 Released w/o Limitations [address] [place] [address])(S cott [facility] [employer]) [address] [place] [address])(Sco tt [facility] [employer]) TELE CONSULT [id number] Notes Entered by: HARLEY SANDERSON 12 Jun 2019 1243 ------- ------- ------- ------- -- Med Renewal /Rad Results /Tiffany/ 220.697 0/SHARI Hammond 06/12 Medication Refill Forwarded [address] [place] [address] [facility]S cott [facility] [employer]) [address] [place] [address] Dominik [facility])(Sco tt [facility] [employer]) TELE CONSULT [id number] 5 Notes Entered by: Hugh RODRIGUEZ 14 Jun 2019 1518 ------- ------- ------- ------- -- XRAY results SHARI MORENO 06/14 Other Not Elsewhere Classified [address] [place] [address] Dominik ELIZONDO [facility] [facility] [employer]) [address] [place] [address] Dominik LOYOLAB [facility]Sco tt [facility] [employer]) OUTPATIENT [id number] left arm rash [phone] KWESI OLVERA V 11/11 Released w/o Limitations [address] [place] [address] Dominik LOYOLAB [facility] cott [facility] [employer]) [address] [place] [address] Dominik LOYOLAB [facility]Sco tt [facility] [employer]) OUTPATIENT [id number] 3 VIRTUAL -[phone] pain in buttock s going down legs when laying down LORNA GARCIA 02/03 Released w/o Limitations [address] [place] [address] Dominik ELIZONDO [facility] cott [facility] [employer]) [address] [place] [address] Dominik [place] [facility]Sco tt [facility] [employer]) OUTPATIENT [id number] 3 OMT/HIP PAIN NAHUN MADDOX 02/11 Released w/o Limitations [address] [place] [address] Dominik [facility]AB [facility]S cott [facility] [employer]) [address] [place] [address] Dominik B [facility]Spo rts Med Clinic/Pa in Mgmt) OUTPATIENT [id number] SPORT/O MT EVAL NAHUN MADDOX 03/03 Released w/o Limitations [address] [place] [address] Dominik LOYOLAB [facility]S ports [facility] Pain Mgmt) [address] [place] [address] Dominik B [facility]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) OUTPATIENT [id number] vaginal wart - [phone] CASSIUS RODRIGUEZ 03/04 Released w/o Limitations [address] [place] [address] Dominik MILLAB [facility]G ynecolo gy) [address] [place] [address] Dominik B [facility]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) TELE CONSULT [id number] Notes Entered by: JOSE RODRIGUEZ 07 Mar 2020 1614 ------- ------- ------- ------- -- results KEVINCORYMITUL T 03/07 Referred for Appointment [address] [place] [address])(G susan gy) [address] [place] [address])(Sco tt [facility] [employer]) TELE CONSULT [id number] Notes Entered by: CHAPITO PRICE 11 Mar 2020 1416 ------- ------- ------- ------- -- referra l request /schelb [phone] SHARI Mcnamara 03/11 Referred for Appointment [address] [place] [address])(S cott [facility] [employer]) [address] [place] [address])(Sco tt [facility] F[employer]) OUTPATIENT [id number]: per [address] Jeter -f/u hair loss DON JETER 03/18 Released w/o Limitations [address] [place] [address] Dominik [facility]S cott [facility] [employer]) [address] [place] [address] Dominik [facility])(Sco tt [facility] F[employer]) TELE CONSULT [id number] Notes Entered by: DON JETER 19 Mar 2020 1624 ------- ------- ------- ------- -- Lab follow up DON JETER 03/[address] [place] [address] Dominik [facility])(S cott [facility] [employer]) [address] [place] [address] Dominik [facility])(Sco tt [facility] F[employer]) TELE CONSULT [id number] Notes Entered by: SHEILA ARCHIBALD 20 Mar 2020 1453 ------- ------- ------- ------- -- Referra l Renewal Request /Schelb SHARI MORENO 03/20 Immediate Referral [address] [place] [address] Dominik [facility])(S [facility] F[employer]) [address] [place] [address] Dominik LOYOLAKevin [facility]Spo rts Med Clinic/Pa in Mgmt) OUTPATIENT [id number] SPORT/O MT F/U MADDOXNAHUN BECK 03/24 Released w/o Limitations [address] [place] [address] Dominik Kevin [facility]S ports [facility]/ Pain Mgmt) [address] [place] [address] Dominik Kevin [facility]po [facility]ts Med Clinic/Pa in Mgmt) TELE CONSULT [id number] Notes Entered by: DON JETER 28 Mar 2020 1346 ------- ------- ------- ------- -- Lab follow up DON JETER 03/[address] [place] [address] Dominik ELIZONDO [facility]S ports [facility] Pain Mgmt) [address] [place] [address] Dominik Kevin [facility]Sco tt [facility] F[employer]) TELE CONSULT [id number] 8 Notes Entered by: CHAPITO PRICE 31 Mar 2020 0854 ------- ------- ------- ------- -- returne d phone call/la robbie/Annalee [phone] or [phone] DON Louis 03/[address] [place] [address] Dominik MILLAKevin [facility]S [facility] [place] [place]) [address] [place] [address] Dominik [facility]Sco tt [facility] [employer]) OUTPATIENT [id number] In-Pers on - L Leg Wasp sting x 1 week increas ing OMEGA DAMIAN 04/03 Released w/o Limitations [address] [place] [address] Dominik MILLAKevin [facility]S [facility] F[employer]) [address] [place] [address] Dominik MILLAKevin [facility]Sco tt [facility] F[employer]) TELE CONSULT [id number] Notes Entered by: BETTY RAYMUNDO RET 08 Apr 2020 1241 ------- ------- ------- ------- -- RX Renewal /Joni y/ *SHARI Fish 04/08 Medication Refill Forwarded [address] [place] [address] Dominik ELIZONDO ([facility])(S cott [facility] [employer]) [address] [place] [address] Dominik ELIZONDO ([facility])(Sco tt [facility] FAMRES [employer]m [employer]) TELE CONSULT [id number] Notes Entered by: JAVON HANDLEY 08 Apr 2020 1417 ------- ------- ------- ------- -- Prescri ption Renewal Request SHARI MORENO 04/08 Other Not Elsewhere Classified [address] [place] [address] Dominik ELIZONDO ([facility])(S cott [facility] FAM[employer]) [address] [place] [address] Dominik ELIZONDO [facility]co tt [facility] FAMRES [employer]m [employer]) OUTPATIENT [id number] OMT/nec k shoulde r f/u NAHUN MADDOX 04/11 Released w/o Limitations [address] [place] [address] Dominik ELIZONDO [facility]S cott [facility] FAM[employer]) [address] [place] [address] Dominik ELIZONDO [facility]Sco tt [facility] [employer] Res [employer]) TELE CONSULT [id number] Notes Entered by: DON JETER 20 Apr 2020 1336 ------- ------- ------- ------- -- Lab follow up DON JETER 04/[address] [place] [address] Dominik ELIZONDO ([facility])(S cott [facility] [employer]) [address] [place] [address] Dominik ELIZONDO [facility]Spo rts Med Clinic/Pa in Mgmt) OUTPATIENT [id number] SPORT/R IGHT ANKLE/F OOT PAIN NAHUN MADDOX 04/25 Released w/o Limitations [address] [place] [address] Dominik ELIZONDO ([facility])(S ports Med Clinic/ Pain Mgmt) [address] [place] [address] Dominik ELIZONDO [facility]Sco tt [facility] FAM[employer]m [employer]) OUTPATIENT [id number] OMT/sci DC Del Rosario 04/28 Released w/o Limitations [address] [place] [address] Dominik ELIZONDO ([facility])(S cott [facility] FAM[employer]) [address] [place] [address] Dominik ELIZONDO [facility]Sco tt [facility] [employer]) OUTPATIENT [id number] OMT/PER DR MADDOX/ UPPER/L OWER BACK SILVINO BELLA E 05/06 Released w/o Limitations [address] [place] [address] Dominik ELIZONDO ([facility])(S cott [facility] [employer]) [address] [place] [address] Dominik MILLAKevin [facility]Spo rts Med Clinic/Pa in Mgmt[facility] OUTPATIENT [id number] SPORT/R IGHT FOOT NUMBNES S F/U ENRRIQUE LOTT E 05/06 Released w/o Limitations [address] [place] [address] Dominik ELIZONDO [facility]S ports [facility]/ Pain Mgmt) [address] [place] [address] Dominik MILLAKevin [facility]Sco tt [facility] FAM[employer]m [employer]) OUTPATIENT [id number] 2 OMT/f/u per Dr. Calderon/DC Miller T 05/15 Released w/o Limitations [address] [place] [address] Dominik ELIZONDO ([facility])(S cott [facility] FAM[employer]) [address] [place] [address] Dominik MILLAKevin [facility]co tt [facility] F[employer]) OUTPATIENT [id number] 3 OMT/LBP /SCACRU M SILVINO BELLA E 05/20 Released w/o Limitations [address] [place] [address] Dominik MILLAKevin [facility]S cott [facility] F[employer]) [address] [place] [address] Dominik MILLAKevin [facility]co tt [facility] FAM[employer]m [employer]) OUTPATIENT [id number] 9 OMT/F/U DC CALDERON T 06/05 Released w/o Limitations [address] [place] [address] Dominik ELIZONDO [facility]S cott [facility] FAM[employer]) [address] [place] [address] Dominik MILLAKevin [facility]co tt [facility] Fam [employer]) OUTPATIENT [id number] 4 OMT/F/U SILVINO BELLA E 06/17 Released w/o Limitations [address] [place] [address] Dominik ELIZONDO [facility]S cott [facility] F[employer]) [address] [place] [address] Dominik ELIZONDO [facility]Sco tt [facility] Fam [employer]) TELE CONSULT [id number] Notes Entered by: Diane MORENO 18 Jul 2020 1059 ------- ------- ------- ------- -- Request stat referra l to gastro appt on Aug 03, derm and sleep disorde SHARI Johnson 07/18 Immediate Referral [address] [place] [address] Dominik MILLAKevin [facility] Fam [employer] [place]) [address] [place] [address] Dominik MILLAKevin [facility]Sco tt [facility] FAM[employer]m [employer]) OUTPATIENT [id number] 4 OMT/nec k/shoul tin/gunjan k pain BRUE, DC T 07/30 Released w/o Limitations [address] [place] [address] Dominik MIKHAIL [facility]S cott [facility] FAM[employer]m [employer]) [address] [place] [address] Dominik MILLAKevin [facility]Sco tt [facility] Fam Res [employer]) OUTPATIENT [id number] In Person - right hand, thumb finger nail SILVINO BELLA 08/20 Released w/o Limitations [address] [place] [address] Dominik MILLAKevin ([facility])(S cott [facility] Fam [employer]) [address] [place] [address] Dominik MILLAKevin [facility]Sco tt [facility] FAM[employer]m Blue) OUTPATIENT [id number] 9 OMT/gunjan k pain BRUE, DC T 09/04 Released w/o Limitations [address] [place] [address] Dominik MILLAKevin [facility]S cott [facility] FAM[employer]m [employer]) [address] [place] [address] Dominik MILLAKevin [facility]Sco tt [facility] Fam Res [employer]) TELE CONSULT [id number] Notes Entered by: MELIDA BISWAS 11 Sep 2020 1349 ------- ------- ------- ------- -- Network results Dermato logy 021 ELLIE LIPSCOMB 09/11 Released to [facility] [address] [place] [address] Dominik MILLAKevin [facility]S cott [facility] Fam [employer]) [address] [place] [address] Dominik MILLAKevin [facility]Sco tt [facility] FAMRES Tm Blue) OUTPATIENT [id number] OMT/NEC K/SHOUL TIN/GUNJAN K BRUE, DC T 09/18 Released w/o Limitations [address] [place] [address] Dominik MILLAKevin [facility]S cott [facility] FAMRES [employer]m Blue) [address] [place] [address] Dominik MILLAKevin [facility]Sco tt OF Fam Res Tm Green) TELE CONSULT [id number] 5 Notes Entered by: VICKIE ROWE 03 Oct 2020 0947 ------- ------- ------- ------- -- 2nd Opinion Dermato logy Husam Torrez / Steffany / - ajSHARI Pelletier 10/03 Immediate Referral [address] [place] [address] Dominik ELIZONDO [facility]S cott [facility] Fam [employer]) [address] [place] [address] Dominik ELIZONDO [facility]Sco tt [facility] FAMRES Tm Blue) OUTPATIENT [id number] OMT/GUNJAN DC GOLDSTEIN 10/06 Released w/o Limitations [address] [place] [address] Dominik ELIZONDO [facility]S cott [facility] FAMRES Tm Blue) [address] [place] [address] Dominik ELIZONDO [facility]Sco tt [facility] Fam Res [employer]m [employer]) TELE CONSULT [id number] Notes Entered by: Carlitos VALDIVIA 13 Oct 2020 0903 ------- ------- ------- ------- -- Network results Oncolog y 020 DON BLAND 10/[address] [place] [address] Dominik ELIZONDO [facility]S cott [facility] Fam Res [employer] [place]) [address] [place] [address] Dominik ELIZONDO [facility]Sco tt [facility] Fam Res [employer]) TELE CONSULT [id number] Notes Entered by: JUANJOSE HILTON 13 Oct 2020 1547 ------- ------- ------- ------- -- Covid vaccine DON JETER 10/[address] [place] [address] Dominik ELIZONDO [facility]S cott [facility] Fam Res [employer] [place]) [address] [place] [address] Dominik ELIZONDO [facility]Sco tt [facility] Fam Res [employer]) OUTPATIENT [id number] 4 covid vaccine DON Castanon 10/22 Released w/o Limitations [address] [place] [address] Dominik ELIZONDO [facility]S cott [facility] Fam [employer]) [address] [place] [address])(Nmo tt [facility] Fam Res [employer]m [employer]) TELE CONSULT [id number] 6 Notes Entered by: VICKIE ROWE 27 Oct 2020 1134 ------- ------- ------- ------- -- Lab Test Request - Blanca Machado/ Steffany / -- ARI Zuñiga 10/27 Released to [employer] [address] [place] [address])(S [facility] Fam Res [employer]m [employer]) [address] [place] [address])(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) TELE CONSULT [id number] 6 Notes Entered by: JOSE RODRIGUEZ 08 Dec 2020 1240 ------- ------- ------- ------- -- results ROXANNA LYNNE 12/08 Other Not Elsewhere Classified [address] [place] [address])(Jasvir santoyo) [address] [place] [address])(Nmo tt [facility] Res Tm Green) TELE CONSULT [id number] Notes Entered by: JOSE MICHAEL 02 Feb 2021 1508 ------- ------- ------- ------- -- Network results Dermato logy 021 BF DON JETER 02/[address] [place] [address] Dominik [facility])(S [facility] Res Tm Green) [address] [place] [address])(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) TELE CONSULT [id number] Notes Entered by: JOSE RODRIGUEZ 05 May 2021 1310 ------- ------- ------- ------- -- results GETACHEW LEBRON 05/05 Other Not Elsewhere Classified [address] [place] [address] Group [facility](G ynecolo gy) [address] [place] [address] Dominik [facility])(Sco tt [facility] [employer] Tm Blue) TELE CONSULT [id number] Notes Entered by: NORMA SOW 11 May 2021 1340 ------- ------- ------- ------- -- Med STACIA Taylor 05/[address] [place] [address])(S cott [facility] FAMRES Tm Blue) [address] [place] [address])(Sco tt [facility] Fam Res Tm Green) TELE CONSULT [id number] 6 Notes Entered by: JUANJOSE HILTON 26 May 2021 1448 ------- ------- ------- ------- -- left leg numbnes SHARI Kidd 05/26 Referred for Appointment [address] [place] [address])(S cott [facility] Fam Res Tm [place]) [address] [place] [address])(Sco tt [facility] Fam Res Tm Green) OUTPATIENT [id number] F2F: left leg numbnes s x2 wks DON JETER 05/29 Released w/o Limitations [address] [place] [address] Group Dominik ELIZONDO ([facility])(S cott [facility] Fam Res [place]m [place]) [address] [place] [address] Dominik [facility])(Sco tt [facility] Fam Res Tm Green) TELE CONSULT [id number] 5 Notes Entered by: Diane MORENO 10 Jun 2021 1222 ------- ------- ------- ------- -- Renew cardiol ogy SHARI Valdez 06/10 Immediate Referral [address] [place] [address] Dominik [facility]S cott [facility] Fam Res Tm Green) [address] [place] [address] Dominik [facility])(Sco tt [facility] FAMRES Tm Blue) TELE CONSULT [id number] Notes Entered by: FRANCIS PARKER 15 Jun 2021 1323 ------- ------- ------- ------- -- Referra l request /issue with renewal SHARI MORENO 06/15 Other Not Elsewhere Classified [address] [place] [address] Dominik [facility]S cott [facility] FAMRES Tm Blue) [address] [place] [address] Dominik [facility])(Sco tt [facility] Fam Res Tm Green) OUTPATIENT [id number] OMT/LOW BACK/HI P/KNEE CHAPITO RODRIGUEZ 06/24 Released w/o Limitations [address] [place] [address] Group Dominik [place] [facility]S cott [facility] Fam Res Tm [place]) [address] [place] [address] Dominik B [facility]Sco tt [facility] Fam Res Tm Green) TELE CONSULT [id number] 5 Notes Entered by: BETTY RAYMUNDO RET 13 Jul 2021 0740 ------- ------- ------- ------- -- SX: Multi [facility] refusal /Schelb y/ *prc SHARI MORENO 07/13 Other Not Elsewhere Classified [address] [place] [address] Group Dominik ELIZONDO [facility]S cott [facility] Fam Res [employer] [place]) [address] [place] [address] Dominik ELIZONDO [facility]Sco tt [facility] Fam Res Tm Green) TELE CONSULT [id number] Notes Entered by: SHEILA ARCHIBALD 13 Jul 2021 1116 ------- ------- ------- ------- -- STAT Referra l Request (appt Jun)/Nm robbie/Annalee [phone] SHARI MORENO 07/13 Immediate Referral [address] [place] [address] Dominik ELIZONDO [facility]S cott [facility] Fam Res [employer] [place]) [address] [place] [address] Dominik ELIZONDO [facility]Sco tt [facility] Fam Res Tm Green) TELE CONSULT [id number] Notes Entered by: CA MASSEY 15 Jul 2021 1351 ------- ------- ------- ------- -- Referra l Request DANYELLE SAENZ 07/15 Released to Self Care [address] [place] [address] Dominik ELIOZNDO [facility]S cott [facility] Fam Res [place]m [place]) [address] [place] [address] Dominik ELIZONDO [facility]Sco tt [facility] Fam Res Tm Green) TELE CONSULT [id number] Notes Entered by: JOSE MICHAEL 17 Jul 2021 1449 ------- ------- ------- ------- -- Network results Dermato logy 021 BF DON JETER 07/[address] [place] [address] Dominik [place] [facility]S cott [facility] Fam Res [place]m [place]) [address] [place] [address] Dominik [facility]Sco tt [facility] Fam Res Tm Green) OUTPATIENT [id number] OMT/LOW BACK/HI P/KNEE CHAPITO RODRIGUEZ 07/24 Released w/o Limitations [address] [place] [address] Dominik [facility] [facility]S cott [facility] Fam Res [place] [place]) [address] [place] [address] Dominik [facility]Sco tt [facility] Fam Res Tm Green) TELE CONSULT [id number] Notes Entered by: JOSE MICHAEL 27 Jul 2021 1030 ------- ------- ------- ------- -- Network results Otolary ngology [ENT] 021 STACIA RODRIGUEZ 07/[address] [place] [address])(S cott [facility] Fam Res Tm Green) [address] [place] [address])(Sco tt [facility] Fam Res Tm Green) TELE CONSULT [id number] Notes Entered by: BRIGITTE TY 21 Aug 2021 1333 ------- ------- ------- ------- -- Perlita Torrez /Dr. Goins/ DON JETER 08/[address] [place] [address])(S cott [facility] Fam Res Tm Green) [address] [place] [address])([facility]) TELE CONSULT [id number] Notes Entered by: ZACHARY MORALES 01 Sep 2021 1714 ------- ------- ------- ------- -- Medicat ion CHRISSIE Secure SHARI Juarez 09/01 Medication Refill Forwarded [address] [place] [address])(S cott [facility] FAMRES Tm Blue) [address] [place] [address])(Sco tt [facility] Fam Res Tm Green) TELE CONSULT [id number] 5 Notes Entered by: Beatrice METCALF 22 Sep 2021 0859 ------- ------- ------- ------- -- SHARI CEVALLOS 09/22 Immediate Referral [address] [place] [address])(S cott [facility] Fam Res Tm Green) [address] [place] [address])(Sco tt [facility] Fam Res Tm Green) TELE CONSULT [id number] Notes Entered by: SOLEDAD PAINTING 12 Oct 2021 1029 ------- ------- ------- ------- -- Sx-Skin Rash:ST AT Referra l Request /SCHELB Y/ TANO KEY 10/12 Immediate Referral [address] [place] [address])(S cott [facility] Fam Res Tm Green) [address] [place] [address])(Sco tt [facility] Fam Res Tm Green) TELE CONSULT [id number] Notes Entered by: SHEILA ARCHIBALD 15 Oct 2021 0934 ------- ------- ------- ------- -- Referra l Renewal Request /Schelb SHARI MORENO 10/15 Released to Self Care [address] [place] [address])(S cott [facility] Fam Res Tm Green) [address] [place] [address])(Sco tt [facility] Fam Res Tm Green) TELE CONSULT [id number] Notes Entered by: Carlitos VALDIVIA 23 Oct 2021 1022 ------- ------- ------- ------- -- Network results Optomet ry 021 and 022 DON BLAND 10/[address] [place] [address])(S cott [facility] Fam Res Tm Green) [address] [place] [address])(Sco tt [facility] Fam Res Tm Green) TELE CONSULT [id number] 5 Notes Entered by: MELIDA BISWAS 12 Nov 2021 1336 ------- ------- ------- ------- -- Network Results Dermato logy 022 MURALI COBOS 11/[address] [place] [address] Dominik [facility])(S cott [facility] Fam Res Tm Green) [address] [place] [address])(Sco tt [facility] Fam Res Tm Green) OUTPATIENT [id number] MRI FOLLOW 40 MIN DON JETER 11/23 Released w/o Limitations [address] [place] [address])(S cott [facility] Fam Res Tm [place]) [address] [place] [address])(Sco tt [facility] Fam Res Tm Green) TELE CONSULT [id number] 1 Notes Entered by: Randal PAYAN 14 Dec 2021 0838 ------- ------- ------- ------- -- Network results ENT 12/09/19 22 DON HERNANDEZ 12/[address] [place] [address])(S cott [facility] Fam Res Tm Green) [address] [place] [address])(Sco tt [facility] Fam Res Tm Green) OUTPATIENT [id number] OMT/NEC K/BACK PAIN SAPPHIRE HORTA 12/17 Released w/o Limitations [address] [place] [address])(S cott [facility] Fam Res Tm [place]) [address] [place] [address])(Sco tt [facility] Fam Res Tm Green) TELE CONSULT [id number] 9 Notes Entered by: VICKIE ROWE 22 Dec 2021 1432 ------- ------- ------- ------- -- Ophthal corinna Rabagoq-Opt jerri Tubbs/Agustin/ Steffany /[phone] or DON JETER 12/[address] [place] [address] Dominik [facility])(S cott [facility] Fam Res Tm Green) [address] [place] [address])(Sco tt [facility] Fam Res Tm Green) TELE CONSULT [id number] Notes Entered by: Leslie CULP 18 Jan 2022 1034 ------- ------- ------- ------- -- Network results Dermato logy 022 DON CLALAWAY 01/[address] [place] [address] Dominik ELIZONDO [facility]S cott [facility] Fam Res Tm Green) [address] [place] [address] Dominik LOYOLAB ([facility])(Sco tt [facility] Fam Res Tm Green) TELE CONSULT [id number] Notes Entered by: Leslie CULP 21 Jan 2022 0903 ------- ------- ------- ------- -- Network results Physica l Therapy 022-08/2021 DON CALLAWAY 01/[address] [place] [address] Dominik ELIZONDO [facility]S cott [facility] Fam Res Tm Green) [address] [place] [address] Dominik LOYOLAB ([facility])(Sco tt [facility] Fam Res Tm Green) OUTPATIENT [id number] OMT FOLLOW UP BARI FAGAN 01/22 Released w/o Limitations [address] [place] [address] Dominik ELIZONDO ([facility])(S cott [facility] Fam Res Tm Green) [address] [place] [address] Dominik ELIZONDO ([facility])(Sco tt [facility] Fam Res Tm Green) TELE CONSULT [id number] Notes Entered by: YUSUF AGUIRRE 28 Jan 2022 1019 ------- ------- ------- ------- -- Network results Otolary ngology [ENT] 022 DON JOHN 01/[address] [place] [address] Dominik ELIZONDO ([facility])(S cott [facility] Fam Res Tm Green) [address] [place] [address] Dominik ELIZONDO ([facility])(Sco tt [facility] Fam Res Tm Green) OUTPATIENT [id number] OMT/NEC K/SHOUL TIN/GUNJAN K/LEFT HIP SAPPHIRE HORTA 02/18 Released w/o Limitations [address] [place] [address] Dominik LOYOLAB ([facility])(S cott [facility] Fam Res Tm Green) [address] [place] [address] Dominik LOYOLAB ([facility])(Sco tt [facility] Fam Res Tm Green) OUTPATIENT [id number] F2F - stomach cramps STARLA LOPEZ 03/12 Released w/o Limitations [address] [place] [address] Dominik ELIZONDO ([facility])(S cott [facility] Fam Res Tm Green) [address] [place] [address] Dominik ELIZONDO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 TO EST PAT,PARENT,GUARD NOT ORIG REL ASSESS & MGT SRV PROV W/IN PREV 7 DAYS NOR LEAD ASSESS & MGT SRV/PX W/IN NXT 24 HR/SOON APT;5-10 MIN MED DIS 11/02 DoD OSTEOPATHIC MANIPULATIVE TREATMENT (OMT); 1-2 BODY REGIONS INVOLVED 10/26 DoD TELE ASSESS & MGT SRV PROV QUAL NONPHYS HLTH CARE PRO TO EST PAT,PARENT,GUARD NOT ORIG REL ASSESS & MGT SRV PROV W/IN PREV 7 DAYS NOR LEAD ASSESS & MGT SRV/PX W/IN NXT 24 HR/SOON APT;5-10 MIN MED DIS 09/26 DoD OSTEOPATHIC MANIPULATIVE TREATMENT (OMT); 3-4 BODY REGIONS INVOLVED 09/11 DoD OSTEOPATHIC MANIPULATIVE TREATMENT (OMT); 3-4 BODY REGIONS INVOLVED 08/28 DoD OSTEOPATHIC MANIPULATIVE TREATMENT (OMT); 3-4 BODY REGIONS INVOLVED 07/31 DoD OSTEOPATHIC MANIPULATIVE TREATMENT (OMT); 5-6 BODY REGIONS INVOLVED 07/03 DoD TELE ASSESS & MGT SRV PROV QUAL NONPHYS HLTH CARE PRO TO EST PAT,PARENT,GUARD NOT ORIG REL ASSESS & MGT SRV PROV W/IN PREV 7 DAYS NOR LEAD ASSESS & MGT SRV/PX W/IN NXT 24 HR/SOON APT;5-10 MIN MED DIS 06/26 DoD OSTEOPATHIC MANIPULATIVE TREATMENT (OMT); 3-4 BODY REGIONS INVOLVED 10/22 /2015 DoD OSTEOPATHIC MANIPULATIVE TREATMENT (OMT); 1-2 BODY REGIONS INVOLVED 04/24 DoD TELE ASSESS & MGT SRV PROV QUAL NONPHYS HLTH CARE PRO TO EST PAT,PARENT,GUARD NOT ORIG REL ASSESS & MGT SRV PROV W/IN PREV 7 DAYS NOR LEAD ASSESS & MGT SRV/PX W/IN NXT 24 HR/SOON APT;5-10 MIN MED DIS 04/07 DoD OSTEOPATHIC MANIPULATIVE TREATMENT (OMT); 3-4 BODY REGIONS INVOLVED 03/13 DoD TELE ASSESS & MGT SRV PROV QUAL NONPHYS HLTH CARE PRO TO EST PAT,PARENT,GUARD NOT ORIG REL ASSESS & MGT SRV PROV W/IN PREV 7 DAYS NOR LEAD ASSESS & MGT SRV/PX W/IN NXT 24 HR/SOON APT;5-10 MIN MED DIS 02/21 DoD OSTEOPATHIC MANIPULATIVE TREATMENT (OMT); 1-2 BODY REGIONS INVOLVED 02/19 DoD OSTEOPATHIC MANIPULATIVE TREATMENT (OMT); 1-2 BODY REGIONS INVOLVED 02/04 DoD OSTEOPATHIC MANIPULATIVE TREATMENT (OMT); 3-4 BODY REGIONS INVOLVED 01/21 DoD TELE ASSESS & MGT SRV PROV QUAL NONPHYS HLTH CARE PRO TO EST PAT,PARENT,GUARD NOT ORIG REL ASSESS & MGT SRV PROV W/IN PREV 7 DAYS NOR LEAD ASSESS & MGT SRV/PX W/IN NXT 24 HR/SOON APT;5-10 MIN MED DIS 12/03 DoD OSTEOPATHIC MANIPULATIVE TREATMENT (OMT); 1-2 BODY REGIONS INVOLVED 11/19 DoD OSTEOPATHIC MANIPULATIVE TREATMENT (OMT); 3-4 BODY REGIONS INVOLVED 10/24 DoD OSTEOPATHIC MANIPULATIVE TREATMENT (OMT); 3-4 BODY REGIONS INVOLVED 09/03 DoD OSTEOPATHIC MANIPULATIVE TREATMENT (OMT); 3-4 BODY REGIONS INVOLVED 08/22 DoD OSTEOPATHIC MANIPULATIVE TREATMENT (OMT); 3-4 BODY REGIONS INVOLVED 07/23 DoD OSTEOPATHIC MANIPULATIVE TREATMENT (OMT); 3-4 BODY REGIONS INVOLVED 07/02 DoD TELE ASSESS & MGT SRV PROV QUAL NONPHYS HLTH CARE PRO TO EST PAT,PARENT,GUARD NOT ORIG REL ASSESS & MGT SRV PROV W/IN PREV 7 DAYS NOR LEAD ASSESS & MGT SRV/PX W/IN NXT 24 HR/SOON APT;5-10 MIN MED DIS 06/20 DoD OSTEOPATHIC MANIPULATIVE TREATMENT (OMT); 3-4 BODY REGIONS INVOLVED 06/07 DoD TELE ASSESS & MGT SRV PROV QUAL NONPHYS HLTH CARE PRO TO EST PAT,PARENT,GUARD NOT ORIG REL ASSESS & MGT SRV PROV W/IN PREV 7 DAYS NOR LEAD ASSESS & MGT SRV/PX W/IN NXT 24 HR/SOON APT;5-10 MIN MED DIS 12/28 DoD TELE ASSESS & MGT SRV PROV QUAL NONPHYS HLTH CARE PRO TO EST PAT,PARENT,GUARD NOT ORIG REL ASSESS & MGT SRV PROV W/IN PREV 7 DAYS NOR LEAD ASSESS & MGT SRV/PX W/IN NXT 24 HR/SOON APT;5-10 MIN MED DIS 04/27 DoD SCREENING [facility]; OBTAINING, PREPARING AND CONVEYANCE OF CERVICAL OR VAGINAL SMEAR TO LABORATORY 04/23 DoD TELE ASSESS & MGT SRV PROV QUAL NONPHYS HLTH CARE PRO TO EST PAT,PARENT,GUARD NOT ORIG REL ASSESS & MGT SRV PROV W/IN PREV 7 DAYS NOR LEAD ASSESS & MGT SRV/PX W/IN NXT 24 HR/SOON APT;5-10 MIN MED DIS 01/10 DoD ENDOMETRIAL SAMPLING (BIOPSY) WITH OR WITHOUT ENDOCERVICAL SAMPLING (BIOPSY), WITHOUT CERVICAL DILATION, ANY METHOD (SEPARATE PROCEDURE) 10/25 DoD TELE ASSESS & MGT SRV PROV QUAL NONPHYS HLTH CARE PRO TO EST PAT,PARENT,GUARD NOT ORIG REL ASSESS & MGT SRV PROV W/IN PREV 7 DAYS NOR LEAD ASSESS & MGT SRV/PX W/IN NXT 24 HR/SOON APT;5-10 MIN MED DIS 10/14 DoD TELE ASSESS & MGT SRV PROV QUAL NONPHYS HLTH CARE PRO TO EST PAT,PARENT,GUARD NOT ORIG REL ASSESS & MGT SRV PROV W/IN PREV 7 DAYS NOR LEAD ASSESS & MGT SRV/PX W/IN NXT 24 HR/SOON APT;5-10 MIN MED DIS 07/29 DoD TELE ASSESS & MGT SRV PROV QUAL NONPHYS HLTH CARE PRO TO EST PAT,PARENT,GUARD NOT ORIG REL ASSESS & MGT SRV PROV W/IN PREV 7 DAYS NOR LEAD ASSESS & MGT SRV/PX W/IN NXT 24H/SOON APT; 11-20 MIN MED DIS 07/20 DoD TELE ASSESS & MGT SRV PROV QUAL NONPHYS HLTH CARE PRO TO EST PAT,PARENT,GUARD NOT ORIG REL ASSESS & MGT SRV PROV W/IN PREV 7 DAYS NOR LEAD ASSESS & MGT SRV/PX W/IN NXT 24 HR/SOON APT;5-10 MIN MED DIS 07/06 DoD TELE ASSESS & MGT SRV PROV QUAL NONPHYS HLTH CARE PRO TO EST PAT,PARENT,GUARD NOT ORIG REL ASSESS & MGT SRV PROV W/IN PREV 7 DAYS NOR LEAD ASSESS & MGT SRV/PX W/IN NXT 24 HR/SOON APT;5-10 MIN MED DIS 06/15 DoD REMOVAL IMPACTED CERUMEN REQUIRING INSTRUMENTATION, UNILATERAL 01/14 DoD TELE ASSESS & MGT SRV PROV QUAL NONPHYS HLTH CARE PRO TO EST PAT,PARENT,GUARD NOT ORIG REL ASSESS & MGT SRV PROV W/IN PREV 7 DAYS NOR LEAD ASSESS & MGT SRV/PX W/IN NXT 24 HR/SOON APT;5-10 MIN MED DIS 12/17 DoD TELE ASSESS & MGT SRV PROV QUAL NONPHYS HLTH CARE PRO TO EST PAT,PARENT,GUARD NOT ORIG REL ASSESS & MGT SRV PROV W/IN PREV 7 DAYS NOR LEAD ASSESS & MGT SRV/PX W/IN NXT 24 HR/SOON APT;5-10 MIN MED DIS 11/04 DoD SCREENING [facility]; OBTAINING, PREPARING AND CONVEYANCE OF CERVICAL OR VAGINAL SMEAR TO LABORATORY 02/26 DoD SCREENING [facility]; OBTAINING, PREPARING AND CONVEYANCE OF CERVICAL OR VAGINAL SMEAR TO LABORATORY 01/09 DoD THERAPEUTIC PROCEDURE, 1 OR MORE AREAS, EACH 15 MINUTES; THERAPEUTIC EXERCISES TO DEVELOP STRENGTH AND ENDURANCE, RANGE OF MOTION AND FLEXIBILITY 06/11 DoD THERAPEUTIC PROCEDURE, 1 OR MORE AREAS, EACH 15 MINUTES; THERAPEUTIC EXERCISES TO DEVELOP STRENGTH AND ENDURANCE, RANGE OF MOTION AND FLEXIBILITY 06/03 DoD THERAPEUTIC PROCEDURE, 1 OR MORE AREAS, EACH 15 MINUTES; THERAPEUTIC EXERCISES TO DEVELOP STRENGTH AND ENDURANCE, RANGE OF MOTION AND FLEXIBILITY 05/31 DoD WRIST HAND ORTHOSIS, WITHOUT JOINTS, MAY INCLUDE SOFT INTERFACE, STRAPS, CUSTOM FABRICATED, INCLUDES FITTING AND ADJUSTMENT 05/29 [facility] FINGER SPLINT, STATIC 05/24 [facility] APPLICATION OF FINGER SPLINT; STATIC 05/08 [facility] SCREENING [facility]; OBTAINING, PREPARING AND CONVEYANCE OF CERVICAL OR VAGINAL SMEAR TO LABORATORY 11/13 [facility] THERAPEUTIC ACTIVITIES, DIRECT (ONE-ON-ONE) PATIENT CONTACT (USE OF DYNAMIC ACTIVITIES TO IMPROVE FUNCTIONAL PERFORMANCE), EACH 15 MINUTES 06/28 [facility] SPLINT SUPPLIES, MISCELLANEOUS (INCLUDES THERMOPLASTICS, STRAPPING, FASTENERS, PADDING AND OTHER SUPPLIES) 06/03 [facility] SCREENING PAPANICOLAOU SMEAR; OBTAINING, PREPARING AND CONVEYANCE OF CERVICAL OR VAGINAL SMEAR TO LABORATORY 05/31 [facility] HYSTEROSCOPY, DIAGNOSTIC (SEPARATE PROCEDURE) 12/30 [facility] OPHTHALMOSCOPY, EXTENDED, WITH RETINAL DRAWING (EG, FOR RETINAL DETACHMENT, MELANOMA), WITH INTERPRETATION AND REPORT; INITIAL 07/17 [facility] ENDOMETRIAL SAMPLING (BIOPSY) WITH OR WITHOUT ENDOCERVICAL SAMPLING (BIOPSY), WITHOUT CERVICAL DILATION, ANY METHOD (SEPARATE PROCEDURE) 01/01 [facility] AMBULANCE SERVICE, BASIC LIFE SUPPORT, EMERGENCY TRANSPORT (BLS-EMERGENCY) 09/17 [facility] WEAR ECG RHYTHM DERIVE MON FOR 24 HR,CONT COMP MON & NON-CONT REC,& REAL-TIME DATA ANAL UTILIZING DEVICE CAPABLE PROD INTERMIT FULL-SIZE WAVEFORM TRACING,POSS PAT ACTIV;INC MON&RT ANAL,PHYS REV & INT 10/04 [facility] SCREENING PAPANICOLAOU SMEAR; OBTAINING, PREPARING AND CONVEYANCE OF CERVICAL OR VAGINAL SMEAR TO LABORATORY 07/23 [facility] Osteopathic Manip Treatment (OMT) 5-6 Body Regions Involved Osteopathic Manip Treatment (OMT) 5-6 Body Regions Involved 15983 01/29 LORNA GARCIA [facility] Osteopathic Manip Treatment (OMT) 3-4 Body Regions Involved Osteopathic Manip Treatment (OMT) 3-4 Body Regions Involved 00649 12/19 LORNA GARCIA [facility] Medical Nutrition Therapy Initial A e ment, Intervention Medical Nutrition Therapy Initial Assessment, Intervention 79613 12/11 KURT DICKENS [facility] Osteopathic Manip Treatment (OMT) 3-4 Body Regions Involved Osteopathic Manip Treatment (OMT) 3-4 Body Regions Involved 19406 11/24 GARCIAJOHNLORNABLANCHE Leahy Osteopathic Manip Treatment (OMT) 1-2 Body Regions Involved Osteopathic Manip Treatment (OMT) 1-2 Body Regions Involved 64982 11/03 FLORENTIN GARCIALOLLY Leahy Osteopathic Manip Treatment (OMT) 1-2 Body Regions Involved Osteopathic Manip Treatment (OMT) 1-2 Body Regions Involved 49672 06/19 STEPHANY MUIR Osteopathic Manip Treatment (OMT) 1-2 Body Regions Involved Osteopathic Manip Treatment (OMT) 1-2 Body Regions Involved 48938 05/31 GARCIAJOHN FrostLORNABLANCHE Leahy Osteopathic Manip Treatment (OMT) 1-2 Body Regions Involved Osteopathic Manip Treatment (OMT) 1-2 Body Regions Involved 11129 04/11 PERLA HOSKINS Osteopathic Manip Treatment (OMT) 1-2 Body Regions Involved Osteopathic Manip Treatment (OMT) 1-2 Body Regions Involved 14554 03/08 SHALA MOSER Screening papanicolaou smear; obtaining, preparing and conveyance of cervical or vaginal smear to laboratory 01/24 CASSIUS RODRIGUEZ Mobilization Soft Ti ue Mobilization Soft Tissue 31607 01/12 JAVIER HUA Osteopathic Manip Treatment (OMT) 3-4 Body Regions Involved Osteopathic Manip Treatment (OMT) 3-4 Body Regions Involved 14095 01/12 JAVIER HUA Non-Physician Phone Call To Patient/Provider Brief (5-10min) Non-Physician Phone Call To Patient/Provider Brief (5-10min) 46699 12/16 SHARI MORENO Mobilization Soft Ti ue Mobilization Soft Tissue 71832 12/05 PERLA HOSKINS Osteopathic Manip Treatment (OMT) 3-4 Body Regions Involved Osteopathic Manip Treatment (OMT) 3-4 Body Regions Involved 92234 12/05 PERLA HOSKINS Non-Physician Phone Call To Patient/Provider Brief (5-10min) Non-Physician Phone Call To Patient/Provider Brief (5-10min) 78750 11/01 SHARI MORENO Osteopathic Manip Treatment (OMT) 1-2 Body Regions Involved Osteopathic Manip Treatment (OMT) 1-2 Body Regions Involved 43733 10/31 SHALA MOSER Non-Physician Phone Call To Patient/Provider Brief (5-10min) Non-Physician Phone Call To Patient/Provider Brief (5-10min) 31352 10/27 SHARI MORENO Non-Physician Phone Call To Patient/Provider Brief (5-10min) Non-Physician Phone Call To Patient/Provider Brief (5-10min) 44553 10/07 DC OLIVEIRA Mobilization Soft Ti ue Mobilization Soft Tissue 83837 10/06 LORNA GARCIA Osteopathic Manip Treatment (OMT) 3-4 Body Regions Involved Osteopathic Manip Treatment (OMT) 3-4 Body Regions Involved 84880 10/06 LORNA GARCIA Osteopathic Manip Treatment (OMT) 3-4 Body Regions Involved Osteopathic Manip Treatment (OMT) 3-4 Body Regions Involved 27418 09/08 BARON COPELAND [facility] Non-Physician Phone Call To Patient/Provider Brief (5-10min) Non-Physician Phone Call To Patient/Provider Brief (5-10min) 57874 08/26 SHARI MORENO Osteopathic Manip Treatment (OMT) 3-4 Body Regions Involved Osteopathic Manip Treatment (OMT) 3-4 Body Regions Involved 91522 07/18 SHALA MOSER Osteopathic Manip Treatment (OMT) 3-4 Body Regions Involved Osteopathic Manip Treatment (OMT) 3-4 Body Regions Involved 50754 06/17 DC OLIVEIRA Osteopathic Manip Treatment (OMT) 3-4 Body Regions Involved Osteopathic Manip Treatment (OMT) 3-4 Body Regions Involved 31809 05/16 STACIA RAINES Osteopathic Manip Treatment (OMT) 3-4 Body Regions Involved Osteopathic Manip Treatment (OMT) 3-4 Body Regions Involved 53804 04/11 CAROL ANN KHAN Destruction Of Benign Lesion By Any Method 1 - 14 Lesions Destruction Of Benign Lesion By Any Method 1 - 14 Lesions 01777 03/28 DC OLIVEIRA Osteopathic Manip Treatment (OMT) 5-6 Body Regions Involved Osteopathic Manip Treatment (OMT) 5-6 Body Regions Involved 86580 03/04 SHAY HUGHES [facility] Ultrasonic Guidance For Needle Biopsy Ultrasonic Guidance For Needle Biopsy 73402 02/07 SHAY HUGHES Injection Of Tendon Sheath Injection Of Tendon Sheath 96383 02/07 SHAY HUGHES Osteopathic Manip Treatment (OMT) 5-6 Body Regions Involved Osteopathic Manip Treatment (OMT) 5-6 Body Regions Involved 66782 02/03 SHAY HUGHES [facility] Non-Physician Phone Call To Patient/Provider Brief (5-10min) Non-Physician Phone Call To Patient/Provider Brief (5-10min) 65544 01/19 SHARI MORENO [facility] Osteopathic Manip Treatment (OMT) 5-6 Body Regions Involved Osteopathic Manip Treatment (OMT) 5-6 Body Regions Involved 84413 01/03 SHAY HUGHES [facility] Intralesional Injections - Up To Seven Intralesional Injections - Up To Seven 45483 01/03 JUAN MORALES [facility] Osteopathic Manip Treatment (OMT) 3-4 Body Regions Involved Osteopathic Manip Treatment (OMT) 3-4 Body Regions Involved 07457 12/13 DC OLIVEIRA [facility] Case Management, each 15 minutes 11/15 AUSTIN SANCHEZ [facility] Osteopathic Manip Treatment (OMT) 3-4 Body Regions Involved Osteopathic Manip Treatment (OMT) 3-4 Body Regions Involved 69967 11/12 DC OLIVEIRA [facility] Osteopathic Manip Treatment (OMT) 5-6 Body Regions Involved Osteopathic Manip Treatment (OMT) 5-6 Body Regions Involved 43491 10/14 LIONEL TORRES [facility] Postoperative Visit, Without Charge Postoperative Visit, Without Charge 21537 10/01 JUAN MORALES [facility] Osteopathic Manip Treatment (OMT) 1-2 Body Regions Involved Osteopathic Manip Treatment (OMT) 1-2 Body Regions Involved 25288 09/30 DC OLIVEIRA [facility] Biopsy Skin Biopsy Skin 31194 09/24 JUAN MORALES [facility] Osteopathic Manip Treatment (OMT) 3-4 Body Regions Involved Osteopathic Manip Treatment (OMT) 3-4 Body Regions Involved 77862 09/02 LIONEL TORRES [facility] Non-Physician Phone Call To Patient/Provider Brief (5-10min) Non-Physician Phone Call To Patient/Provider Brief (5-10min) 42329 07/29 TITA BROWNE [facility] Osteopathic Manip Treatment (OMT) 5-6 Body Regions Involved Osteopathic Manip Treatment (OMT) 5-6 Body Regions Involved 13162 07/22 ARASH FONTANEZ [facility] Shaving Of Lesion Trunk Up to .5cm Shaving Of Lesion Trunk Up to .5cm 55093 07/07 CA RODRIGUEZ [facility] Osteopathic Manip Treatment (OMT) 1-2 Body Regions Involved Osteopathic Manip Treatment (OMT) 1-2 Body Regions Involved 81248 07/05 DC OLIVEIRA [facility] Osteopathic Manip Treatment (OMT) 5-6 Body Regions Involved Osteopathic Manip Treatment (OMT) 5-6 Body Regions Involved 30576 05/10 GEOVANNA BELTRAN [facility] Osteopathic Manip Treatment (OMT) 3-4 Body Regions Involved Osteopathic Manip Treatment (OMT) 3-4 Body Regions Involved 12368 04/05 SHALA MOSER [facility] Osteopathic Manip Treatment (OMT) 3-4 Body Regions Involved Osteopathic Manip Treatment (OMT) 3-4 Body Regions Involved 84334 01/12 PIERO REDMAN [facility] Osteopathic Manip Treatment (OMT) 3-4 Body Regions Involved Osteopathic Manip Treatment (OMT) 3-4 Body Regions Involved 08111 12/04 GEOVANNY DAVILA [facility] Non-Physician Phone Call To Patient/Provider Brief (5-10min) Non-Physician Phone Call To Patient/Provider Brief (5-10min) 14405 SHARI MORENO [facility] Osteopathic Manip Treatment (OMT) 3-4 Body Regions Involved Osteopathic Manip Treatment (OMT) 3-4 Body Regions Involved 63903 NAHUN MADDOX [facility] Osteopathic Manip Treatment (OMT) 5-6 Body Regions Involved Osteopathic Manip Treatment (OMT) 5-6 Body Regions Involved 41038 DC CALDERON [facility] Osteopathic Manip Treatment (OMT) 3-4 Body Regions Involved Osteopathic Manip Treatment (OMT) 3-4 Body Regions Involved 61901 SILVINO BELLA Diagnosis and tx options discussed with pt. Pt educated on OMT and techniques to be used for tx. Risks and benefits discussed. Informed procedure can be stopped at any time per pt request. Pt verbally consented to tx. Pt lying in prone position. At the level of dysfunction, hands were placed on either side of the spine over the transverse processes. A rotational force was applied to engage the restrictive barrier. A rotational HVLA thrust was then applied to reach the anatomic barrier. Pt was positioned in right lateral recumbent position. Pt's left hip was placed into a flexed position. The right innominate was grasped with the cephalad palm placed over the ASIS and the caudad hand overlying the iliac crest. The posterior rotational restrictive barrier was engaged and a small HVLA thrust was applied to reach the anatomic barrier. Still technique was then performed on the left SI joint. The left knee was grasped with the other hand over the left SI joint. A force vector of approximately 5 lbs was applied through the femur while the left hip was passively rotated in a counterclockwise motion. Pt was then re-positioned in the left lateral recumbent position in order to treat the compensatory side. The right hip was placed into extension and the iliac crest was grasped with both hands. The anterior restrictive barrier was engaged and a small HVLA thrust was applied to reach the anatomic barrier. Still technique was then performed on the right SI joint. The right knee was grasped with the other hand placed over the right SI joint. A force vector of approximately 5 lbs was applied through the femur while the right hip was passively rotated in a counterclockwise motion. Pt repositioned to supine position. ASIS, iliac crests, and medial malleoli landmarks were reassessed. Left ASIS, iliac crest, and medial malleoli inferior. Pt's left leg was grasped at the calf and the hip was internally rotated. A superior pressure through the leg was applied into the acetabular joint to engage the restrictive barrier. A corrective HVLA thrust was applied through the restrictive barrier to reach the anatomic barrier. The anatomic landmarks were re-assessed. Left inferior sheer dysfunction resolved. Pt re-positioned in the seated position and seated flexion test re-assessed with motion testing. Somatic dysfunction resolved with symmetry of motion observed at sacral base, PSIS, and L5. Pt verbalized techniques were well tolerated. Reports improvement in pain. Pt placed in seated position. Standing behind pt, one hand was placed on rib at the level of dysfunction and the other hand was wrapped around front of pt and placed on pt's shoulder on the side of dysfunction. A compression vector of approximately 5 lbs was applied through the shoulder to the rib. The pt was then passively positioned indirectly and moved directly through the restrictive barrier. Pt was returned to a neutral seated position and the force vector released. Pt returned to seated position and ribs were re-assessed using motion testing. Symmetry observed and somatic dysfunction resolved. Pt verbalized techniques were well tolerated. Reports improvement in pain Pt placed in seated position. Standing behind pt. Pt was instructed to place hands behind head. Provider's hands were placed through opening of arms and behind pt's head on top of pt's hand. Pt instructed to inhale and then exhale while bringing elbows together. An anterior and upward force was applied to the pt's thoracic spine at this time. Articulation of the spine was heard. Pt returned to seated position and thoracic spine was re-assessed using motion testing. Symmetry observed and somatic dysfunction resolved. Pt verbalized techniques were well tolerated. Reports improvement in pain DoD Non-Physician Phone Call To Pt/Provider Intermed (11-20 min) Non-Physician Phone Call To Pt/Provider Intermed (11-20 min) 70741 SHARI MORENO [facility] Osteopathic Manip Treatment (OMT) 1-2 Body Regions Involved Osteopathic Manip Treatment (OMT) 1-2 Body Regions Involved 68564 CHAPITO RODRIGUEZ DoD Modalities Vasopneumatic Device Modalities Vasopneumatic Device 16768 SAPPHIRE HORTA [facility] Screening papanicolaou smear; obtaining, preparing and conveyance of cervical or vaginal smear to laboratory CASSIUS RODRIGUEZ DoD Waiver services; not otherwise specified (NOS) BARI FAGAN [facility] Osteopathic Manip Treatment (OMT) 3-4 Body Regions Involved Osteopathic Manip Treatment (OMT) 3-4 Body Regions Involved 34198 11/19 ANITHA COLBY [facility] Non-Physician Phone Call To Patient/Provider Brief (5-10min) Non-Physician Phone Call To Patient/Provider Brief (5-10min) 95757 11/02 TITA BROWNE Osteopathic Manip Treatment (OMT) 1-2 Body Regions Involved Osteopathic Manip Treatment (OMT) 1-2 Body Regions Involved 57534 10/26 STEPHANY MUIR [facility] Non-Physician Phone Call To Patient/Provider Brief (5-10min) Non-Physician Phone Call To Patient/Provider Brief (5-10min) 08443 09/30 TITA BROWNE Osteopathic Manip Treatment (OMT) 3-4 Body Regions Involved Osteopathic Manip Treatment (OMT) 3-4 Body Regions Involved 68150 09/18 DC OLIVEIRA Osteopathic Manip Treatment (OMT) 3-4 Body Regions Involved Osteopathic Manip Treatment (OMT) 3-4 Body Regions Involved 36329 09/02 DC OLIVEIRA Osteopathic Manip Treatment (OMT) 3-4 Body Regions Involved Osteopathic Manip Treatment (OMT) 3-4 Body Regions Involved 31192 07/31 DC OLIVEIRA Osteopathic Manip Treatment (OMT) 5-6 Body Regions Involved Osteopathic Manip Treatment (OMT) 5-6 Body Regions Involved 74115 07/03 SHAY HUGHES [facility] Non-Physician Phone Call To Patient/Provider Brief (5-10min) Non-Physician Phone Call To Patient/Provider Brief (5-10min) 10039 06/26 TITA BROWNE Osteopathic Manip Treatment (OMT) 3-4 Body Regions Involved Osteopathic Manip Treatment (OMT) 3-4 Body Regions Involved 26859 06/05 DC OLIVEIRA Osteopathic Manip Treatment (OMT) 3-4 Body Regions Involved Osteopathic Manip Treatment (OMT) 3-4 Body Regions Involved 63810 04/28 DC OLIVEIRA Non-Physician Phone Call To Patient/Provider Brief (5-10min) Non-Physician Phone Call To Patient/Provider Brief (5-10min) 08754 04/07 TITA BROWNE Osteopathic Manip Treatment (OMT) 3-4 Body Regions Involved Osteopathic Manip Treatment (OMT) 3-4 Body Regions Involved 33358 03/13 DC OLIVEIRA Non-Physician Phone Call To Patient/Provider Brief (5-10min) Non-Physician Phone Call To Patient/Provider Brief (5-10min) 91249 02/21 TITA BROWNE Osteopathic Manip Treatment (OMT) 1-2 Body Regions Involved Osteopathic Manip Treatment (OMT) 1-2 Body Regions Involved 52125 02/19 DC OLIVEIRA DoD Osteopathic Manip Treatment (OMT) 3-4 Body Regions Involved Osteopathic Manip Treatment (OMT) 3-4 Body Regions Involved 84783 02/04 SARAHY CADET Osteopathic Manip Treatment (OMT) 3-4 Body Regions Involved Osteopathic Manip Treatment (OMT) 3-4 Body Regions Involved 31575 01/22 DC OLIVEIRA S [facility] Non-Physician Phone Call To Patient/Provider Brief (5-10min) Non-Physician Phone Call To Patient/Provider Brief (5-10min) 25708 12/03 TITA BROWNE Osteopathic Manip Treatment (OMT) 3-4 Body Regions Involved Osteopathic Manip Treatment (OMT) 3-4 Body Regions Involved 68671 11/19 SHRADDHA THOMPSON Osteopathic Manip Treatment (OMT) 3-4 Body Regions Involved Osteopathic Manip Treatment (OMT) 3-4 Body Regions Involved 45268 10/24 DC OLIVEIRA [facility] Osteopathic Manip Treatment (OMT) 3-4 Body Regions Involved Osteopathic Manip Treatment (OMT) 3-4 Body Regions Involved 85155 09/03 SARAHY CADET Osteopathic Manip Treatment (OMT) 3-4 Body Regions Involved Osteopathic Manip Treatment (OMT) 3-4 Body Regions Involved 94294 08/22 SHAY HUGHES Osteopathic Manip Treatment (OMT) 3-4 Body Regions Involved Osteopathic Manip Treatment (OMT) 3-4 Body Regions Involved 58475 07/23 SARAHY CADET Osteopathic Manip Treatment (OMT) 3-4 Body Regions Involved Osteopathic Manip Treatment (OMT) 3-4 Body Regions Involved 78198 07/02 SARAHY CADET Non-Physician Phone Call To Patient/Provider Brief (5-10min) Non-Physician Phone Call To Patient/Provider Brief (5-10min) 92969 06/21 ALEJANDRO VILLELA [facility] Internet Med Svc Qual Nonphys Healthcare Prof Estab Patient Internet Med Svc Qual Nonphys Healthcare Prof Estab Patient 08757 06/20 ALEJANDRO VILLELA Osteopathic Manip Treatment (OMT) 3-4 Body Regions Involved Osteopathic Manip Treatment (OMT) 3-4 Body Regions Involved 85134 06/07 SARAHY CADET Non-Physician Phone Call To Patient/Provider Brief (5-10min) Non-Physician Phone Call To Patient/Provider Brief (5-10min) 50303 12/28 SAPPHIRE HENRY [facility] Non-Physician Phone Call To Patient/Provider Brief (5-10min) Non-Physician Phone Call To Patient/Provider Brief (5-10min) 15298 04/27 KELVIN PEÑA [facility] Screening papanicolaou smear; obtaining, preparing and conveyance of cervical or vaginal smear to laboratory 04/23 SARAHY CADET Non-Physician Phone Call To Patient/Provider Brief (5-10min) Non-Physician Phone Call To Patient/Provider Brief (5-10min) 60577 01/12 JOSE FUNES [facility] Biopsy Endometrial, Without Cervical Dilation Biopsy Endometrial, Without Cervical Dilation 16699 10/28 TIFF FAM Non-Physician Phone Call To Patient/Provider Brief (5-10min) Non-Physician Phone Call To Patient/Provider Brief (5-10min) 11129 10/17 TIFF FAM Non-Physician Phone Call To Patient/Provider Brief (5-10min) Non-Physician Phone Call To Patient/Provider Brief (5-10min) 63519 07/29 TIFF FAM Non-Physician Phone Call To Pt/Provider Intermed (11-20 min) Non-Physician Phone Call To Pt/Provider Intermed (11-20 min) 14711 07/21 PRADIP SHEFFIELD [facility] Non-Physician Phone Call To Patient/Provider Brief (5-10min) Non-Physician Phone Call To Patient/Provider Brief (5-10min) 74341 07/06 TIFF FAM Non-Physician Phone Call To Patient/Provider Brief (5-10min) Non-Physician Phone Call To Patient/Provider Brief (5-10min) 31152 06/16 TIFF FAM Cerumen Removal Right Ear 01/18 TIFF FAM Non-Physician Phone Call To Patient/Provider Brief (5-10min) Non-Physician Phone Call To Patient/Provider Brief (5-10min) 23954 12/17 HARLEY GAMINO Non-Physician Phone Call To Patient/Provider Brief (5-10min) Non-Physician Phone Call To Patient/Provider Brief (5-10min) 15509 11/05 TIFF FAM Screening papanicolaou smear; obtaining, preparing and conveyance of cervical or vaginal smear to laboratory 02/26 TIFF FAM Electrocardiogram Electrocardiogram 25680 02/26 TIFF FAM Screening papanicolaou smear; obtaining, preparing and conveyance of cervical or vaginal smear to laboratory 01/10 TIFF FAM Cerumen Removal Right Ear Irrigation 08/16 SHAWN PARRA Physical Therapy: ___ Se ion Segments, 15 Minutes Each Physical Therapy: ___ Session Segments, 15 Minutes Each 89020 06/11 DAVID HIGUERA Modalities Paraffin Bath Modalities Paraffin Bath 69597 06/11 DAVID HIGUERA Modalities Paraffin Bath Modalities Paraffin Bath 26839 06/03 OLGA LOGAN Physical Therapy: ___ Se ion Segments, 15 Minutes Each Physical Therapy: ___ Session Segments, 15 Minutes Each 93308 06/03 OLGA LOGAN Physical Therapy: ___ Se ion Segments, 15 Minutes Each Physical Therapy: ___ Session Segments, 15 Minutes Each 75092 05/31 OLGA LOGAN Modalities Paraffin Bath Modalities Paraffin Bath 93670 05/31 OLGA LOGAN Wrist-hand orthosis, without joints, may include soft interface, straps, custom fabricated, includes fitting and adjustment 05/29 DAVID HIGUERA Splint supplies, miscellaneous (includes thermoplastics, strapping, fasteners, padding and other supplies) 05/29 KALEN DAVID Rosenbaum [facility] Physical Therapy: ___ Se ion Segments, 15 Minutes Each Physical Therapy: ___ Session Segments, 15 Minutes Each 96253 05/29 DAVID HIGUERA Armond Modalities Paraffin Bath Modalities Paraffin Bath 03645 05/29 KALEN, DAVID W Armond Finger splint, static 05/24 JIMMY HUMPHRIES [facility] Occupational Therapy Re-Evaluation Occupational Therapy Re-Evaluation 40341 05/24 JIMMY HUMPHRIES Orthopedic Splinting Of The Finger Orthopedic Splinting Of The Finger 23273 05/08 BRADENELLISJIMMY [facility] Occupational Therapy Evaluation Occupational Therapy Evaluation 81095 05/08 JIMMY HUMPHRIES Screening papanicolaou smear; obtaining, preparing and conveyance of cervical or vaginal smear to laboratory 11/13 CASSIUS RODRIGUEZ [facility] Training And Self-Care Skills Training And Self-Care Skills 19744 06/28 CHE WYATT PT A e ment Kinetic Training PT Assessment Kinetic Training 37766 06/28 CHE WYATT Occupational Therapy Evaluation Occupational Therapy Evaluation 88404 06/03 CHE WYATT PT A e ment Kinetic Training PT Assessment Kinetic Training 34563 06/03 CHE WYATT Splinting Wrist Static Neutral Position Splinting Wrist Static Neutral Position 43011 06/03 CHE WYATT Splint supplies, miscellaneous (includes thermoplastics, strapping, fasteners, padding and other supplies) 06/03 CHE WYATT Screening papanicolaou smear; obtaining, preparing and conveyance of cervical or vaginal smear to laboratory 05/31 TIFF FAM [facility] Biopsy Endometrial, Without Cervical Dilation Biopsy Endometrial, Without Cervical Dilation 73261 12/30 ANTHONY MCNEAL [facility] Fiberoptic Examinations Hysteroscopy Fiberoptic Examinations Hysteroscopy 08044 12/30 ANTHONY MCNEAL [facility] Social History Combined list of available smoking, tobacco, and other social history from Department of Defense and Veterans Affairs facilities. Social History Type Response Date Comment [facility] e Sex Representation Female (finding) 10/20/2022 Unknown Organization Tobacco Frequent/Daily exposure to secondhand smoke in indoor/confined spaces No. Cigarette use: Former-cigarette user. Average PACKS per day: (10 cigarettes = 0.5 packs) 0.25. Total years of smoking cigarettes: 2. *Total pack years (*reqd for current/former users to complete the Rec. Packs/day times total years) 1. *Stopped cigarettes age (*required for former users to complete the Recommendation) 22 Years. Other Tobacco use: Never-other tobacco user (not cigarettes). Ambulatory Pharmacy Sexual Orientation Ambula tory Pharmacy Gender identity Ambulator y Pharmacy This section is an empty social history section. DoD Assessment and Plan Combined list of future care activities from Department of Defense and Veterans Affairs facilities (e.g., assessment and plan notes, appointments, orders, and referrals). Additional future care activities may be listed in the Plan of Care section. Result Assessment and Plan Date Source Assessment and Plan Extracted from:Title : FM - OMT of Upper and Lower Back Author: PRASHANT CORTEZ MD Date: 02/04/25 1. S omatic dysfunction of back region Stretching Demonstrated: Yes Plan: 1) P t to drink plenty of water tonight 2) M ay take Tylenol as needed for pain next 48hrs 3) A pply ice or heat for additional relief 4) F ollow up: as needed 2-4 weeks Chronic medical issues and preventative health measures not addressed due to the specialty nature of this visit. Recommended annual HCM visits and regular follow up for chronic medical issues. Prashant Cortez DO. CARLOS Castañeda, Display Director, PGY-2 [facility] [employer] Addendum by JOHN RODRIGUEZ MD, Family Medicine on February 14, 2025 17:44:07 CDT I was present and available in the family medicine clinic during the patient's appointment.? The case was discussed with me and I agree with the assessment and plan as documented. ? HLF Extracted from:Title: [facility]-OMTLHip_Office Clinic Note Author: STARLA CANTU DO Date: 01/09/25 1. S omatic dysfunction of hip region Stretching Demonstrated: Yes Plan: 1) P t to drink plenty of water tonight 2) M ay take Tylenol as needed for pain next 48hrs 3) A pply ice or heat for additional relief 4) F ollow up: as needed 2-4 weeks C hronic medical issues and preventative health measures not addressed due to the specialty nature of this visit. Recommended annual HCM visits and regular follow up for chronic medical issues. Capt FLORENTINO (), [facility] Display Director Physician, PGY-[address] [place] [address] [employer], [place], [place] [id number] [place] [address] Family Medicine Residency Program 3 [facility], [address], [place] [address] Addendum by CONCHA CHEN MD on January 10, 2025 14:49:25 CDT I certify that I was immediately available to review and discuss this patient. T he resident discussed the diagnosis and treatment plan for this patient with me [id number]. I agree with these written findings and plan. Maj Dahiana Chen DO, CAM Sports/Family Medicine Faculty Physician [address] [place] [address], OS/SGGF [facility] Dominik ELIZONDO, MD Extracted from:Title: Acne/rosacea, Melanonychia Author: JAVIER COTTRELL MD Date: 12/25/24 1. O ther rosacea Ordered: tretinoin topical(tretinoin 0.05% topical cream), See Instructions, Apply to entire face qhs, no sooner than 15min after washing and moisturizing, # 45 g, 6 total refill(s), Maintenance, Pharmacy: [facility] [Not filled] 2. O ther nail disorders Ordered: Referral Request 2.0 - DoD DOMINIK ELIZONDO DERMATOLOGY OUTPATIENT ENCOUNTER CC: R harris HPI: 64 Years o ld Yury 3 Female p resents reporting a cne/rosacea for many years, uses azelaic acid gel and tretinoin, mostly controlled, needs refill of tretinoin. Also reports melanonychia on nails for 5+ years, slowly changing now on many nails, has been followed by [facility] who has all records and she would prefer to stay with them if able for continuity of care. Family Hx: N oncontributory Personal Hx: No skin cancer Other: N/A ROS: DVPRS Pain scale (related to skin): 0/10 Changing moles? (unless o/w noted in HPI): N o Rash? (unless o/w noted in HPI): No Other: N/A EXAM: General: Well-developed, Mood/Affect normal, Alert/Oriented Conjunctivae/Eyelids: Normal Eccrine/Apocrine glands: Normal _ A skin exam of the s calp, hair, face, eyes, ears, neck, decolletage, and upper extremities (including digits/nails) was unremarkable except for the following: - slight blush to cheeks - m ultiple similar hyperpigmented longitudinal streaks on thumbs and other fingernails ASSESSMENT/PLAN 1. A cne/rosacea overlap - R efilled tretinoin - avoid triggers - f/u with [facility] 2. 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 - This is common, particularly in darker skin types, and can slowly develop over time with multiple longitudinal bands of increased color of varying widths in multiple fingernails. Melanonychia can also result from other benign reasons such as a benign sunspot (lentigo), a benign melanocytic nevus growing at the nailfold, or skin inflammation around the nail fold (e.g. infection, trauma, eczema). - Medications can also cause melanonychia in one or multiple nails. - Although rare, melanoma is another cause of melanonychia, but this typically occurs rapidly over the span of a few months. It is usually a solitary sharply demarcated dark black or brown line on a single digit that is rapidly growing/widening and is associated with hyperpigmentation of the nailfold or cuticle (aka Sarmiento sign ) . Other possible concerning features include width greater than 6mm, a width greater at the nailfold than at the tip of the nail (triangle shape), multiple colors within the s marianne band of pigment, bleeding, ulceration, and nail dystrophy. ?None of these red flags present today. - Pt instructed that if they notice any rapid changes or darkening to schedule f/u. - Given that pt has been seen for years at [facility] and they have records, best for her to see them for c ontinuity of care, referral placed Active Duty: No Patient e ducated on dermatological diagnoses/recommendations a s above. All questions answered. I spent 15+ cumulative minutes providing care to the patient (e.g. chart review, obtaining history, performing a skin exam, counseling/educating the patient, and documentation). Any medication change(s) were reviewed during the visit, and patient verbalized understanding. An updated med list was offered/provided to patient at the end of the encounter. Patient has been educated about the importance of medication adherence and maintaining accurate list of medications. //SIGNED// Javier Cottrell MD, FAAD [employer], [employer], [employer], FS Plug Assembler Dermatopathologist Securities Dealer, [facility] [address] [place], [place] Extracted from:Title: Office Clinic Note - Referrals/Lab results Author: DAVONTE CESAR, DO Date: 12/12/24 1. S douglas ferritin high est, stable. Prior h/o elevated ferritin and est with [facility] hematology. Requesting referral for continuity of care for ongoing management. Ordered: Referral Request 2.0 - DoD 2. R osacea est, controlled. Pt est with dermatology and requesting referral for continuity of care. Ordered: Referral Request 2.0 - DoD 3. D iverticulosis of colon est, controlled. Referral placed for gastroenterology for ongoing management. R eviewed daily fiber supplementation. Goal for 30g fiber daily. Ordered: Referral Request 2.0 - DoD 4. L aboratory test result abnormal acute, unknown control. Pt with elevated BUN and requesting repeat lab to confirm resolution. BMP ordered. Will f/u once lab has resulted. Ordered: Basic Metabolic Panel Maj Davonte Cesar DO Family Medicine Faculty Physician [address] [place] [address] Dominik ELIZONDO Extracted from:Title: [facility]_Office Clinic Note Author: STARLA CANTU, Date: 11/30/24 1. S omatic dysfunction of cervicothoracic region Stretching Demonstrated: Yes Plan: 1) P t to drink plenty of water tonight 2) M ay take Tylenol as needed for pain next 48hrs 3) A pply ice or heat for additional relief 4) F ollow up: as needed 2-4 weeks Chronic medical issues and preventative health measures not addressed due to the specialty nature of this visit. Recommended annual HCM visits and regular follow up for chronic medical issues. Capt Shelia GOOD), [facility] Display Director Physician, PGY-[address] [place] [address] [employer]GF, [place] [address] [facility] Family Medicine Residency Program 3 [facility], [address], [place] [address] Addendum by DONAL RUTLEDGE MD on December 19, 2024 08:37:01 CDT I was present and available in the family medicine clinic to discuss the patient's care during the time of the appointment. I agree with the resident's assessment and plan as documented. 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 E ncounter for gynecological examination (general) (routine) with abnormal findings Over 50% of m inute visit spent face to face with patient on education, reviewing history, and developing plan of care. Continue monthly BSE and yearly well woman exams. Return to clinic in 1 year. Exercise: 30 minutes of moderate exercise 5 days a week including cardio and strength training is recommended for a healthy lifestyle. T his should be in addition to your normal daily work/routine. If you are trying to lose weight more exercise along with a healthy diet is recommended. Supplements/Vitamins: If you are not following, or able to follow a well-balanced diet indicated below due to personal or medical reasons, it is recommended you take a m ultivitamin. This is especially important if you are trying to get as w omen need additional folic acid before and during (400-1000 micrograms per day). Daily calcium intake should be around 1200 mg per day w hich is 120% of the recommended daily allowance if looking at food labels.? W e recommend V itamin D3 2,000-3,000 international units a day i f you have not already been identified with an insufficiency or deficiency. Nutrition: A healthy diet with protein, vegetables, fruits, grains, and dairy is advised. More information including example serving sizes can be found at h ttps://www.choosemyplate.gov/.& #160; T hese amounts are appropriate for individuals who get less than 30 minutes per day of moderate physical activity, beyond normal daily activities. Those who are more physically active may be able to consume more while staying within calorie needs. Ordered: Lipid Panel MG Mammo Vijay Screening Bilateral 2. V itamin D deficiency, unspecified con't vit d ; will recheck lab Ordered: cholecalciferol(Vitamin D3 125 mcg (5000 intl units) oral tablet), 1 tab(s), Oral, Daily, # 90 tab(s), 3 total refill(s), Maintenance, original order by Mrs. Rodriguez, Pharmacy: [facility] [Not filled] Vitamin D 25 Hydroxy Level 3. R harris Ordered: desonide topical(desonide 0.05% topical ointment), See Instructions, PRN dry skin, Topical TID, # 60 g, 1 total refill(s), Maintenance, Pharmacy: [facility] [Federal Rx: #60 last filled 11/06/24] triamcinolone topical(triamcinolone 0.1% topical ointment), See Instructions, apply a thin film to affected area on dry patches 2-3x/wk prn, # 60 g, 1 total refill(s), Maintenance, Pharmacy: [facility] [Federal Rx: #60 last filled 11/06/24] 4. O ther specified abnormal findings of blood chemistry eat small, frequent meals, avoid simple sugars, eat more complex carbs Ordered: Comprehensive Metabolic Panel 5. O ther specified counseling PCV, RSV due; f/u with immunizations after completes mammo 6. F atigue will check labs, low vit d c an contribute; to f/u with PCM if labs nl for further eval Ordered: Ferritin Hemoglobin and Hematocrit Iron Studies Panel TSH w/ Reflex FT4 and Total T3 Vitamin B12 and Folate Panel Orders: *Glomerular Filtration Rate, Estimated Pt questions addressed and written discharge instructions were provided to the patient. Cassius Rodriguez [facility] CATERERS HELPER Domin[facility] Extracted from:Title: [facility] - Cough and Congestion Author: PAN BINGHAM MD Date: 09/21/24 1. V iral upper respiratory tract infection A cute, improving History and physical examination consistent with viral upper respiratory tract infection. Likely influenza A due to current prevalence, but unable to swab at this time due to testing availability. Discussed she would be outside treatment window for Tamiflu regardless, and the expected course of time for a viral illness such as the flu. - Discussed supportive measures including honey, tea, humidifiers - Tylenol/ibuprofen as needed for fever/discomfort - Advised to avoid Mucinex-D, and to use regular guaifenesin without D portion. - Precautions given on when/if to be evaluated in the ER. - Follow up in 2 weeks if no improvement in symptoms. Capt Keisha Lira, [facility] Display Director, PGY-2 [employer] Addendum by CECILIO HA MD on October 05, 2024 17:33:21 POLICE ACADEMY PROGRAM COORDINATOR I was present and available in the Family Medicine clinic to discuss this patient's care for the duration of the appointment. I agree with the resident's assessment and plan as documented with the following addendum: None. Cecilio Ha MD, FMOB Family Medicine - Obstetrics [facility] Faculty Physician Extracted from:Title: [facility] - OMT Author: PAN BINGHAM MD Date: 09/14/24 1. S omatic dysfunction of cervicothoracic region Stretching Demonstrated: Cervical/scalene Plan: 1) P t to drink plenty of water tonight 2) M ay take Tylenol as needed for pain next 48hrs 3) A pply ice or heat for additional relief 4) F ollow up: as needed 2-4 weeks C hronic medical issues and preventative health measures not addressed due to the specialty nature of this visit. Recommended annual HCM visits and regular follow up for chronic medical issues. 2. S omatic dysfunction of bilateral upper extremities S ee above. Capt Shelia Lira), [facility], Display Director, PGY-2 [employer] Addendum by DONAL RUTLEDGE MD on September 18, 2024 07:31:46 POLICE ACADEMY PROGRAM COORDINATOR I was present and available in the family medicine clinic to discuss the patient's care during the time of the appointment. I agree with the resident's assessment and plan as documented. Donal Rutledge MD, Faculty, [facility], Attending Physician Extracted from:Title: Office Clinic Note - Decreased Hearing, Anxiety Author: DAVONTE CESAR DO Date: 09/12/24 1. D ecreased hearing chronic, uncontrolled. Ear exam without e/o impacter cerumen. Recommendation for pt to have formal audiogram for further evaluation. Referral placed. Ordered: Referral Request 2.0 - DoD 2. A nxiety Acute, c ontrolled. HPI and PE c/w anxiety. No SI/HI. Stable on current regimen. No complaint of s/e of medication non-adherence. Good social support. Recommendations: - Counseling for stress management techniques - Discussed complimentary treatments: Exercise, Yoga, Meditation, Herbal Supplements - Pharmacologic management: [X] I nitiate S SRI/SNRI therapy; Lexapro [X] Plan to treat for minimum of 12 months prior to discontinuing to decrease risk of relapse [X] Discussed with patient that peak onset of action for SSRI/SNRI therapy is 4 weeks [X] Plan to continue initial therapy for 4-6 weeks [X] After initial therapy, plan to titrate to effective dose every 1-2 weeks [X] If no response to SSRI/SNRI therapy; taper dose and plan to initiate another SSRI/SNRI - ER for SI/SA/HI - Follow up: 4 weeks Ordered: escitalopram(Lexapro 10 mg oral tablet), 1 tab(s), Oral, Daily, # 30 tab(s), 0 total refill(s), Maintenance, Pharmacy: [facility] [Not filled] 3. D iabetes mellitus chronic, controlled. Last A1c 01/21. initiated on Metformin in Jul 2024. Repeat A1c ordered. Pt will need diabetic f/u scheduled for ongoing management. Metformin r efilled. Ordered: metFORMIN(MetFORMIN (Eqv-Fortamet) 500 mg oral tablet, extended release), 1 tab(s), Oral, Daily, # 90 tab(s), 3 total refill(s), Maintenance, Pharmacy: [facility] [Not filled] Hemoglobin A1c Farhad Davonte Cesar DO Family Medicine Faculty Physician [address] [place] [address], [facility] [employer] Extracted from:Title: DM Office Clinic Note Author: KATHYA MANN Date: 07/03/24 1. D iabetes mellitus type 2 The following education provided. Reviewed basic n utrition - carb counting, building a healthy plate with portion control. Discussed picking one item she would like to work on that is not sugar gm counting. Suggested building a healthy plate by using the 'The My Plate method. Patient agreed. Reviewed the Meal Planning handout she was provided in class to help with f ood choices and determining portion sizes. Patient is c oncerned that the foods she likes to eat are not on the planning guide. The plan is for her to keep a food diary of what she likes to eat and send me the log. The educational adviser and I can help modify the food log if needed. I advised patient she still desires a referral I am happy to request one, but if she would like to work with me then a referral is not required. & #160;Pt declined nutrition referral at this time and states she would like to work with me. Patient to activate Glucometer RX a nd once she has the machine she will call to schedule an appt with me. Smart Goals not established at this time. Plan to work on SMART Goals at next visit. Patient previously refused continued DM services but has agreed to health coaching. DM f/u: Email sent with DM intake questionnaire. Diabetes Essential class 01 Aug 2024 @ 0900. Patient v/u of all education provided and does not have any questions at this time. She will f/u with as planned. Encounter complete and forwarded to PCM for review and co-signature. REF [place] [employer] Standards of Care in Diabetes 2 024 Kathya Mann, KOLBY Disease [employer] [address] [place] [address] Dominik MENEZES Extracted from:Title: [facility]-OMT_Office Clinic Note Author: STARLA CANTU DO Date: 06/29/24 1. S omatic dysfunction of cervical region Stretching Demonstrated: Yes Plan: 1) P t to drink plenty of water tonight 2) M ay take Tylenol as needed for pain next 48hrs 3) A pply ice or heat for additional relief 4) F ollow up: as needed 2-4 weeks C hronic medical issues and preventative health measures not addressed due to the specialty nature of this visit. Recommended annual HCM visits and regular follow up for chronic medical issues. 2. S omatic dysfunction of head region As above. 3. S omatic dysfunction of cervicothoracic region As above. Capt FLORENTINO (), [facility] Display Director Physician, PGY-[address] [place] [address] Operations [employer]/SGGF, [place], [place] [id number] [place] [address] Family Medicine Residency Program [address] [place] [address], [address], [place] [address] Addendum by CONCHA CHEN MD on July 03, 2024 09:38:03 POLICE ACADEMY PROGRAM COORDINATOR I certify that I was immediately available to review and discuss this patient. T he resident discussed the diagnosis and treatment plan for this patient with me [id number]. I agree with these written findings and plan. Maj Dahiana Chen DO, CAQSM Sports/Family Medicine Faculty Physician [address] [place] [address], HCOS/SGGF [facility] [place] Extracted from:Title: Office Clinic Note - OMT, T2DM Author: DAVONTE CESAR DO Date: 05/31/24 1. C ervicalgia Stretching Demonstrated: Yes Plan: 1) P t to drink plenty of water tonight 2) M ay take Tylenol as needed for pain next 48hrs 3) A pply ice or heat for additional relief 4) F ollow up: as needed 2-4 weeks C hronic medical issues and preventative health measures not addressed due to the specialty nature of this visit. Recommended annual HCM visits and regular follow up for chronic medical issues. 2. D iabetes mellitus type 2 Acute, c ontrolled N o evidence of nephropathy, neuropathy, or retinopathy. H bA1C i s at goal (<7). M icroalbumin/Creatinine ratio D UE. L ipids a re at goal (<100) p er AHA/ACC guidelines. Recommendations: - Labs: O rdered the following: [_] HbA1C [_] Lipid Panel [_] CMP [X] Microalbumin/Creatinine ratio [ ] CBC - Medications: - Cardiovascular: [X] BP at goal (<130/80 per AHA/ACC guidelines) [X] Continue SHANDA-i/ARB therapy [X] Continue Statin therapy -Lifestyle Modifications: [X] Nutrition: D iscussed dietary modifications (Mediterranean diet) [X] Physical activity: encouraged increased activity with goal of 150min moderate exertion weekly [X] Sleep: reviewed sleep hygiene; goal of 6-8hr/night [X] Behavioral modification: pt has good social support [X] Smoking cessation (if applicable): encouraged tobacco cessation [X] Patient education: Disease management referral placed -Prevention: [X] Encouraged annual optometry evaluation; referral placed [X] Encouraged annual dental evaluation [X] Annual foot examination performed: 05/31/2024 Follow Up: --------- Entry A1C <7.5% recommendations: - Initiate oral monotherapy: Metformin - Goal A1C: <7% per ADA guidelines Ordered: Microalbumin Panel, Urine Referral Request 2.0 - DoD Referral Request 2.0 - DoD Maj Davonte Cesar DO Family Medicine Faculty Physician [facility], [facility] Dominik ELIZONDO Extracted from:Title: [facility] - Annual Well Author: ISIDRO CRISTOBAL DO Date: 05/17/24 1. W ell female adult Preventative Medicine / HCM visit with no emergent concerns. ----- VACCINES: - Advised annual flu vaccine - Advised pneumococcal vaccine (age 65 or 19-64 if have r isk factors: smoking, DM, immunocompromised) - Advised COVID-19 vaccine ----- - Cervical Cancer Screening: U TD - Breast C ancer Screening: UTD - L rojelio Cancer Screening: N/A - C olon Cancer Screening: DUE ----- BONE DENSITY: N /A ----- SEXUAL HEALTH: UTD ----- : N /A ----- METABOLIC: - L ipid screening: U TD - D M screening: UTD ----- DIET: -Mediterranean: Discussed that the Mediterranean diet consists of a diet high in fruits, vegetables, whole grains, etc. Mediterranean diet has been associated with decreased incidence of stroke and CVD. Handout was provided on the Mediterranean diet for patient to review at home. ----- SUBSTANCE USE: - T obacco use: D enies - Alcohol use: Denies - Illicit drug use: Denies ----- OTHER: - Discussed wearing safety belts, helmets (if motorcycle rider), sunscreen, smoke detectors in home ----- FOLLOW UP: - Annually Ordered: metFORMIN(MetFORMIN (Eqv-Fortamet) 500 mg oral tablet, extended release), 1 tab(s), Oral, Daily, # 90 tab(s), 0 total refill(s), Maintenance, 1 tab(s) Oral Daily, Pharmacy: [facility] [Not filled] 2. D iabetes mellitus Last A1c on record 6 .9. Georgette loyd is never been on any sort of medication for glycemic control. S he has been told o adamaris the last few years that she is borderline diabetic. -Discussed initiation of metformin a t this time. P rach is amenable -Urine microalbumin w ithin goal -Patient will [place] [facility] [place] [place] to see if she has a more recent A1c -RTC in 3 m [facility] for A1c recheck Ordered: metFORMIN(MetFORMIN (Eqv-Fortamet) 500 mg oral tablet, extended release), 1 tab(s), Oral, Daily, # 90 tab(s), 0 total refill(s), Maintenance, 1 tab(s) Oral Daily, Pharmacy: [facility] [Not filled] 3. P eroneal nerve entrapment Patient presenting with p ain a nd s ensory changes along the distribution of the peroneal nerve t hat is exacerbated by k neeling. Suspect p eroneal nerve e ntrapment to be the most likely etiology of her symptoms at this time. -MRI of the left lower extremity to evaluate for peroneal nerve entrapment -If peroneal nerve entrapment indicated, consider referral to sports management for corticosteroid injection -If no peroneal nerve entrapment visualized, consider physical therapy referral for treatment of possible hypertonic IT band Ordered: MRI Lower Extremity w/ + w/o Cnt Left Orders: azelaic acid topical(azelaic acid 15% topical gel), 1 appl(s), Topical, BID, # 30 g, 0 total refill(s), Maintenance, 1 appl(s) Topical BID, Pharmacy: [facility] [Not filled] Isidro Cristobal DO Display Director, PGY-3 [employer] Addendum by IFTIKHAR BARNETT DO on May 18, 2024 09:25:58 CDT I certify that I was present for case discussion in the Family Medicine preceptor room at the time of this encounter. I have reviewed the note and agree with the findings, assessment, and plan except as I have documented below. Follow up as listed. All labs/imaging/consults to be followed by the ordering provider. Iftikhar Barnett DO, Capt, [facility], Staff Physician Extracted from:Title: Virtual, SHAFT HEADMAN US results Author: CASSIUS RODRIGUEZ CATERERS HELPER Date: 11/07/23 1. P elvic and perineal pain small fibroid not likely associated with twinges of pain; possible GI or MS source; has GI f/u planned 2. L eiomyoma of uterus, unspecified stable with minimal change 3. O ther specified counseling enc to get mammo and lab appt scheduled to complete; discussed vit d dosing, osteoporosis screening, GI f/u; meds; RTC yearly exam Orders: mupirocin topical(mupirocin 2% topical cream), See Instructions, PRN rash, apply a thin film to rash by right eye as needed, # 30 g, 1 total refill(s), Maintenance, apply a thin film to rash by right eye as needed,PRN:rash, Pharmacy: [facility] [Not filled] Cassius Rodriguez [facility] GERARDO Lehman [facility] Extracted from:Title: SHAFT HEADMAN WWE/urge incont Author: CASSIUS RODRIGUEZ NP Date: 09/13/23 1. E ncounter for gynecological examination (general) (routine) with abnormal findings Over 50% of m inute visit spent face to face with patient on education, reviewing history, and developing plan of care. Continue monthly BSE and yearly well woman exams. Return to clinic in 1 year. Exercise: 30 minutes of moderate exercise 5 days a week including cardio and strength training is recommended for a healthy lifestyle. T his should be in addition to your normal daily work/routine. If you are trying to lose weight more exercise along with a healthy diet is recommended. Supplements/Vitamins: If you are not following, or able to follow a well-balanced diet indicated below due to personal or medical reasons, it is recommended you take a m ultivitamin. This is especially important if you are trying to get as w omen need additional folic acid before and during (400-1000 micrograms per day). Daily calcium intake should be around 1200 mg per day w hich is 120% of the recommended daily allowance if looking at food labels.? W e recommend V itamin D3 2,000-3,000 international units a day i f you have not already been identified with an insufficiency or deficiency. Nutrition: A healthy diet with protein, vegetables, fruits, grains, and dairy is advised. More information including example serving sizes can be found at h ttps://www.choosemyplate.gov/.& #160; T hese amounts are appropriate for individuals who get less than 30 minutes per day of moderate physical activity, beyond normal daily activities. Those who are more physically active may be able to consume more while staying within calorie needs. t o schedule mammo for 6wks after last covid vaccine Ordered: cholecalciferol(Vitamin D3 125 mcg (5000 intl units) oral capsule), 1 cap(s), Oral, Daily, with food, # 90 cap(s), 3 total refill(s), Maintenance, 1 cap(s) Oral Daily,Instr:with food, Pharmacy: [facility] [Not filled] TSH w/ Reflex FT4 and Total T3 Vitamin D 25 Hydroxy Level MG Mammo Vijay Screening Bilateral 2. P elvic and perineal pain schedule virtual appt for 2-3days after US appt to discuss results Ordered: US Pelvis w/ Transvag non-OB Complete 3. O ther specified abnormal findings of blood chemistry d ecrease carbs to decrease TG; repeat labs fasting eat small, frequent meals, avoid simple sugars, eat more complex carbs Ordered: Hemoglobin A1c Lipid Panel 4. U rge incontinence keep voiding diary; bladder irritants handout given; f/u if desires further intervention [facility]ius [facility] CATERERS HELPER [facility] Extracted from:Title: Immunizations Author: USMAN VARGAS, EMT Date: 09/09/23 Encounter has Screening Questions previously completed. Refer to screening questions for additional information of vaccination given and clearance. More information is also available in the Immunization Tab for patient's history of vaccinations. Closing Encounter for administrative completion. Future Appointments Appointment Date: 03/11/2025 10:00:00 AM Scheduled Provider: PRASHANT CORTEZ MD Location: [address] [place] [address] Appointment Type: PC FTR Future Scheduled TestsLaboratoryBasic Metabolic Panel 12/12/24 03/04/2025 [id number] [facility] Assessment and Plan Extracted from:Title : FM - OMT of Upper and Lower Back Author: PRASHANT CORTEZ MD Date: 02/04/25 1. S omatic dysfunction of back region Stretching Demonstrated: Yes Plan: 1) P t to drink plenty of water tonight 2) M ay take Tylenol as needed for pain next 48hrs 3) A pply ice or heat for additional relief 4) F ollow up: as needed 2-4 weeks Chronic medical issues and preventative health measures not addressed due to the specialty nature of this visit. Recommended annual HCM visits and regular follow up for chronic medical issues. DO. Garry Mulligan [employer], Display Director, PGY-2 [place] Addendum by JOHN RODRIGUEZ MD, Family Medicine on February 14, 2025 17:44:07 CDT I was present and available in the family medicine clinic during the patient's appointment.? The case was discussed with me and I agree with the assessment and plan as documented. ? HLF Extracted from:Title: [facility]-OMTL[facility]ip_Office Clinic Note Author: STARLA CANTU DO Date: 01/09/25 1. S omatic dysfunction of hip region Stretching Demonstrated: Yes Plan: 1) P t to drink plenty of water tonight 2) M ay take Tylenol as needed for pain next 48hrs 3) A pply ice or heat for additional relief 4) F ollow up: as needed 2-4 weeks C hronic medical issues and preventative health measures not addressed due to the specialty nature of this visit. Recommended annual HCM visits and regular follow up for chronic medical issues. Capt FLORENTINO (), [facility] Display Director Physician, PGY-[address] [place] [address]/SGGF, [address] Family Medicine Residency Program [address] [place] [address], [address], [place] [address] Addendum by CONCHA CHEN MD on January 10, 2025 14:49:25 CDT I certify that I was immediately available to review and discuss this patient. T he resident discussed the diagnosis and treatment plan for this patient with me [id number]. I agree with these written findings and plan. Maj Dahiana Chen DO, [facility] Sports/Family Medicine Faculty Physician [address] [place] [address], OS/SGGF O [facility] [place], [place] Extracted from:Title: Acne/rosacea, Melanonychia Author: JAVIER COTTRELL MD Date: 12/25/24 1. O ther rosacea Ordered: tretinoin topical(tretinoin 0.05% topical cream), See Instructions, Apply to entire face qhs, no sooner than 15min after washing and moisturizing, # 45 g, 6 total refill(s), Maintenance, Pharmacy: [facility] [Not filled] 2. O ther nail disorders Ordered: Referral Request 2.0 - [facility] D[facility] OUTPATIENT ENCOUNTER CC: Santosh harris HPI: 64 Years o ld Yury 3 Female p resents reporting a cne/rosacea for many years, uses azelaic acid gel and tretinoin, mostly controlled, needs refill of tretinoin. Also reports melanonychia on nails for 5+ years, slowly changing now on many nails, has been followed by [facility] who has all records and she would prefer to stay with them if able for continuity of care. Family Hx: N oncontributory Personal Hx: No skin cancer Other: N/A ROS: DVPRS Pain scale (related to skin): 0/10 Changing moles? (unless o/w noted in HPI): N o Rash? (unless o/w noted in HPI): No Other: N/A EXAM: General: Well-developed, Mood/Affect normal, Alert/Oriented Conjunctivae/Eyelids: Normal Eccrine/Apocrine glands: Normal _ A skin exam of the s calp, hair, face, eyes, ears, neck, decolletage, and upper extremities (including digits/nails) was unremarkable except for the following: - slight blush to cheeks - m ultiple similar hyperpigmented longitudinal streaks on thumbs and other fingernails ASSESSMENT/PLAN 1. A cne/rosacea overlap - R efilled tretinoin - avoid triggers - f/u with [facility] 2. 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 - This is common, particularly in darker skin types, and can slowly develop over time with multiple longitudinal bands of increased color of varying widths in multiple fingernails. Melanonychia can also result from other benign reasons such as a benign sunspot (lentigo), a benign melanocytic nevus growing at the nailfold, or skin inflammation around the nail fold (e.g. infection, trauma, eczema). - Medications can also cause melanonychia in one or multiple nails. - Although rare, melanoma is another cause of melanonychia, but this typically occurs rapidly over the span of a few months. It is usually a solitary sharply demarcated dark black or brown line on a single digit that is rapidly growing/widening and is associated with hyperpigmentation of the nailfold or cuticle (aka Sarmiento sign ) . Other possible concerning features include width greater than 6mm, a width greater at the nailfold than at the tip of the nail (triangle shape), multiple colors within the s marianne band of pigment, bleeding, ulceration, and nail dystrophy. ?None of these red flags present today. - Pt instructed that if they notice any rapid changes or darkening to schedule f/u. - Given that pt has been seen for years at [facility] dermatology and they have records, best for her to see them for c ontinuity of care, referral placed Active Duty: No Patient e ducated on dermatological diagnoses/recommendations a s above. All questions answered. I spent 15+ cumulative minutes providing care to the patient (e.g. chart review, obtaining history, performing a skin exam, counseling/educating the patient, and documentation). Any medication change(s) were reviewed during the visit, and patient verbalized understanding. An updated med list was offered/provided to patient at the end of the encounter. Patient has been educated about the importance of medication adherence and maintaining accurate list of medications. //SIGNED// Javier Cottrell MD, FAAD [employer], [facility], , FS Plug Assembler Dermatopathologist Securities Dealer, [address] Extracted from:Title: Office Clinic Note - Referrals/Lab results Author: DAVONTE CESAR DO Date: 12/12/24 1. S douglas ferritin high est, stable. Prior h/o elevated ferritin and est with [facility]. Requesting referral for continuity of care for ongoing management. Ordered: Referral Request 2.0 - [facility] 2. R osacea est, controlled. Pt est with dermatology and requesting referral for continuity of care. Ordered: Referral Request 2.0 - [facility] 3. D iverticulosis of colon est, controlled. Referral placed for gastroenterology for ongoing management. R eviewed daily fiber supplementation. Goal for 30g fiber daily. Ordered: Referral Request 2.0 - [facility]D 4. L aboratory test result abnormal acute, unknown control. Pt with elevated BUN and requesting repeat lab to confirm resolution. BMP ordered. Will f/u once lab has resulted. Ordered: Basic Metabolic Panel Farhad Davonte Cesar DO Family Medicine Faculty Physician [address] [place] [address] Dominik ELIZONDO Extracted from:Title: [facility]/Trap_Office Clinic Note Author: STARLA CANTU, DO Date: 11/30/24 1. S omatic dysfunction of cervicothoracic region Stretching Demonstrated: Yes Plan: 1) P t to drink plenty of water tonight 2) M ay take Tylenol as needed for pain next 48hrs 3) A pply ice or heat for additional relief 4) F ollow up: as needed 2-4 weeks Chronic medical issues and preventative health measures not addressed due to the specialty nature of this visit. Recommended annual HCM visits and regular follow up for chronic medical issues. Capt FLORENTINO (), [facility] Display Director Physician, PGY-[address] [place] [address] [employer], [place] [address] [facility] Family Medicine Residency Program [address] [facility], [address], [place] [address] Addendum by DONAL RUTLEDGE MD on December 19, 2024 08:37:01 CDT I was present and available in the family medicine clinic to discuss the patient's care during the time of the appointment. I agree with the resident's assessment and plan as documented. Donal Rutledge MD, Faculty, [employer], VOL, Attending Physician Extracted from:Title: SHAFT HEADMAN/WWE, fatigue, vit d def Author: CASSIUS RODRIGUEZ NP, Women's Health Date: 11/06/24 1. E ncounter for gynecological examination (general) (routine) with abnormal findings Over 50% of m inute visit spent face to face with patient on education, reviewing history, and developing plan of care. Continue monthly BSE and yearly well woman exams. Return to clinic in 1 year. Exercise: 30 minutes of moderate exercise 5 days a week including cardio and strength training is recommended for a healthy lifestyle. T his should be in addition to your normal daily work/routine. If you are trying to lose weight more exercise along with a healthy diet is recommended. Supplements/Vitamins: If you are not following, or able to follow a well-balanced diet indicated below due to personal or medical reasons, it is recommended you take a m ultivitamin. This is especially important if you are trying to get as w omen need additional folic acid before and during (400-1000 micrograms per day). Daily calcium intake should be around 1200 mg per day w hich is 120% of the recommended daily allowance if looking at food labels.? W e recommend V itamin D3 2,000-3,000 international units a day i f you have not already been identified with an insufficiency or deficiency. Nutrition: A healthy diet with protein, vegetables, fruits, grains, and dairy is advised. More information including example serving sizes can be found at h ttps://www.choosemyplate.gov/.& #160; T hese amounts are appropriate for individuals who get less than 30 minutes per day of moderate physical activity, beyond normal daily activities. Those who are more physically active may be able to consume more while staying within calorie needs. Ordered: Lipid Panel MG Mammo Vijay Screening Bilateral 2. V itamin D deficiency, unspecified con't vit d ; will recheck lab Ordered: cholecalciferol(Vitamin D3 125 mcg (5000 intl units) oral tablet), 1 tab(s), Oral, Daily, # 90 tab(s), 3 total refill(s), Maintenance, original order by Mrs. Rodriguez, Pharmacy: [facility] [Not filled] Vitamin D 25 Hydroxy Level 3. R harris Ordered: desonide topical(desonide 0.05% topical ointment), See Instructions, PRN dry skin, Topical TID, # 60 g, 1 total refill(s), Maintenance, Pharmacy: [facility] [Federal Rx: #60 last filled 11/06/24] triamcinolone topical(triamcinolone 0.1% topical ointment), See Instructions, apply a thin film to affected area on dry patches 2-3x/wk prn, # 60 g, 1 total refill(s), Maintenance, Pharmacy: [facility] [Federal Rx: #60 last filled 11/06/24] 4. O ther specified abnormal findings of blood chemistry eat small, frequent meals, avoid simple sugars, eat more complex carbs Ordered: Comprehensive Metabolic Panel 5. O ther specified counseling PCV, RSV due; f/u with immunizations after completes mammo 6. F atigue will check labs, low vit d c an contribute; to f/u with PCM if labs nl for further eval Ordered: Ferritin Hemoglobin and Hematocrit Iron Studies Panel TSH w/ Reflex FT4 and Total T3 Vitamin B12 and Folate Panel Orders: *Glomerular Filtration Rate, Estimated Pt questions addressed and written discharge instructions were provided to the patient. Cassius Rodriguez [facility] GERARDO Lehman [facility] Women's Health [place] Extracted from:Title: [facility] - Cough and Congestion Author: PAN BINGHAM MD Date: 09/21/24 1. V iral upper respiratory tract infection A cute, improving History and physical examination consistent with viral upper respiratory tract infection. Likely influenza A due to current prevalence, but unable to swab at this time due to testing availability. Discussed she would be outside treatment window for Tamiflu regardless, and the expected course of time for a viral illness such as the flu. - Discussed supportive measures including honey, tea, humidifiers - Tylenol/ibuprofen as needed for fever/discomfort - Advised to avoid Mucinex-D, and to use regular guaifenesin without D portion. - Precautions given on when/if to be evaluated in the ER. - Follow up in 2 weeks if no improvement in symptoms. Capt Shelia Lira), [facility] Display Director, PGY-2 [place] Addendum by CECILIO HA MD on October 05, 2024 17:33:21 POLICE ACADEMY PROGRAM COORDINATOR I was present and available in the Family Medicine clinic to discuss this patient's care for the duration of the appointment. I agree with the resident's assessment and plan as documented with the following addendum: None. Cecilio Ha MD, FMOB Family Medicine - Obstetrics [facility] Faculty Physician Extracted from:Title: [facility] - OMT Author: PAN BINGHAM MD Date: 09/14/24 1. S omatic dysfunction of cervicothoracic region Stretching Demonstrated: Cervical/scalene Plan: 1) P t to drink plenty of water tonight 2) M ay take Tylenol as needed for pain next 48hrs 3) A pply ice or heat for additional relief 4) F ollow up: as needed 2-4 weeks C hronic medical issues and preventative health measures not addressed due to the specialty nature of this visit. Recommended annual HCM visits and regular follow up for chronic medical issues. 2. S omatic dysfunction of bilateral upper extremities S ee above. Capt Shelia Lira), [facility] Display Director, PGY-2 [facility] Addendum by DONAL RUTLEDGE MD on September 18, 2024 07:31:46 POLICE ACADEMY PROGRAM COORDINATOR I was present and available in the family medicine clinic to discuss the patient's care during the time of the appointment. I agree with the resident's assessment and plan as documented. Donal Rutledge MD, Faculty, [facility], [facility], Attending Physician Extracted from:Title: Office Clinic Note - Decreased Hearing, Anxiety Author: DAVONTE CESAR DO Date: 09/12/24 1. D ecreased hearing chronic, uncontrolled. Ear exam without e/o impacter cerumen. Recommendation for pt to have formal audiogram for further evaluation. Referral placed. Ordered: Referral Request 2.0 - [facility]D 2. A nxiety Acute, c ontrolled. HPI and PE c/w anxiety. No SI/HI. Stable on current regimen. No complaint of s/e of medication non-adherence. Good social support. Recommendations: - Counseling for stress management techniques - Discussed complimentary treatments: Exercise, Yoga, Meditation, Herbal Supplements - Pharmacologic management: [X] I nitiate S SRI/SNRI therapy; Lexapro [X] Plan to treat for minimum of 12 months prior to discontinuing to decrease risk of relapse [X] Discussed with patient that peak onset of action for SSRI/SNRI therapy is 4 weeks [X] Plan to continue initial therapy for 4-6 weeks [X] After initial therapy, plan to titrate to effective dose every 1-2 weeks [X] If no response to SSRI/SNRI therapy; taper dose and plan to initiate another SSRI/SNRI - ER for SI/SA/HI - Follow up: 4 weeks Ordered: escitalopram(Lexapro 10 mg oral tablet), 1 tab(s), Oral, Daily, # 30 tab(s), 0 total refill(s), Maintenance, Pharmacy: [facility] [Not filled] 3. D iabetes mellitus chronic, controlled. Last A1c 01/21. initiated on Metformin in Jul 2024. Repeat A1c ordered. Pt will need diabetic f/u scheduled for ongoing management. Metformin r efilled. Ordered: metFORMIN(MetFORMIN (Eqv-Fortamet) 500 mg oral tablet, extended release), 1 tab(s), Oral, Daily, # 90 tab(s), 3 total refill(s), Maintenance, Pharmacy: [facility] [Not filled] Hemoglobin A1c Farhad Davonte Cesar DO Family Medicine Faculty Physician [address] [place] [address], [facility] Dominik ELIZONDO Extracted from:Title: DM Office Clinic Note Author: KATHYA MANN Date: 07/03/24 1. D iabetes mellitus type 2 The following education provided. Reviewed basic n utrition - carb counting, building a healthy plate with portion control. Discussed picking one item she would like to work on that is not sugar gm counting. Suggested building a healthy plate by using the 'The My Plate method. Patient agreed. Reviewed the Meal Planning handout she was provided in class to help with f ood choices and determining portion sizes. Patient is c oncerned that the foods she likes to eat are not on the planning guide. The plan is for her to keep a food diary of what she likes to eat and send me the log. The educational adviser and I can help modify the food log if needed. I advised patient she still desires a referral I am happy to request one, but if she would like to work with me then a referral is not required. & #160;Pt declined nutrition referral at this time and states she would like to work with me. Patient to activate Glucometer RX a nd once she has the machine she will call to schedule an appt with me. Smart Goals not established at this time. Plan to work on SMART Goals at next visit. Patient previously refused continued DM services but has agreed to health coaching. DM f/u: Email sent with DM intake questionnaire. Diabetes Essential class 01 Aug 2024 @ 0900. Patient v/u of all education provided and does not have any questions at this time. She will f/u with as planned. Encounter complete and forwarded to PCM for review and co-signature. REF [place] Diabetes Standards of Care in Diabetes 2 024 Kathya Mann RN Disease [employer] [address] [place] [address] Extracted from:Title: [facility]-OMT_Office Clinic Note Author: STARLA CANTU, DO Date: 06/29/24 1. S omatic dysfunction of cervical region Stretching Demonstrated: Yes Plan: 1) P t to drink plenty of water tonight 2) M ay take Tylenol as needed for pain next 48hrs 3) A pply ice or heat for additional relief 4) F ollow up: as needed 2-4 weeks C hronic medical issues and preventative health measures not addressed due to the specialty nature of this visit. Recommended annual HCM visits and regular follow up for chronic medical issues. 2. S omatic dysfunction of head region As above. 3. S omatic dysfunction of cervicothoracic region As above. Capt FLORENTINO (), [facility], Display Director Physician, PGY-3 [facility] [employer], [place] [address] [facility] Family Medicine Residency Program [address] [facility], [address], [place] [address] Addendum by CONCHA CHEN MD on July 03, 2024 09:38:03 POLICE ACADEMY PROGRAM COORDINATOR I certify that I was immediately available to review and discuss this patient. T he resident discussed the diagnosis and treatment plan for this patient with me [id number]. I agree with these written findings and plan. Maj Dahiana Chen DO, CAQSM Sports/Family Medicine Faculty Physician [address] [place] [address], HCOS/SG O [facility] [place] Extracted from:Title: Office Clinic Note - OMT, T2DM Author: DAVONTE CESAR DO Date: 05/31/24 1. C ervicalgia Stretching Demonstrated: Yes Plan: 1) P t to drink plenty of water tonight 2) M ay take Tylenol as needed for pain next 48hrs 3) A pply ice or heat for additional relief 4) F ollow up: as needed 2-4 weeks C hronic medical issues and preventative health measures not addressed due to the specialty nature of this visit. Recommended annual HCM visits and regular follow up for chronic medical issues. 2. D iabetes mellitus type 2 Acute, c ontrolled N o evidence of nephropathy, neuropathy, or retinopathy. H bA1C i s at goal (<7). M icroalbumin/Creatinine ratio D UE. L ipids a re at goal (<100) p er AHA/ACC guidelines. Recommendations: - Labs: O rdered the following: [_] HbA1C [_] Lipid Panel [_] CMP [X] Microalbumin/Creatinine ratio [ ] CBC - Medications: - Cardiovascular: [X] BP at goal (<130/80 per AHA/ACC guidelines) [X] Continue SHANDA-i/ARB therapy [X] Continue Statin therapy -Lifestyle Modifications: [X] Nutrition: D iscussed dietary modifications (Mediterranean diet) [X] Physical activity: encouraged increased activity with goal of 150min moderate exertion weekly [X] Sleep: reviewed sleep hygiene; goal of 6-8hr/night [X] Behavioral modification: pt has good social support [X] Smoking cessation (if applicable): encouraged tobacco cessation [X] Patient education: Disease management referral placed -Prevention: [X] Encouraged annual optometry evaluation; referral placed [X] Encouraged annual dental evaluation [X] Annual foot examination performed: 05/31/2024 Follow Up: --------- Entry A1C <7.5% recommendations: - Initiate oral monotherapy: Metformin - Goal A1C: <7% per ADA guidelines Ordered: Microalbumin Panel, Urine Referral Request 2.0 - DoD Referral Request 2.0 - Armond Cesar DO Family Medicine Faculty Physician [facility], [facility] Dominik ELIZONDO Extracted from:Title: [facility] - Annual Well Author: ISIDRO CRISTOBAL DO Date: 05/17/24 1. W ell female adult Preventative Medicine / HCM visit with no emergent concerns. ----- VACCINES: - Advised annual flu vaccine - Advised pneumococcal vaccine (age 65 or 19-64 if have r isk factors: smoking, DM, immunocompromised) - Advised COVID-19 vaccine ----- - Cervical Cancer Screening: U TD - Breast C ancer Screening: UTD - L rojelio Cancer Screening: N/A - C olon Cancer Screening: DUE ----- BONE DENSITY: N /A ----- SEXUAL HEALTH: UTD ----- : N /A ----- METABOLIC: - L ipid screening: U TD - D M screening: UTD ----- DIET: -Mediterranean: Discussed that the Mediterranean diet consists of a diet high in fruits, vegetables, whole grains, etc. Mediterranean diet has been associated with decreased incidence of stroke and CVD. Handout was provided on the Mediterranean diet for patient to review at home. ----- SUBSTANCE USE: - T obacco use: D enies - Alcohol use: Denies - Illicit drug use: Denies ----- OTHER: - Discussed wearing safety belts, helmets (if motorcycle rider), sunscreen, smoke detectors in home ----- FOLLOW UP: - Annually Ordered: metFORMIN(MetFORMIN (Eqv-Fortamet) 500 mg oral tablet, extended release), 1 tab(s), Oral, Daily, # 90 tab(s), 0 total refill(s), Maintenance, 1 tab(s) Oral Daily, Pharmacy: [facility] [Not filled] 2. D iabetes mellitus Last A1c on record 6 .9. P rach is never been on any sort of medication for glycemic control. S he has been told o adamaris the last few years that she is borderline diabetic. -Discussed initiation of metformin a t this time. P rach is amenable -Urine microalbumin w ithin goal -Patient will check labs from [facility] to see if she has a more recent A1c -RTC in 3 m [facility] for A1c recheck Ordered: metFORMIN(MetFORMIN (Eqv-Fortamet) 500 mg oral tablet, extended release), 1 tab(s), Oral, Daily, # 90 tab(s), 0 total refill(s), Maintenance, 1 tab(s) Oral Daily, Pharmacy: [facility] [Not filled] 3. P eroneal nerve entrapment Patient presenting with p ain a nd s ensory changes along the distribution of the peroneal nerve t hat is exacerbated by k neeling. Suspect p eroneal nerve e ntrapment to be the most likely etiology of her symptoms at this time. -MRI of the left lower extremity to evaluate for peroneal nerve entrapment -If peroneal nerve entrapment indicated, consider referral to sports management for corticosteroid injection -If no peroneal nerve entrapment visualized, consider physical therapy referral for treatment of possible hypertonic IT band Ordered: MRI Lower Extremity w/ + w/o Cnt Left Orders: azelaic acid topical(azelaic acid 15% topical gel), 1 appl(s), Topical, BID, # 30 g, 0 total refill(s), Maintenance, 1 appl(s) Topical BID, Pharmacy: [facility] [Not filled] Isidro Cristobal DO Display Director, PGY-3 [employer] Addendum by IFTIKHAR BARNETT DO on May 18, 2024 09:25:58 CDT I certify that I was present for case discussion in the Family Medicine preceptor room at the time of this encounter. I have reviewed the note and agree with the findings, assessment, and plan except as I have documented below. Follow up as listed. All labs/imaging/consults to be followed by the ordering provider. Iftikhar Barnett DO, Capt, [employer], Staff Physician Extracted from:Title: Virtual, SHAFT HEADMAN US results Author: CASSIUS RODRIGUEZ NP Date: 11/07/23 1. P elvic and perineal pain small fibroid not likely associated with twinges of pain; possible GI or MS source; has GI f/u planned 2. L eiomyoma of uterus, unspecified stable with minimal change 3. O ther specified counseling enc to get mammo and lab appt scheduled to complete; discussed vit d dosing, osteoporosis screening, GI f/u; meds; RTC yearly exam Orders: mupirocin topical(mupirocin 2% topical cream), See Instructions, PRN rash, apply a thin film to rash by right eye as needed, # 30 g, 1 total refill(s), Maintenance, apply a thin film to rash by right eye as needed,PRN:rash, Pharmacy: [facility] [Not filled] Cassius Rodriguez [facility] GERARDO Le[facility] Extracted from:Title: SHAFT HEADMAN WWE/urge incont Author: CASSIUS RODRIGUEZ NP Date: 09/13/23 1. E ncounter for gynecological examination (general) (routine) with abnormal findings Over 50% of m inute visit spent face to face with patient on education, reviewing history, and developing plan of care. Continue monthly BSE and yearly well woman exams. Return to clinic in 1 year. Exercise: 30 minutes of moderate exercise 5 days a week including cardio and strength training is recommended for a healthy lifestyle. T his should be in addition to your normal daily work/routine. If you are trying to lose weight more exercise along with a healthy diet is recommended. Supplements/Vitamins: If you are not following, or able to follow a well-balanced diet indicated below due to personal or medical reasons, it is recommended you take a m ultivitamin. This is especially important if you are trying to get as w omen need additional folic acid before and during (400-1000 micrograms per day). Daily calcium intake should be around 1200 mg per day w hich is 120% of the recommended daily allowance if looking at food labels.? W e recommend V itamin D3 2,000-3,000 international units a day i f you have not already been identified with an insufficiency or deficiency. Nutrition: A healthy diet with protein, vegetables, fruits, grains, and dairy is advised. More information including example serving sizes can be found at h ttps://www.choosemyplate.gov/.& #160; T hese amounts are appropriate for individuals who get less than 30 minutes per day of moderate physical activity, beyond normal daily activities. Those who are more physically active may be able to consume more while staying within calorie needs. t o schedule mammo for 6wks after last covid vaccine Ordered: cholecalciferol(Vitamin D3 125 mcg (5000 intl units) oral capsule), 1 cap(s), Oral, Daily, with food, # 90 cap(s), 3 total refill(s), Maintenance, 1 cap(s) Oral Daily,Instr:with food, Pharmacy: [facility] [Not filled] TSH w/ Reflex FT4 and Total T3 Vitamin D 25 Hydroxy Level MG Mammo Vijay Screening Bilateral 2. P elvic and perineal pain schedule virtual appt for 2-3days after US appt to discuss results Ordered: US Pelvis w/ Transvag non-OB Complete 3. O ther specified abnormal findings of blood chemistry d ecrease carbs to decrease TG; repeat labs fasting eat small, frequent meals, avoid simple sugars, eat more complex carbs Ordered: Hemoglobin A1c Lipid Panel 4. U rge incontinence keep voiding diary; bladder irritants handout given; f/u if desires further intervention Cassius Rodriguez [facility] GERARDO Lehman [facility] Extracted from:Title: Immunizations Author: USMAN VARGAS, EMT Date: 09/09/23 Encounter has Screening Questions previously completed. Refer to screening questions for additional information of vaccination given and clearance. More information is also available in the Immunization Tab for patient's history of vaccinations. Closing Encounter for administrative completion. Future Appointments Appointment Date: 03/11/2025 10:00:00 AM Scheduled Provider: PRASHANT CORTEZ MD Location: [address] [place] [address] Appointment Type: PC FTR Future Scheduled TestsLaboratoryBasic Metabolic Panel 12/12/24 03/04/2025 005-[facility] Aster Assessment and Plan Extracted from:Title : FM - OMT of Upper and Lower Back Author: PRASHANT CORTEZ MD Date: 02/04/25 1. S omatic dysfunction of back region Stretching Demonstrated: Yes Plan: 1) P t to drink plenty of water tonight 2) M ay take Tylenol as needed for pain next 48hrs 3) A pply ice or heat for additional relief 4) F ollow up: as needed 2-4 weeks Chronic medical issues and preventative health measures not addressed due to the specialty nature of this visit. Recommended annual [facility] visits and regular follow up for chronic medical issues. DO. Garry Mulligan, [facility], Display Director, PGY-2 [place] Addendum by JOHN RODRIGUEZ MD, Family Medicine on February 14, 2025 17:44:07 CDT I was present and available in the family medicine clinic during the patient's appointment.? The case was discussed with me and I agree with the assessment and plan as documented. ? HLF Extracted from:Title: [facility]-OMTLHip_Office Clinic Note Author: STARLA CANTU DO Date: 01/09/25 1. S omatic dysfunction of hip region Stretching Demonstrated: Yes Plan: 1) P t to drink plenty of water tonight 2) M ay take Tylenol as needed for pain next 48hrs 3) A pply ice or heat for additional relief 4) F ollow up: as needed 2-4 weeks C hronic medical issues and preventative health measures not addressed due to the specialty nature of this visit. Recommended annual HCM visits and regular follow up for chronic medical issues. Capt Keisha [employer], Display Director Physician, PGY-[address] [place] [address] [employer], [facility] [place] [id number] [place] [address] Family Medicine Residency Program [address] [facility], [address], [place] [address] Addendum by CONCHA CHEN MD on January 10, 2025 14:49:25 CDT I certify that I was immediately available to review and discuss this patient. T he resident discussed the diagnosis and treatment plan for this patient with me [id number]. I agree with these written findings and plan. Maj Dahiana Chen DO, CAQSM Sports/Family Medicine Faculty Physician [address] [place] [address], OS/SGGF [facility] Dominik ELIZONDO MD Extracted from:Title: Acne/rosacea, Melanonychia Author: JAVIER COTTRELL MD Date: 12/25/24 1. O ther rosacea Ordered: tretinoin topical(tretinoin 0.05% topical cream), See Instructions, Apply to entire face qhs, no sooner than 15min after washing and moisturizing, # 45 g, 6 total refill(s), Maintenance, Pharmacy: [facility] [Not filled] 2. O ther nail disorders Ordered: Referral Request 2.0 - DoD [employer] DERMATOLOGY OUTPATIENT ENCOUNTER CC: R harris HPI: 64 Years o ld Yury 3 Female p resents reporting a cne/rosacea for many years, uses azelaic acid gel and tretinoin, mostly controlled, needs refill of tretinoin. Also reports melanonychia on nails for 5+ years, slowly changing now on many nails, has been followed by [facility] who has all records and she would prefer to stay with them if able for continuity of care. Family Hx: N oncontributory Personal Hx: No skin cancer Other: N/A ROS: DVPRS Pain scale (related to skin): 0/10 Changing moles? (unless o/w noted in HPI): N o Rash? (unless o/w noted in HPI): No Other: N/A EXAM: General: Well-developed, Mood/Affect normal, Alert/Oriented Conjunctivae/Eyelids: Normal Eccrine/Apocrine glands: Normal _ A skin exam of the s calp, hair, face, eyes, ears, neck, decolletage, and upper extremities (including digits/nails) was unremarkable except for the following: - slight blush to cheeks - m ultiple similar hyperpigmented longitudinal streaks on thumbs and other fingernails ASSESSMENT/PLAN 1. A cne/rosacea overlap - R efilled tretinoin - avoid triggers - f/u with [facility] 2. 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 - This is common, particularly in darker skin types, and can slowly develop over time with multiple longitudinal bands of increased color of varying widths in multiple fingernails. Melanonychia can also result from other benign reasons such as a benign sunspot (lentigo), a benign melanocytic nevus growing at the nailfold, or skin inflammation around the nail fold (e.g. infection, trauma, eczema). - Medications can also cause melanonychia in one or multiple nails. - Although rare, melanoma is another cause of melanonychia, but this typically occurs rapidly over the span of a few months. It is usually a solitary sharply demarcated dark black or brown line on a single digit that is rapidly growing/widening and is associated with hyperpigmentation of the nailfold or cuticle (aka Sarmiento sign ) . Other possible concerning features include width greater than 6mm, a width greater at the nailfold than at the tip of the nail (triangle shape), multiple colors within the s marianne band of pigment, bleeding, ulceration, and nail dystrophy. ?None of these red flags present today. - Pt instructed that if they notice any rapid changes or darkening to schedule f/u. - Given that pt has been seen for years at [facility] and they have records, best for her to see them for c ontinuity of care, referral placed Active Duty: No Patient e ducated on dermatological diagnoses/recommendations a s above. All questions answered. I spent 15+ cumulative minutes providing care to the patient (e.g. chart review, obtaining history, performing a skin exam, counseling/educating the patient, and documentation). Any medication change(s) were reviewed during the visit, and patient verbalized understanding. An updated med list was offered/provided to patient at the end of the encounter. Patient has been educated about the importance of medication adherence and maintaining accurate list of medications. //SIGNED// Javier Cottrell MD, FAAD [employer], [employer], MC, FS [employer] Assembler Dermatopathologist Securities Dealer, [address] Extracted from:Title: Office Clinic Note - Referrals/Lab results Author: DAVONTE CESAR, DO Date: 12/12/24 1. S douglas ferritin high est, stable. Prior h/o elevated ferritin and est with [facility]. Requesting referral for continuity of care for ongoing management. Ordered: Referral Request 2.0 - DoD 2. R osacea est, controlled. Pt est with dermatology and requesting referral for continuity of care. Ordered: Referral Request 2.0 - DoD 3. D iverticulosis of colon est, controlled. Referral placed for gastroenterology for ongoing management. R eviewed daily fiber supplementation. Goal for 30g fiber daily. Ordered: Referral Request 2.0 - DoD 4. L aboratory test result abnormal acute, unknown control. Pt with elevated BUN and requesting repeat lab to confirm resolution. BMP ordered. Will f/u once lab has resulted. Ordered: Basic Metabolic Panel Maj Davonte Cesar DO Family Medicine Faculty Physician [address] [place] [address], [facility] Dominik [employer] Extracted from:Title: [facility]-Carlie/Trap_Office Clinic Note Author: STARLA CANTU, DO Date: 11/30/24 1. S omatic dysfunction of cervicothoracic region Stretching Demonstrated: Yes Plan: 1) P t to drink plenty of water tonight 2) M ay take Tylenol as needed for pain next 48hrs 3) A pply ice or heat for additional relief 4) F ollow up: as needed 2-4 weeks Chronic medical issues and preventative health measures not addressed due to the specialty nature of this visit. Recommended annual HCM visits and regular follow up for chronic medical issues. Capt FLORENTINO (), [facility], Display Director Physician, PGY-3 [employer], [place] [address] [facility] Family Medicine Residency Program [address] [facility], [address], [place] [address] Addendum by DONAL RUTLEDGE MD on December 19, 2024 08:37:01 CDT I was present and available in the family medicine clinic to discuss the patient's care during the time of the appointment. I agree with the resident's assessment and plan as documented. Donal Rutledge MD, Faculty, [facility], [facility], Attending Physician Extracted from:Title: SHAFT HEADMAN/WWE, fatigue, vit d def Author: CASSIUS RODRIGUEZ NP, Women's Health Date: 11/06/24 1. E ncounter for gynecological examination (general) (routine) with abnormal findings Over 50% of m inute visit spent face to face with patient on education, reviewing history, and developing plan of care. Continue monthly BSE and yearly well woman exams. Return to clinic in 1 year. Exercise: 30 minutes of moderate exercise 5 days a week including cardio and strength training is recommended for a healthy lifestyle. T his should be in addition to your normal daily work/routine. If you are trying to lose weight more exercise along with a healthy diet is recommended. Supplements/Vitamins: If you are not following, or able to follow a well-balanced diet indicated below due to personal or medical reasons, it is recommended you take a m ultivitamin. This is especially important if you are trying to get as w omen need additional folic acid before and during (400-1000 micrograms per day). Daily calcium intake should be around 1200 mg per day w hich is 120% of the recommended daily allowance if looking at food labels.? W e recommend V itamin D3 2,000-3,000 international units a day i f you have not already been identified with an insufficiency or deficiency. Nutrition: A healthy diet with protein, vegetables, fruits, grains, and dairy is advised. More information including example serving sizes can be found at h ttps://www.choosemyplate.gov/.& #160; T hese amounts are appropriate for individuals who get less than 30 minutes per day of moderate physical activity, beyond normal daily activities. Those who are more physically active may be able to consume more while staying within calorie needs. Ordered: Lipid Panel MG Mammo Vijay Screening Bilateral 2. V itamin D deficiency, unspecified con't vit d ; will recheck lab Ordered: cholecalciferol(Vitamin D3 125 mcg (5000 intl units) oral tablet), 1 tab(s), Oral, Daily, # 90 tab(s), 3 total refill(s), Maintenance, original order by Mrs. Rodriguez, Pharmacy: [facility] [Not filled] Vitamin D 25 Hydroxy Level 3. R harris Ordered: desonide topical(desonide 0.05% topical ointment), See Instructions, PRN dry skin, Topical TID, # 60 g, 1 total refill(s), Maintenance, Pharmacy: [facility] [Federal Rx: #60 last filled 11/06/24] triamcinolone topical(triamcinolone 0.1% topical ointment), See Instructions, apply a thin film to affected area on dry patches 2-3x/wk prn, # 60 g, 1 total refill(s), Maintenance, Pharmacy: [facility] [Federal Rx: #60 last filled 11/06/24] 4. O ther specified abnormal findings of blood chemistry eat small, frequent meals, avoid simple sugars, eat more complex carbs Ordered: Comprehensive Metabolic Panel 5. O ther specified counseling PCV, RSV due; f/u with immunizations after completes mammo 6. F atigue will check labs, low vit d c an contribute; to f/u with PCM if labs nl for further eval Ordered: Ferritin Hemoglobin and Hematocrit Iron Studies Panel TSH w/ Reflex FT4 and Total T3 Vitamin B12 and Folate Panel Orders: *Glomerular Filtration Rate, Estimated Pt questions addressed and written discharge instructions were provided to the patient. Cassius Rodriguez [facility] GERARDO Lehman [facility] Extracted from:Title: [facility] - Cough and Congestion Author: PAN BINGHAM MD Date: 09/21/24 1. V iral upper respiratory tract infection A cute, improving History and physical examination consistent with viral upper respiratory tract infection. Likely influenza A due to current prevalence, but unable to swab at this time due to testing availability. Discussed she would be outside treatment window for Tamiflu regardless, and the expected course of time for a viral illness such as the flu. - Discussed supportive measures including honey, tea, humidifiers - Tylenol/ibuprofen as needed for fever/discomfort - Advised to avoid Mucinex-D, and to use regular guaifenesin without D portion. - Precautions given on when/if to be evaluated in the ER. - Follow up in 2 weeks if no improvement in symptoms. Capt Shelia Lira), [facility] Display Director, PGY-2 [facility] Addendum by CECILIO HA MD on October 05, 2024 17:33:21 [employer]ICE ACADEM[employer] PROGRAM COORDINATOR I was present and available in the Family Medicine clinic to discuss this patient's care for the duration of the appointment. I agree with the resident's assessment and plan as documented with the following addendum: None. Cecilio Ha MD, FMOB Family Medicine - Obstetrics [facility] Faculty Physician Extracted from:Title: [facility] - OMT Author: PAN BINGHAM MD Date: 09/14/24 1. S omatic dysfunction of cervicothoracic region Stretching Demonstrated: Cervical/scalene Plan: 1) P t to drink plenty of water tonight 2) M ay take Tylenol as needed for pain next 48hrs 3) A pply ice or heat for additional relief 4) F ollow up: as needed 2-4 weeks C hronic medical issues and preventative health measures not addressed due to the specialty nature of this visit. Recommended annual HCM visits and regular follow up for chronic medical issues. 2. S omatic dysfunction of bilateral upper extremities S ee above. Capt Shelia Lira), [facility] Display Director, PGY-2 [employer] Addendum by DONAL RUTLEDGE MD on September 18, 2024 07:31:46 [employer] ACAD[employer] PROGRAM COORDINATOR I was present and available in the family medicine clinic to discuss the patient's care during the time of the appointment. I agree with the resident's assessment and plan as documented. Donal Rutledge MD, Faculty, [facility], [facility], Attending Physician Extracted from:Title: Office Clinic Note - Decreased Hearing, Anxiety Author: DAVONTE CESAR DO Date: 09/12/24 1. D ecreased hearing chronic, uncontrolled. Ear exam without e/o impacter cerumen. Recommendation for pt to have formal audiogram for further evaluation. Referral placed. Ordered: Referral Request 2.0 - DoD 2. A nxiety Acute, c ontrolled. HPI and PE c/w anxiety. No SI/HI. Stable on current regimen. No complaint of s/e of medication non-adherence. Good social support. Recommendations: - Counseling for stress management techniques - Discussed complimentary treatments: Exercise, Yoga, Meditation, Herbal Supplements - Pharmacologic management: [X] I nitiate S SRI/SNRI therapy; Lexapro [X] Plan to treat for minimum of 12 months prior to discontinuing to decrease risk of relapse [X] Discussed with patient that peak onset of action for SSRI/SNRI therapy is 4 weeks [X] Plan to continue initial therapy for 4-6 weeks [X] After initial therapy, plan to titrate to effective dose every 1-2 weeks [X] If no response to SSRI/SNRI therapy; taper dose and plan to initiate another SSRI/SNRI - ER for SI/SA/HI - Follow up: 4 weeks Ordered: escitalopram(Lexapro 10 mg oral tablet), 1 tab(s), Oral, Daily, # 30 tab(s), 0 total refill(s), Maintenance, Pharmacy: [facility] [Not filled] 3. D iabetes mellitus chronic, controlled. Last A1c 01/21. initiated on Metformin in Jul 2024. Repeat A1c ordered. Pt will need diabetic f/u scheduled for ongoing management. Metformin r efilled. Ordered: metFORMIN(MetFORMIN (Eqv-Fortamet) 500 mg oral tablet, extended release), 1 tab(s), Oral, Daily, # 90 tab(s), 3 total refill(s), Maintenance, Pharmacy: [facility] [Not filled] Hemoglobin A1c Farhad Davonte Cesar DO Family Medicine Faculty Physician [address] [place] [address], Formerly [facility] Dominik ELIZONDO Extracted from:Title: DM Office Clinic Note Author: KATHYA MANN Date: 07/03/24 1. D iabetes mellitus type 2 The following education provided. Reviewed basic n utrition - carb counting, building a healthy plate with portion control. Discussed picking one item she would like to work on that is not sugar gm counting. Suggested building a healthy plate by using the 'The My Plate method. Patient agreed. Reviewed the Meal Planning handout she was provided in class to help with f ood choices and determining portion sizes. Patient is c oncerned that the foods she likes to eat are not on the planning guide. The plan is for her to keep a food diary of what she likes to eat and send me the log. The educational adviser and I can help modify the food log if needed. I advised patient she still desires a referral I am happy to request one, but if she would like to work with me then a referral is not required. & #160;Pt declined nutrition referral at this time and states she would like to work with me. Patient to activate Glucometer RX a nd once she has the machine she will call to schedule an appt with me. Smart Goals not established at this time. Plan to work on SMART Goals at next visit. Patient previously refused continued DM services but has agreed to health coaching. DM f/u: Email sent with DM intake questionnaire. Diabetes Essential class 01 Aug 2024 @ 0900. Patient v/u of all education provided and does not have any questions at this time. She will f/u with as planned. Encounter complete and forwarded to PCM for review and co-signature. REF [place] Diabetes Standards of Care in Diabetes 2 024 Kathya Mann RN Disease Lead Miner Blasting [facility] Dominik MENEZES Extracted from:Title: [facility]_Office Clinic Note Author: STARLA CANTU, Date: 06/29/24 1. S omatic dysfunction of cervical region Stretching Demonstrated: Yes Plan: 1) P t to drink plenty of water tonight 2) M ay take Tylenol as needed for pain next 48hrs 3) A pply ice or heat for additional relief 4) F ollow up: as needed 2-4 weeks C hronic medical issues and preventative health measures not addressed due to the specialty nature of this visit. Recommended annual HCM visits and regular follow up for chronic medical issues. 2. S omatic dysfunction of head region As above. 3. S omatic dysfunction of cervicothoracic region As above. Capt FLORENTINO (), [facility] Display Director Physician, PGY-[address] [place] [address] [employer], [place] [address] [facility] Family Medicine Residency Program [address], [address], [place] [address] Addendum by CONCHA CHEN MD on July 03, 2024 09:38:03 POLICE ACADEMY PROGRAM COORDINATOR I certify that I was immediately available to review and discuss this patient. T he resident discussed the diagnosis and treatment plan for this patient with me [id number]. I agree with these written findings and plan. Maj Dahiana Chen DO, CAQSM Sports/Family Medicine Faculty Physician [address] [place] [address], [facility] [place], [place] Extracted from:Title: Office Clinic Note - OMT, T2DM Author: DAVONTE CESAR DO Date: 05/31/24 1. C ervicalgia Stretching Demonstrated: Yes Plan: 1) P t to drink plenty of water tonight 2) M ay take Tylenol as needed for pain next 48hrs 3) A pply ice or heat for additional relief 4) F ollow up: as needed 2-4 weeks C hronic medical issues and preventative health measures not addressed due to the specialty nature of this visit. Recommended annual HCM visits and regular follow up for chronic medical issues. 2. D iabetes mellitus type 2 Acute, c ontrolled N o evidence of nephropathy, neuropathy, or retinopathy. H bA1C i s at goal (<7). M icroalbumin/Creatinine ratio D UE. L ipids a re at goal (<100) p er AHA/ACC guidelines. Recommendations: - Labs: O rdered the following: [_] HbA1C [_] Lipid Panel [_] CMP [X] Microalbumin/Creatinine ratio [ ] CBC - Medications: - Cardiovascular: [X] BP at goal (<130/80 per AHA/ACC guidelines) [X] Continue SHANDA-i/ARB therapy [X] Continue Statin therapy -Lifestyle Modifications: [X] Nutrition: D iscussed dietary modifications (Mediterranean diet) [X] Physical activity: encouraged increased activity with goal of 150min moderate exertion weekly [X] Sleep: reviewed sleep hygiene; goal of 6-8hr/night [X] Behavioral modification: pt has good social support [X] Smoking cessation (if applicable): encouraged tobacco cessation [X] Patient education: Disease management referral placed -Prevention: [X] Encouraged annual optometry evaluation; referral placed [X] Encouraged annual dental evaluation [X] Annual foot examination performed: 05/31/2024 Follow Up: --------- Entry A1C <7.5% recommendations: - Initiate oral monotherapy: Metformin - Goal A1C: <7% per ADA guidelines Ordered: Microalbumin Panel, Urine Referral Request 2.0 - Armond Referral Request 2.0 - Armond Cesar DO Family Medicine Faculty Physician [address] [place] [address], Formerly [facility] Dominik ELIZONDO Extracted from:Title: [facility] - Annual Well Author: ISIDRO CRISTOBAL DO Date: 05/17/24 1. W ell female adult Preventative Medicine / HCM visit with no emergent concerns. ----- VACCINES: - Advised annual flu vaccine - Advised pneumococcal vaccine (age 65 or 19-64 if have r isk factors: smoking, DM, immunocompromised) - Advised COVID-19 vaccine ----- - Cervical Cancer Screening: U TD - Breast C ancer Screening: UTD - L rojelio Cancer Screening: N/A - C olon Cancer Screening: DUE ----- BONE DENSITY: N /A ----- SEXUAL HEALTH: UTD ----- : N /A ----- METABOLIC: - L ipid screening: U TD - D M screening: UTD ----- DIET: -Mediterranean: Discussed that the Mediterranean diet consists of a diet high in fruits, vegetables, whole grains, etc. Mediterranean diet has been associated with decreased incidence of stroke and CVD. Handout was provided on the Mediterranean diet for patient to review at home. ----- SUBSTANCE USE: - T obacco use: D enies - Alcohol use: Denies - Illicit drug use: Denies ----- OTHER: - Discussed wearing safety belts, helmets (if motorcycle rider), sunscreen, smoke detectors in home ----- FOLLOW UP: - Annually Ordered: metFORMIN(MetFORMIN (Eqv-Fortamet) 500 mg oral tablet, extended release), 1 tab(s), Oral, Daily, # 90 tab(s), 0 total refill(s), Maintenance, 1 tab(s) Oral Daily, Pharmacy: [facility] [Not filled] 2. D iabetes mellitus Last A1c on record 6 .9. Georgette loyd is never been on any sort of medication for glycemic control. S he has been told o adamaris the last few years that she is borderline diabetic. -Discussed initiation of metformin a t this time. Georgette loyd is amenable -Urine microalbumin w ithin goal -Patient will [place] [facility] [place] to see if she has a more recent A1c -RTC in 3 m [facility] for A1c recheck Ordered: metFORMIN(MetFORMIN (Eqv-Fortamet) 500 mg oral tablet, extended release), 1 tab(s), Oral, Daily, # 90 tab(s), 0 total refill(s), Maintenance, 1 tab(s) Oral Daily, Pharmacy: [facility] [Not filled] 3. P eroneal nerve entrapment Patient presenting with p ain a nd s ensory changes along the distribution of the peroneal nerve t hat is exacerbated by k neeling. Suspect p eroneal nerve e ntrapment to be the most likely etiology of her symptoms at this time. -MRI of the left lower extremity to evaluate for peroneal nerve entrapment -If peroneal nerve entrapment indicated, consider referral to sports management for corticosteroid injection -If no peroneal nerve entrapment visualized, consider physical therapy referral for treatment of possible hypertonic IT band Ordered: MRI Lower Extremity w/ + w/o Cnt Left Orders: azelaic acid topical(azelaic acid 15% topical gel), 1 appl(s), Topical, BID, # 30 g, 0 total refill(s), Maintenance, 1 appl(s) Topical BID, Pharmacy: [facility] [Not filled] Isidro Cristobal DO Display Director, PGY-3 [employer] Addendum by IFTIKHAR BARNETT DO on May 18, 2024 09:25:58 CDT I certify that I was present for case discussion in the Family Medicine preceptor room at the time of this encounter. I have reviewed the note and agree with the findings, assessment, and plan except as I have documented below. Follow up as listed. All labs/imaging/consults to be followed by the ordering provider. Iftikhar Barnett DO, Capt, [employer], Staff Physician Extracted from:Title: Virtual, SHAFT HEADMAN US results Author: CASSIUS RODRIGUEZ NP Date: 11/07/23 1. P elvic and perineal pain small fibroid not likely associated with twinges of pain; possible GI or MS source; has GI f/u planned 2. L eiomyoma of uterus, unspecified stable with minimal change 3. O ther specified counseling enc to get mammo and lab appt scheduled to complete; discussed vit d dosing, osteoporosis screening, GI f/u; meds; RTC yearly exam Orders: mupirocin topical(mupirocin 2% topical cream), See Instructions, PRN rash, apply a thin film to rash by right eye as needed, # 30 g, 1 total refill(s), Maintenance, apply a thin film to rash by right eye as needed,PRN:rash, Pharmacy: [facility] [Not filled] Cassius Rodriguez [facility] GERARDO Le[facility] Extracted from:Title: SHAFT HEADMAN WWE/urge incont Author: CASSIUS RODRIGUEZ NP Date: 09/13/23 1. E ncounter for gynecological examination (general) (routine) with abnormal findings Over 50% of m inute visit spent face to face with patient on education, reviewing history, and developing plan of care. Continue monthly BSE and yearly well woman exams. Return to clinic in 1 year. Exercise: 30 minutes of moderate exercise 5 days a week including cardio and strength training is recommended for a healthy lifestyle. T his should be in addition to your normal daily work/routine. If you are trying to lose weight more exercise along with a healthy diet is recommended. Supplements/Vitamins: If you are not following, or able to follow a well-balanced diet indicated below due to personal or medical reasons, it is recommended you take a m ultivitamin. This is especially important if you are trying to get as w omen need additional folic acid before and during (400-1000 micrograms per day). Daily calcium intake should be around 1200 mg per day w hich is 120% of the recommended daily allowance if looking at food labels.? W e recommend V itamin D3 2,000-3,000 international units a day i f you have not already been identified with an insufficiency or deficiency. Nutrition: A healthy diet with protein, vegetables, fruits, grains, and dairy is advised. More information including example serving sizes can be found at h ttps://www.choosemyplate.gov/.& #160; T hese amounts are appropriate for individuals who get less than 30 minutes per day of moderate physical activity, beyond normal daily activities. Those who are more physically active may be able to consume more while staying within calorie needs. t o schedule mammo for 6wks after last covid vaccine Ordered: cholecalciferol(Vitamin D3 125 mcg (5000 intl units) oral capsule), 1 cap(s), Oral, Daily, with food, # 90 cap(s), 3 total refill(s), Maintenance, 1 cap(s) Oral Daily,Instr:with food, Pharmacy: [facility] [Not filled] TSH w/ Reflex FT4 and Total T3 Vitamin D 25 Hydroxy Level MG Mammo Vijay Screening Bilateral 2. P elvic and perineal pain schedule virtual appt for 2-3days after US appt to discuss results Ordered: US Pelvis w/ Transvag non-OB Complete 3. O ther specified abnormal findings of blood chemistry d ecrease carbs to decrease TG; repeat labs fasting eat small, frequent meals, avoid simple sugars, eat more complex carbs Ordered: Hemoglobin A1c Lipid Panel 4. U rge incontinence keep voiding diary; bladder irritants handout given; f/u if desires further intervention Cassius Frost [facility] CATERERS HELPER Domin[place] [facility] Extracted from:Title: Immunizations Author: USMAN VARGAS, EMT Date: 09/09/23 Encounter has Screening Questions previously completed. Refer to screening questions for additional information of vaccination given and clearance. More information is also available in the Immunization Tab for patient's history of vaccinations. Closing Encounter for administrative completion. Future Appointments Appointment Date: 03/11/2025 10:00:00 AM Scheduled Provider: PRASHANT CORTEZ MD Location: [address] [place] [address] Appointment Type: PC FTR Future Scheduled TestsLaboratoryBasic Metabolic Panel 12/12/24 03/04/2025 Unknown Organization Functional Status Combined list of recent functional and cognitive assessments recorded at [employer] of [employer] and Veterans Affairs (VA).VA Functional Maxwell Measurement (FIM) Scale: 1 = Total Assistance (Subject = 0% +), 2 = Maximal Assistance (Subject = 25% +), 3 = Moderate Assistance (Subject = 50% +), 4 = Minimal Assistance (Subject = 75% +), 5 = Supervision, 6 = Modified Maxwell (Device), 7 = Complete Maxwell (Timely, Safely). Assessment Date/Time Source Assessment Type Assessment Skill Assessment Score Assessment Details No data available for this section
--- OUTSIDE RECORDS SUMMARY | 2025-03-04 18:53 | XMS_ITS | Encounter Summary ---
Author Organization [facility] Address [address] [place] [address] Care Team Providers Care Horologist Apprentice Name Role Phone Nadja Stewart MD Unavailable [phone] Erik Jeter MD Primary Care Provider [phone] None, Provider Primary Care Provider Unavaila ble Encounter Details Date Type Department Care Team (Late Contact Info) Description 11/13/2021 InfoVistat Message Enc [facility], [facility] [address] [place] [address] Nadja Stewart MD [facility]. 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 [address] [place] [address] [facility] CARDIOVASCULAR DISEASE 09/08/17 documented as of this encounter
--- OUTSIDE RECORDS SUMMARY | 2025-03-04 18:53 | XMS_ITS | Encounter Summary ---
Author Organization [facility] Address [address] [facility] [place] [address] Care Team Providers Care Skein Washer Name Role Phone Erik Jeter MD Primary Care Provider [phone] Unknown, Provider Primary Care Provider Unavaila ble None, Physician Primary Care Provider Unavailamy e Eder Humphrey Primary Care Provider [phone] Encounter Details Date Type Department Care Team (Late st Contact Info) Description 01/08/2021 Lab Requisition [facility] [address] [facility], [place] [phone] Ronnie Velazco MD [address] [facility] [place] [address] Social History Tobacco Use Types Packs/Day Years Used Date Smoking Tobacco: Former Cigarettes Smokeless Tobacco: Never Comments:quit 20 years ago Alcohol Use Standard Drinks/Week Comments No 0 (1 standard drink = 0.6 oz pur e alcohol) Comments Unknown Sex and Gender Information Value Date Recorded Sex Assigned at Not on file Legal Sex Female 3:27 PM CDT Gender Identity Not on file Sexual Orientation Not on file documented as of this encounter Functional Status * Is person deaf or have serious hearing difficulty? Answer Date of Assessment Author No 01/27/2018 10:14 AM Dayami Westbrook RN * Is person blind or have serious difficulty seeing? Answer Date of Assessment Author No 01/27/2018 10:14 AM Dayami Westbrook RN * Does person have serious difficulty walking/climbing stairs? Answer Date of Assessment Author No 01/27/2018 10:14 AM NOEMIT Dayami Dee RN * Does person have difficulty dressing/bathing? Answer Date of Assessment Author No 01/27/2018 10:14 AM Dayami Westbrook RN * Does person have difficulty doing errands alone? Answer Date of Assessment Author No 01/27/2018 10:14 AM Dayami Westbrook RN documented as of this encounter Mental Status * Does person have difficulty concentrating/remembering/making decisions? Answer Entry Date Author No 01/27/2018 10:14 AM Dayami Westbrook RN documented in this encounter Plan of Treatment Upcoming Encounters Date Type Department Care Team (Late st Contact Info) Description 10/17/2025 11:30 AM QUALITY TECH Procedure visit [facility] - GI [address] [place] [address], [place] [address] 10/17/2025 12:00 PM QUALITY TECH Office Visit [facility] - [address] [facility], [place] [address] Ryley Martinez MD [address] [place] [address] [address] [place] [address] [place] [phone] documented as of this encounter Goals Goal Patient Goal Type Associated Problems Recent Progress Patient-Stated? Author Medication Management General On track( 025 1:36 PM QUALITY TECH) Tamika Monterroso RN Note: Expected end date: ongoing Interventions: Take all medications as prescribed Let your doctor know right away about any changes in your medications Make sure to request a refill of your medication at least one week prior to your last dose documented as of this encounter Procedures Procedure Name Priority Date/Time Associated Diagnosis Comments DERMATOPATHOLOGY Routine 01/06/2021 3:33 AM CDT documented in this encounter Results * DERMATOPATHOLOGY (01/06/2021 3:33 AM CDT) Case Report Dermatopathology Report Case: [id number] Authorizing Provider: Ronnie Velazco MD Collected: 01/06/2021 03:33 AM Ordering Location: [facility] DermPath Lab Received: 01/08/2021 07:17 AM Pathologist: Briseyda Torrez MD Specimen: Skin, right great toenail 3:13 PM CDT DERMATOPATHOLOGY LABORATORY Final Diagnosis Specimen A. SKIN, right great toenail: ONYCHOMYCOSIS (B35.1) (see microscopic description) 3:13 PM CDT DERMATOPATHOLOGY LABORATORY at 1513 CDT Clinical History Tinea vs trauma. Path # [id number]. 3:13 PM CDT DERMATOPATHOLOGY LABORATORY Gross Description Specimen A: Received is one formalin filled container labeled with the patient's name and designated right great toenail. The specimen consists of a nail clipping measuring [id number] & [id number]. 3:13 PM CDT DERMATOPATHOLOGY LABORATORY Microscopic Description Specimen A. SKIN, right great toenail: Sections show nail plate. Fungal hyphae are present on Periodic acid-Erinn (PAS) stained sections. Bacteria are also present. 3:13 PM CDT DERMATOPATHOLOGY LABORATORY Disclaimer An external and internal positive and negative controls are appropriate for the histochemical, immunohistochemical and immunofluorescence stain(s) in this case (if any), except where stated explicitly. The performance characteristics of the stain(s) cited in this report were developed and its performance characteristic determined by the Dermatopathology Laboratory at [facility], directed by Dr. Julio Torrez. These tests need not be, and therefore are not, approved by the [place] Food and Drug Administration. The tests are used for clinical purposes. Billing Codes Specimen Charges Stain Charges 33323 1 36768 1 3:13 PM CDT DERMATOPATHOLOGY LABORATORY Embedded Images 3:13 PM CDT DERMATOPATHOLOGY LABORATORY Pathology/Cytolo gy TISSUE SPECIMEN FROM SKIN / Unknown 01/06/2021 3:33 AM CDT 01/08/2021 7:17 AM CDT Ronnie Velazco MD LAB - PATHOLOGY/CYTOLOGY ORDER MELLISSA Final Result DERMATOPATHOLOGY LABORATORY [facility] Department of Dermatology [facility] Medicine [address] [facility], [address]rd [address] [phone] documented in this encounter Visit Diagnoses Not on filedocumented in this encounter Care Teams Skein Washer Relationship Specialty Start Date End Date Erik Jeter MD PCP - General 01/27/22 02/01/23 Unknown, Provider PCP - General 02/02/23 04/04/24 None, Physician PCP - General 04/05/24 04/11/24 Eder Humphrey [address] [phone] PCP - General 04/12/24 documented as of this encounter
--- OUTSIDE RECORDS SUMMARY | 2025-03-04 18:53 | XMS_ITS | Clinical Summary ---
Author Organization [facility] Address [facility] [place] [address] Care Team Providers Care Ortho Nurse Name Role Phone Nadja Stewart MD Unavailable [phone] None, Provider MD Primary Care Provider Unavaila ble Allergies Active Allergy Reactions Criticality Noted Date Comments Atorvastatin Myalgias 12/08/2020 Medications lisinopril 5 MG tablet Take 1 tablet by mouth daily. 8 Active rosuvastatin 20 MG tablet Take 1 tablet (20 mg total) by mouth nightly at bedtime. 90 tablet 1 1 Active famotidine (PEPCID) 20 MG tablet Take 1 tablet (20 mg total) by mouth daily as needed. 2 Active tretinoin (RETIN-A) 0.05 % cream 3 Active Azelaic Acid 15 % gel 2 Active fenofibrate 160 MG tablet Take 1 tablet (160 mg total) by mouth daily. 90 tablet 1 3 Active D 5000 125 MCG (5000 UT) capsule Take 1 capsule (5,000 Units total) by mouth daily. Active desonide (DESOWEN) 0.05 % Ointment ointment 5 Active escitalopram (LEXAPRO) 10 MG tablet Take 1 tablet (10 mg total) by mouth as needed. 5 Active lidocaine (LIDODERM) 5 % 4 Active metFORMIN ER (GLUCOPHAGE-XR) 500 MG 24 hr tablet Take 1 tablet (500 mg total) by mouth daily. 5 Active famotidine (PEPCID) 40 MG tablet Take 1 tablet (40 mg total) by mouth daily. 5 Active triamcinolone (KENALOG) 0.1 % ointment 5 Active Ruxolitinib Phosphate (OPZELURA) 1.5 % Cream Apply topically daily as needed. Active Active Problems Problem Noted Date Diagnosed Date Diabetes mellitus, type 2 ([facility]) 05/0 01/2025 Overweight 06/27/2024 Finding of above normal blood pressure 4 Hyperlipidemia 12/13/2023 Overview (12/13/2023): Outside Source Comment: renew meds, labs due next month renew meds, labs due next month Alopecia 01/28/2022 Anemia 01/28/2022 Overview (12/13/2023): hx of anemia with the DUB, will [...] controlling the DUB and resolved the anemia Hyperprolactinemia ([facility]) 01/28/2022 Narcolepsy without cataplexy ([facility]) 2 Sinus tachycardia 01/28/2022 SIMRAN (obstructive sleep apnea) 08/03/2021 Overview (12/07/2021): Last Assessment & Plan: The patient will continue with CPAP therapy at 8 cm water pressure to treat obstructive sleep apnea. The patient received an order for full set of supplies. [employer] and the patient is benefitting from CPAP therapy PLMD (periodic limb movement disorder) 1 Overview (12/13/2023): Last Assessment & Plan: The patient denies that her limbs are moving at night when she sleeps Elevated blood sugar 12/08/2020 Gastroesophageal reflux disease 03/13/2018 Nonalcoholic steatohepatitis (NGO) 11/15/2017 Overview (12/13/2023): 10/06/20 Fibroscan CAP 340, LSM 5.1 kPa 10/26/21 Fibroscan CAP 359, LSM 5.0 kPa 02/07/23 Fibroscan CAP 337, LSM 4.6 kPa Precordial pain 09/22/2017 Hypertriglyceridemia 09/22/2017 Abnormal ECG 09/22/2017 Palpitations Resolved Problems Problem Noted Date Diagnosed Date Resolved Date Essential hypertension 09/29/201712/14 Encounters Date Type Department Care Team Description 02/05/2025 2:08 PM CDT - 02/05/2025 11:59 PM CDT Hospital Encounter [facility] Non In[facility] [place] [address] Nadja Stewart MD Discharge Disposition: Home or Self Care (Routine Discharge) 02/05/2025 Travel 12/19/2024 3:30 PM CDT Office Visit [facility] [address] [address] Nadja Stewart MD Palpitations; Hypertension; Lipids; Follow Up (Annual.) 12/19/2024 Travel from Last 3 Months Immunizations Immunization Administration Dates Next Due Hepatitis A (Havrix [address]) 12/21/2000,1998,04/14/1991 Hepatitis B (Generic: Adult) 12/21/2000,05/19/19 99,04/14/1999 Influenza (Generic) 05/31/2014, 3,08/28/2012,07/25 Influenza Adult (Generic) 12/04/2021,08/13/2020, 06/05/2015 SOHEILA (ELAINE & ELAINE) COVID-19 AD26 VACCINE 0.5 ML IM SUSP 06/26/2021 MMR (MMRII) 06/09/1994 Td (TDVAX) 12/04/2021,10/30/2003,06/09/1994 Tdap (Generic) 08/13/2011 Typhoid Vi Polysaccharide Va cc 25 Mcg/0.5Ml Im Soln 04/15/1999 Family History Medical History Relation Comments Diabetes Father Hypertension Mother Uterine Cancer Mother Hyperlipidemia Sister Hypertension Sister Relation Status Comments Brother Alive Father Alive Mother (Age 62) Paternal Grandmother (Age 100) Sister Alive Social History Tobacco Use Types Packs/Day Years Used Date Smoking Tobacco: Former Cigarettes 0.1 4 Smokeless Tobacco: Never Tobacco Cessation:Counseling Given: Yes Alcohol Use Standard Drinks/Week Comments No 0 (1 standard drink = 0.6 oz pur e alcohol) Comments Unknown Sex and Gender Information Value Date Recorded Sex Assigned at Not on file Legal Sex Female 1:49 AM CDT Gender Identity Not on file Sexual Orientation Not on file 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 Not on file Not on fi le Last Filed Vital Signs Vital Sign Reading Time Taken Comments Blood Pressure 118/72 12/19/2024 4:16 PM CDT Pulse 97 12/19/2024 3:46 PM CDT Temperature 36.3 C (97.4 F) 09/04/2023 1:51 PM CANCER GENETICS ASSISTANT Respiratory Rate 18 09/04/2023 1:49 PM CANCER GENETICS ASSISTANT Oxygen Saturation 97% 12/19/2024 3:46 PM CDT Inhaled Oxygen Concentration - - Weight 60.3 kg (133 lb) 12/19/2024 3:46 PM CDT Height 162.6 cm (5' 4) 12/19/2024 3:46 PM CDT Body Mass Index 22.83 12/19/2024 3:46 PM CDT Plan of Treatment Upcoming Encounters Date Type Department Care Team (Late st Contact Info) Description 12/25/2025 1:00 PM CDT Office Visit [facility], [facility] [address] [place], [place] [id number] Nadja Stewart MD [facility]. [facility] [address] [place], [place] [id number] Health Maintenance Due Date Last Done Comments Cervical Cancer Screening Pap Smear (Age 30 to 64) Every 3 Years 1960 Colorectal Cancer Screening Colonoscopy (10 Years) 1960 Kidney Health Evaluation 1960 Annual Physical 1963 Diabetes: Retinopathy Eye Exam 1978 Hepatitis C 1978 Pneumococcal Vaccine: 50+ Years (1 of 2 - PCV) 1979 Cervical Cancer Screening Pap with HPV Testing (Age 30 to 64) Every 5 Years 1990 Cervical Cancer Screening with HPV 1990 Mammogram Screening 2000 Zoster Vaccines (1 of 2) 2010 RSV Immunization or 60+ Years (1 - Risk 60-74 years 1-dose series) 2020 COVID-19 Vaccine ( season) 2024 09/09/2023, 04/09/2022, 06/26/2021, Additional history exists Hemoglobin A1C 10/12/2024 04/12/2024, 04/15, 03/06/2020, Additional history exists Lipid Panel 04/12/2025 04/12/2024, 10/14, 09/03/2022, Additional history exists DTaP, Tdap and Td Vaccines (3 - Td or Tdap) 12/05/2031 12/04/2021, 08/13/2011, 10/30/2003, Additional history exists Meningococcal B Vaccine Aged Out No l onger eligible based on patient's age to complete this topic Meningococcal Vaccine Aged Out No gerry senthil eligible based on patient's age to complete this topic RSV Immunizations Under 20 Months Aged Out No longer eligible based on patient's age to complete this topic Procedures Procedure Name Priority Date/Time Associated Diagnosis Comments USE STRESS ECHO W DAYANNA Rosenbaum MD Routine 02/05/2025 3:28 PM CDT SOB (shortness of breath) on exertion Palpitation CARDIOLOGY STRESS TEST ONLY, EXERCISE Routine 02/05/2025 2:10 PM CDT SOB (shortness of breath) on exertion Palpitation Overweight Gastroesophageal reflux disease Diabetes mellitus, type 2 (CMS/HCC HHS/HCC) PLMD (periodic limb movement disorder) Hyperlipidemia Sinus tachycardia Nonalcoholic steatohepatitis (NGO) Narcolepsy without cataplexy (HHS/HCC) Hyperprolactinemia (HHS/HCC) Finding of above normal blood pressure Anemia SIMRAN (obstructive sleep apnea) Abnormal ECG Hypertriglyceridemia Precordial pain Palpitations LIPID PANEL Routine 11/11/2023 HEMOGLOBIN, GLYCOSYLATED Routine 04/29/2021 from Last 3 Months or Most Recently Relevant to Health Maintenance Results * USE STRESS ECHO W DAYANNA Rosenbaum MD (02/05/2025 3:28 PM CDT) Anatomical Region Laterality Modality Cardiac Echocardiogram 02/05/2025 2:33 PM CDT Narrative 02/05/2025 4:37 PM CDT Echocardiography Report Pat.Name: NELSY SIMON Pat.ID: [id number] .Date: 02/05/2025 Exam Time: 2:33:00 PM Study Type:ECHO WITH CARDIAC DOPPLER COMP Height: 64 in Weight: 133 lb BSA: 1.64 m2 Age: 10 1960,64Y Sex: F BP: 117/66 Sonogrphr: iBanca Chan Pat. Stat.:Outpatient CPT - 4: [id number] Reason for Study:Palpitations, Shortness of breath Procedures: 2D, Doppler, Color Flow, Exercise Stress Echo, Definity was used to enhance endocardial definition. ++++++++++++++++++++++++++++++++++++ SUMMARY: ++++++++++++++++++++++++++++++++++++ 1. Clinically positive for shortness of breath. 2. Electrocardiographically negative treadmill test for ischemia. 3. Adequate exercise capacity. 4. Echocardiographically negative for ischemia. 5. Bull Treadmill Score is 6 , which indicates low risk. 6. Blood pressure response was normal. 7. The quality of this study is reasonable . 8. Stress echocardiogram shows overall low risk for a cardiac event. ++++++++++++++++++++++++++++++++++++ FINDINGS: ++++++++++++++++++++++++++++++++++++ LV: The left ventricular size is normal. The left ventricular systolic function is normal. Estimated left ventricular ejection fraction is 55-60%. No left ventricular hypertrophy. WM: Wall motion appears normal in all segments. AO: Normal aortic root. PA: Estimated right atrial pressure of 3 mmHg. SVn: Inferior vena cava is normal. Inferior vena cava shows >50% collapse with respiration consistent with normal right atrial pressure. AV: The aortic valve is trileaflet. No evidence of aortic valve stenosis. No evidence of aortic valve regurgitation. MV: Structurally normal mitral valve. Mild mitral regurgitation. No evidence of mitral stenosis. PV: No evidence of pulmonic valve stenosis. No evidence of pulmonic regurgitation. Pulmonic valve not well visualized. TV: Structurally normal tricuspid valve. Mild tricuspid regurgitation. Right ventricular systolic pressure is 14 +cvp mmHg. No evidence of tricuspid valve stenosis. Resting Function and Wall Motion LV: Overall wall motion is normal. Estimated EF is 55-59%. All hamlin are normal Stress Function and Wall Motion LV: Overall stress wall motion is normal. Estimated EF is 65-69%. All hamlin are normal ++++++++++++++++++++++++++++++++++++ STRESS: ++++++++++++++++++++++++++++++++++++ Baseline Vital Signs: ECG: Normal Rhythm: Normal sinus rhythm Exercise Stress Echo Protocol: Tree Duration: 06:00 min:sec Max. Workload (METS): 8 Stress Test Results: Max HR: 138 bmp Target HR: 156 bmp % Target: 88 % Max BP: 142/72 Max RPP: [id number] Symptoms and Complications: Arrhythmias: None Terminated: Shortness of breath Symptoms: Shortness of breath ++++++++++++++++++++++++++++++++++++ MEASUREMENTS: ++++++++++++++++++++++++++++++++++++ 2D Left Ventricle LVIDd 3.4 cm (3.6-5.2)* LVIDs 2.5 cm (2.3-3.9) LVPW LVPWd 0.8 cm Ventricular Septum IVSd 0.9 cm Aorta Ao Rtd 2.7 cm LVOT LVOT 2 cm LVOTArea 3.14 cm2 Ratios IVS DOPPLER TV Regurg Flow TV pkPG 14 mmHg TV pkVel 189 cm/s (30-70)* ++++++++++++++++++++++++++++++++++++ WALL MOTION: ++++++++++++++++++++++++++++++++++++ RESTING WALL MOTION: All hamlin are normal Wall Index = 1 STRESS WALL MOTION: All hamlin are normal Stress Wall Index = 1 <Electronic Signature> 02/05/2025 04:37 PM Nadja Stewart M.D. Procedure Note Nadja Stewart MD - 02/12/2025 Echocardiography Report Pat.Name: NELSY SIMON Pat.ID: [id number] .Date: 02/05/2025 Exam Time: 2:33:00 PM Study Type:ECHO WITH CARDIAC DOPPLER COMP Height: 64 in Weight: 133 lb BSA: 1.64 m2 Age: 10 1960,64Y Sex: F BP: 117/66 Sonogrphr: Bianca Chan [facility] Pat. Stat.:Outpatient CPT - 4: [id number] Reason for Study:Palpitations, Shortness of breath Procedures: 2D, Doppler, Color Flow, Exercise Stress Echo, Definity was used to enhance endocardial definition. ++++++++++++++++++++++++++++++++++++ SUMMARY: ++++++++++++++++++++++++++++++++++++ 1. Clinically positive for shortness of breath. 2. Electrocardiographically negative treadmill test for ischemia. 3. Adequate exercise capacity. 4. Echocardiographically negative for ischemia. 5. Bull Treadmill Score is 6 , which indicates low risk. 6. Blood pressure response was normal. 7. The quality of this study is reasonable . 8. Stress echocardiogram shows overall low risk for a cardiac event. ++++++++++++++++++++++++++++++++++++ FINDINGS: ++++++++++++++++++++++++++++++++++++ LV: The left ventricular size is normal. The left ventricular systolic function is normal. Estimated left ventricular ejection fraction is 55-60%. No left ventricular hypertrophy. WM: Wall motion appears normal in all segments. AO: Normal aortic root. PA: Estimated right atrial pressure of 3 mmHg. SVn: Inferior vena cava is normal. Inferior vena cava shows >50% collapse with respiration consistent with normal right atrial pressure. AV: The aortic valve is trileaflet. No evidence of aortic valve stenosis. No evidence of aortic valve regurgitation. MV: Structurally normal mitral valve. Mild mitral regurgitation. No evidence of mitral stenosis. PV: No evidence of pulmonic valve stenosis. No evidence of pulmonic regurgitation. Pulmonic valve not well visualized. TV: Structurally normal tricuspid valve. Mild tricuspid regurgitation. Right ventricular systolic pressure is 14 +cvp mmHg. No evidence of tricuspid valve stenosis. Resting Function and Wall Motion LV: Overall wall motion is normal. Estimated EF is 55-59%. All hamlin are normal Stress Function and Wall Motion LV: Overall stress wall motion is normal. Estimated EF is 65-69%. All hamlin are normal ++++++++++++++++++++++++++++++++++++ STRESS: ++++++++++++++++++++++++++++++++++++ Baseline Vital Signs: ECG: Normal Rhythm: Normal sinus rhythm Exercise Stress Echo Protocol: Tree Duration: 06:00 min:sec Max. Workload (METS): 8 Stress Test Results: Max HR: 138 bmp Target HR: 156 bmp % Target: 88 % Max BP: 142/72 Max RPP: [id number] Symptoms and Complications: Arrhythmias: None Terminated: Shortness of breath Symptoms: Shortness of breath ++++++++++++++++++++++++++++++++++++ MEASUREMENTS: ++++++++++++++++++++++++++++++++++++ 2D Left Ventricle LVIDd 3.4 cm (3.6-5.2)* LVIDs 2.5 cm (2.3-3.9) LVPW LVPWd 0.8 cm Ventricular Septum IVSd 0.9 cm Aorta Ao Rtd 2.7 cm LVOT LVOT 2 cm LVOTArea 3.14 cm2 Ratios IVS DOPPLER TV Regurg Flow TV pkPG 14 mmHg TV pkVel 189 cm/s (30-70)* ++++++++++++++++++++++++++++++++++++ WALL MOTION: ++++++++++++++++++++++++++++++++++++ RESTING WALL MOTION: All hamlin are normal Wall Index = 1 STRESS WALL MOTION: All hamlin are normal Stress Wall Index = 1 <Electronic Signature> 02/05/2025 04:37 PM Nadja Stewart M.D. us Nadja Stewart MD ECHO Final Result * LIPID PANEL (11/11/2023) Pathologist [facility] CHOLESTEROL 126 HDL 68 TRIGLYCERIDES 81 LDL (CALCULATED) 49 11/11/2023 us Default History Genericprovider LABORATORY Edited Result - Final * HEMOGLOBIN, GLYCOSYLATED (04/29/2021) Pathologist [facility] HGB A1C 6.2 % 04/29/2021 Doc [facility] LABORATORY Final Result from Last 3 Months or Most Recently Relevant to Health Maintenance Insurance Care Teams Ortho Nurse Relationship Specialty Start Date End Date None, Provider, PCP - General UNKNOWN PHYSICIAN SPECIALTY 02/05/25 Nadja Stewart MD Three [facility]. [facility] [address] [place] [address] Adilson Tub Washer CARDIOVASCULAR DISEASE 09/08/17
--- OUTSIDE RECORDS SUMMARY | 2025-03-04 18:53 | XMS_ITS | Encounter Summary ---
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 No / Unsure 12/07/2021 3:31 PM CDT documented as of this encounter Plan of Treatment Upcoming Encounters Date Type Department Care Team (Late Contact Info) Description 12/25/2025 1:00 PM CDT Office Visit [facility], [facility] [address] [place] [address] Nadja Stewart MD Three [facility]. [facility] [address] [place] [address] documented as of this encounter Visit Diagnoses Not on filedocumented in this encounter Additional Health Concerns Infection Onset Date Last Indicated Resolved Time COVID-19 Rule Out 09/04/2023 09/04/2023 09/04/2023 5:56 PM [facility] documented as of this encounter Care Teams Palliative Care Nurse Relationship Specialty Start Date End Date Erik Jeter MD 3 [facility] [address] [place] [address] PCP - General FAMILY PRACTICE 05/15/20 02/04/25 None, Provider, PCP - General UNKNOWN PHYSICIAN SPECIALTY 02/05/25 Nadja Stewart MD Three [facility]. [facility] [address] [place] [address] [place] [employer] CARDIOVASCULAR DISEASE 09/08/17 documented as of this encounter
--- OUTSIDE RECORDS SUMMARY | 2025-03-04 18:54 | XMS_ITS | Encounter Summary ---
Author Organization [facility] Address [address] [place] [address] Care Team Providers Care Ticker Installer Name Role Phone Nadja Stewart MD Unavailable [phone] Marek Lyles DO Primary Care Provider Unavail able Erik Jeter MD Primary Care Provider [phone] None, Provider Primary Care Provider Unavaila ble Encounter Details Date Type Department Care Team (Late Contact Info) Description 09/27/2017 Abstract [facility], [facility] [address] [place] [address] Davis Hutson MA Social History Tobacco Use Types Packs/Day Years [...] 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 [facility] [address] [place] [address] documented as of this encounter Procedures Procedure Name Priority Date/Time Associated Diagnosis Comments COMPREHENSIVE METABOLIC PANEL Routine 09/06/2017 LIPID PANEL Routine 09/06/2017 HEMOGLOBIN, GLYCOSYLATED Routine 09/06/2017 BASIC METABOLIC PANEL Routine 08/12/2016 LIPID PANEL Routine 08/11/2016 HEMOGLOBIN, GLYCOSYLATED Routine 08/11/2016 THYROID STIM HORMONE TSH Routine 08/11/2016 LIPID PANEL Routine 07/08/2015 documented in this encounter Results * HEMOGLOBIN, GLYCOSYLATED (09/06/2017) Pathologist [facility] HGB A1C 5.8 09/06/2017 us Doc [facility] LABORAT[facility] Final Result * (ABNORMAL) COMPREHENSIVE METABOLIC PANEL (09/06/2017) Pathologist [facility] SODIUM S/P/B 144 POTASSIUM S/P/B 3.9 CO2 26 CHLORIDE S/P/B 108 GLUCOSE 103 mg/dL CALCIUM S/P/B 9.9 BUN 13 CREATININE S/P/B 0.80 0.5 - 1.0 EGFR AFR. AMER. 95(A) <=90 EGFR NON-AFR. AMER. 82 <=90 ALKALINE PHOSPHATASE S/P/B 111 ALT 20 AST 19 BILIRUBIN TOTAL S/P/B 0.6 ALBUMIN S/P/B 4.0 3.5 - 5.0 TOTAL PROTEIN S/P/B 6.3 09/06/2017 us Doc [facility] LABORAT[facility] Final Result * LIPID PANEL (09/06/2017) Pathologist [facility] CHOLESTEROL 177 HDL 68 TRIGLYCERIDES 177 LDL (CALCULATED) 77 09/06/2017 us Doc [facility] LABORAT[facility] Final Result * (ABNORMAL) BASIC METABOLIC PANEL (08/12/2016) SODIUM S/P/B 140 POTASSIUM S/P/B 4.2 CO2 25 CHLORIDE S/P/B 105 GLUCOSE 106 mg/dL CALCIUM S/P/B 9.9 BUN 16 CREATININE S/P/B 0.79 0.5 - 1.0 EGFR AFR. AMER. 97(A) <=90 EGFR NON-AFR. AMER. 84 <=90 08/12/2016 us Doc [facility] LABORAT[facility] Final Result * THYROID STIM HORMONE, TSH (08/11/2016) TSH 3.53 08/11/2016 us Doc [facility] LABORATORY Edited Resul t - Final * LIPID PANEL (08/11/2016) CHOLESTEROL 362 HDL 78 TRIGLYCERIDES 243 LDL (CALCULATED) 255 08/11/2016 us Doc [facility] LABORAT[facility] Final Result * HEMOGLOBIN, GLYCOSYLATED (08/11/2016) HGB A1C 5.7 08/11/2016 us Doc [facility] LABORATORY Final Result * LIPID PANEL (07/08/2015) CHOLESTEROL 270 HDL 66 TRIGLYCERIDES 228 LDL (CALCULATED) 173 07/08/2015 us Doc [facility] LABORATORY Final Result documented in this encounter Visit Diagnoses Not on filedocumented in this encounter Additional Health Concerns Infection Onset Date Last Indicated Resolved Time COVID-19 Rule Out 09/04/2023 09/04/2023 09/04/2023 5:56 PM POST ANESTHESIA ROOM NURSE documented as of this encounter Care Teams Ticker Installer Relationship Specialty Start Date End Date Marek Lyles DO Three [facility]. [facility] [address] [place] [address] PCP - General FAMILY PRACTICE 08/15/17 05/14/20 Erik Jeter MD 3 [facility] [address] [place] [id number] PCP - General FAMILY PRACTICE 05/15/20 02/04/25 None, Provider, PCP - General UNKNOWN PHYSICIAN SPECIALTY 02/05/25 Nadja Stewart MD Three [facility]. [facility] [address] [place] [address] [employer] CARDIOVASCULAR DISEASE 09/08/17 documented as of this encounter
[2025-03-04 18:55] VITALS: BP 114/73; PULSE 98; RESP 14; TEMP 36.8; O2SAT 100
--- OUTSIDE RECORDS SUMMARY | 2025-03-04 18:55 | XMS_ITS | Continuity of Care Document ---
Author Name [facility] Organization [facility] Care Team Providers Care Ui Architect Name Role Phone [facility] Unavailable Unavailable Problems Combined list of problems [...] an order for full set of supplies. [employer] and the patient is benefitting from CPAP therapy Last Assessment & Plan: The patient will continue with CPAP therapy at 8 cm water pressure to treat obstructive sleep apnea. The patient received an order for full set of supplies. [employer] and the patient is benefitting from CPAP therapy 5C-37 5th [facility] Periodic limb movement disorder6 Active 021 Condition Outside Source Comment: Overview: Last Assessment & Plan: The patient denies that her limbs are moving at night when she sleeps 6130C-Af -C-375Th [facility] Gastroesophageal reflux disease Active 018 Condition 0055C-37 5th [facility] Nonalcoholic steatohepatitis4 Active 018 Condition Outside Source Comment: Overview: 10/06/20 Fibroscan CAP 340, LSM 5.1 kPa 10/26/21 Fibroscan CAP 359, LSM 5.0 kPa 6130C-Af -C-375Th [facility] Essential hypertension2 Active 018 Condition Outside Source Comment: Overview: repeat BP 122/88; cont to monitor 5C-37 5th [facility] Cervicalgia Active Condition 6130C-Af -C-375Th [facility] Diabetes mellitus type 2 Active Condition 6130C-Af -C-375Th [facility] Diverticulosis Active Condition 0055C-3 7 5th [facility] Hyperlipidemia3 Active Condition Outs palmira Source Comment: renew meds, labs due next month 6130C-Af -C-375Th [facility] Hyperprolactinemia Active Condition 613 0C-Af -C-375Th [facility] Narcolepsy Active Condition 6130C-Af -C-375Th [facility] Vitamin D deficiency, unspecified Active Condition 0055C-37 5th [facility] Chalazion left upper eyelid Active Condition DoD [...] Snoring Inactive Condition see above (ordered in unga due to ALHTA issues) DoD UTERINE NEOPLASM, [...] eval for pain, could consider referral to X RAY EQUIPMENT MECHANIC MD for poss diag lap if pain [...] WITH CERVICAL PAP SMEAR Inactive Condition DoD PAN PUSHER MASS LESIONS CEREBRAL HEMISPHERE PINEAL BODY Inactive [...] tolerate in office hysteroscopy. Will discuss with X RAY EQUIPMENT MECHANIC MD on Tuesday and determine plan for [...] to patient could remove. she would like furnace and wash equipment operator to look at it and remove and do full skin exam. referral entered. [facility] Preventive Medicine Estab Patient Checkup Adult [...] total refill(s ), Rudolph gonzalez, Pharmacy : [facility] Topica l (on the skin) [...] ), Soft Stop Ordered 2023 0055C[facility]3 [facility] cholecalcif alan 125 mcg (5,000 units) [...] total refill(s ), Maintena nce, Pharmacy : [facility] Ordered 5 2024 60.0 0055C-3 [...] AM and 20mg in PM, Pharmacy : [facility] Oral (given by mouth) Ordered [...] # 90 tab(s), 3 total refill(s ), [facility], Pharmacy : [facility] Oral (given by mouth) Ordered 2024 90.0 6130C-A f-C-375 Th Med[facility]- [facility]ik fenofibrate 160 mg oral tablet 90 tab(s), 0 total refill(s ), Soft Stop Discont inued 09/13/20232023 6130C-A f-C-375 Th [facility]- [facility] fenofibrate 160 mg oral tablet 1 tab(s), Oral, Daily, # 90 tab(s), 3 total refill(s ), [facility], Pharmacy : [facility] Oral (given by mouth) Ordered [...] # 90 tab(s), 3 total refill(s ), [facility], Pharmacy : [facility] Oral (given by mouth) Ordered [...] refill(s ), Maintena nce, Supply, Pharmacy : [facility] Not Applic able Ordered 4 [...] refill(s ), Maintena nce, Supply, Pharmacy : [facility] Not Applic able Ordered 4 [...] total refill(s ), Maintena nce, Pharmacy : [facility] Oral (given by mouth) Ordered 5 2024 30.0 6130C-A f-C-375 Th [facility]- [facility] lidocaine 5% topical film 1 patch(es ), Topical, Daily, Leave on for up to 12 hours within a 24 hour period (12 hours on, 12 hours off), # 30 patch(es ), 3 total refill(s ), [facility], Pharmacy : [facility] Topica l (on the skin) [...] 3 total refill(s ), Acute, Pharmacy : [facility] Topica l (on the skin) Complet ed 03/08/2024 4 2023 30.0 6130C-A f-C-375 Th [facility]- [facility] lisinopril 5 mg oral tablet 1 tab(s), Oral, Daily, for blood pressure , # 90 tab(s), 3 total refill(s ), [facility], Pharmacy : [facility] Oral (given by mouth) Discont inued 09/17/2024 4 2024 90.0 6130C-A f-C-375 Th [facility]- [facility] lisinopril 5 mg oral tablet 90 tab(s), 0 total refill(s ), Soft Stop Discont inued 09/13/20232023 6130C-A f-C-375 Th [facility]- [facility] lisinopril 5 mg oral tablet 1 tab(s), Oral, Daily, # 90 tab(s), 3 total refill(s ), [facility], Pharmacy : [facility] Oral (given by mouth) Ordered [...] # 90 tab(s), 0 total refill(s ), [facility], Pharmacy : [facility] Oral (given by mouth) Discont inued 09/12/2024 4 2024 90.0 6130C-A f-C-375 Th [facility]- [facility] MetFORMIN (Eqv-Fortam et) 500 mg oral tablet, extended release 1 tab(s), Oral, Daily, # 90 tab(s), 3 total refill(s ), [facility], Pharmacy : [facility] Oral (given by mouth) Ordered 5 2024 90.0 6130C-A f-C-375 Th [facility] mupirocin 2% topical cream See Instruct ions, PRN rash, apply a thin film to rash by right eye as needed, # 30 g, 1 total refill(s ), [facility], Pharmacy : [facility] Ordered 4 2023 30.0 0055C-3 [...] # 180 tab(s), 3 total refill(s ), [facility], Pharmacy : [facility] Oral (given by mouth) Discont inued 03/28/2024 4 2023 180.0 6130C-A f-C-375 Th [facility] Pepcid 40 mg oral tablet 1 tab(s), Oral, every day at bedtime, # 90 tab(s), 2 total refill(s ), [facility], Pharmacy : [facility] Oral (given by mouth) Discont inued 10/31/2024 5 2024 90.0 6130C-A f-C-375 Th [facility] Pepcid 40 mg oral tablet 1 tab(s), Oral, every day at bedtime, # 90 tab(s), 3 total refill(s ), [facility], Pharmacy : [facility] Oral (given by mouth) Discont [...] 90 tab(s), 3 total refill(s ), Maintena [facility], Pharmacy : [facility] Oral (given by mouth) Ordered 5 2024 90.0 6130C-A f-C-375 Th [facility] rosuvastati n 20 mg oral tablet 90 tab(s), 0 total refill(s ), Soft Stop Discont inued 09/19/20232023 6130C-A f-C-375 Th [facility]- [facility] rosuvastati n 20 mg oral tablet 1 tab(s), Oral, Daily, 90 tab(s), # 90 tab(s), 3 total refill(s ), [facility], Pharmacy : [facility] Oral (given by mouth) Discont [...] 45 g, 6 total refill(s ), Rudolph [facility], Pharmacy : [facility] Ordered 5 2024 45.0 0055C-3 [...] 60 g, 1 total refill(s ), Rudolph [facility], Pharmacy : [facility] Ordered 5 2024 60.0 0055C-3 [...] total refill(s ), Maintena yimie, Pharmacy : [facility] Oral (given by mouth) Discont inued 11/07/20232023 90.0 0055C-3 [facility] Vitamin D3 125 mcg (5000 intl units) oral tablet 1 tab(s), Oral, Daily, # 90 tab(s), 3 total refill(s ), Maintena nce, original order by Mrs. Rodriguez, Pharmacy : [facility] Oral (given by mouth) Ordered 5 2024 90.0 0055C-3 [facility] Vitamin D3 125 mcg (5000 intl units) oral tablet 1 tab(s), Oral, Daily, # 90 tab(s), 3 total refill(s ), Maintena nce, original order by Mrs. Rodriguez, Pharmacy : [facility] Oral (given by mouth) Discont inued 11/06/2024 5 2024 90.0 0055C-3 [facility] Voltaren 1% topical gel See instruct ions, Apply small amount to affected area topicall y four times daily as needed for pain. Max total body dose of 32 grams per day, # 100 g, 0 total refill(s ), Maintena yimie, Pharmacy : [facility] Discont inued 09/13/2023 3 2023 100.0 6130C-A f-C-375 Th [facility] Allergies, Adverse Reactions, Alerts Combined list of allergies from Department of Defense and Veterans Affairs facilities. It does not include entries that were removed or entered in error. Substance Category Reaction Severity Reaction type Status Date Reported Comments Source atorvastatin Propensity to adverse reactions to drug Myalgias Mild Active 1 6130C-A f-C-375 Th [facility]- Dominik LIPITOR Drug allergy (disorder) active 1 DoD Immunizations Combined list of available immunizations from the Department of Defense and Veterans Affairs facilities. Immunization Series Date Given Administered By Site Reaction Lot Number CVX Code Drug Nursing Home Manager Status Comments Source COVID-19 vaccine(Novav ax 12y+) 2023 PAYTON MARTINEZSHARON Ortiz tin, right (delt oid) [id number] [employer] complet ed COVID-19 vaccine(N ovavax 12y+) 09/09/23 Given 0055C-3 [facility] COVID Vaccine Moderna 2021 zzLef t Arm complet ed COVID Vaccine Moderna 04/09/22 Given Ambulat ory Pharmac y COVID Vaccine Moderna 2021 complet ed COVID Vaccine Moderna 04/09/22 Given Ambulat ory Pharmac y SARS-COV-2 (COVID-19) vaccine, mRNA, spike protein, LNP, preservative free, 100 mcg or 50 mcg dose 1 2021 Unknown, Provider Moderna [employer] (MOD) complet ed SARS-COV- 2 (COVID-19 ) vaccine, mRNA, spike protein, LNP, preservat stone free, 100 mcg or 50 mcg dose DoD tetanus-dipht h toxoids (Td) adult/adol 2021 zzRig ht Arm [id number] 09 sanofi pasteur complet ed tetanus-d iphth [...] y tetanus-dipht h toxoids (Td) adult/adol 2021 [id number] sanofi pasteur complet ed tetanus-d iphth toxoids (Td) adult/ado l 12/04/21 Given Ambulat ory Pharmac y influenza virus vaccine, unspecified 2021 CAPTCHRISTOPH ERRWEISGARBER [id number] complet ed influenza virus vaccine, unspecifi ed 12/04/21 Recorded 6130C-A f-C-375 [facility] tetanus and diphtheria toxoids, adsorbed, preservative free, for adult use (2 Lf of tetanus toxoid and 2 Lf of diphtheria toxoid) 1 2021 Unknown, Provider [id number] 09 Sanofi Pasteur ([facility]) complet ed tetanus and diphtheri a toxoids, adsorbed, preservat stone free, for adult use (2 Lf of tetanus toxoid and 2 Lf of diphtheri a toxoid) DoD Influenza, injectable, quadrivalent, preservative free 1 2021 Unknown, Provider [id number] [address] [place] [address] (SKB) complet ed Influenza , injectabl e, [...] mL DoD influenza, injectable, quadrivalent- pf 2019 [facility] [id number] 150 [employer] complet ed influenza , injectabl e, quadrival ent-pf 08/13/20 Given Ambulat ory Pharmac y influenza, injectable, quadrivalent- pf 2019 [id number] 868 150 [employer] complet ed influenza , injectabl e, quadrival ent-pf 08/13/20 Given Ambulat ory Pharmac y influenza virus vaccine, unspecified 2019 GILSON MERCADOBER [id number] 88 complet ed influenza virus vaccine, unspecifi ed 08/13/20 Recorded 6130C-A f-C-375 Th [facility] Influenza, injectable, quadrivalent, preservative free 1 2019 Unknown, Provider [id number] 868 150 [employer] (SEQ) complet ed Influenza , injectabl e, quadrival ent, preservat stone free DoD influenza, injectable, quadrivalent- p[id number] 150 Gl[employer]oSmithK[employer] ne complet ed influenza , injectabl e, quadrival ent-pf 06/05/15 Given Ambulat ory Pharmac y influenza, injectable, quadrivalent- pf 2014 [id number] 150 [employer]SmithK[employer] ne complet ed influenza , injectabl e, quadrival ent-pf 06/05/15 Given Ambulat ory Pharmac y influenza virus vaccine, unspecified 2014 RENERISTOPH PAVITHRAGARBER [id number] 88 complet ed influenza virus vaccine, unspecifi ed 06/05/15 Recorded 6130C-A f-C-375 Th [facility] Influenza, injectable, quadrivalent, preservative free 1 2014 Unknown, Provider [id number] 150 [employer] (SKB) complet ed Influenza , injectabl e, quadrival ent, preservat stone free DoD influenza, seasonal, injectable-pf 2013 zzRig Arm [id number] 140 Novartis Pharm[employer] ls complet ed influenza , seasonal, injectabl e-pf 05/31/14 Given Ambulat ory Pharmac y influenza, seasonal, injectable-pf 2013 [id number] 140 Novartis Pharmaceutica ls complet ed influenza , seasonal, injectabl e-pf 05/31/14 Given Ambulat ory Pharmac y influenza virus vaccine, unspecified 2013 GILSON ALVARENGA [id number] 88 complet ed influenza virus vaccine, unspecifi ed 05/31/14 Recorded 6130C-A f-C-375 Th [facility] Influenza, seasonal, injectable, preservative free 1 2013 Unknown, Provider [id number] 140 [employer] (NOV) complet ed Influenza , seasonal, injectabl e, preservat stone free DoD influenza, seasonal, injectable-pf 2012 zzLef t Arm [id number] 140 sanofi pasteur complet ed influenza , seasonal, injectabl e-pf 06/01/13 Given Ambulat ory Pharmac y influenza, seasonal, injectable-pf 2012 [id number] 140 sanofi pasteur complet ed influenza , seasonal, injectabl e-pf 06/01/13 Given Ambulat ory Pharmac y influenza virus vaccine, unspecified 2012 GILSON ALVARENGA [id number] 88 complet ed influenza virus vaccine, unspecifi ed 06/01/13 Recorded 6130C-A f-C-375 [facility] Influenza, seasonal, injectable, preservative free 3 2012 Unknown, Provider [id number] 140 Sanofi Pasteur ([facility]) complet ed Influenza , seasonal, injectabl e, preservat stone free DoD influenza, seasonal, injectable-pf 2012 zzLef t Arm [id number] 140 sanofi pasteur complet ed influenza , seasonal, injectabl e-pf 08/28/12 Given Ambulat ory Pharmac y influenza virus vaccine, unspecified 2012 GILSON ALVARENGA [id number] complet ed influenza virus vaccine, unspecifi ed 08/28/12 Recorded 6130C-A f-C-375 [facility] Influenza, seasonal, injectable, preservative free 2 2012 Unknown, Provider [id number] 140 Sanofi Pasteur ([facility]) complet ed Influenza , seasonal, injectabl e, preservat stone free DoD tetanus, diphtheria, acellular pertu is 2010 zEdis t Arm [id number] 115 [facility] complet ed tetanus, diphtheri a, acellular pertussis 08/13/11 Given Ambulat ory Pharmac y tetanus, diphtheria, acellular pertu is 2010 [id number] 115 [employer] [facility] complet ed tetanus, diphtheri a, acellular pertussis 08/13/11 Given Ambulat ory Pharmac y tetanus toxoid, reduced diphtheria toxoid, and acellular pertu is vaccine, adsorbed 1 2010 Unknown, Provider [id number] 115 [facility] (SKB) complet ed tetanus toxoid, reduced diphtheri a toxoid, and acellular pertussis vaccine, adsorbed DoD tetanus-dipht h toxoids (Td) adult/adol 2003 zzLef t Arm [id number] 09 sanofi pasteur complet ed tetanus-d iphth toxoids (Td) adult/ado l 10/30/03 Given Ambulat ory Pharmac y tetanus and diphtheria toxoids, adsorbed, preservative free, for adult use (2 Lf of tetanus toxoid and 2 Lf of diphtheria toxoid) 1 2003 Unknown, Provider [id number] 09 Sanofi Pasteur ([facility]) complet ed tetanus and diphtheri a toxoids, adsorbed, preservat stone free, for adult use (2 Lf of tetanus toxoid and 2 Lf of diphtheri a toxoid) DoD influenza virus vaccine, whole virus 2002 zzLef t Arm [id number] 16 sanofi pasteur complet ed influenza virus vaccine, whole virus 07/25/03 Given Ambulat ory Pharmac y influenza virus vaccine, whole virus 2002 [id number] 16 sanofi pasteur complet ed influenza virus vaccine, whole virus 07/25/03 Given Ambulat ory Pharmac y influenza virus vaccine, unspecified 2002 CAPTCHRISTOPH ERRWEISGARBER [id number] 88 complet ed influenza virus vaccine, unspecifi ed 07/25/03 Recorded 6130C-A f-C-375 [facility] influenza virus vaccine, whole virus 1 2002 Unknown, Provider [id number] 16 Sanofi Pasteur ([facility]) complet ed influenza virus vaccine, whole virus DoD tuberculin purified protein derivative 2001 [id number] 96 sanofi pasteur complet ed tuberculi n purified protein derivativ e 02/14/02 Given Ambulat ory Pharmac y hepatitis A adult vaccine 2000 zzLef t Arm [id number] 52 [employer] complet ed hepatitis A adult vaccine 12/21/00 Given Ambulat ory Pharmac y hepatitis B adult vaccine 2000 zzLef t Arm 43 complet ed hepatitis B adult vaccine 12/21/00 Given Ambulat ory Pharmac y hepatitis A adult vaccine 2000 [id number] 52 [employer]ck & Company Inc complet ed [...] vaccine, adult dosage 2 2000 Unknown, Provider [id number] 52 Merck (MSD) complet ed hepatitis A vaccine, adult dosage DoD tuberculin purified protein derivative 2000 [id number] 96 [employer] complet ed Patient Tolerance : Negative Ambulat ory Pharmac y tuberculin skin test; purified protein derivative solution, intradermal 1 2000 Unknown, Provider [id number] 96 [employer] (CON) complet ed tuberculi n skin test; purified protein derivativ e solution, intraderm al DoD hepatitis B adult vaccine 1998 zzLef t Arm 43 complet ed hepatitis B adult vaccine 05/19/99 Given Ambulat ory Pharmac y hepatitis B adult vaccine 1998 43 complet ed hepatitis B adult vaccine 05/19/99 Given Ambulat ory Pharmac y HepB, Adult [address] [facility] complet ed Result Comment: Route: [...] Comment: Route: Unknown Manufactu rer: () 0055C-[address] [place] [address] hepatitis B vaccine, adult dosage 1 1998 [...] decrease 15-29 Severe decrease <15 Kidney failure [address] [place] [address] Chemistry Vitamin D 25 OH 57.2 ng/mL [...] Testing performed by Electrochemi luminescence . 5600A-U [employer] Chemistry LDL 91 mg/dL 100 - 130 11/06 L Interpretive Data: AGES 0-19: Desirable: < 110 mg/dL Borderline High: 110-129 mg/dL High: >/= 130 mg/dL ADULTS: Desirable: <100 mg/dL Near/above optimal: 100-130 mg/dL Borderline High: 131-159 mg/dL High: 160-189 mg/dL Very High: 190 mg/dL [address] [place] [address] Chemistry LDL/HDL 1 11/[address] [place] [address] Chemistry Triglycerid es 121 mg/dL 7 - 149 11/06 N Interpretive Data: AGES 0-9: Desirable: < 75 mg/dL Borderline High: 75-99 mg/dL High: >/= 100 mg/dL AGES 10-19: Desirable: < 90 mg/dL Borderline High: 90-129 mg/dL High: >/= 130 mg/dL ADULTS: Desirable: < 150 mg/dL Borderline High: 150-199 mg/dL High: >/= 240 mg/dL Very High: >/= 500 mg/dL [address] [place] [address] Chemistry Chol/HDL 2 mg/dL 11/[address] [place] [address] Chemistry HDL Cholesterol 92 mg/dL 40 - 59 11/06 H Interpretive Data: HDL (HIGH DENSITY LIPOPROTEIN) : ADULTS: Low: < 40 mg/dL High: >/= 60 mg/dL AGES 0 -19: Low: < 40 mg/dL Borderline Low: 40 - 45 mg/dL Acceptable: > 45 mg/dL [address] [place] [address] Chemistry Cholesterol Total 205 mg/dL 11/06 H Interpretive Data: According to the [place] [employer]: AGES 0-19: Desirable: < 170 mg/dL Borderline High: 170-199 mg/dL High Blood Cholesterol: >/= 200 mg/dL ADULTS: Desirable < 200 mg/dL Borderline High: 200-239 mg/dL High Blood Cholesterol: >/= 240 mg/dL [address] [place] [address] Chemistry TSH 2.320 mIU/L 0.270 - 4.200 11/06 N Interpretive Data: Recommend: TPO/Thyroper oxidase Antibody when TSH result is > 4.2 uIU/mL 5600A-U [employer] [facility] Chemistry CO2 26 mmol/L 22 - 29 11/06 N -[address] [place] [address] Chemistry Chloride 107 mmol/L 98 - 107 11/06 N -[address] [place] [address] Chemistry AGAP 8.00 0.00 - 15.00 11/06 N -[address] [place] [address] Chemistry Creatinine Level 1.10 mg/dL 0.57 - 1.11 11/06 N 0055A-[address] [place] [address] Chemistry Glucose Lvl 101 mg/dL 74 - 99 11/06 H -[address] [place] [address] Chemistry Albumin 4.40 g/dL 3.50 - 5.20 11/06 N 0055A-[address] [place] [address] Chemistry Alk Phos 81 U/L 40 - 150 11/06 N 0055A-[address] [place] [address] Chemistry Potassium Lvl 4.2 mmol/L 3.5 - 5.1 11/06 N 0055A-[address] [place] [address] Chemistry AST 18 U/L 5 - 34 11/06 N 0055A-[address] [place] [address] Chemistry ALT 16 U/L 5 - 55 11/06 N 0055A-[address] [place] [address] Chemistry Protein Total 7.7 g/dL 6.4 - 8.3 11/06 N 0055A-[address] [place] [address] Chemistry BUN 23 mg/dL 7 - 20 11/06 H -3 [facility] Chemistry Bilirubin Total 0.3 mg/dL 0.2 - 1.2 11/06 N -3 [facility] Chemistry BUN/Creat Ratio 21 mg/dL 12 - 20 11/06 H -3 [facility] Chemistry Sodium 141 mmol/L 136 - 145 11/06 N -3 [facility] Chemistry Calcium 10.1 mg/dL 8.4 - 10.2 11/06 N -3 [facility] Chemistry Vitamin B12 394 pg/mL 232 - 1245 11/06 N Interpretive Data: Samples should not be taken from patients receiving therapy with high biotin doses (i.e. >5 mg/day) until at least 8 hours following the last biotin administrati on. 0117A-A F-ASU-5 9th [facility] Chemistry Folate Lvl 8.1 ng/mL 4.8 - [...] population and dietary status. 0117A-A F-ASU-5 9th [facility] Chemistry TIBC 385 ug/dL 250 - 400 11/06 N 5600A-U [facility] Chemistry Transferrin Sat 18 % 14 - 50 11/06 N 5600A-U [facility] Chemistry Iron 70 ug/dL 37 - 145 11/06 N Interpretive Data: METHODOLOGY: Testing performed by colorimetric assay. 5600A-U [facility] Chemistry UIBC, 315.0 ug/dL 112.0 - 347.0 11/06 N 5600A-U [facility] Chemistry Ferritin Lvl 328.00 ng/mL 13.00 - 150.00 11/06 H Interpretive Data: METHODOLOGY: Testing performed by electrochemi luminescent immunoassay (ECLIA). 5600A-U [employer] Chemistry Hemoglobin A1c 6.1 % 4.0 - [...] diabetes. Because studies have repeatedly shown that zkh-vb-ntncx ol diabetes results in complication s from the disease, the goal for people with diabetes is a hemoglobin A1c less than 7%. The higher the hemoglobin A1c, the higher the risks of developing complication s related to diabetes. If confirmation is needed, consider recalling the patient and ordering Hemoglobin Electrophore sis. [address] [place] [address] Chemistry eAvg Glucose 128 mg/dL 11/[address] [place] [address]- [facility] Hematocrit 39 % 34 - 46 11/06 N -[address] [place] [address]- [facility] Hemoglobin 12.9 g/dL 11.0 - 15.0 11/06 N -[address] [place] [address]- [facility] Chemistry Ur Microalbumi n 7 mg/L 06/04 N Interpretive Data: To minimize intra-indivi dual variation, analysis of three random urine samples collected over the course of a week has also been recommended. [address] [place] [address]- [facility] Chemistry Ur Creat 79 mg/dL 06/04-[address] [place] [address]- [facility] Chemistry Ur Microalb/Ur Creat Ratio 9 mg/gCr 06/04 N -[address] [place] [address]- [facility] Chemistry Ur Microalbumi n 13 mg/L 11/10 N Interpretive Data: To minimize intra-indivi dual variation, analysis of three random urine samples collected over the course of a week has also been recommended. [address] [place] [address]- [place] Chemistry ALT 22 U/L 5 - 55 11/10 N -[address] [place] [address] Chemistry Alk Phos 83 U/L 40 - 150 11/10 N 0055A-[address] [place] [address] Chemistry Albumin 4.20 g/dL 3.50 - 5.20 11/10 N 0055A-[address] [place] [address] Chemistry Sodium 143 mmol/L 136 - 145 11/10 N 0055A-[address] [place] [address] Chemistry Potassium Lvl 3.8 mmol/L 3.5 - 5.1 11/10 N 0055A-[address] [place] [address] Chemistry AGAP 10.00 0.00 - 15.00 11/10 N 0055A-[address] [place] [address] Chemistry Glucose Lvl 122 mg/dL 74 - 99 11/10 H 5A-[address] [place] [address] Chemistry Creatinine Level 0.90 mg/dL 0.57 - 1.11 11/10 N 0055A-[address] [place] [address] Chemistry Protein Total 7.2 g/dL 6.4 - 8.3 11/10 N 0055A-[address] [place] [address] Chemistry CO2 25 mmol/L - 11/10 N 0055A-[address] [place] [address] Chemistry Chloride 108 mmol/L 98 - 107 11/10 H 5A-[address] [place] [address] Chemistry Calcium 9.8 mg/dL 8.4 - 10.2 11/10 N 0055A-[address] [place] [address] Chemistry BUN 17 mg/dL 7 - 20 11/10 N 0055A-[address] [place] [address] Chemistry Bilirubin Total 0.4 mg/dL 0.2 - 1.2 11/10 N 0055A-[address] [place] [address] Chemistry AST 23 U/L 5 - 34 11/10 N 0055A-[address] [place] [address] Chemistry BUN/Creat Ratio 19 mg/dL 12 - 20 11/10 N 0055A-[address] [place] [address] Chemistry TSH 1.760 mIU/L 0.270 - 4.200 11/10 N Interpretive Data: Recommend: TPO/Thyroper oxidase Antibody when TSH result is > 4.2 uIU/mL 5600A-U [facility] Chemistry Chol/HDL 2 mg/dL 11/10 0055A-[address] [place] [address] Chemistry Cholesterol Total 126 mg/dL 11/10 N Interpretive Data: According to the [place] [employer]: AGES 0-19: Desirable: < 170 mg/dL Borderline High: 170-199 mg/dL High Blood Cholesterol: >/= 200 mg/dL ADULTS: Desirable < 200 mg/dL Borderline High: 200-239 mg/dL High Blood Cholesterol: >/= 240 mg/dL [address] [place] [address] Chemistry LDL 49 mg/dL 100 - 130 11/10 L Interpretive Data: AGES 0-19: Desirable: < 110 mg/dL Borderline High: 110-129 mg/dL High: >/= 130 mg/dL ADULTS: Desirable: <100 mg/dL Near/above optimal: 100-130 mg/dL Borderline High: 131-159 mg/dL High: 160-189 mg/dL Very High: 190 mg/dL [address] [place] [address] Domin[facility] Chemistry HDL Cholesterol 68 mg/dL 40 - 59 11/10 H Interpretive Data: HDL (HIGH DENSITY LIPOPROTEIN) : ADULTS: Low: < 40 mg/dL High: >/= 60 mg/dL AGES 0 -19: Low: < 40 mg/dL Borderline Low: 40 - 45 mg/dL Acceptable: > 45 mg/dL [address] [place] [address] Dominik Chemistry Triglycerid es 81 mg/dL 7 - 149 11/10 N Interpretive Data: AGES 0-9: Desirable: < 75 mg/dL Borderline High: 75-99 mg/dL High: >/= 100 mg/dL AGES 10-19: Desirable: < 90 mg/dL Borderline High: 90-129 mg/dL High: >/= 130 mg/dL ADULTS: Desirable: < 150 mg/dL Borderline High: 150-199 mg/dL High: >/= 240 mg/dL Very High: >/= 500 mg/dL [address] [place] [address] Domin[facility] Chemistry LDL/HDL 1 11/[address] [place] [address] Domin[facility] Chemistry Hemoglobin A1c 6.9 % 4.0 [...] diabetes. Because studies have repeatedly shown that dmu-rr-jjhsn ol diabetes results in complication s from the disease, the goal for people with diabetes is a hemoglobin A1c less than 7%. The higher the hemoglobin A1c, the higher the risks of developing complication s related to diabetes. If confirmation is needed, consider recalling the patient and ordering Hemoglobin Electrophore sis. 0055A-3 [facility] Chemistry eAvg Glucose 151 mg/dL 11/10 0055A-3 [facility] Chemistry TSH 1.760 mIU/L 0.270 - 4.200 11/10 N Interpretive Data: Recommend: TPO/Thyroper oxidase Antibody when TSH result is > 4.2 uIU/mL 5600A-U [employer] Chemistry Vitamin D 25 OH 22.4 ng/mL [...] Testing performed by Electrochemi luminescence . 5600A-U [employer] Chemistry eGFR CKD EPI 72 mL/min /1.73_ [...] Severe decrease <15 Kidney failure [facility]55A[facility]3 [facility] Vital Signs Combined list of inpatient and outpatient Vital Signs from Department of Defense and Veterans Affairs, ranging from 12 months to all on record, depending upon the facility. Vital Sign Value Date Comments Source Temperature Oral 36.7 Courtney 09/19/2023 21:09:00 2909H-Ry-J-[facility] Peripheral Pulse Rate 77 bpm 05/31/2024 14:08:00 9815Y-Hd-L-[facility] Respiratory Rate 14 br/min 05/31/2024 14:08:00 4148Q-Or-L-[facility] Temperature Oral 36.6 Courtney 05/31/2024 14:08:00 0107S-So-D-[facility] BP Site Left arm 05/31/2024 14:08:00 6130C -Af-C-[facility] Blood Pressure Manual Automatic 05/31/2024 14:08:00 3051U-Tq-Q-[facility] Systolic Blood Pressure 97 mm[Hg] 05/31/2024 14:08:00 8495W-Ft-D-[facility] Diastolic Blood Pressure 64 mm[Hg] 05/31/2024 14:08:00 2816W-Iq-C-[facility] Mean Arterial Pressure, Calc 75 mm[Hg] 05/31/2024 14:08:00 3320I-Lf-Y-3 [facility] Respiratory Rate 16 br/min 01/10/2024 14:06:00 2367R-Nu-K-[facility] BP Site Right arm 01/09/2025 15:16:00 6130C -Af-C-[facility] Systolic Blood Pressure 117 mm[Hg] 01/09/2025 15:16:00 3560K-Bi-H-[facility] Diastolic Blood Pressure 70 mm[Hg] 01/09/2025 15:16:00 9227T-Eu-P-[facility] Peripheral Pulse Rate 83 bpm 01/09/2025 15:16:00 0463I-Qb-L-[facility] Mean Arterial Pressure, Calc 86 mm[Hg] 01/09/2025 15:16:00 7367A-Yv-J-3 [facility] Blood Pressure Manual Automatic 01/09/2025 15:16:00 1517R-Bm-E-[facility] Mean Arterial Pressure, Calc 95 mm[Hg] 11/30/2024 19:10:00 9103R-Us-Z-3 [facility] Peripheral Pulse Rate 104 bpm 11/30/2024 19:10:00 0064Y-Hr-J-[facility] Respiratory Rate 16 br/min 11/30/2024 19:10:00 9109P-Em-F-[facility] BP Site Left arm 11/30/2024 19:10:00 6130C -Af-C-[facility] Blood Pressure Manual Automatic 11/30/2024 19:10:00 2817G-Gv-Q-[facility] Systolic Blood Pressure 119 mm[Hg] 11/30/2024 19:10:00 6792J-Nc-G-[facility] Diastolic Blood Pressure 83 mm[Hg] 11/30/2024 19:10:00 5279Q-Yw-T-[facility] Blood Pressure Manual Automatic 09/21/2024 19:18:00 3807H-Fq-B-[facility] Peripheral Pulse Rate 103 bpm 09/21/2024 19:18:00 3149J-Jc-C-[facility] Respiratory Rate 22 br/min 09/21/2024 19:18:00 5797Z-Lf-Y-[facility] Temperature Oral 37.3 Courtney 09/21/2024 19:18:00 9219Q-Gc-Q-[facility] BP Site Left arm 09/21/2024 19:18:00 6130C -Af-C-[facility] Systolic Blood Pressure 101 1 09/21/2024 19:18:00 8707I-Af-S-[facility] Diastolic Blood Pressure 67 mm[Hg] 09/21/2024 19:18:00 6643X-Gt-E-[facility] Mean Arterial Pressure, Calc 78 mm[Hg] 09/21/2024 19:18:00 6435J-Yr-L-3 [facility] Systolic Blood Pressure 115 mm[Hg] 09/14/2024 16:51:00 5333G-Jx-Y-[facility] Diastolic Blood Pressure 73 mm[Hg] 09/14/2024 16:51:00 2887Q-Dj-G-[facility] BP Site Left arm 09/14/2024 16:51:00 6130C -Af-C-[facility] Blood Pressure Manual Automatic 09/14/2024 16:51:00 2711M-Lo-U-[facility] Peripheral Pulse Rate 70 bpm 09/14/2024 16:51:00 9845H-Rs-G-[facility] Mean Arterial Pressure, Calc 87 mm[Hg] 09/14/2024 16:51:00 0716A-Sw-D-3 [facility] BP Site Right arm 02/04/2025 15:22:00 6130C -Af-C-[facility] Blood Pressure Manual Automatic 02/04/2025 15:22:00 3790N-Hn-Y-[facility] Mean Arterial Pressure, Calc 73 mm[Hg] 02/04/2025 15:22:00 4042S-Ko-K-3 [facility] Peripheral Pulse Rate 92 bpm 02/04/2025 15:22:00 7282G-Lu-F-[facility] Systolic Blood Pressure 96 mm[Hg] 02/04/2025 15:22:00 8229P-Tv-H-[facility] Diastolic Blood Pressure 62 mm[Hg] 02/04/2025 15:22:00 6012T-Ys-R-[facility] Respiratory Rate 14 br/min 05/17/2024 20:16:00 4563A-Qo-Y-[facility] Respiratory Rate 18 br/min 11/04/2023 14:38:00 3693G-Ea-G-[facility] Temperature Oral 36.5 Courtney 09/13/2023 21:08:00 0055C-[facility] Temperature Oral 36.7 Courtney 12/02/2023 13:45:00 4055E-Pn-B-[facility] Respiratory Rate 16 br/min 12/02/2023 13:45:00 9417W-Mo-P-[facility] Respiratory Rate 18 br/min 01/31/2024 20:09:00 3652C-Vr-H-[facility] Mean Arterial Pressure, Calc 77 mm[Hg] 11/06/2024 18:06:00 0055C-[facility] Systolic Blood Pressure 101 mm[Hg] 11/06/2024 18:06:00 0055C-[facility] Diastolic Blood Pressure 65 mm[Hg] 11/06/2024 18:06:00 0055C-[facility] BP Site Left arm 11/06/2024 18:06:00 0055C -[facility] Temperature Oral 36.6 Courtney 11/06/2024 18:06:00 0055C-[facility] Peripheral Pulse Rate 98 bpm 11/06/2024 18:06:00 0055C-[facility] Blood Pressure Manual Automatic 11/06/2024 18:06:00 0055C-[facility] Peripheral Pulse Rate 92 bpm 06/29/2024 21:03:00 1849L-Kf-G-[facility] Blood Pressure Manual Automatic 06/29/2024 21:03:00 1441L-In-P-[facility] BP Site Left arm 06/29/2024 21:03:00 6130C -Af-C-[facility] Systolic Blood Pressure 114 mm[Hg] 06/29/2024 21:03:00 2250D-Zw-L-[facility] Diastolic Blood Pressure 72 mm[Hg] 06/29/2024 21:03:00 8746I-Jc-M-[facility] Mean Arterial Pressure, Calc 86 mm[Hg] 06/29/2024 21:03:00 3265O-Hl-V-3 [facility] Peripheral Pulse Rate 97 bpm 12/12/2024 15:07:00 5984J-Rd-A-[facility] Respiratory Rate 18 br/min 12/12/2024 15:07:00 5064P-Pi-V-[facility] BP Site Left arm 12/12/2024 15:07:00 6130C -Af-C-[facility] Systolic Blood Pressure 114 mm[Hg] 12/12/2024 15:07:00 2054U-Wo-X-[facility] Diastolic Blood Pressure 72 mm[Hg] 12/12/2024 15:07:00 4685I-My-F-[facility] Mean Arterial Pressure, Calc 86 mm[Hg] 12/12/2024 15:07:00 0557V-Rs-B-3 [facility] Blood Pressure Manual Automatic 12/12/2024 15:07:00 9505Y-Vc-K-[facility] BP Site Left arm 09/12/2024 16:52:00 6130C -Af-C-[facility] Blood Pressure Manual Automatic 09/12/2024 16:52:00 3505H-Nc-W-[facility] Respiratory Rate 18 br/min 09/12/2024 16:52:00 9861P-Eb-O-[facility] Temperature Oral 36.8 Courtney 09/12/2024 16:52:00 5393P-Fw-T-[facility] Mean Arterial Pressure, Calc 85 mm[Hg] 09/12/2024 16:52:00 0018I-Kr-E-3 [facility] Peripheral Pulse Rate 98 bpm 09/12/2024 16:52:00 4590Q-Az-Q-[facility] Systolic Blood Pressure 100 mm[Hg] 09/12/2024 16:52:00 5277J-Up-L-[facility] Diastolic Blood Pressure 78 mm[Hg] 09/12/2024 16:52:00 4933F-Gj-N-[facility] Encounters Combined list of: 1) Encounters from Department of Veterans Affairs facilities going backup to the last 18 months, not all VA inpatient encounters are included; 2) Encounters from the Department of Defense facilities going backup to 280 months. Location Location Details Encounter Type Encounter Number Reason For Visit Attending Provider ADM Date DC Date Status Disposition Source [address] [place] [address] Dominik [facility]ILLAB [place]Janae rology) OUTPATIENT [id number] left arm PINKY Odell 07/21 Released w/o Limitations [address] [place] [address] Dominik MILLAB ([facility]N eurolog y) [address] [place] [address] Dominik [facility]Janae rology) TELE CONSULT [id number] PINKY MITCHELL 11/[address] [place] [address] Dominik [facility]N eurolog y) [address] [place] [address] Dominik LOYOLAB [facility]Janae rology) TELE CONSULT [id number] PINKY MITCHELL 01/[address] [place] [address] Dominik MILLAB [facility]N eurolog y) [address] [place] [address] Dominik [facility]Sco tt [facility] Fam Res Tm Green) OUTPATIENT [id number] f/u sinus SPRING LAYNE 02/16 Released w/o Limitations [address] [place] [address] Dominik LOYOLAB [place]S cott [facility] Fam Res Tm Green) [address] [place] [address] Dominik [facility]Janae rology) TELE CONSULT [id number] PINKY MITCHELL 02/[address] [place] [address] Dominik MILLAB [facility]N eurolog y) [address] [place] [address] Dominik MILLAB [facility]Tin matology) OUTPATIENT [id number] skin lesion not resolvi ng DONNY ORONA L 03/30 Released w/o Limitations [address] [place] [address] Dominik B ([facility]D ermatol ogy) [address] [place] [address] Dominik B ([facility]Sco tt [facility] FAMRES Tm Blue) OUTPATIENT [id number] Irregul ar periods PRIETO ORTIZ L 07/14 Released w/o Limitations [address] [place] [address] Dominik B [facility]S cott [facility] FAMRES Tm Blue) [address] [place] [address] Dominik B [facility]Sco tt [facility] FAMRES Tm Blue) OUTPATIENT [id number] 2wk period, hx of BCP usage to control irregul corinnaphi SARAHY GUERRA Beatrice 09/21 Released w/o Limitations [address] [place] [address] Dominik B ([facility]S cott [facility] FAMRES Tm Blue) [address] [place] [address] Dominik [facility])(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) OUTPATIENT [id number] menomet rorrhag ia CASSIUS RODRIGUEZ 09/29 Released w/o Limitations [address] [place] [address] Dominik B [facility]G ynecolo gy) [address] [place] [address] 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) TELE CONSULT [id number] Boo RODRIGUEZ, CASSIUS R 10/28 [facility] [employer] ([facility]G ynecolo gy) [facility] [employer] ([facility]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) TELE CONSULT [id number] U/S Results CASSIUS RODRIGUEZ R 11/12 [facility] [employer] ([facility]G ynecolo gy) [facility] [employer] ([facility]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) TELE CONSULT [id number] U/S Results CASSIUS RODRIGUEZ R 11/18 [facility] [employer] ([facility]G ynecolo gy) [facility] [employer] ([facility]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) TELE CONSULT [id number] f/u CASSIUS RODRIGUEZ R 11/[address] [place] [address] Group [employer] ([facility]G ynecolo gy) [facility] [employer] ([facility]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) OUTPATIENT [id number] Discuss Hystero scopy (Per Ann Marie ) ANTHONY MCNEAL 12/23 Released w/o Limitations [facility] [employer] ([facility]G ynecolo gy) [facility] [employer] ([facility]Janae rology) TELE CONSULT [id number] IPNKY MITCHELL 12/28 [facility] [employer] ([facility]N eurolog y) [facility] Medical [facility] [employer] ([facility])(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) OUTPATIENT [id number] Hystero scopy ANTHONY MCNEAL 12/30 Released w/o Limitations [facility] [employer] ([facility]G ynecolo gy) [facility] [employer] ([facility])(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) TELE CONSULT [id number] emb results ANTHONY MCNELA 01/05 [facility] [employer] ([facility]G ynecolo gy) [facility] [employer] ([facility])(Janae rology) TELE CONSULT [id number] PINKY MITCHELL 01/12 [facility] [employer] ([facility]N eurolog y) [facility] [employer] ([facility]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) TELE CONSULT [id number] ANTHONY MCNEAL 01/[address] [place] [address] [employer] ([facility]G ynecolo gy) [facility] Medical [facility] Dominik LOYOLAB ([facility])(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) TELE CONSULT [id number] nurse call - do not call pt (ua test result) ANTHONY MCNEAL 01/[address] [place] [address] Dominik LOYOLAB ([facility]G ynecolo gy) [address] [place] [address] [employer] ([facility]Janae rology) OUTPATIENT [id number] PINKY MITCHELL 01/19 Released w/o Limitations [address] [place] [address] Dominik LOYOLAB ([facility]N eurolog y) [facility] Medical [facility] Dominik [facility]OL[facility] ([facility])(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) TELE CONSULT [id number] test result ANTHONY MCNEAL 01/[address] [place] [address] Dominik LOYOLAB ([facility]G ynecolo gy) [address] [place] [address] [employer] [facility]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) TELE CONSULT [id number] calling for test results ANTHONY MCNEAL 02/[address] [place] [address] Dominik [facility]G ynecolo gy) [address] [place] [address] Dominik [facility] [facility]Sco tt [facility] Fam Res Tm Green) OUTPATIENT [id number] well woman exam TIFF FAM 05/31 Released w/o Limitations [address] [place] [address] Dominik LOYOLAB ([facility]S cott [facility] Fam Res Tm Green) [address] [place] [address] Dominik [facility]Occ upational Therapy) OUTPATIENT [id number] joint pain fingers CHE WYATT A 06/03 Released w/o Limitations [facility] Medical [facility] Dominik LOYOLAB ([facility])(O ccupati onal Therapy ) [facility] Medical [facility] Dominik [facility])(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) OUTPATIENT [id number] 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 ANTHONY MCNEAL 06/14 Released w/o Limitations [address] [place] [address] Dominik LOYOLAB ([facility]G ynecolo gy) [facility] Medical [facility] [employer] ([facility])(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) TELE CONSULT [id number] blood pressur e check ANTHONY MCNEAL 06/[address] [place] [address] [employer] [facility]G ynecolo gy) [facility] Medical [facility] [employer] ([facility])(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) TELE CONSULT [id number] B/p checkup ANTHONY MCNEAL 06/[address] [place] [address] Dominik ELIZONDO ([facility]G ynecolo gy) [address] [place] [address] Dominik ELIZONDO ([facility]Sco tt [facility] Fam Res Tm Green) TELE CONSULT [id number] lab results TIFF FAM 06/[address] [place] [address] Dominik ELIZONDO ([facility]S cott [facility] Fam Res Tm Green) [address] [place] [address] Dominik ELIZONDO ([facility]Occ upational Therapy) OUTPATIENT [id number] CHE WYATT 06/28 Released w/o Limitations [address] [place] [address] Dominik ELIZONDO ([facility]O ccupati onal Therapy ) [address] [place] [address] Dominik ELIZONDO ([facility])(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 PHONE:[phone] TIFF FAM 01/04 Released w/o Limitations [address] [place] [address] Dominik ELIZONDO ([facility]S cott [facility] Fam Res Tm Green) [address] [place] [address] Dominik ELIZONDO ([facility]Sco tt [facility] Fam Res Tm Green) TELE CONSULT [id number] Endosco py results /BP concern s TIFF FAM 02/[address] [place] [address] Dominik ELIZONDO ([facility]S cott [facility] Fam Res Tm Green) [address] [place] [address] Dominik ELIZONDO ([facility]Sco tt [facility] Fam Res Tm Green) OUTPATIENT [id number] fol upper endosco VINOD Macias 03/23 Released w/o Limitations [address] [place] [address] Dominik ELIZONDO ([facility] [facility] [place] [place]) [address] [place] [address] Dominik ELIZONDO [place] [place] [place]) OUTPATIENT [id number] 2 spots on nose, not going away [id number] TIFF FAM 05/02 Released w/o Limitations [address] [place] [address] Dominik ELIZONDO ([facility] [facility] [place] [place]) [address] [place] [address] Dominik ELIZONDO ([facility] [place] [place]) TELE CONSULT [phone] lab results TIFF FAM 05/[address] [place] [address] Group Dominik LOYOLAB ([facility] [facility] [facility] [place]) [address] [place] [address] Dominik LOYOLAB ([facility]Sco tt [facility] Fam [facility]) TELE CONSULT [id number] Med request TIFF FAM 06/[address] [place] [address] Group Dominik LOYOLAB ([facility]S cott [facility] F[facility]) [address] [place] [address] Dominik LOYOLAB [facility]Sco tt [facility] FAMRES Tm Blue) OUTPATIENT [id number] sinus congest OLGA Weems 06/20 Released w/o Limitations [address] [place] [address] Dominik LOYOLAB ([facility]S cott [facility] FAMRES Tm Blue) [address] [place] [address] Dominik LOYOLAB [facility]Sco tt [facility] Fam [facility] [place]) OUTPATIENT [id number] fol triglyc erides/ hrt monitor TIFF FAM 07/03 Released w/o Limitations [address] [place] [address] Dominik LOYOLAB ([facility]S cott [facility]am [facility] [place]) [address] [place] [address] Dominik LOYOLAB [facility]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) TELE CONSULT [id number] returne d your call CASSIUS RODRIGUEZ 11/[address] [place] [address] Dominik LOYOLAB [facility]G ynecolo gy) [address] [place] [address] Dominik LOYOLAB [facility]Sco tt [facility] Fam Res [facility] [place]) OUTPATIENT [id number] f/u results TIFF FAM 12/18 Released w/o Limitations [address] [place] [address] Dominik LOYOLAB ([facility]S [facility]) [facility] Dominik LOYOLAB ([facility]Sco tt [facility] Fam Res [facility] [place]) OUTPATIENT [id number] one ovary that manish madrigal ev al for mri TIFF FAM 04/30 Released w/o Limitations [facility] Dominik LOYOLAB ([facility]S [facility] [place]) [facility] [employer] ([facility]Sco tt [facility] Fam Res [facility]m [place]) TELE CONSULT [id number] Non-for mulary medicat ion - PCM EVE Palumbo 05/[address] [place] [address] Dominik LOYOLAB ([facility]S [facility] [place]) [address] [place] [address] Dominik LOYOLAB ([facility])(Occ upational Therapy) OUTPATIENT [id number] FINGER SPRAIN JIMMY HUMPHRIES L 05/08 Released w/o Limitations [facility] Dominik LOYOLAB ([facility])(O ccupati onal Therapy ) [address] [place] [address] Dominik LOYOLAB ([facility]Sco tt [facility] Fam [facility] [place]) OUTPATIENT [id number] pelvic exam TIFF FAM 05/20 Released w/o Limitations [facility] Dominik LOYOLAB ([facility]S [facility] [place]) [address] [place] [address] [employer] ([facility]Occ upational Therapy) OUTPATIENT [id number] LILA HUMPHRIESA L 05/24 Released w/o Limitations [address] [place] [address] [employer] ([facility]O ccupati onal Therapy ) [facility] [employer] ([facility]Occ upational Therapy) OUTPATIENT [id number] DAVID HIGUERA 05/29 Released w/o Limitations [address] [place] [address] [employer] ([facility]O ccupati onal Therapy ) [address] [place] [address] [employer] ([facility]Occ upational Therapy) OUTPATIENT [id number] OLGA LOGAN 05/31 Released w/o Limitations [address] [place] [address] [employer] ([facility]O ccupati onal Therapy ) [address] [place] [address] [employer] ([facility]Occ upational Therapy) OUTPATIENT [id number] OLGA LOGAN 06/03 Released w/o Limitations [address] [place] [address] [employer] ([facility]O ccupati onal Therapy ) [facility] Dominik MILLAB ([facility])(Occ upational Therapy) OUTPATIENT [id number] DAVID HIGUERA 06/11 Released w/o Limitations Medical Group Dominik MILLAB ([facility]O ccupati onal Therapy ) [facility] Dominik MILLAB ([facility]Sco tt [facility] Fam [facility] [place]) OUTPATIENT [id number] Sinus problem s SHAWN PARRA 08/16 Released w/o Limitations [facility] Dominik MILLAB ([facility]S cott OF F[facility] [place]) [facility] Dominik MILLAB ([facility]Sco tt [facility] Fam Res [facility]m [place]) TELE CONSULT [id number] Call Back TIFF FAM 08/[address] [place] [address] Dominik MILLAB ([facility]S cott [facility] Fam [facility] [place]) [address] [place] [address] Dominik MILLAB ([facility]Sco tt [facility] Fam Res [facility]m [place]) OUTPATIENT [id number] left ear pain,no drainag e CHARIS CLARK 08/23 Released w/o Limitations [facility] Dominik MILLAB ([facility]S cott OF Fam [facility] [place]) [address] [place] [address] Dominik MILLAB ([facility]Sco tt [facility] Fam Res [facility]m [facility]) OUTPATIENT [id number] pap smear [phone] TIFF FAM 01/09 Released w/o Limitations [address] [place] [address] Dominik MILLAB ([facility]S cott OF F[facility] [employer] [place]) [facility] Dominik MILLAB ([facility]Sco tt [facility] Fam Res Tm [place]) TELE CONSULT [id number] Lab results TIFF FAM 01/15 [facility] Medical Group [employer] ([facility]S cott OF F[facility] [employer]) [facility] [employer] ([facility])(Sco tt [facility] FAMRES Tm Blue) TELE CONSULT [id number] medical inquiry TIFF FAM 01/[address] [place] [address] [employer] ([facility]S cott [facility] FAMRES Tm Blue) [address] [place] [address] [employer] ([facility]Sco tt [facility] FAMRES Tm Blue) TELE CONSULT [id number] medical inquiry TIFF FAM 02/06 [facility] Medical Group Dominik MILLAB ([facility]S cott OF FAMRES Tm Blue) [facility] Medical Group Dominik MILLAB ([facility]Sco tt [facility] FAMRES Tm Blue) TELE CONSULT [id number] medical /lab concern TIFF FAM 04/24 [facility] Medical Group Dominik MILLAB ([facility]S cott OF FAMRES Tm Blue) [facility] Medical Group Dominik MILLAB ([facility]Sco tt [facility] Fam Res Tm [facility]) OUTPATIENT [id number] flu [phone] MURALI BENNETT 05/16 Released w/o Limitations [facility] Medical Group Dominik MILLAKevin ([facility]S cott OF Fam [facility]m [place]) [facility] Medical Group Dominik MILLAKevin [facility]Sco tt [facility] Fam Res [facility]m [facility]) OUTPATIENT [id number] F/U FROM A PROCEDU RE [phone] TIFF FAM 07/28 Released w/o Limitations [facility] Medical Group Dominik MILLAKevin ([facility]S cott [facility] Fam Res Tm [facility]) [facility] Medical Group Dominik MILLAKevin ([facility]Sco tt [facility] Fam Res Tm [facility]) TELE CONSULT [id number] med refill TIFF FAM 09/17 [facility] Medical Group Dominik MILLAKevin ([facility]S cott [facility] Fam Res Tm Green) [facility] Medical Group Dominik MILLAKevin ([facility]Sco tt [facility] Fam Res Tm Green) TELE CONSULT [id number] change med TIFF FAM 12/02 [facility] Medical Group Dominik MILLAKevin ([facility]S cott [facility] Fam Res Tm Green) [facility] Medical Group Dominik MILLAB ([facility]Sco tt [facility] Fam Res Tm Green) TELE CONSULT [id number] request s call back TIFF FAM 12/15 [facility] Medical Group Dominik MILLAKevin ([facility]S cott [facility] Fam Res Tm Green) [facility] Medical Group Dominik MILLAKevin [facility]Sco tt [facility] Fam Res Tm Green) OUTPATIENT [id number] Annual hand brush 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 exam [id number] TIFF FAM 02/26 Released w/o Limitations [facility] Medical Group Dominik MILLAB ([facility]S cott [facility] Fam Res [facility]m [place]) [address] [place] [address] Dominik MILLAKevin [facility]Sco tt [facility] Fam Res Tm Green) TELE CONSULT [id number] lab results TIFF FAM 03/[address] [place] [address] Dominik MILLAKevin [facility]S cott [facility] Fam Res [facility]m [place]) [address] [place] [address] Dominik MILLAKevin [facility]Sco tt [facility] Fam Res Tm Green) TELE CONSULT [id number] mammo results TIFF FAM 04/[address] [place] [address] Dominik ELIZONDO [facility]S cott [facility] Fam Res [facility]m [place]) [address] [place] [address] Dominik MILLAKevin [facility]Sco tt [facility] Fam Res Tm Green) TELE CONSULT [id number] med refill MICHAEL CHAIDEZ 05/[address] [place] [address] Dominik MILLAKevin [facility]S cott [facility] Fam Res [facility]m [place]) [address] [place] [address] Dominik MILLAKevin [facility]Sco tt [facility] FAMRES Tm Blue) TELE CONSULT [id number] referra l renewal MICHAEL CHAIDEZ 07/[address] [place] [address] Dominik ELIZONDO [facility]S cott [facility] FAMRES Tm Blue) [address] [place] [address] Dominik MILLAKevin [facility]Sco tt [facility] Fam Res Tm [place]) TELE CONSULT [id number] T con for referra gillespie for cardiol ogy Dr Fam phone [phone] TIFF FAM 08/[address] [place] [address] Dominik MILLAKevin [facility]S cott [facility] Fam Res [facility]m [place]) [address] [place] [address] Dominik MILLAKevin [facility]Sco tt [facility] Fam Res Tm [place]) OUTPATIENT [id number] resched -f/u female issues ASHLEY POLK 09/28 Released w/o Limitations [address] [place] [address] Dominik MILLAKevin [facility]S cott [facility] Fam Res [facility]m [place]) [address] [place] [address] Dominik MILLAKevin [facility]Sco tt [facility] Fam Res Tm [place]) OUTPATIENT [id number] Female concern s TIFF FAM 10/22 Released w/o Limitations [address] [place] [address] Dominik ELIZONDO [facility]S cott [facility] Fam Res [facility]m [place]) [address] [place] [address] Dominik ELIZONDO [facility]Sco tt [facility] Fam Res Tm Green) TELE CONSULT [id number] T con for med refill Dr Fam phone [phone] TIFF AFM 11/[address] [place] [address] Group Dominik LOYOLAB ([facility]S cott OF Fam [facility]m [place]) [address] [place] [address] Dominik LOYOLAB ([facility]Sco tt [facility] Fam Res Tm Green) TELE CONSULT [id number] rx refill - [phone] CAD VLC [phone] TIFF FAM 12/[address] [place] [address] Dominik LOYOLAB ([facility]S cott OF Fam [facility] [employer] [place]) [address] [place] [address] Dominik LOYOLAB ([facility]Sco tt [facility] Fam Res Tm Green) OUTPATIENT [id number] ear pain [phone] CUAUHTEMOC FROST 12/11 Released w/o Limitations [address] [place] [address] Dominik LOYOLAB ([facility]S cott [facility] Fam Res [facility]m [place]) [address] [place] [address] [employer] ([facility]Sco tt [facility] Fam Res Tm Green) TELE CONSULT [id number] T con for F/U appt Dr Fam phone [phone] HARLEY GAMINO 12/[address] [place] [address] Dominik LOYOLAB ([facility]S cott [facility] Fam Res [facility]m [facility]) [address] [place] [address] [employer] ([facility]Sco tt [facility] Fam Res Tm Green) OUTPATIENT [id number] f/u left ear infecti on TIFF FAM 12/28 Released w/o Limitations [address] [place] [address] Dominik LOYOLAB ([facility]S cott [facility] Fam Res [facility]m [place]) [address] [place] [address] Dominik LOYOLAB ([facility]Sco tt [facility] Fam Res Tm Green) OUTPATIENT [id number] Pap/Cheri ual exam TIFF FAM 01/14 Released w/o Limitations [address] [place] [address] Dominik LOYOLAB ([facility]S cott [facility] Fam Res Tm [place]) [address] [place] [address] [employer] ([facility]Sco tt [facility] Fam Res Tm Green) OUTPATIENT [id number] FU L ear TIFF FAM 01/28 Released w/o Limitations [address] [place] [address] Dominik LOYOLAB ([facility]S cott [facility] Fam Res Tm [place]) [address] [place] [address] [employer] ([facility]Sco tt [facility] Fam Res Tm Green) TELE CONSULT [id number] mammo results TIFF FAM 05/[address] [place] [address] Dominik LOYOLAB ([facility]S cott OF Fam Res [facility]m [place]) [address] [place] [address] Dominik LOYOLAB ([facility]Sco tt [facility] Fam Res Tm Green) TELE CONSULT [id number] Meds needed/ Sarwat /fxs TIFF FAM 06/[address] [place] [address] Dominik LOYOLAB [facility]S cott OF Fam Res [facility]m [place]) [address] [place] [address] Dominik LOYOLAB [facility]Sco tt [facility] Fam Res Tm Green) TELE CONSULT [id number] Meds refills /Lindsa y/fxs TIFF FAM 07/[address] [place] [address] Dominik B [facility]S cott [facility] Fam Res Tm [place]) [address] [place] [address] Dominik LOYOLAB [facility]Sco tt [facility] Fam Res Tm Green) TELE CONSULT [id number] request ing appt sooner - Sarwat - [phone] - tsg PRADIP SHEFFIELD 07/[address] [place] [address] Dominki [facility])(S cott [facility] Fam Res Tm Green) [address] [place] [address] Dominik LOYOLAB [facility]Sco tt [facility] FAMRES Tm Blue) OUTPATIENT [id number] f\u cough TIFF FAM 07/23 Released w/o Limitations [address] [place] [address] Dominik [facility])(S cott [facility] FAMRES Tm Blue) [address] [place] [address] Dominik LOYOLAB [facility]Sco tt [facility] Fam Res Tm Green) TELE CONSULT [id number] xray results TIFF FAM 07/[address] [place] [address] Dominik MILLAB [facility]S cott [facility] Fam Res Tm Green) [address] [place] [address] Dominik MILLAB [facility]Sco tt [facility] Fam Res Tm Green) TELE CONSULT [id number] CT results - Sarwat [phone] - tsg TIFF FAM 07/[address] [place] [address] Dominik B [facility]S cott [facility] Fam Res Tm [place]) [address] [place] [address] [employer] [facility]Sco tt [facility] Fam Res Tm Green) TELE CONSULT [id number] lab results TIFF FAM 08/[address] [place] [address] Dominik ELIZONDO [facility]S cott [facility] Fam Res Tm Green) [address] [place] [address] Dominik ELIZONDO ([facility]Sco tt [facility] Fam Res Tm Green) TELE CONSULT [id number] HARLEY Sanford 09/[address] [place] [address] Dominik ELIZONDO ([facility]S cott [facility] Fam Res Tm Green[facility] [address] [place] [address] Dominik ELIZONDO [facility]Sco tt [facility] Fam Res Tm Green) TELE CONSULT [id number] Notes Entered by: SYLVIE MANZO CIA 15 Oct 2011 1445 ------- ------- ------- ------- -- Refill meds - Sarwat - cad/pm TIFF FAM 10/[address] [place] [address] Dominik ELIZONDO ([facility]S cott [facility] Fam Res Tm Green) [address] [place] [address] [facility]ik [facility]Sco tt [facility] Fam Res Tm Green) OUTPATIENT [id number] f/u ultraso und [id number] TIFF FAM 10/25 Released w/o Limitations [address] [place] [address] Dominik ELIZONDO [facility]S cott [facility] Fam Res Tm Green) [address] [place] [address] Dominik ELIZONDO [facility]Sco tt [facility] Fam Res Tm Green) TELE CONSULT [id number] TIFF Calzada 11/[address] [place] [address] Dominik ELIZONDO ([facility]S cott [facility] Fam Res Tm Green[facility] [address] [place] [address] Dominik [facility]Sco tt [facility] FAMRES Tm Blue) TELE CONSULT [id number] MED Issue TIFF FAM 12/[address] [place] [address] Dominik ELIZONDO [facility]S cott [facility] FAMRES Tm Blue) [address] [place] [address] Dominik ELIZONDO [facility]Sco tt [facility] FAMRES Tm Blue) TELE CONSULT [id number] virtual clinic encount er TIFF FAM 12/[address] [place] [address] Dominik ELIZONDO [facility]S cott [facility] FAMRES Tm Blue) [address] [place] [address] Dominik ELIZONDO [facility]co tt [facility] Fam Res Tm Green) OUTPATIENT [id number] FU discuss meds/la st visit w/provi tin TIFF FAM J 12/29 Released w/o Limitations [address] [place] [address] Dominik LOYOLAB ([facility]S cott [facility] Fam Res Tm Green[facility] [address] [place] [address] Dominik LOYOLAB [facility]Sco tt [facility] FAMRES Tm Blue) TELE CONSULT [id number] TIFF Hernadez 01/[address] [place] [address] Dominik LOYOLAB [facility]S cott [facility] FAMRES Tm Blue) [address] [place] [address] Dominik LOYOLAB [facility]Sco tt [facility] FAMRES Tm Blue) OUTPATIENT [id number] pain in both knees SARAHY CADET 03/23 Released w/o Limitations [address] [place] [address] Dominik LOYOLAB ([facility]S cott OF FAMRES Tm Blue) [address] [place] [address] Dominik LOYOLAB [facility]Sco tt [facility] FAMRES Tm Blue) TELE CONSULT [id number] Notes Entered by: ANDRE MOHAN 03 May 2012 1030 ------- ------- ------- ------- -- Jorge cerrato tlt SARAHY CADET 05/[address] [place] [address] Dominik LOYOLAB [facility]S cott [facility] FAMRES Tm Blue) [address] [place] [address] Dominik LOYOLAB [facility]co tt [facility] FAMRES Tm Blue) OUTPATIENT [id number] F/U [phone] SARAHY CADET 05/26 Released w/o Limitations [address] [place] [address] Dominik LOYOLAB [facility]S cott [facility] FAMRES Tm Blue) [address] [place] [address] Dominik LOYOLAB [facility]co tt [facility] FAMRES Tm Blue) TELE CONSULT [id number] Notes Entered by: SARAHY CADET 09 Jun 2012 1423 ------- ------- ------- ------- -- Xray results SARAHY CADET 06/[address] [place] [address] Dominik MILLAKevin [facility]S cott [facility] FAMRES Tm Blue) [address] [place] [address] Dominik MILLAB [facility]Sco tt [facility] FAMRES Tm Blue) TELE CONSULT [id number] Notes Entered by: TIFF BOOTH 24 Jul 2012 1344 ------- ------- ------- ------- -- Network Results - DERMATO LOGY 2 TIFF FAM 07/[address] [place] [address] Dominik [facility])(S cott OF FAMRES Tm Blue) [address] [place] [address])(Sco tt [facility] FAMRES Tm Blue) OUTPATIENT [id number] Sore on lips [phone] HKADAR CHURCH 08/17 Released w/o Limitations [address] [place] [address] Dominik [facility]S cott [facility] FAMRES Tm Blue) [address] [place] [address] Dominik B [facility]Sco tt [facility] FAMRES Tm Blue) TELE CONSULT [id number] Notes Entered by: ANDRE MOHAN 18 Aug 2012 0854 ------- ------- ------- ------- -- JOSE Funez 08/[address] [place] [address] Dominik [facility])(S cott [facility] FAMRES Tm Blue) [address] [place] [address] Dominik [facility])(Sco tt [facility] FAMRES Tm Blue) TELE CONSULT [id number] Notes Entered by: ANDRE MOHAN 13 Sep 2012 1101 ------- ------- ------- ------- -- Eye pain JOSE Shah 09/[address] [place] [address] Dominik [facility])(S cott [facility] FAMRES Tm Blue) [address] [place] [address] Dominik [facility])(Sco tt [facility] FAMRES Tm Blue) OUTPATIENT [id number] right eye lower corner, somethi there scratch ing eye [phone] SARAHY CADET 09/15 Released w/o Limitations [address] [place] [address] Dominik [facility])(S cott [facility] FAMRES Tm Blue) [address] [place] [address] Dominik [facility])(Sco tt [facility] FAMRES Tm Blue) TELE CONSULT [id number] Notes Entered by: JOSE FUNES 14 Nov 2012 1642 ------- ------- ------- ------- -- Dr. Cadet: Renewed triglid e 160 mg po daily #90, w/#3ref ills, fax to SARAHY Devine 11/[address] [place] [address])(S cott [facility] FAMRES Tm Blue) [address] [place] [address])(Sco tt [facility] FAMRES Tm Blue) TELE CONSULT [id number] Notes Entered by: ANDRE MOHAN 10 Jan 2013 1543 ------- ------- ------- ------- -- Discuss aamir [facility] ([facility]3] anjel for special [facility] [phone] or JOSE FUNES 01/[address] [place] [address])(S cott [facility] FAMRES Tm Blue) [address] [place] [address])(Sco tt [facility] FAMRES Tm Blue) TELE CONSULT [id number] Notes Entered by: DILMA CAMERON 09 Mar 2013 1208 ------- ------- ------- ------- -- EST - Chichi - [phone] [id number] [phone]) JOSE FUNES 03/[address] [place] [address])(S cott [facility] FAMRES Tm Blue) [address] [place] [address])(Sco tt [facility] FAMRES Tm Blue) OUTPATIENT [id number] Pt st an appt for sachi SALCEDO-LINDA ARREDONDO 03/26 Released w/o Limitations [address] [place] [address])(S cott [facility] FAMRES Tm Blue) [address] [place] [address])(Sco tt [facility] Fam Res Tm Green) TELE CONSULT [id number] Notes Entered by: CORONA TAYLOR 17 Apr 2013 1320 ------- ------- ------- ------- -- Network Results -DERMAT OLOGY 3 SARAHY CADET 04/[address] [place] [address])(S [facility] Fam Res Tm Green) [address] [place] [address] Dominik [facility])(Sco tt [facility] FAMRES Tm Blue) OUTPATIENT [id number] ANNUAL WELL WOMEN EXAM (PAP) SARAHY CADET 04/23 Released w/o Limitations [address] [place] [address] Dominik ELIZONDO [facility]S [facility] FAMRES Tm Blue) [address] [place] [address] Dominik [facility])([facility]co tt [facility] T[facility] Blue) TELE CONSULT [id number] Notes Entered by: ANDRE MOHAN 25 Apr 2013 1515 ------- ------- ------- ------- -- Mucinex not ordered Chichi [phone] 1-call back when meds are in SARAHY CADET 04/[address] [place] [address] Dominik MILLAKevin [facility] [address] [place] [address] Dominik [facility])(Sco tt [facility] Tm Blue) TELE CONSULT [id number] Notes Entered by: LUISANA PEÑA 27 Apr 2013 1116 ------- ------- ------- ------- -- Medicat ion request KELVIN PEÑA 04/[address] [place] [address] Dominik MILLAKevin [facility]S [facility] FAMRES Tm Blue) [address] [place] [address] Dominik ELIZONDO [facility])(Sco tt [facility] Fam Res Tm Green) TELE CONSULT [id number] Notes Entered by: SARAHY CADET 28 Apr 2013 0718 ------- ------- ------- ------- -- pap JUANJOSE HILTON 04/[address] [place] [address] Dominik [facility])(S [facility] Fam Res Tm Green) [address] [place] [address] Dominik [facility])(Sco tt [facility] FAMRES Tm Blue) TELE CONSULT [id number] Notes Entered by: MARVEL JEFF 04 Jul 2013 0856 ------- ------- ------- ------- -- Lab order MARVEL JEFF 07/[address] [place] [address] Dominik LOYOLAB [facility]S [facility] FAMRES Tm Blue) [address] [place] [address] Dominik [facility])(Sco tt [facility] Fam Res Tm Green) TELE CONSULT [id number] Notes Entered by: SARAHY CADET 11 Jul 2013 0028 ------- ------- ------- ------- -- labs SARAHY CADET 07/[address] [place] [address] Dominik [facility])(S [facility] Fam Res Tm Green) [address] [place] [address] Dominik B [facility])(Sco tt [facility] FAMRES Tm Blue) OUTPATIENT [id number] [facility] [id number] SARAHY CADET 08/13 Released w/o Limitations [address] [place] [address] Dominik ELIZONDO [facility]S [facility] FAMRES Tm Blue) [address] [place] [address] Dominik LOYOLAB [facility])(Sco tt [facility] FAMRES Tm Blue) TELE CONSULT [id number] Notes Entered by: SHANW RAMIREZ 27 Aug 2013 1400 ------- ------- ------- ------- -- Rx Renewal -MARVEL Grace 08/[address] [place] [address] Dominik [facility])([facility] FAMRES Tm Blue) [address] [place] [address] Dominik [facility])(Sco tt [facility] Fam Res Tm Gold) TELE CONSULT [id number] Notes Entered by: SARAHY CADET 28 Aug 2013 1335 ------- ------- ------- ------- -- Pineal cyst SARAHY CADET 08/[address] [place] [address] Dominik ELIZONDO [facility]S [facility] Fam Res Tm Gold) [address] [place] [address] Dominik LOYOLAB [facility])(Sco tt [facility] FAMRES Tm Blue) TELE CONSULT [id number] Notes Entered by: TIFF BOOTH 08 Oct 2013 1240 ------- ------- ------- ------- -- Network Results - DERMATO LOGY - 10/02/13 MATIAS-LINDA ARREDONDO 10/[address] [place] [address] [employer] [facility]S cott [facility] FAMRES Tm Blue) [address] [place] [address] [employer] [facility]Sco tt [facility] Fam Res Tm Gold) TELE CONSULT [id number] Notes Entered by: SHONA HURST 28 Dec 2013 0632 ------- ------- ------- ------- -- Sx/stom ach pain/wi lson/22 0.6970* SAPPHIRE HENRY 12/[address] [place] [address] Dominik LOYOLAB [facility]S [facility] Fam Res Tm Gold) [address] [place] [address] [employer] [facility]Meo tt [facility] Fam Res Tm Gold) TELE CONSULT [id number] Notes Entered by: MARVEL JEFF 03 Jan 2014 0808 ------- ------- ------- ------- -- MARVEL Swan 01/[address] [place] [address] Dominik LOYOLAB [facility]S [facility] Fam Res Tm Gold) [address] [place] [address] [employer] [facility]Meo tt [facility] Fam Res Tm Gold) OUTPATIENT [id number] physica l - cough - [phone] SARAHY CADET 06/03 Released w/o Limitations [address] [place] [address] Dominik LOYOLAB [facility]S [facility] Fam Res Tm Gold) [address] [place] [address] Dominik B [facility]) OUTPATIENT [id number] [facility] SARAHY CADET 06/07 Released w/o Limitations [address] [place] [address] [employer] [facility]M inor Procedu re Clinic) [address] [place] [address] [employer] [facility]Meo tt [facility] Fam Res Tm Red) TELE CONSULT [id number] Notes Entered by: SARAHY CADET 19 Jun 2014 1107 ------- ------- ------- ------- -- SARAHY Raya 06/[address] [place] [address] Dominik MILLAB [facility])(S [facility] Fam Res Tm Red) [address] [place] [address] Dominik LOYOLAB [facility])(Sco tt [facility] Fam Res Tm Gold) TELE CONSULT [id number] Notes Entered by: ALEJANDRO VILLELA 20 Jun 2014 1536 ------- ------- ------- ------- -- Medicat ion Solis /CHICHI /ALEJANDRO RETANA 06/20 Released to [employer] [facility] Medical Group Dominik LOYOLAB [facility])(S [facility] Fam Res Tm Gold) [facility] Dominik MILLAB [facility]Min or Procedure Clinic) OUTPATIENT [id number] F/U LBP SARAHY CADET 07/01 Released w/o Limitations [facility] Dominik MILLAB ([facility]M inor Procedu re Clinic) [address] [place] [address] Group Dominik MILLAB [facility])(Meo [facility] Fam Res Tm Gold) OUTPATIENT [id number] routine exam SARAHY CADET 07/08 Released w/o Limitations [address] [place] [address] Group Dominik MILLAB ([facility])(S [facility] Fam Res Tm Gold) [facility] Medical Group Dominik MILLAB [facility]Min or Procedure Clinic[facility] OUTPATIENT [id number] F/U LOW BACK PAIN. SARAHY CADET 07/23 Released w/o Limitations [address] [place] [address] Group Dominik LOYOLAB ([facility]M inor Procedu re Clinic) [address] [place] [address] Group Dominik MILLAB [facility])([facility] Fam Res Tm Red) TELE CONSULT [id number] Notes Entered by: SARAHY CADET 23 Jul 2014 1408 ------- ------- ------- ------- -- Endomet rial strip SARAHY CAEDT 07/[address] [place] [address] Group Dominik LOYOLAB ([facility]S [facility] Fam Res Tm Red) [facility] Medical Group Dominik MILLAB ([facility]Min or Procedure Clinic) OUTPATIENT [id number] lower back pain SHAY HUGHES 08/21 Released w/o Limitations [address] [place] [address] Group Dominik MILLAB ([facility])(M inor Procedu re Clinic) [facility] Medical Group Dominik MILLAB ([facility])(Sco tt [facility] Fam Res Tm Green) TELE CONSULT [id number] Notes Entered by: ALLISON NIXON 22 Aug 2014 0951 ------- ------- ------- ------- -- Network Results - Physica l Therapy 5 SARAHY CADET 08/[address] [place] [address] Dominik MILLAKevin [facility]S cott OF Fam Res Tm Green) [address] [place] [address] Dominik [facility])(Sco tt [facility] Fam Res Tm Green) OUTPATIENT [id number] Notes Entered by: SARAHY CADET 03 Sep 2014 1648 ------- ------- ------- ------- -- neck and SARAHY Yoon 09/03 Released w/o Limitations [address] [place] [address] Dominik MILLAKevin [facility])(S cott [facility] Fam Res Tm Green) [address] [place] [address] Dominik MILLAKevin [facility])(Sco tt [facility] [employer] Tm Blue) TELE CONSULT [id number] Notes Entered by: PRADIP MARQUEZ 13 Sep 2014 1357 ------- ------- ------- ------- -- Network results Physica l Therapy 015 SARAHY CADET 09/[address] [place] [address] Dominik MILLAKevin [facility] [address] [place] [address] Dominik MILLAKevin [facility]Min or Procedure Clinic) OUTPATIENT [id number] F/U right neck and SHAY Beltran 09/25 Released w/o Limitations [address] [place] [address] Dominik MILLAKevin [facility]M inor Procedu re Clinic) [address] [place] [address] Dominik MILLAB [facility])(Sco tt [facility] [employer] Res Tm Green) TELE CONSULT [id number] Notes Entered by: ALLISON NIXON 02 Oct 2014 1041 ------- ------- ------- ------- -- Network Results - Physica l Therapy 5 SARAHY CADET 10/[address] [place] [address] Dominik MILLAKevin [facility])(S cott [facility] [employer] Res Tm Green) [address] [place] [address] Dominik [facility])(Min or Procedure Clinic) OUTPATIENT [id number] f/u upper back and neck pain DC OLIVEIRA Hugh 10/24 Released w/o Limitations [address] [place] [address] Dominik [facility])( inor Procedu re Clinic) [address] [place] [address] Dominik [facility])(Meo tt [facility] Fam Res Tm Gold) OUTPATIENT [id number] f/u ultraso und SARAHY CADET 10/29 Released w/o Limitations [address] [place] [address] Dominik [facility])(S [facility] Fam Res Tm Gold) [address] [place] [address] Dominik [facility])([facility] FAMRES Tm Blue) TELE CONSULT [id number] Notes Entered by: PRADIP MARQUEZ 05 Nov 2014 1013 ------- ------- ------- ------- -- Network results Physica l Therapy 015 SARAHY CADET 11/[address] [place] [address] Dominik [facility])([facility] FAMRES Tm Blue) [address] [place] [address] Dominik [facility])(Min or Procedure Clinic) OUTPATIENT [id number] F/U BACK PAIN HAILEEJAYNA KernsVerna Nelson 11/15 Released w/o Limitations [address] [place] [address] Dominik [facility])([facility] Procedu re [facility]) [address] [place] [address] Dominik [facility])(Meo tt [facility] Fam Res Tm Gold) TELE CONSULT [id number] Notes Entered by: SARAHY CADET 20 Nov 2014 1228 ------- ------- ------- ------- -- clautro phobia SARAHY CADET 11/[address] [place] [address] Dominik [facility])([facility] Fam Res Tm Gold) [address] [place] [address] Odminik [facility])([facility] Fam Res Tm Gold) TELE CONSULT [id number] Notes Entered by: SHANTEL BROWNE 29 Nov 2014 1506 ------- ------- ------- ------- -- Open SAKSHI / Chichi / [phone] TITA BROWNE 11/29 Referred for Appointment [employer] Dominik LOYOLAB ([facility] Fam Res Tm Gold) [facility] Medical Group Dominik LOYOLAB ([facility])([facility] Fam Res Tm Gold) TELE CONSULT [id number] Notes Entered by: MAYO ELENA 03 Dec 2014 0738 ------- ------- ------- ------- -- TITA Roldan 12/03 Referred for Appointment [employer] Dominik LOYOLAB ([facility])([facility] Fam Res Tm Gold) [facility] Medical Group Dominik LOYOLAB [facility])([facility] Fam Res Tm Gold) TELE CONSULT [id number] Notes Entered by: SHANTEL BROWNE 20 Dec 2014 1417 ------- ------- ------- ------- -- MRI results / Hcichi / [phone] TITA BROWNE 12/20 Referred for Appointment [facility] Medical Group Dominik LOYOLAB ([facility])([facility] Fam Res Tm Gold) [facility] Medical Group Dominik LOYOLAB [facility]Min or Procedure Clinic) OUTPATIENT [id number] F/U UPPER BACK DC OLIVEIRA 01/17 Released w/o Limitations [employer] Dominik LOYOLAB ([facility])(M inor Procedu re Clinic) [facility] Medical Group Dominik LOYOLAB ([facility])(Min or Procedure Clinic) OUTPATIENT [id number] F/U SARAHY SKELTON 01/31 Released w/o Limitations [employer] Dominik LOYOLAB ([facility])(M inor Procedu re Clinic) [facility] Medical Group Dominik LOYOLAB ([facility])(Min or Procedure Clinic) OUTPATIENT [id number] adolph frost f/u DC OLVIEIRA 02/10 Released w/o Limitations [employer] ([facility])(M inor Procedu re Clinic) [facility] Medical Group Dominik MILLAB ([facility])([facility] Fam Res Tm Gold) TELE CONSULT [id number] Notes Entered by: MAYO ELENA 21 Feb 2015 1344 ------- ------- ------- ------- -- Micaelvis retro referra TITA Mcdermott 02/21 Referred for Appointment [facility] Medical Group Dominik LOYOLAB ([facility])(S [facility] Fam Res Tm Gold) [facility] Medical Group Dominik LOYOLAB ([facility])(Min or Procedure Clinic) OUTPATIENT [id number] F/u left shoulde r. JAKET appoint DC De Luna 03/13 Released w/o Limitations [facility] Group Dominik LOYOLAB ([facility])(M inor Procedu re Clinic) [facility] Medical Group Dominik LOYOLAB ([facility])(Sco tt [facility] Fam Res Tm Gold) TELE CONSULT [id number] Notes Entered by: MAYO ELENA 07 Apr 2015 0751 ------- ------- ------- ------- -- Perlita medicat TITA Hutchison 04/07 Referred for Appointment [facility] Medical Group Dominik LOYOLAB ([facility])(S [facility] Fam Res Tm Gold) [facility] Medical Group Dominik LOYOLAB ([facility])(Min or Procedure Clinic) OUTPATIENT [id number] F/U JAKET DC OLIVEIRA 04/24 Released w/o Limitations [facility] Medical Group Dominik LOYOLAB ([facility])(M inor Procedu re Clinic) [facility] Medical Group Dominik LOYOLAB ([facility])(Min or Procedure Clinic) OUTPATIENT [id number] Upper back/ne ck pain DC OLIVEIRA 06/03 Released w/o Limitations [facility] Medical Group Dominik LOYOLAB ([facility])(M inor Procedu re Clinic) [facility] Medical Group [employer] ([facility])(Sco tt [facility] Fam Res Tm Red) OUTPATIENT [id number] X/B head congest ion, mucus/ PAN vargas JORDAN J 06/16 Released w/o Limitations [facility] Medical Group [employer] ([facility])(S cott [facility] Fam Res Tm Red) [facility] Medical Group [employer] ([facility])(Sco tt [facility] FAMRES Tm Blue) OUTPATIENT [id number] R- foot pains X 1week,2 [id number] SHAY HUGHES 06/23 Released w/o Limitations [address] [place] [address] Dominik ELIZONDO [facility])([facility] FAMRES Tm Blue) [address] [place] [address] Dominik ELIZONDO [facility])([facility] Fam Res Tm Gold) TELE CONSULT [id number] Notes Entered by: FLORIDA HARRY 26 Jun 2015 0820 ------- ------- ------- ------- -- Med questio n/althea r/ [phone] TITA BROWNE 06/26 Referred for Appointment [address] [place] [address] Dominik ELIZONDO [facility])([facility] Fam Res Tm Gold) [address] [place] [address] Dominik ELIZONDO [facility])([facility] Fam Res Tm Gold) TELE CONSULT [id number] Notes Entered by: VERNON MARCOS 26 Jun 2015 1039 ------- ------- ------- ------- -- Network Results -ORTHOP EDICS 01/20/15 SDG SHAY ROGERS 06/[address] [place] [address] Dominik ELIZONDO [facility] Fam Res Tm Gold) [address] [place] [address] Dominik ELIZONDO [facility])([facility] Fam Res Tm Gold) TELE CONSULT [id number] Notes Entered by: ALEJANDRO VILLELA 27 Jun 2015 1106 ------- ------- ------- ------- -- Medicat ion request /Cecilia h/[phone] PIERO REDMAN 06/[address] [place] [address] Dominik ELIZONDO [facility])([facility] Fam Res Tm Gold) [address] [place] [address] Dominik ELIZONDO [facility])(Min or Procedure Clinic) OUTPATIENT [id number] F/U OMT SHAY HUGHES 07/03 Released w/o Limitations [address] [place] [address] Dominik ELIZONDO [facility]M inor Procedu re Clinic) [address] [place] [address] Dominik MIKHAIL [facility]Min or Procedure Clinic) OUTPATIENT [id number] f/u VERNON OLIVEIRAR S 07/31 Released w/o Limitations [facility] Medical Group Dominik ELIZONDO ([facility]M inor Procedu re Clinic) [address] [place] [address] Group Dominik ELIZONDO ([facility])(Min or Procedure Clinic) OUTPATIENT [id number] F/U OMT VERNON OLIVEIRAR S 08/28 Released w/o Limitations [facility] [facility] [employer] [facility] ([facility]M inor Procedu re Clinic) [address] [place] [address] Group [employer] ELIZON[employer] ([facility]Min or Procedure Clinic) OUTPATIENT [id number] f/u VERNON OLIVEIRAR S 09/09 Released w/o Limitations [facility] [employer] EL[employer] ([facility]M inor Procedu re Clinic) [address] [place] [address] Group [employer] ELIZONDO [facility]Sco tt [facility] Fam Res Tm Gold) TELE CONSULT [id number] Notes Entered by: MAYO EELNA 26 Sep 2015 1629 ------- ------- ------- ------- -- Micare medicat ion request TITA BROWNE 09/26 Referred for Appointment [address] [place] [address] Group [employer] ELIZONDO ([facility]S cott [facility] Fam Res Tm Gold) [address] [place] [address] Group [employer] ELIZONDO ([facility]Min or Procedure Clinic) OUTPATIENT [id number] f/u OMT CONCHA PERLA 10/09 Released w/o Limitations [facility] [employer] EL[employer] ([facility]M inor Procedu re Clinic) [address] [place] [address] Group [employer] ELIZON[employer] ([facility]Min or Procedure Clinic) OUTPATIENT [id number] f/u OMT STEPHANY MUIR 10/22 Released w/o Limitations [address] [place] [address] Group [employer] ELIZODNO ([facility]M inor Procedu re Clinic) [address] [place] [address] Group [employer] LOYOLAB ([facility]Sco tt [facility] Fam Res Tm Gold) TELE CONSULT [id number] Notes Entered by: FLORIDA HARRY 03 Nov 2015 0842 ------- ------- ------- ------- -- NAL UC F/U and Retro ref req/Sny tin/618 .[phone] 79 TITA BROWNE 11/02 Referred for Appointment [employer] ([facility] Fam Res Tm Gold) [employer] ([facility]Min or Procedure Clinic) OUTPATIENT [id number] f/u ANITHA Clay 11/17 Released w/o Limitations [employer] ([facility]M inor Procedu re Clinic) [employer] ([facility] Fam Res Tm Gold) TELE CONSULT [id number] Notes Entered by: Kevin PLATT 26 Nov 2015 1555 ------- ------- ------- ------- -- Referra TITA Mcdermott (Snyder ) 11/25 Referred for Appointment [employer] ([facility] Fam Res Tm Gold) [facility] [employer] ([facility]Min or Procedure Clinic) OUTPATIENT [id number] F/U OMT STEPHANY MUIR 12/02 Released w/o Limitations [employer] ([facility]M inor Procedu re Clinic) [facility] [employer] LOYOLAB ([facility] Fam Res Tm Gold) TELE CONSULT [id number] Notes Entered by: Kevin PLATT 08 Dec 2015 1613 ------- ------- ------- ------- -- Med refmakenna (TITA Card 12/07 Referred for Appointment [employer] ([facility] Fam Res Tm Gold) [employer] ([facility]Min or Procedure Clinic) OUTPATIENT [id number] f/u OMT PIERO REDMAN 12/16 Released w/o Limitations [employer] ([facility]M in[facility] Procedu re Clinic) [employer] ([facility]Min or Procedure Clinic) OUTPATIENT [id number] F/U OMT SARWAT MCNALLY 03/05 Released w/o Limitations [employer] ([facility]M inor Procedu re Clinic) [employer] ([facility]Sco tt [facility] Fam Res Tm Gold) OUTPATIENT [id number] R side pain x 2 wks SHAY ROGERS 03/25 Released w/o Limitations [employer] ([facility]S cott [facility] Fam Res Tm Gold) [facility] [employer] ([facility]Min or Procedure Clinic) OUTPATIENT [id number] NECK PAIN SHALA MOSER Santosh 04/05 Released w/o Limitations [employer] ([facility]M inor Procedu re Clinic) [facility] [employer] ([facility]Min or Procedure Clinic) OUTPATIENT [id number] F/U OMT] GEOVANNA BELTRAN 05/07 Released w/o Limitations [employer] ([facility]M inor Procedu re Clinic) [facility] [employer] ([facility]Min or Procedure Clinic) OUTPATIENT [id number] F/U OMT STACIA RAINES 05/28 Released w/o Limitations [employer] ([facility]M inor Procedu re Clinic) [facility] [employer] ([facility]Sco tt [facility] Fam Res Tm Gold) OUTPATIENT [id number] Derm issue on chest [id number] MATIAS-LINDA ARREDONDO 06/01 Released w/o Limitations [employer] ([facility]S [facility] Fam Res Tm Gold) [facility] [employer] ([facility]Sco tt [facility] FAMRES Tm Blue) TELE CONSULT [id number] Notes Entered by: PRADIP MARQUEZ 08 Jun 2016 1227 ------- ------- ------- ------- -- Network results Urgent Care 016 SHAY ANDERSEN 06/08 [employer] ([facility]S [facility] FAMRES Tm Blue) [facility] [employer] ([facility]Min or Procedure Clinic) OUTPATIENT [id number] OMT f/u DC OLIVEIRA 06/30 Released w/o Limitations [address] [place] [address] [employer] ([facility]M inor Procedu re Clinic) [address] [place] [address] [employer] ([facility]Min or Procedure Clinic) OUTPATIENT [id number] Inflame d seborrh eic keratos is CA RODRIGUEZ 07/05 Released w/o Limitations [address] [place] [address] [employer] LOYOLAB ([facility] inor Procedu re Clinic) [address] [place] [address] Dominik LOYOLAB [facility]Sco tt [facility] Fam Res Tm Red) TELE CONSULT [id number] Notes Entered by: Hugh RODRIGUEZ 19 Jul 2016 1548 ------- ------- ------- ------- -- Biopsy Results SHARI MORENO 07/[address] [place] [address] [employer] LOYOLAB ([facility]S [facility] Fam Res Tm Red) [address] [place] [address] Dominik LOYOLAB [facility]Sco tt [facility] Fam Res Tm Gold) TELE CONSULT [id number] Notes Entered by: Carlitos COPELAND 19 Jul 2016 1603 ------- ------- ------- ------- -- Skin Tissue Biopsy Results Request / Darren/ 220.697 0 - CA Azar 07/[address] [place] [address] [employer]ik LOYOLAB ([facility]S [facility] Fam Res Tm Gold) [address] [place] [address] Dominik LOYOLAB [facility]Min or Procedure Clinic) OUTPATIENT [id number] T f/u ARASH FONTANEZ 07/21 Released w/o Limitations [address] [place] [address] [employer] LOYOLAB ([facility]M inor Procedu re Clinic) [address] [place] [address] Dominik LOYOLAB [facility]Meo tt [facility] Fam Res Tm Gold) TELE CONSULT [id number] Notes Entered by: VERNELL KERN 28 Jul 2016 1114 ------- ------- ------- ------- -- Biopsy Results / Darren / [phone] 0 - TITA Velasco 07/28 Referred for Appointment [address] [place] [address] [facility]ik LOYOLAB [facility]S [facility] Fam Res Tm Gold) [facility] [employer] LOYOLAB [facility]Sco tt [facility] Fam Res Tm Green) TELE CONSULT [id number] Notes Entered by: LINDA HOLBROOK 12 Aug 2016 0938 ------- ------- ------- ------- -- LINDA Roldan 08/[address] [place] [address] Group [employer] LOYOLAB [facility]S [facility] Fam Res Tm Green) [address] [place] [address] Group [employer] LOYOLAB ([facility]Sco tt [facility] Fam Res Tm Gold) OUTPATIENT [id number] f/u on biospy - invite [facility] Tiffany to this appt - [phone] LINDA MCKINNEY 08/24 Released w/o Limitations [address] [place] [address] Group [employer] LOYOLAB ([facility]S [facility] Fam Res Tm Gold) [address] [place] [address] Dominik LOYOLAB [facility]Min or Procedure Clinic) OUTPATIENT [id number] F/U OMT neck . LIONEL TORRES 09/01 Released w/o Limitations [address] [place] [address] Group [employer] LOYOLAB ([facility]M inor Procedu re Clinic) [address] [place] [address] Dominik MILLAB [facility]Tin matology) OUTPATIENT [id number] Actinic keratos is JUAN MORALES 09/24 Released w/o Limitations [address] [place] [address] [employer] MILLAB ([facility])(D ermatol ogy) [address] [place] [address] [employer] MILLAB ([facility]Min or Procedure Clinic) OUTPATIENT [id number] OMT F/U shoulde rs and neck DC OLIVEIRA 09/27 Released w/o Limitations [address] [place] [address] Group [employer] MILL[employer] ([facility]M inor Procedu re Clinic) [address] [place] [address] Dominik MILLAB [facility]Tin matology) OUTPATIENT [id number] Notes Entered by: EDDA DAI 01 Oct 2016 0956 ------- ------- ------- ------- -- Suture Removal JUAN MORALES 10/01 Released w/o Limitations [address] [place] [address] [employer] ([facility]D ermatol ogy) [facility] [employer] ([facility]Min or Procedure Clinic) OUTPATIENT [id number] OMT f/u LIONEL TORRES 10/13 Released w/o Limitations [employer] ([facility]M inor Procedu re Clinic) [facility] [employer] ([facility]Min or Procedure Clinic) OUTPATIENT [id number] OMT F/u DC OLIVEIRA 11/08 Released w/o Limitations [employer] ([facility]M inor Procedu re Clinic) [facility] [employer] ([facility])(Car e Coordinat ion Clinic) TELE CONSULT [id number] Notes Entered by: BRENDA SANCHEZ 15 Nov 2016 1042 ------- ------- ------- ------- -- HU AUSTIN Villasenor 11/15[facility] Group [employer] MILLAB ([facility]C are Coordin ation Clinic) [facility] [employer] ([facility]Min or Procedure Clinic) OUTPATIENT [id number] OMT f/u DC OLIVEIRA 12/13 Released w/o Limitations [employer] ([facility]M inor Procedu re Clinic) [facility] [employer] ([facility]Min or Procedure Clinic) OUTPATIENT [id number] OMT f/u SHAY HUGHES 12/31 Released w/o Limitations [employer] ([facility]M inor Procedu re Clinic) [facility] [employer] ([facility])(Tin matology) OUTPATIENT [id number] poss keloid on chest JUAN MORALES 01/03 Released w/o Limitations [facility] [employer] ([facility])(D ermatol ogy) [facility] [employer] ([facility]Sco tt [facility] Fam Res Tm Gold) OUTPATIENT [id number] left thumb pain - [id number] ROXANNA SANTILLAN 01/18 Released w/o Limitations [employer] ([facility]S cott [facility] Fam Res Tm Gold) [facility] [employer] ([facility]Sco tt [facility] Fam Res Tm Red) TELE CONSULT [id number] Notes Entered by: HARLEY SANDERSON 19 Jan 2017 1134 ------- ------- ------- ------- -- Sx: Sx persist /Splint for thumb/C agle/61 8.220.6 970/clm SHARI MORENO 01/[address] [place] [address] Dominik Kevin [facility]S cott [facility] Res Tm Red) [address] [place] [address] Dominik [facility] TELE CONSULT [id number] Notes Entered by: Helena GILES 21 Jan 2017 1533 ------- ------- ------- ------- -- Network Results PHYSICA L/OCCUP ATIONAL Therapy 017 TODD KNIGHT 01/[address] [place] [address] Dominik Kevin [facility]S [facility] Tm Blue) [address] [place] [address] Dominik [facility])(Sco tt [facility] Blue) OUTPATIENT [id number] OMT f/u SHAY HUGHES 02/02 Released w/o Limitations [address] [place] [address] Dominik Kevin [facility]S cott [facility] FAMRES Tm Blue) [address] [place] [address] Dominik [facility])(Min or Procedure Clinic) OUTPATIENT [id number] Trigger injecti on SHAY HUGHES 02/04 Released w/o Limitations [address] [place] [address] Dominik Kevin [facility]M inor Procedu re Clinic) [address] [place] [address] Dominik B [facility]) OUTPATIENT [id number] OMT f/u SHAY HUGHES 03/03 Released w/o Limitations [address] [place] [address] Dominik Kevin [facility]S cott [facility] FAMRES Tm Blue) [address] [place] [address] Dominik B [facility]Sco tt [facility] Tm Blue) TELE CONSULT [id number] Notes Entered by: PRADIP MARQUEZ 16 Mar 2017 0821 ------- ------- ------- ------- -- Network results Physica l Therapy 017 SHAY STEWART 03/[address] [place] [address] Dominik ELIZONDO ([facility]S cott [facility] FAMRES Tm Blue) [address] [place] [address] Dominik ELIZONDO ([facility]Sco tt [facility] Fam Res Tm Green) OUTPATIENT [id number] derm check on neck DC OLIVEIRA 03/25 Released w/o Limitations [address] [place] [address] Dominik ELIZONDO ([facility]S cott [facility] Fam Res Tm Green) [address] [place] [address] Dominik MILLAB ([facility]Min or Procedure Clinic) OUTPATIENT [id number] OMT f/u CAROL ANN KHAN 04/08 Released w/o Limitations [address] [place] [address] Dominik MILLAKevin ([facility]M inor Procedu re Clinic) [address] [place] [address] Dominik MILLAB ([facility])(Sco tt [facility] Fam Res Tm Green) OUTPATIENT [id number] Abdomin al issues, white tongue, 220.697 0 DC OLIVEIRA 04/26 Released w/o Limitations [address] [place] [address] Dominik ELIZONDO ([facility]S cott [facility] Fam Res Tm Green) [address] [place] [address] Dominik MILLAKevin ([facility]Min or Procedure Clinic) OUTPATIENT [id number] OMT F/U SHOULDE R PAIN. TSACIA RAINES 05/13 Released w/o Limitations [address] [place] [address] [employer] ([facility]M inor Procedu re Clinic) [address] [place] [address] Dominik MILLAB [facility]Sco tt [facility] Fam Res Tm Green) OUTPATIENT [id number] OMT F/U cervica l pain. DC OLIVEIRA 06/15 Released w/o Limitations [address] [place] [address] [employer]ik MILLAB ([facility])(S cott [facility] Fam Res Tm Green) [address] [place] [address] [employer]ik MILLAB ([facility]Min or Procedure Clinic) OUTPATIENT [id number] OMT f/u SHALA MOSER 07/15 Released w/o Limitations [address] [place] [address] [employer]ik MILLAB ([facility]M inor Procedu re Clinic) [address] [place] [address] Dominik MILLAB ([facility])(Sco tt [facility] Fam Res Tm Green) OUTPATIENT [id number] L and R heel pain, 667.107 9 DC OLIVEIRA Hugh 08/19 Released w/o Limitations [address] [place] [address] Dominik [facility]S [facility] Fam Res Tm Green) [address] [place] [address] Dominik [facility])(Sco tt [facility] Res Tm Green) TELE CONSULT [id number] Notes Entered by: JIMMY SONG 26 Aug 2017 0753 ------- ------- ------- ------- -- Request to speak to the nurse - Referra verna Rodriguez - - tsg SHARI MORENO 08/[address] [place] [address] Dominik [facility])(S [facility] Res Green) [address] [place] [address] Dominik [facility])(Min or Procedure Clinic) OUTPATIENT [id number] F/U OMT cervica l and thoraci c somatic dysfunc tion. BARON COPELAND 09/08 Released w/o Limitations [address] [place] [address] Dominik [facility])(M inor Procedu re Clinic) [address] [place] [address] [facility]ik [facility]) OUTPATIENT [id number] OMT F/U cervica l, thoraci c nad upper extremi ty somatic dysfunc tion. LORNA GARCIA 10/05 Released w/o Limitations [address] [place] [address] Dominik [facility])(M inor Procedu re Clinic) [address] [place] [address] Dominik [facility])([facility] tt [facility] Blue) TELE CONSULT [id number] Notes Entered by: Diane MORENO 06 Oct 2017 2314 ------- ------- ------- ------- -- Request s med refill for Lipitor , contact #:[phone] SHARI MORENO 10/[address] [place] [address] Dominik [facility] [address] [place] [address] Dominik [facility]Sco tt [facility] Res Tm Green) TELE CONSULT [id number] Notes Entered by: Carlitos VALDIVIA 10 Oct 2017 1430 ------- ------- ------- ------- -- Network results Dermato logy 018 CA CROCKER 10/[address] [place] [address])(S cott [facility] Fam Res Tm Green) [address] [place] [address])(Sco tt [facility] Fam Res Tm Green) TELE CONSULT [id number] Notes Entered by: SHEILA ARCHIBALD 14 Oct 2017 1154 ------- ------- ------- ------- -- Medical Necessi ty Form for Med Lore /Tiffany/ SHARI MORENO 10/[address] [place] [address])(S cott [facility] Fam Res Tm Green) [address] [place] [address])(Sco tt [facility] Fam Res Tm Green) TELE CONSULT [id number] Notes Entered by: VERNON MARCOS 24 Oct 2017 1336 ------- ------- ------- ------- -- Network Results -CARDIO LOGY 09/22/17 CA BROWN 10/[address] [place] [address])(S cott [facility] Fam Res Tm Green) [address] [place] [address])(Sco tt [facility] Fam Res Tm Green) TELE CONSULT [id number] Notes Entered by: Carlitos COPELAND 24 Oct 2017 1549 ------- ------- ------- ------- -- Medicat ion Not in Pharmac y/ Tiffany/ [phone] or [phone] 0 - SHARI Price 10/[address] [place] [address])(S cott [facility] Fam Res Tm Green) [address] [place] [address])(Min or Procedure Clinic) OUTPATIENT [id number] OMT F/U Somatic dysfunc tion, thoraci c, head and rib cage. SHALA MOSER 10/28 Released w/o Limitations [address] [place] [address])(M inor Procedu re Clinic) [address] [place] [address])(Bas e Operation al Medicine Clin) TELE CONSULT [id number] Notes Entered by: Randal OLIVEIRA 31 Oct 2017 1522 ------- ------- ------- ------- -- Non-for mulary request DC OLIVEIRA 10/[address] [place] [address] Dominik [facility])(B ase Operati onal Medicin e Clin) [address] [place] [address])(Sco tt [facility] FAM[facility] Tm Blue) TELE CONSULT [id number] Notes Entered by: SUZANNE MONET 01 Nov 2017 1348 ------- ------- ------- ------- -- Network Results - Dermato logy 09/13/17 CA RODRIGUEZ 11/[address] [place] [address])(S cott [facility] FAM[facility] Tm Blue) [address] [place] [address])(Sco tt [facility] Fam Res Tm Green) OUTPATIENT [id number] right knee pain/di scomfor t x 2 weeks LORNA GARCIA 11/28 Released w/o Limitations [address] [place] [address])(S cott [facility] Fam Res Tm Green) [address] [place] [address])(Sco tt [facility] Fam Res Tm Green) OUTPATIENT [id number] OMT F/U somsati c dysfunc tions of cervica l and toracic ,rib cage. PERLA HOSKINS 12/02 Released w/o Limitations [address] [place] [address])(S cott [facility] Fam Res Tm Green) [address] [place] [address])(Sco tt [facility] Fam Res Tm Green) TELE CONSULT [id number] Notes Entered by: VICKIE ROWE 15 Dec 2017 1442 ------- ------- ------- ------- -- Med Renewal Request / Tiffany/ [phone] 0 - aleshatonya SHARI MORENO 12/[address] [place] [address] Dominik ELIZONDO [facility]S cott [facility] Fam Res Tm Green) [address] [place] [address] Dominik [facility]IZONDO [facility])(Sco tt [facility] Fam Res Tm Green) OUTPATIENT [id number] OMT F/U segment al and somatic dysfunc tion cervica l/rib cage. JAVIER HUA 01/11 Released w/o Limitations [address] [place] [address] Dominik ELIZONDO [facility])(S cott [facility] Fam Res Tm Green) [address] [place] [address] Dominik ELIZONDO [facility])(Sco tt [facility] Fam Res Tm Green) TELE CONSULT [id number] Notes Entered by: PERLA HOSKINS 17 Jan 2018 1045 ------- ------- ------- ------- -- PERLA Ribera 01/[address] [place] [address] Dominik ELIZONDO [facility])(S cott [facility] Fam Res Tm Green) [address] [place] [address] Dominik ELIZONDO [facility])(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 SHALA MOSER 03/06 Released w/o Limitations [address] [place] [address] Dominik [facility]S cott [facility]) [address] [place] [address] Dominik [facility]IZONDO [facility]Sco tt [facility] [employer] [place]) OUTPATIENT [id number] OMT PERLA HOSKINS 04/10 Released w/o Limitations [address] [place] [address] Dominik [facility]DO [facility]S cott [facility] [employer] [place]) [address] [place] [address] Dominik LOYOLAB [facility]Sco tt [facility] [employer] [place]) OUTPATIENT [id number] trigger finger LORNA GARCIA 05/31 Released w/o Limitations [address] [place] [address] Dominik [facility]DO [facility]S cott [facility] [employer] [place]) [address] [place] [address] Group Dominik ELIZONDO ([facility]co tt [facility] [employer] [place]) OUTPATIENT [id number] right ear pain BARON COPELAND 06/01 Released w/o Limitations [address] [place] [address] Dominik [facility]IZONDO [facility]S cott [facility] [employer] [place]) [address] [place] [address] Dominik [facility]IZONDO [facility]Sco tt [facility] [employer] [employer]) OUTPATIENT [id number] OMT F/U somatic thoraci c dysfunc david. STEPHANY MUIR 06/16 Released w/o Limitations [address] [place] [address] Dominik [facility]IZONDO [facility]S cott [facility] F[facility] [place]) [address] [place] [address] Dominik [facility]IZONDO [facility]Sco tt [facility] [employer] [employer]) TELE CONSULT [id number] Notes Entered by: VICKIE ROWE 03 Jul 2018 1421 ------- ------- ------- ------- -- Next Step of Treatme nt - R Hand X-ray/ Tiffany/ - LORNA Oneil 07/03 Referred for Appointment [address] [place] [address] Dominik ELIZONDO [facility]S [facility] [employer] [place]) [address] [place] [address] Dominik [facility]IZONDO [facility]Sco tt [facility] [employer] [place]) TELE CONSULT [id number] Notes Entered by: SHEILA ARCHIBALD 17 Oct 2018 0908 ------- ------- ------- ------- -- Referra l Renewal Request /Tiffany/ SHARI MORENO 10/17 Referred for Appointment [address] [place] [address] Group Dominik [facility]IZONDO [facility]S cott [facility] [employer] [place]) [address] [place] [address] Dominik [facility]ONDO [facility]co tt [facility] [employer] [place]) OUTPATIENT [id number] OMT/nec k,mid back LORNA GARCIA 11/02 Released w/o Limitations [address] [place] [address] Dominik [facility]IZONDO [facility]S cott [facility] [employer] [employer]) [facility] Dominik ELIZONDO ([facility]Sco tt [facility] [employer] [employer]) OUTPATIENT [id number] OMT LORNA GARCIA 11/23 Released w/o Limitations [facility] Group Dominik ELIZONDO ([facility]S cott [facility] [employer]) [facility] Dominik [facility]IZONDO [facility]) OUTPATIENT [id number] Notes Entered by: KURT DICKENS 08 Dec 2018 1439 ------- ------- ------- ------- -- Pre-KURT Medel 12/08 Released w/o Limitations [address] [place] [address] Group Dominik [facility]IZONDO [facility]N utritio efren Medicin e) [facility] Dominik [facility]IZONDO ([facility]Sco tt [facility] [employer]) OUTPATIENT [id number] OMT F/U upper back pain LORNA GARCIA 12/18 Released w/o Limitations [facility] Dominik ELIZONDO ([facility]S cott [facility] [employer]) [facility] Dominik [facility]IZONDO [facility]Sco tt [facility] F[facility] [employer]) TELE CONSULT [id number] 3 Notes Entered by: CHAPITO PRICE 04 Jan 2019 1438 ------- ------- ------- ------- -- Husam lam /tiffany/ SHARI Mcnamara 01/04 Referred for Appointment [facility] Dominik ELIZONDO ([facility]S cott [facility] F[facility] [employer]) [facility] Dominik [facility]ONDO [facility]co tt [facility] [employer] [place]) OUTPATIENT [id number] OMT F/U upper back pain LORNA GARCIA 01/29 Released w/o Limitations [address] [place] [address] Group Dominik ELIZONDO ([facility]S cott [facility] F[facility] [employer]) [facility] Dominik [facility]IZONDO [facility]Sco tt [facility] F[facility] [employer]) TELE CONSULT [id number] Notes Entered by: FLORIDA HARRY 06 Feb 2019 0928 ------- ------- ------- ------- -- Med renewal /tiffany/ SARAHY Albright 02/06 Medication Refill Forwarded [address] [place] [address] Dominik [facility]IZONDO [facility]S cott [facility] F[facility] [employer] [place]) [address] [place] [address] Dominik [facility])(Sco tt [facility] F[facility] [employer]) TELE CONSULT [id number] Notes Entered by: VERNON MARCOS 07 Mar 2019 1000 ------- ------- ------- ------- -- Network Results DERM 02/22/19 CA BROWN 03/[address] [place] [address] Dominik [facility])(S cott [facility] Fam [employer]) [address] [place] [address])(Sco tt [facility] Fam [employer]) OUTPATIENT [id number] shoulde r pain LORNA GARCIA 05/15 Released w/o Limitations [address] [place] [address] Dominik [facility])(S cott [facility] F[facility] [employer]) [address] [place] [address])(Sco tt [facility] F[facility] [employer]) OUTPATIENT [id number] 9 R- elbow pain,61 [phone] CA RODRIGUEZ 06/07 Released w/o Limitations [address] [place] [address])(S cott [facility] Fam [facility] [employer]) [address] [place] [address])(Sco tt [facility] Fam [employer]) TELE CONSULT [id number] Notes Entered by: HARLEY SANDERSON 12 Jun 2019 1243 ------- ------- ------- ------- -- Med Renewal /Rad Results /Tiffany/ 220.697 0/SHARI Hammond 06/12 Medication Refill Forwarded [address] [place] [address] [facility])(S cott [facility] Fam [facility] [employer] [place]) [address] [place] [address] Dominik [facility])(Sco tt [facility] Fam [employer]) TELE CONSULT [id number] Notes Entered by: Hugh RODRIGUEZ 14 Jun 2019 1518 ------- ------- ------- ------- -- XRAY results SHARI MORENO 06/14 Other Not Elsewhere Classified [address] [place] [address] Dominik [facility]IZONDO [facility]S cott [facility] F[facility] [employer] [place]) [address] [place] [address] Dominik [facility]OLAB [facility]co tt [facility] F[facility] [employer]) OUTPATIENT [id number] left arm rash [phone] KWESI OLVERA V 11/11 Released w/o Limitations [address] [place] [address] Dominik [facility]AB [facility]S cott [facility] [employer]) [address] [place] [address] Dominik [facility]AB [facility]co tt [facility] F[facility] [employer]) OUTPATIENT [id number] 3 VIRTUAL -[phone] pain in buttock s going down legs when laying down LORNA GARCIA 02/03 Released w/o Limitations [address] [place] [address] Dominik ELIZONDO [facility]S cott [facility] F[facility] [employer] [place]) [address] [place] [address] Dominik [facility]OLAB [facility]Sco tt [facility] FAMRES Tm Blue) OUTPATIENT [id number] 3 OMT/HIP PAIN NAHUN MADDOX 02/11 Released w/o Limitations [address] [place] [address] Dominik LO[facility]OLAB [facility]S cott [facility] FAMRES Tm Blue) [address] [place] [address] Dominik B [facility]Spo rts Med Clinic/Pa in Mgmt) OUTPATIENT [id number] SPORT/O MT EVAL NAHUN MADDOX 03/03 Released w/o Limitations [address] [place] [address] Dominik LOYOLAB [facility]S ports [facility]/ Pain Mgmt) [address] [place] [address] 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) OUTPATIENT [id number] vaginal wart - [phone] CASSIUS RODRIGUEZ 03/04 Released w/o Limitations [address] [place] [address] Dominik MILLAB [facility]G ynecolo gy) [address] [place] [address] 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) TELE CONSULT [id number] 4 Notes Entered by: JOSE RODRIGUEZ 07 Mar 2020 1614 ------- ------- ------- ------- -- results KEVINCORYMITUL T 03/07 Referred for Appointment [address] [place] [address])(G susan gy) [address] [place] [address])(Sco tt [facility] Fam Res [employer]) TELE CONSULT [id number] Notes Entered by: CHAPITO PRICE 11 Mar 2020 1416 ------- ------- ------- ------- -- referra l request /schelb [phone] SHARI Mcnamara 03/11 Referred for Appointment [address] [place] [address])(S cott [facility] Fam Res [employer] [place]) [address] [place] [address])(Sco tt [facility] Fam Res [employer]) OUTPATIENT [id number]: [address] Jeter -f/u hair loss DON JETER 03/18 Released w/o Limitations [address] [place] [address] Dominik [facility]S cott [facility] Fam [facility]) [address] [place] [address] Dominik [facility])(Sco tt [facility] Fam Res [employer]) TELE CONSULT [id number] Notes Entered by: DON JETER 19 Mar 2020 1624 ------- ------- ------- ------- -- Lab follow up DON JETER 03/[address] [place] [address] Dominik [facility])(S cott [facility] Fam Res [place] [place]) [address] [place] [address] Dominik [facility])(Sco tt [facility] Fam Res [employer]) TELE CONSULT [id number] 3 Notes Entered by: SHEILA ARCHIBALD 20 Mar 2020 1453 ------- ------- ------- ------- -- Referra l Renewal Request /Schelb SHARI MORENO 03/20 Immediate Referral [address] [place] [address] Dominik [facility])(S [facility] Fam Res [employer]) [address] [place] [address] Dominik LOYOLAKevin [facility]Spo rts Med Clinic/Pa in Mgmt) OUTPATIENT [id number] SPORT/O MT F/U MADDOXNAHUN BECK 03/24 Released w/o Limitations [address] [place] [address] Dominik Kevin [facility]S ports Med [facility]/ Pain Mgmt) [address] [place] [address] Dominik Kevin [facility]Spo rts Med Clinic/Pa in Mgmt) TELE CONSULT [id number] Notes Entered by: DON JETER 28 Mar 2020 1346 ------- ------- ------- ------- -- Lab follow up DON JETER 03/[address] [place] [address] Dominik ELIZONDO [facility]S ports [facility]/ Pain Mgmt) [address] [place] [address] Dominik Kevin [facility]Sco tt [facility] Fam Res [employer] [place]) TELE CONSULT [id number] Notes Entered by: CHAPITO PRICE 31 Mar 2020 0854 ------- ------- ------- ------- -- returne d phone call/ia robbie/Annalee [phone] or [phone] DON Louis 03/[address] [place] [address] Dominik MILLAKevin [facility]S [facility] F[facility] [place] [place]) [address] [place] [address] Dominik MILLAKevin [facility]Sco tt [facility] Fam Res [employer]) OUTPATIENT [id number] In-Pers on - L Leg Wasp sting x 1 week increas ing OMEGA DAMIAN 04/03 Released w/o Limitations [address] [place] [address] Dominik MILLAKevin [facility]S [facility] F[facility] [employer]) [address] [place] [address] Dominik MILLAKevin [facility]Sco tt [facility] Fam Res [employer]) TELE CONSULT [id number] Notes Entered by: BETTY RAYMUNDO RET 08 Apr 2020 1241 ------- ------- ------- ------- -- RX Renewal /Joni y/ *SHARI Fish 04/08 Medication Refill Forwarded [address] [place] [address] Dominik ELIZONDO ([facility]S cott [facility] Fam [facility] [place]) [address] [place] [address] Dominik ELIZONDO ([facility]Sco tt [facility] FAMRES Tm Blue) TELE CONSULT [id number] Notes Entered by: JAVON HANDLEY 08 Apr 2020 1417 ------- ------- ------- ------- -- Prescri ption Renewal Request SHARI MORENO 04/08 Other Not Elsewhere Classified [address] [place] [address] Dominik ELIZONDO ([facility]S cott [facility] FAMRES Tm Blue) [address] [place] [address] Dominik ELIZONDO [facility]co tt [facility] FAMRES Tm Blue) OUTPATIENT [id number] OMT/nec k shoulde r f/u NAHUN MADDOX 04/11 Released w/o Limitations [address] [place] [address] Dominik ELIZONDO [facility]S cott [facility] FAMRES Tm Blue) [address] [place] [address] Dominik ELIZONDO [facility]Sco tt [facility] [employer] Res [employer]) TELE CONSULT [id number] Notes Entered by: DON JETER 20 Apr 2020 1336 ------- ------- ------- ------- -- Lab follow up DON JETER 04/[address] [place] [address] Dominik ELIZONDO ([facility]S cott [facility] Fam Res [employer] [place]) [address] [place] [address] Dominik ELIZONDO [facility]Spo rts Med Clinic/Pa in Mgmt) OUTPATIENT [id number] SPORT/R IGHT ANKLE/F OOT PAIN NAHUN MADDOX 04/25 Released w/o Limitations [address] [place] [address] Dominik ELIZONDO ([facility]S ports Med Clinic/ Pain Mgmt) [address] [place] [address] Dominik ELIZONDO [facility]Sco tt [facility] FAMRES Tm Blue) OUTPATIENT [id number] OMT/sci DC Del Rosario 04/28 Released w/o Limitations [address] [place] [address] Dominik ELIZONDO ([facility]S cott [facility] FAMRES Tm Blue) [address] [place] [address] Dominik ELIZONDO [facility]Sco tt [facility] Fam Res [employer]m [employer]) OUTPATIENT [id number] OMT/PER DR MADDOX/ UPPER/L OWER BACK SILVINO BELLA E 05/06 Released w/o Limitations [address] [place] [address] Dominik ELIZONDO ([facility]S cott [facility] Fam Res [employer] [place]) [address] [place] [address] Dominik MILLAKevin [facility]Spo rts Med Clinic/Pa in Mgmt) OUTPATIENT [id number] SPORT/R IGHT FOOT NUMBNES S F/U ENRRIQUE LOTT E 05/06 Released w/o Limitations [address] [place] [address] Dominik ELIZONDO [facility]S ports Med Clinic/ Pain Mgmt) [address] [place] [address] Dominik MILLAKevin [facility]Sco tt [facility] FAMRES Tm Blue) OUTPATIENT [id number] 2 OMT/f/u per Dr. Calderon/DC Miller T 05/15 Released w/o Limitations [address] [place] [address] Dominik ELIZONDO ([facility]S cott [facility] FAMRES Tm Blue) [address] [place] [address] Dominik MILLAKevin [facility]co tt [facility] Fam Res [employer]) OUTPATIENT [id number] OMT/LBP /SCACRU M SILVINO BELLA E 05/20 Released w/o Limitations [address] [place] [address] Dominik MILLAKevin [facility]S cott [facility] Fam Res [employer]) [address] [place] [address] Dominik MILLAKevin [facility]Sco tt [facility] FAMRES Tm Blue) OUTPATIENT [id number] 9 OMT/F/U DC CALDERON T 06/05 Released w/o Limitations [address] [place] [address] Dominik ELIZONDO [facility]S cott [facility] FAMRES Tm Blue) [address] [place] [address] Dominik MILLAKevin [facility]Sco tt [facility] Fam Res [employer]m [employer]) OUTPATIENT [id number] 4 OMT/F/U SILVINO BELLA E 06/17 Released w/o Limitations [address] [place] [address] Dominik ELIZONDO [facility]S cott [facility] Fam Res [employer]) [address] [place] [address] Dominik ELIZONDO [facility]Sco tt [facility] Fam Res [employer]m [employer]) TELE CONSULT [id number] Notes Entered by: Daine MORENO 18 Jul 2020 1059 ------- ------- ------- ------- -- Request stat referra l to gastro appt on Aug 03, derm and sleep disorde SHARI Johnson 07/18 Immediate Referral [address] [place] [address] Dominik MILLAKevin [facility]S cott [facility] Fam Res [employer]) [address] [place] [address] Dominik MILLAKevin [facility]Sco tt [facility] FAMRES Tm Blue) OUTPATIENT [id number] OMT/nec k/shoul tin/gunjan k pain BRUE, DC T 07/30 Released w/o Limitations [address] [place] [address] Dominik MIKHAIL [facility]S cott [facility] FAMRES Tm Blue) [address] [place] [address] Dominik MILLAKevin [facility]Sco tt [facility] Fam Res [employer]m [employer]) OUTPATIENT [id number] In Person - right hand, thumb finger nail SILVINO BELLA 08/20 Released w/o Limitations [address] [place] [address] Dominik MILLAKevin ([facility]S cott [facility] Fam Res [facility]m [facility]) [address] [place] [address] Dominik MILLAKevin [facility]Sco tt [facility] FAMRES Tm Blue) OUTPATIENT [id number] 9 OMT/gunjan k pain BRUE, DC T 09/04 Released w/o Limitations [address] [place] [address] Dominik MILLAKevin [facility])(S cott [facility] FAMRES Tm Blue) [address] [place] [address] Dominik MILLAKevin [facility]Sco tt [facility] Fam Res Tm [employer]) TELE CONSULT [id number] Notes Entered by: MELIDA BISWAS 11 Sep 2020 1349 ------- ------- ------- ------- -- Network results Dermato logy 021 ELLIE LIPSCOMB 09/11 Released to Self [facility] [address] [place] [address] Dominik MILLAKevin [facility]S cott [facility] Fam Res [facility]m [facility]) [address] [place] [address] Dominik [facility])(Sco tt [facility] FAMRES Tm Blue) OUTPATIENT [id number] OMT/NEC K/SHOUL TIN/GUNJAN K BRUE, DC T 09/18 Released w/o Limitations [address] [place] [address] Dominik MILLAKevin [facility]S cott [facility] FAMRES Tm Blue) [address] [place] [address] Dominik MILLAKevin [facility])(Sco tt OF Fam Res Tm Green) TELE CONSULT [id number] Notes Entered by: VICKIE ROWE 03 Oct 2020 0947 ------- ------- ------- ------- -- 2nd Opinion Dermato logy Husam Torrez / Steffany / - ajSHARI Pelletier 10/03 Immediate Referral [address] [place] [address] Dominik ELIZONDO [facility]S cott [facility] Fam Res [facility]m [facility]) [address] [place] [address] Dominik ELIZONDO [facility]Sco tt [facility] FAMRES Tm Blue) OUTPATIENT [id number] OMT/GUNJAN DC GOLDSTEIN 10/06 Released w/o Limitations [address] [place] [address] Dominik ELIZONDO [facility]S cott [facility] FAMRES Tm Blue) [address] [place] [address] Dominik ELIZONDO [facility]Sco tt [facility] Fam Res Tm [employer]) TELE CONSULT [id number] Notes Entered by: Carlitos VALDIVIA 13 Oct 2020 0903 ------- ------- ------- ------- -- Network results Oncolog y 020 DON BLAND 10/[address] [place] [address] Dominik ELIZONDO [facility]S cott [facility] Fam Res [facility]m [facility]) [address] [place] [address] Dominik ELIZONDO [facility]Sco tt [facility] Fam Res Tm [employer]) TELE CONSULT [id number] Notes Entered by: JUANJOSE HILTON 13 Oct 2020 1547 ------- ------- ------- ------- -- Covid vaccine DON JETER 10/[address] [place] [address] Dominik ELIZONDO [facility]S cott [facility] Fam Res [facility]m [facility]) [address] [place] [address] Dominik ELIZONDO [facility]Sco tt [facility] Fam Res [employer]m [employer]) OUTPATIENT [id number] 4 covid vaccine DON Castanon 10/22 Released w/o Limitations [address] [place] [address] Dominik ELIZONDO [facility]S cott [facility] Fam Res [employer]m [employer]) [address] [place] [address])(Meo tt [facility] Fam Res Tm Green) TELE CONSULT [id number] Notes Entered by: VICKIE ROWE 27 Oct 2020 1134 ------- ------- ------- ------- -- Lab Test Request - Blanca Machado/ Steffany / -- ARI Zuñiga 10/27 Released to Self [facility] [address] [place] [address])(S [facility] Fam Res [employer]m [employer]) [address] [place] [address])(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) TELE CONSULT [id number] Notes Entered by: JOSE RODRIGUEZ 08 Dec 2020 1240 ------- ------- ------- ------- -- results ROXANNA LYNNE 12/08 Other Not Elsewhere Classified [address] [place] [address])(Jasvir santoyo) [address] [place] [address])(Meo tt [facility] Res [employer]m [place]) TELE CONSULT [id number] Notes Entered by: JOSE MICHAEL 02 Feb 2021 1508 ------- ------- ------- ------- -- Network results Dermato logy 021 BF DON JETER 02/[address] [place] [address] Dominik [facility])(S [facility] Res [employer] [place]) [address] [place] [address])(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) TELE CONSULT [id number] 2 Notes Entered by: JOSE RODRIGUEZ 05 May 2021 1310 ------- ------- ------- ------- -- results GETACHEW LEBRON 05/05 Other Not Elsewhere Classified [address] [place] [address] Group [facility])(G ynecolo gy) [address] [place] [address] Dominik [facility])(Sco tt [facility] Volunt[employer]RES Tm Blue) TELE CONSULT [id number] Notes Entered by: NORMA SOW 11 May 2021 1340 ------- ------- ------- ------- -- Med STACIA Taylor 05/[address] [place] [address])(S cott [facility] FAMRES Tm Blue) [address] [place] [address])(Sco tt [facility] Fam Res Tm [place]) TELE CONSULT [id number] Notes Entered by: JUANJOSE HILTON 26 May 2021 1448 ------- ------- ------- ------- -- left leg numbnes SHARI Kidd 05/26 Referred for Appointment [address] [place] [address])(S cott [facility] Fam Res [employer] [place]) [address] [place] [address])(Sco tt [facility] Fam Res Tm Green) OUTPATIENT [id number] F2F: left leg numbnes s x2 wks DON JETER 05/29 Released w/o Limitations [address] [place] [address] Group Dominik ELIZONDO ([facility]S cott [facility] Fam Res [place]m [place]) [address] [place] [address] Dominik [facility])(Sco tt [facility] Fam Res Tm [place]) TELE CONSULT [id number] Notes Entered by: Diane MORENO 10 Jun 2021 1222 ------- ------- ------- ------- -- Renew cardiol ogy SHARI Valdez 06/10 Immediate Referral [address] [place] [address] Dominik [facility])(S cott [facility] Fam Res [place]) [address] [place] [address] Dominik [facility])(Sco tt [facility] FAMRES Tm Blue) TELE CONSULT [id number] Notes Entered by: FRANCIS PARKER 15 Jun 2021 1323 ------- ------- ------- ------- -- Referra l request /issue with renewal SHARI MORENO 06/15 Other Not Elsewhere Classified [address] [place] [address] Dominik [facility])(S cott [facility] FAMRES Tm Blue) [address] [place] [address] Dominik [facility])(Sco tt [facility] Fam Res Tm Green) OUTPATIENT [id number] OMT/LOW BACK/HI P/KNEE CHAPITO RODRIGUEZ 06/24 Released w/o Limitations [address] [place] [address] Group Dominik LO[facility]OLAB [facility]S cott [facility] Fam Res Tm [place]) [address] [place] [address] Dominik B [facility])(Sco tt [facility] Fam Res Tm [place]) TELE CONSULT [id number] 5 Notes Entered by: BETTY RAYMUNDO RET 13 Jul 2021 0740 ------- ------- ------- ------- -- SX: Multi [facility] refusal /Schelb y/ *prc SHARI MORENO 07/13 Other Not Elsewhere Classified [address] [place] [address] Group Dominik ELIZONDO [facility])(S cott [facility] Fam Res [employer] [place]) [address] [place] [address] Dominik ELIZONDO [facility])(Sco tt [facility] Fam Res Tm Green) TELE CONSULT [id number] 8 Notes Entered by: SHEILA ARCHIBALD 13 Jul 2021 1116 ------- ------- ------- ------- -- STAT Referra l Request (appt Jun)/Me robbie/Annalee [phone]. [phone] SHARI MORENO 07/13 Immediate Referral [address] [place] [address] Dominik ELIZONDO [facility])(S cott [facility] Fam Res [place] [place]) [address] [place] [address] Dominik ELIZONDO [facility])(Sco tt [facility] Fam Res Tm Green) TELE CONSULT [id number] Notes Entered by: CA MASSEY 15 Jul 2021 1351 ------- ------- ------- ------- -- Referra l Request DANYELLE SAENZ 07/15 Released to Self Care [address] [place] [address] Dominik ELIZONDO [facility])(S cott [facility] Fam Res [place]m [place]) [address] [place] [address] Dominik ELIZONDO [facility])(Sco tt [facility] Fam Res [employer]m [place]) TELE CONSULT [id number] Notes Entered by: JOSE MICHAEL 17 Jul 2021 1449 ------- ------- ------- ------- -- Network results Dermato logy 021 BF DON JETER 07/[address] [place] [address] Dominik LO[place] [facility])(S cott [facility] Fam Res [place]m [place]) [address] [place] [address] Dominik [facility])(Sco tt [facility] Fam Res Tm Green) OUTPATIENT [id number] OMT/LOW BACK/HI P/KNEE CHAPITO RODRIGUEZ 07/24 Released w/o Limitations [address] [place] [address] Dominik LO[place] [facility])(S cott [facility] Fam Res [place] [place]) [address] [place] [address] Dominik LO[place] [facility])(Sco tt [facility] Fam Res Tm [place]) TELE CONSULT [id number] 1 Notes Entered by: JOSE MICHAEL 27 Jul 2021 1030 ------- ------- ------- ------- -- Network results Otolary ngology [ENT] 021 STACIA RODRIGUEZ 07/[address] [place] [address])(S cott [facility] Fam Res Tm [place]) [address] [place] [address])(Sco tt [facility] Fam Res Tm Green) TELE CONSULT [id number] 4 Notes Entered by: BRIGITTE TY 21 Aug 2021 1333 ------- ------- ------- ------- -- Perlita Torrez /Dr. Goins/ DON JETER 08/[address] [place] [address])(S cott [facility] Fam Res Tm Green) [address] [place] [address])([facility] TELE CONSULT [id number] Notes Entered by: ZACHARY MORALES 01 Sep 2021 1714 ------- ------- ------- ------- -- Medicat ion CHRISSIE Secure SHARI Juarez 09/01 Medication Refill Forwarded [address] [place] [address])(S cott [facility] FAMRES Tm Blue) [address] [place] [address])(Sco tt [facility] Fam Res Tm Green) TELE CONSULT [id number] 5 Notes Entered by: Beatrice METCALF 22 Sep 2021 0859 ------- ------- ------- ------- -- SHARI CEVALLOS 09/22 Immediate Referral [address] [place] [address])(S cott [facility] Fam Res [employer]m [place]) [address] [place] [address])(Sco tt [facility] Fam Res Tm Green) TELE CONSULT [id number] 6 Notes Entered by: SOLEDAD PAINTING 12 Oct 2021 1029 ------- ------- ------- ------- -- Sx-Skin Rash:ST AT Referra l Request /SCHELB Y/ TANO KEY 10/12 Immediate Referral [address] [place] [address])(S cott [facility] Fam Res [place]m [place]) [address] [place] [address])(Sco tt [facility] Fam Res Tm Green) TELE CONSULT [id number] 2 Notes Entered by: SHEILA ARCHIBALD 15 Oct 2021 0934 ------- ------- ------- ------- -- Referra l Renewal Request /Schelb SHARI MORENO 10/15 Released to Self Care [address] [place] [address])(S cott [facility] Fam Res Tm [place]) [address] [place] [address])(Sco tt [facility] Fam Res Tm Green) TELE CONSULT [id number] Notes Entered by: Carlitos VALDIVIA 23 Oct 2021 1022 ------- ------- ------- ------- -- Network results Optomet ry 021 and 022 DON BLAND 10/[address] [place] [address])(S cott [facility] Fam Res Tm [place]) [address] [place] [address])(Sco tt [facility] Fam Res Tm Green) TELE CONSULT [id number] 5 Notes Entered by: MELIDA BISWAS 12 Nov 2021 1336 ------- ------- ------- ------- -- Network Results Dermato logy 022 MURALI COBOS 11/[address] [place] [address] Dominik [facility])(S cott [facility] Fam Res Tm Green) [address] [place] [address])(Sco tt [facility] Fam Res Tm Green) OUTPATIENT [id number] MRI FOLLOW 40 MIN DON JETER 11/23 Released w/o Limitations [address] [place] [address])(S cott [facility] Fam Res [place]m [place]) [address] [place] [address])(Sco tt [facility] Fam Res Tm Green) TELE CONSULT [id number] 1 Notes Entered by: Randal PAYAN 14 Dec 2021 0838 ------- ------- ------- ------- -- Network results ENT 12/09/19 22 DON HERNANDEZ 12/[address] [place] [address])(S cott [facility] Fam Res [place]m Green) [address] [place] [address])(Sco tt [facility] Fam Res Tm Green) OUTPATIENT [id number] OMT/NEC K/BACK PAIN SAPPHIRE HORTA 12/17 Released w/o Limitations [address] [place] [address])(S cott [facility] Fam Res [place]m [place]) [address] [place] [address])(Sco tt [facility] Fam Res Tm Green) TELE CONSULT [id number] 9 Notes Entered by: VICKIE ROWE 22 Dec 2021 1432 ------- ------- ------- ------- -- Ophthal corinna Rabagoq-Opt jerri Tubbs/Agustin/ Steffany / or DON JETER 12/[address] [place] [address] Dominik [facility])(S cott [facility] Fam Res Tm [place]) [address] [place] [address])(Sco tt [facility] Fam Res Tm Green) TELE CONSULT [id number] Notes Entered by: Leslie CULP 18 Jan 2022 1034 ------- ------- ------- ------- -- Network results Dermato logy 022 DON CALLAWAY 01/[address] [place] [address] Dominik ELIZONDO [facility]S cott [facility] Fam Res Tm [place]) [address] [place] [address] Dominik LOYOLAB ([facility])(Sco tt [facility] Fam Res Tm Green) TELE CONSULT [id number] Notes Entered by: Leslie CULP 21 Jan 2022 0903 ------- ------- ------- ------- -- Network results Physica l Therapy 022-08/2021 DON CALLAWAY 01/[address] [place] [address] Dominik ELIZONDO [facility]S cott [facility] Fam Res Tm Green) [address] [place] [address] Dominik LOYOLAB ([facility])(Sco tt [facility] Fam Res Tm Green) OUTPATIENT [id number] OMT FOLLOW UP BARI FAGAN 01/22 Released w/o Limitations [address] [place] [address] Dominik ELIZONDO ([facility])(S cott [facility] Fam Res Tm Green) [address] [place] [address] Dominik ELIZONDO ([facility])(Sco tt [facility] Fam Res Tm Green) TELE CONSULT [id number] Notes Entered by: YUSUF AGUIRRE 28 Jan 2022 1019 ------- ------- ------- ------- -- Network results Otolary ngology [ENT] 022 DON JOHN 01/[address] [place] [address] Dominik ELIZONDO ([facility]S cott [facility] Fam Res Tm [place]) [address] [place] [address] Dominik ELIZONDO ([facility])(Sco tt [facility] Fam Res Tm Green) OUTPATIENT [id number] OMT/NEC K/SHOUL TIN/GUNJAN K/LEFT HIP SAPPHIRE HORTA 02/18 Released w/o Limitations [address] [place] [address] Dominik LOYOLAB ([facility])(S cott [facility] Fam Res Tm Green) [address] [place] [address] Dominik LOYOLAB ([facility])(Sco tt [facility] Fam Res Tm Green) OUTPATIENT [id number] F2F - stomach cramps STARLA LOPEZ 03/12 Released w/o Limitations [address] [place] [address] Dominik ELIZONDO ([facility])(S cott [facility] Fam Res Tm Green) [address] [place] [address] Dominik ELIZONDO ([facility])(Sco tt [facility] Fam Res Tm Green) TELE CONSULT [id number] Notes Entered by: Briseyda LEIJA 17 Mar 2022 0755 ------- ------- ------- ------- -- STAT SX Rash on Eye Lid Appt 19 March Dermato logy Solis /Joni kerns/ SHARI MORENO 03/17 Released to Self Care [address] [place] [address] Dominik [facility])(S cott [facility] Fam Res Tm Green) [address] [place] [address] Dominik B [facility])(Sco tt [facility] FAMRES Tm Blue) OUTPATIENT [id number] F2F - R ear pain, SHAWN MARTÍNEZ 03/22 Released w/o Limitations [address] [place] [address] Dominik Kevin ([facility])(S cott [facility] FAMRES Tm Blue) [address] [place] [address] Dominik [facility])(Sco tt [facility] Fam Res Tm Green) TELE CONSULT [id number] Notes Entered by: YUSUF AGUIRRE 02 Apr 2022 0845 ------- ------- ------- ------- -- Network results Dermato logy 022 DON JOHN 04/[address] [place] [address] Dominik ELIZONDO ([facility])(S cott [facility] Fam Res [place]m Green) [address] [place] [address] Dominik [facility])(Sco tt [facility] Fam Res Tm Green) TELE CONSULT [id number] Notes Entered by: VERNON AMOS 21 Apr 2022 1051 ------- ------- ------- ------- -- SX Rt Ear Pain/ Briseida / SHARI MORENO 04/21 Released to Self Care [address] [place] [address] Dominik ELIZONDO [facility])(S cott [facility] Fam Res Tm Green) [address] [place] [address] Dominik [facility])(Sco tt [facility] Fam Res Tm Green) TELE CONSULT [id number] Notes Entered by: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 (OMT) 3-4 Body Regions Involved Osteopathic Manip Treatment (OMT) 3-4 Body Regions Involved 38778 08/22 SHAY HUGHES Osteopathic Manip Treatment (OMT) 3-4 Body Regions Involved Osteopathic Manip Treatment (OMT) 3-4 Body Regions Involved 32123 07/23 SARAHY CADET Osteopathic Manip Treatment (OMT) 3-4 Body Regions Involved Osteopathic Manip Treatment (OMT) 3-4 Body Regions Involved 34990 07/02 SARAHY CADET Non-Physician Phone Call To Patient/Provider Brief (5-10min) Non-Physician Phone Call To Patient/Provider Brief (5-10min) 28928 06/21 ALEJANDRO VILLELA [facility] Internet Med Svc Qual Nonphys Healthcare Prof Estab Patient Internet Med Svc Qual Nonphys Healthcare Prof Estab Patient 35883 06/20 ALEJANDRO VILLELA Osteopathic Manip Treatment (OMT) 3-4 Body Regions Involved Osteopathic Manip Treatment (OMT) 3-4 Body Regions Involved 60065 06/07 SARAHY CADET Non-Physician Phone Call To Patient/Provider Brief (5-10min) Non-Physician Phone Call To Patient/Provider Brief (5-10min) 92314 12/28 SAPPHIRE HENRY [facility] Non-Physician Phone Call To Patient/Provider Brief (5-10min) Non-Physician Phone Call To Patient/Provider Brief (5-10min) 87804 04/27 KELVIN PEÑA [facility] Screening papanicolaou smear; obtaining, preparing and conveyance of cervical or vaginal smear to laboratory 04/23 SARAHY CADET Non-Physician Phone Call To Patient/Provider Brief (5-10min) Non-Physician Phone Call To Patient/Provider Brief (5-10min) 76901 01/12 JOSE FUNES [facility] Biopsy Endometrial, Without Cervical Dilation Biopsy Endometrial, Without Cervical Dilation 54749 10/28 TIFF FAM Non-Physician Phone Call To Patient/Provider Brief (5-10min) Non-Physician Phone Call To Patient/Provider Brief (5-10min) 65691 10/17 ITFF FAM Non-Physician Phone Call To Patient/Provider Brief (5-10min) Non-Physician Phone Call To Patient/Provider Brief (5-10min) 26004 07/29 TIFF FAM Non-Physician Phone Call To Pt/Provider Intermed (11-20 min) Non-Physician Phone Call To Pt/Provider Intermed (11-20 min) 34626 07/21 PRADIP SHEFFIELD [facility] Non-Physician Phone Call To Patient/Provider Brief (5-10min) Non-Physician Phone Call To Patient/Provider Brief (5-10min) 13152 07/06 TIFF FAM Non-Physician Phone Call To Patient/Provider Brief (5-10min) Non-Physician Phone Call To Patient/Provider Brief (5-10min) 95792 06/16 TIFF FAM Cerumen Removal Right Ear 01/18 TIFF FAM Non-Physician Phone Call To Patient/Provider Brief (5-10min) Non-Physician Phone Call To Patient/Provider Brief (5-10min) 11953 12/17 HARLEY GAMINO Non-Physician Phone Call To Patient/Provider Brief (5-10min) Non-Physician Phone Call To Patient/Provider Brief (5-10min) 01100 11/05 TIFF FAM Screening papanicolaou smear; obtaining, preparing and conveyance of cervical or vaginal smear to laboratory 02/26 TIFF FAM Electrocardiogram Electrocardiogram 18717 02/26 TIFF FAM Screening papanicolaou smear; obtaining, preparing and conveyance of cervical or vaginal smear to laboratory 01/10 TIFF FAM Cerumen Removal Right Ear Irrigation 08/16 SHAWN PARRA Physical Therapy: ___ Se ion Segments, 15 Minutes Each Physical Therapy: ___ Session Segments, 15 Minutes Each 46742 06/11 DAVID HIGUERA Modalities Paraffin Bath Modalities Paraffin Bath 15105 06/11 DAVID HIGUERA Modalities Paraffin Bath Modalities Paraffin Bath 66217 06/03 OLGA LOGAN Physical Therapy: ___ Se ion Segments, 15 Minutes Each Physical Therapy: ___ Session Segments, 15 Minutes Each 29698 06/03 OLGA LOGAN Physical Therapy: ___ Se ion Segments, 15 Minutes Each Physical Therapy: ___ Session Segments, 15 Minutes Each 34992 05/31 OLGA LOGAN Modalities Paraffin Bath Modalities Paraffin Bath 13768 05/31 OLGA LOGAN Wrist-hand orthosis, without joints, may include soft interface, straps, custom fabricated, includes fitting and adjustment 05/29 DAVID HIGUERA Splint supplies, miscellaneous (includes thermoplastics, strapping, fasteners, padding and other supplies) 05/29 KALEN DAVID Rosenbaum [facility] Physical Therapy: ___ Se ion Segments, 15 Minutes Each Physical Therapy: ___ Session Segments, 15 Minutes Each 67800 05/29 DAVID HIGUERA Armond Modalities Paraffin Bath Modalities Paraffin Bath 61668 05/29 KALEN, DAVID W Armond Finger splint, static 05/24 JIMMY HUMPHRIES [facility] Occupational Therapy Re-Evaluation Occupational Therapy Re-Evaluation 15817 05/24 JIMMY HUMPHRIES Orthopedic Splinting Of The Finger Orthopedic Splinting Of The Finger 09115 05/08 BRADENELLISJIMMY [facility] Occupational Therapy Evaluation Occupational Therapy Evaluation 04380 05/08 JIMMY HUMPHRIES Screening papanicolaou smear; obtaining, preparing and conveyance of cervical or vaginal smear to laboratory 11/13 CASSIUS RODRIGUEZ [facility] Training And Self-Care Skills Training And Self-Care Skills 25843 06/28 CHE WYATT PT A e ment Kinetic Training PT Assessment Kinetic Training 46920 06/28 CHE WYATT Occupational Therapy Evaluation Occupational Therapy Evaluation 62109 06/03 CHE WYATT PT A e ment Kinetic Training PT Assessment Kinetic Training 71823 06/03 CHE WYATT Splinting Wrist Static Neutral Position Splinting Wrist Static Neutral Position 63924 06/03 CHE WYATT Splint supplies, miscellaneous (includes thermoplastics, strapping, fasteners, padding and other supplies) 06/03 CHE WYATT Screening papanicolaou smear; obtaining, preparing and conveyance of cervical or vaginal smear to laboratory 05/31 TIFF FAM [facility] Biopsy Endometrial, Without Cervical Dilation Biopsy Endometrial, Without Cervical Dilation 60671 12/30 ANTHONY MCNEAL [facility] Fiberoptic Examinations Hysteroscopy Fiberoptic Examinations Hysteroscopy 92586 12/30 ANTHONY MCNEAL [facility] Social History Combined list of available smoking, tobacco, and other social history from Department of Defense and Veterans Affairs facilities. Social History Type Response Date Comment [facility] e Sex Representation Female (finding) 10/20/2022 Unknown [...] medical issues. Prashant Cortez DO. CARLOS Castañeda, Circle Cutting Saw Operator, PGY-2 [facility] [employer] Addendum by JOHN RODRIGUEZ MD, Family Medicine on February 14, 2025 17:44:07 CDT I was present and available in the family medicine clinic during the patient's appointment.? The case was discussed with me and I agree with the assessment and plan as documented. ? HLF Extracted from:Title: [facility]-OMTLHip_Office Clinic Note Author: STARLA CANTU DO Date: [...] for chronic medical issues. Capt FLORENTINO (), [facility] Circle Cutting Saw Operator Physician, PGY-[address] [place] [address] [employer]/SGGF, [place], [place] [address] [place] [address] Family Medicine Residency Program [address] [facility], [address], [place] [address] Addendum by CONCHA CHEN MD on January 10, 2025 14:49:25 CDT I certify that I was immediately available to review and discuss this patient. T he resident discussed the diagnosis and treatment plan for this patient with me [id number]. I agree with these written findings and plan. Maj Dahiana Chen DO, CAM Sports/Family Medicine Faculty Physician [address] [place] [address], OS/SGGF [facility] [place], [place] Extracted from:Title: Acne/rosacea, Melanonychia Author: JAVIER COTTRELL [...] on many nails, has been followed by [facility] who has all records and she [...] pt has been seen for years at [facility] and they have records, best for [...] MD, FAAD [employer], [employer], [employer], [place] Personal Service Workers Dermatopathologist Client Hr Manager, [facility] [address] [place], [place] Extracted from:Title: Office Clinic Note - [...] Davonte Cesar DO Family Medicine Faculty Physician [address] [place] [address] [place] Extracted from:Title: [facility]/Trap_Office Clinic Note Author: STARLA CANTU, Date: 11/30/24 [...] for chronic medical issues. Capt Shelia GOOD), [facility] Circle Cutting Saw Operator Physician, PGY-[address] [place] [address] [employer]/GF, [place] [address] [facility] Family Medicine Residency Program [address] [facility], [address], [place] [address] Addendum by DONAL RUTLEDGE MD on December 19, 2024 08:37:01 CDT I was present and available in the family medicine clinic to discuss the patient's care during the time of the appointment. I agree with the resident's assessment and plan as documented. Donal Rutledge MD, Faculty, [facility], [facility], Attending Physician Extracted from:Title: X RAY EQUIPMENT MECHANIC/WWE, fatigue, vit d def Author: CASSIUS RODRIGUEZ DRIVE THRU ORDER TAKER, Women[facility] Date: 11/06/24 1. E ncounter [...] Maintenance, original order by Mrs. Rodriguez, Pharmacy: [facility] [Not filled] Vitamin D 25 Hydroxy Level 3. R harris Ordered: desonide topical(desonide 0.05% topical ointment), See Instructions, PRN dry skin, Topical TID, # 60 g, 1 total refill(s), Maintenance, Pharmacy: [facility] [Federal Rx: #60 last filled 11/06/24] triamcinolone topical(triamcinolone 0.1% topical ointment), See Instructions, apply a thin film to affected area on dry patches 2-3x/wk prn, # 60 g, 1 total refill(s), Maintenance, Pharmacy: [facility] [Federal Rx: #60 [...] were provided to the patient. Cassius Rodriguez [facility] DRIVE THRU ORDER TAKER [place] [facility] Extracted from:Title: [facility] - Cough and Congestion Author: PAN BINGHAM [...] no improvement in symptoms. Capt Keisha Lira, [facility] Circle Cutting Saw Operator, PGY-2 [employer] Addendum by CECILIO HA MD on October 05, 2024 17:33:21 MANAGER I was present and available in the Family Medicine clinic to discuss this patient's care for the duration of the appointment. I agree with the resident's assessment and plan as documented with the following addendum: None. Cecilio Ha MD, FMOB Family Medicine - Obstetrics [facility] Faculty Physician Extracted from:Title: [facility] - OMT Author: PAN BINGHAM MD Date: [...] extremities S ee above. Capt Shelia Lira), [facility], Circle Cutting Saw Operator, PGY-2 [employer] Addendum by DONAL RUTLEDGE MD on September 18, 2024 07:31:46 MANAGER I was present and available in the family medicine clinic to discuss the patient's care during the time of the appointment. I agree with the resident's assessment and plan as documented. Donal Rutledge MD, Faculty, [facility], Attending Physician Extracted from:Title: Office Clinic Note [...] 30 tab(s), 0 total refill(s), Maintenance, Pharmacy: [facility] [Not filled] 3. D iabetes mellitus chronic, controlled. Last A1c 01/21. initiated on Metformin in Jul 2024. Repeat A1c ordered. Pt will need diabetic f/u scheduled for ongoing management. Metformin r efilled. Ordered: metFORMIN(MetFORMIN (Eqv-Fortamet) 500 mg oral tablet, extended release), 1 tab(s), Oral, Daily, # 90 tab(s), 3 total refill(s), Maintenance, Pharmacy: [facility] [Not filled] Hemoglobin A1c Farhad Davonte Cesar DO Family Medicine Faculty Physician [address] [place] [address], [facility] [employer] Extracted from:Title: DM Office Clinic [...] eat and send me the log. The emergency telecommunications dispatcher and I can help modify the food [...] to PCM for review and co-signature. REF Salvadorean Diabetes Standards of Care in Diabetes 2 024 Kathya Mann, KOLBY Disease Hand Candle Molder [address] [place] [address] [place] Extracted from:Title: [facility]-OMT_Office Clinic Note Author: STARLA CANTU DO Date: [...] cervicothoracic region As above. Capt FLORENTINO (), [facility] Circle Cutting Saw Operator Physician, PGY-[address] [place] [address] [employer]/SGGF, [place], [place] [address] [place] [address] Family Medicine Residency Program [address] [place] [address], [address], [place] [address] Addendum by CONCHA CHEN MD on July 03, 2024 09:38:03 MANAGER I certify that I was immediately available to review and discuss this patient. T he resident discussed the diagnosis and treatment plan for this patient with me [id number]. I agree with these written findings and plan. Maj Dahiana Chen DO, CAQSM Sports/Family Medicine Faculty Physician [address] [place] [address], HCOS/SGGF [facility] [...] Davonte Cesar DO Family Medicine Faculty Physician [facility], [facility] [employer] Extracted from:Title: [facility] - Annual Well Author: ISIDRO CRISTOBAL DO [...] of metformin a t this time. P rcah is amenable -Urine microalbumin w ithin goal -Patient will check labs from [facility] to see if she has a more recent A1c -RTC in [address] [facility] for A1c recheck Ordered: metFORMIN(MetFORMIN (Eqv-Fortamet) [...] Maintenance, 1 appl(s) Topical BID, Pharmacy: [facility] [Not filled] Isidro Cristobal DO Circle Cutting Saw Operator, PGY-3 [employer] Addendum by IFTIKHAR BARNETT [...] the ordering provider. Iftikhar Barnett DO, Capt, [facility], Staff Physician Extracted from:Title: Virtual, X RAY EQUIPMENT MECHANIC US results Author: CASSIUS RODRIGUEZ DRIVE THRU ORDER TAKER Date: 11/07/23 1. P elvic and perineal [...] [facility] [Not filled] Cassius Rodriguez [facility] GERARDO Le[place] [facility] Extracted from:Title: X RAY EQUIPMENT MECHANIC WWE/urge incont Author: CASSIUS RODRIGUEZ NP Date: [...] desires further intervention Cassius Rodriguez [facility] [address]IVE THRU ORDER TAKER [facility] Extracted from:Title: Immunizations Author: USMAN VARGAS, EMT Date: 09/09/23 Encounter has Screening Questions previously completed. Refer to screening questions for additional information of vaccination given and clearance. More information is also available in the Immunization Tab for patient's history of vaccinations. Closing Encounter for administrative completion. Future Appointments Appointment Date: 03/11/2025 10:00:00 AM Scheduled Provider: PRASHANT CORTEZ MD Location: [address] [place] [address] Appointment Type: PC FTR Future Scheduled TestsLaboratoryBasic Metabolic Panel 12/12/24 03/04/2025 [id number] Assessment and Plan Extracted from:Title : FM [...] chronic medical issues. DO. Garry Mulligan [employer], Circle Cutting Saw Operator, PGY-2 [place] Addendum by JOHN RODRIGUEZ MD, Family Medicine on February 14, 2025 17:44:07 CDT I was present and available in the family medicine clinic during the patient's appointment.? The case was discussed with me and I agree with the assessment and plan as documented. ? HLF Extracted from:Title: [facility]-OMTLHip_Office Clinic Note Author: STARLA CANTU DO Date: [...] for chronic medical issues. Capt FLORENTINO (), [facility] Circle Cutting Saw Operator Physician, PGY-[address] [place] [address]/SGGF, [address] Family Medicine Residency Program [address] [place] [address], [address], [place] [address] Addendum by CONCHA CHEN MD on January 10, 2025 14:49:25 CDT I certify that I was immediately available to review and discuss this patient. T he resident discussed the diagnosis and treatment plan for this patient with me [id number]. I agree with these written findings and plan. Maj Dahiana Chen DO, [facility] Sports/Family Medicine Faculty Physician [address] [place] [address], OS/SGGF [facility] [place], [place] Extracted from:Title: Acne/rosacea, Melanonychia Author: JAVIER COTTRELL MD Date: 12/25/24 1. O ther rosacea Ordered: tretinoin topical(tretinoin 0.05% topical cream), See Instructions, Apply to entire face qhs, no sooner than 15min after washing and moisturizing, # 45 g, 6 total refill(s), Maintenance, Pharmacy: [facility] [Not filled] 2. O ther nail disorders Ordered: Referral Request 2.0 - [facility] OUTPATIENT ENCOUNTER CC: Santosh harris [...] pt has been seen for years at [facility] and they have records, best for [...] //SIGNED// Javier Cottrell MD, FAAD Lt Col, [facility], , [place] Personal Service Workers Dermatopathologist Client Hr Manager, [address] Extracted from:Title: Office Clinic Note - Referrals/Lab results Author: DAVONTE CEASR DO Date: 12/12/24 1. S douglas ferritin [...] Davonte Cesar DO Family Medicine Faculty Physician [address] [place] [address] [place] Extracted from:Title: [facility]/Trap_Office Clinic Note Author: STARLA CANTU, DO Date: [...] for chronic medical issues. Capt FLORENTINO (), [facility] Circle Cutting Saw Operator Physician, PGY-[address] [place] [address] [employer]/SGGF, [place] [address] [facility] Family Medicine Residency Program [address] [facility], [address], [place] [address] Addendum by DONAL RUTLEDGE MD on December 19, 2024 08:37:01 CDT I was present and available in the family medicine clinic to discuss the patient's care during the time of the appointment. I agree with the resident's assessment and plan as documented. Donal Rutledge MD, Faculty, [employer], [employer], Attending Physician Extracted from:Title: X RAY EQUIPMENT MECHANIC/WWE, fatigue, vit d def Author: CASSIUS RODRIGUEZ [...] Maintenance, original order by Mrs. Rodriguez, Pharmacy: [facility] [Not filled] Vitamin D 25 Hydroxy Level 3. R harris Ordered: desonide topical(desonide 0.05% topical ointment), See Instructions, PRN dry skin, Topical TID, # 60 g, 1 total refill(s), Maintenance, Pharmacy: [facility] [Federal Rx: #60 last filled 11/06/24] triamcinolone topical(triamcinolone 0.1% topical ointment), See Instructions, apply a thin film to affected area on dry patches 2-3x/wk prn, # 60 g, 1 total refill(s), Maintenance, Pharmacy: [facility] [Federal Rx: #60 last filled [...] were provided to the patient. Cassius Rodriguez [facility] GERARDO Lehman [facility] [place] Extracted from:Title: [facility] - Cough and Congestion Author: PAN BINGHAM [...] no improvement in symptoms. Capt Shelia Lira), [facility] Circle Cutting Saw Operator, PGY-2 [place] Addendum by CECILIO HA MD on October 05, 2024 17:33:21 MANAGER I was present and available in the Family Medicine clinic to discuss this patient's care for the duration of the appointment. I agree with the resident's assessment and plan as documented with the following addendum: None. Cecilio Ha MD, FMOB Family Medicine - Obstetrics [facility] Faculty Physician Extracted from:Title: [facility] - OMT Author: PAN BINGHAM MD Date: [...] extremities S ee above. Capt Shelia Lira), [facility] Circle Cutting Saw Operator, PGY-2 [facility] Addendum by DONAL RUTLEDGE MD on September 18, 2024 07:31:46 MANAGER I was present and available in the family medicine clinic to discuss the patient's care during the time of the appointment. I agree with the resident's assessment and plan as documented. Donal Rutledge MD, Faculty, [facility], [facility], Attending Physician Extracted from:Title: Office Clinic Note [...] 30 tab(s), 0 total refill(s), Maintenance, Pharmacy: [facility] [Not filled] 3. D iabetes mellitus chronic, controlled. Last A1c 01/21. initiated on Metformin in Jul 2024. Repeat A1c ordered. Pt will need diabetic f/u scheduled for ongoing management. Metformin r efilled. Ordered: metFORMIN(MetFORMIN (Eqv-Fortamet) 500 mg oral tablet, extended release), 1 tab(s), Oral, Daily, # 90 tab(s), 3 total refill(s), Maintenance, Pharmacy: [facility] [Not filled] Hemoglobin A1c Farhad Davonte Cesar DO Family Medicine Faculty Physician [address] [place] [address], [facility] [place] Extracted from:Title: DM Office Clinic [...] eat and send me the log. The emergency telecommunications dispatcher and I can help modify the food [...] to PCM for review and co-signature. REF [place] Diabetes Standards of Care in Diabetes 2 024 Kathya Mann RN Disease Hand Candle Molder [address] [place] [address] Extracted from:Title: [facility]-OMT_Office Clinic Note Author: STALRA CANTU, DO Date: 06/29/24 1. S omatic [...] cervicothoracic region As above. Capt FLORENTINO (), [facility], Circle Cutting Saw Operator Physician, PGY-3 [facility] Healthcare Operations Squadron/SGGF, [place] [address] [facility] Family Medicine Residency Program [address] [facility], [address], [place] [address] Addendum by CONCHA CHEN MD on July 03, 2024 09:38:03 MANAGER I certify that I was immediately available to review and discuss this patient. T he resident discussed the diagnosis and treatment plan for this patient with me [id number]. I agree with these written findings and plan. Maj Dahiana Chen DO, CAQSM Sports/Family Medicine Faculty Physician [address] [place] [address], HCOS/SG [facility] [...] Armond Cesar DO Family Medicine Faculty Physician [facility], [facility] [place] Extracted from:Title: [facility] - Annual Well Author: ISIDRO CRISTOBAL DO [...] more recent A1c -RTC in [address] [facility] for A1c recheck Ordered: metFORMIN(MetFORMIN (Eqv-Fortamet) 500 mg oral tablet, extended release), 1 tab(s), Oral, Daily, # 90 tab(s), 0 total refill(s), Maintenance, 1 tab(s) Oral Daily, Pharmacy: [facility] [Not filled] 3. P eroneal nerve [...] refill(s), Maintenance, 1 appl(s) Topical BID, Pharmacy: [facility] [Not filled] Isidro Cristobal DO Circle Cutting Saw Operator, PGY-3 [employer] Addendum by IFTIKHAR BARNETT [...] Capt, [employer], Staff Physician Extracted from:Title: Virtual, X RAY EQUIPMENT MECHANIC US results Author: CASSIUS RODRIGUEZ NP Date: [...] [facility] [Not filled] Cassius Rodriguez [facility] GERARDO Lehman [facility] Extracted from:Title: X RAY EQUIPMENT MECHANIC WWE/urge incont Author: CASSIUS RODRIGUEZ NP Date: [...] f/u if desires further intervention Cassius Rodriguez [facility] GERARDO Lehman [facility] Extracted from:Title: Immunizations Author: USMAN VARGAS, EMT Date: 09/09/23 Encounter has Screening Questions previously completed. Refer to screening questions for additional information of vaccination given and clearance. More information is also available in the Immunization Tab for patient's history of vaccinations. Closing Encounter for administrative completion. Future Appointments Appointment Date: 03/11/2025 10:00:00 AM Scheduled Provider: PRASHANT CORTEZ MD Location: [address] [place] [address] Appointment Type: PC FTR Future Scheduled TestsLaboratoryBasic Metabolic Panel 12/12/24 03/04/2025 005-[facility] [employer] Assessment and Plan Extracted from:Title : [...] for chronic medical issues. DO. Garry Mulligan, [facility], Circle Cutting Saw Operator, PGY-2 [place] Addendum by JOHN RODRIGUEZ MD, Family Medicine on February 14, 2025 17:44:07 CDT I was present and available in the family medicine clinic during the patient's appointment.? The case was discussed with me and I agree with the assessment and plan as documented. ? HLF Extracted from:Title: [facility]-OMTLHip_Office Clinic Note Author: STARLA CANTU DO Date: [...] chronic medical issues. Capt Keisha GOOD [employer], Circle Cutting Saw Operator Physician, PGY-[address] [place] [address] Operations Squadron/SGGF, [facility], [place] [address] [place] [address] Family Medicine Residency Program [address] [facility], [address], [place] [address] Addendum by CONCHA CHEN MD on January 10, 2025 14:49:25 CDT I certify that I was immediately available to review and discuss this patient. T he resident discussed the diagnosis and treatment plan for this patient with me [id number]. I agree with these written findings and plan. Maj Dahiana Chen DO, CAQSM Sports/Family Medicine Faculty Physician [address] [place] [address], OS/SGGF [facility] [place] Extracted from:Title: Acne/rosacea, Melanonychia Author: JAVIER COTTRELL [...] on many nails, has been followed by [facility] who has all records and she [...] tretinoin - avoid triggers - f/u with [facility] 2. P hysiologic melanonychia - Exam [...] pt has been seen for years at [facility] dermatology and they have records, best for [...] MD, FAAD Lt Col, [employer], [employer], [employer] Personal Service Workers Dermatopathologist Client Hr Manager, [address] Extracted from:Title: Office Clinic Note - [...] Davonte Cesar DO Family Medicine Faculty Physician [address] [place] [address], [facility] [place] [employer] Extracted from:Title: [facility]-Carlie/Trap_Office Clinic Note Author: STARLA CANTU, DO Date: [...] for chronic medical issues. Capt FLORENTINO (), [facility], Circle Cutting Saw Operator Physician, PGY-3 [employer]/SGGF, [place] [address] [facility] Family Medicine Residency Program [address] [facility], [address], [place] [address] Addendum by DONAL RUTLEDGE MD on December 19, 2024 08:37:01 CDT I was present and available in the family medicine clinic to discuss the patient's care during the time of the appointment. I agree with the resident's assessment and plan as documented. 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 Rodriguez, Pharmacy: [facility] [Not filled] Vitamin D 25 Hydroxy Level 3. R harris Ordered: desonide topical(desonide 0.05% topical ointment), See Instructions, PRN dry skin, Topical TID, # 60 g, 1 total refill(s), Maintenance, Pharmacy: [facility] [Federal Rx: #60 last filled 11/06/24] triamcinolone topical(triamcinolone 0.1% topical ointment), See Instructions, apply a thin film to affected area on dry patches 2-3x/wk prn, # 60 g, 1 total refill(s), Maintenance, Pharmacy: [facility] [Federal Rx: #60 last filled 11/06/24] [...] were provided to the patient. Cassius Rodriguez [facility] GERARDO Lehman [facility] Extracted from:Title: [facility] - Cough and Congestion Author: PAN BINGHAM [...] no improvement in symptoms. Capt Shelia Lira), [facility] Circle Cutting Saw Operator, PGY-2 [facility] Addendum by CECILIO HA MD on October 05, 2024 17:33:21 MANAGER I was present and available in the Family Medicine clinic to discuss this patient's care for the duration of the appointment. I agree with the resident's assessment and plan as documented with the following addendum: None. Cecilio Ha MD, FMOB Family Medicine - Obstetrics [facility] Faculty Physician Extracted from:Title: [facility] - OMT Author: PAN BINGHAM MD Date: [...] extremities S ee above. Capt Shelia Lira), [facility] Circle Cutting Saw Operator, PGY-2 Dominik LOYLOAB Addendum by DONAL RUTLEDGE MD on September 18, 2024 07:31:46 MANAGER I was present and available in the family medicine clinic to discuss the patient's care during the time of the appointment. I agree with the resident's assessment and plan as documented. Donal Rutledge MD, Faculty, [facility], [facility], Attending Physician Extracted from:Title: Office Clinic Note [...] 30 tab(s), 0 total refill(s), Maintenance, Pharmacy: [facility] [Not filled] 3. D iabetes mellitus chronic, controlled. Last A1c 01/21. initiated on Metformin in Jul 2024. Repeat A1c ordered. Pt will need diabetic f/u scheduled for ongoing management. Metformin r efilled. Ordered: metFORMIN(MetFORMIN (Eqv-Fortamet) 500 mg oral tablet, extended release), 1 tab(s), Oral, Daily, # 90 tab(s), 3 total refill(s), Maintenance, Pharmacy: [facility] [Not filled] Hemoglobin A1c Farhad Davonte Cesar DO Family Medicine Faculty Physician [address] [place] [address], [facility] Dominik ELIZONDO Extracted from:Title: DM Office Clinic [...] eat and send me the log. The emergency telecommunications dispatcher and I can help modify the food [...] to PCM for review and co-signature. REF [place] Diabetes Standards of Care in Diabetes 2 024 Kathya Mann RN Disease Hand Candle Molder [facility] Dominik MENEZES Extracted from:Title: [facility]-OMT_Office Clinic Note Author: STARLA CANTU, Date: 06/29/24 [...] cervicothoracic region As above. Capt FLORENTINO (), [facility] Circle Cutting Saw Operator Physician, PGY-[address] [place] [address] [employer], [place] [address] [facility] [address], [place] [address] Addendum by CONCHA CHEN MD on July 03, 2024 09:38:03 MANAGER I certify that I was immediately available to review and discuss this patient. T he resident discussed the diagnosis and treatment plan for this patient with me [id number]. I agree with these written findings and plan. Maj Dahiana Chen DO, CAQSM Sports/Family Medicine Faculty Physician [address] [place] [address], [facility] [place], [place] Extracted from:Title: Office Clinic Note - [...] Armond Cesar DO Family Medicine Faculty Physician [address] [place] [address], [facility] Dominik ELIZONDO Extracted from:Title: [facility] - Annual Well Author: ISIDRO CRISTOBAL DO [...] ithin goal -Patient will check labs from [facility] to see if she has a more recent A1c -RTC in [address] 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 Refer to screening questions for additional information of vaccination given and clearance. More information is also available in the Immunization Tab for patient's history of vaccinations. Closing Encounter for administrative completion. Future Appointments Appointment Date: 03/11/2025 10:00:00 AM Scheduled Provider: PRASHANT CORTEZ MD Location: [address] [place] [address] Appointment Type: PC FTR Future Scheduled TestsLaboratoryBasic Metabolic Panel 12/12/24 03/04/2025 Unknown Organization Functional Status Combined list of recent functional and cognitive assessments recorded at [facility] [employer] [facility] ([facility] Functional Oriental Measurement (FIM) Scale: 1 = Total Assistance (Subject = 0% +), 2 = Maximal Assistance (Subject = 25% +), 3 = Moderate Assistance (Subject = 50% +), 4 = Minimal Assistance (Subject = 75% +), 5 = Supervision, 6 = Modified Oriental (Device), 7 = Complete Oriental (Timely, Safely). Assessment Date/Time Source Assessment Type Assessment Skill Assessment Score Assessment Details No data available for this section
--- NOTE | 2025-03-04 19:52 | ED_ITS ---
HPI - Dental/Oral General Chief complaint: Dental/Oral Stated complaint: Dental / tooth Time Seen by Provider: 03/04/25 19:04 Source: patient and RN notes reviewed Mode of arrival: ambulatory Limitations: no limitations History of Present Illness HPI Narrative: Patient presents today complaining of right lower posterior tooth pain since yesterday. States her dentist is out of town for the next couple of days and she is unable to reach anyone. Denies fever, shortness of breath, difficulty swallowing, difficulty opening mouth. Currently rates her pain 8/10 and has tried 1 Advil without improvement. Related Data Home Medications ?Medication ?Instructions ?Recorded ?Confirmed ?Last Taken ?Type atorvastatin 40 mg tablet 09/09/19 Unknown History lisinopril 5 mg tablet 09/09/19 Unknown History pantoprazole 40 mg tablet,delayed PO 09/09/19 Unknown History release Allergies Allergy/AdvReac Type Severity Reaction Status Date / Time No Known Allergies Allergy Verified 03/04/25 18:55 PMFSH Past Medical History Medical History Hypertension Hyperlipidemia Family History Family History Other Diabetes mellitus Hypertension Social History Social History Smoking status: Former smoker Comments At time of signature, I have reviewed and agree with nursing past medical, surgical, social and family history unless otherwise noted. Please see nursing chart for further information. There is no relevant family history pertinent to the presenting complaint Exam Narrative: GENERAL: Well-appearing, well-nourished, and in no acute distress. HEAD: Normocephalic, atraumatic. EYES: EOMI. No redness or drainage. Conjunctivae normal. ENT: Mucous membranes pink and moist. Throat normal. Uvula midline. Tenderness to tooth number 31. Tooth 30 and 31 at both have crowns. Mild erythema to gun adjacent to tooth 31 without obvious periapical abscess. No facial swelling noted. No trismus. No swelling or erythema to the neck. NECK: Normal AROM. Supple. No lymphadenopathy. CHEST: No respiratory distress. EXTREMITIES: Normal range of motion. No edema. SKIN: Warm, dry, no rash. Capillary refill normal. Normal skin turgor. NEURO: No focal deficits. Alert and oriented x3. Gait steady. PSYCH: Normal affect. No signs of depression or anxiety. Course Course Level of Care: Express Care Visit Vital Signs Vital signs: Vital Signs Temperature 98.2 F 03/04/25 18:55 Pulse Rate 98 03/04/25 18:55 Respiratory Rate 14 03/04/25 18:55 Blood Pressure 114/73 03/04/25 18:55 Pulse Oximetry 100 03/04/25 18:55 Oxygen Delivery Room Air 03/04/25 18:55 Temperature 98.2 F 03/04/25 18:55 Pulse Rate 98 03/04/25 18:55 Respiratory Rate 14 03/04/25 18:55 Blood Pressure 114/73 03/04/25 18:55 Pulse Oximetry 100 03/04/25 18:55 Oxygen Delivery Room Air 03/04/25 18:55 Reviewed MDM - Dental/Oral MDM Narrative Medical decision making narrative: 64-year-old female patient presents with right lower tooth pain since yesterday. She is unable to get into her dentist for the next couple of days. Rates her pain 8/10. No additional symptoms. Patient is afebrile. Vital signs stable. She will be treated with a course of amoxicillin for presumed infection. Affected tooth has a crown that appears normal and intact. Rest of teeth are in good condition as well. Anticipatory guidance given. Differential Diagnosis Differential diagnosis: Likely gingival abscess, dental caries, toothache, dental abscess and fracture of tooth Critical Care Time Critical Care Time Critical Care Time: No Discharge Plan Discharge Clinical Impression: Toothache Patient Disposition: Home Condition: Stable Instructions: Antibiotic Form Additional Instructions: Please take the amoxicillin as prescribed until gone. Continue ibuprofen 2-3 tablets every 6-8 hours for pain and inflammation. Follow-up with your dentist as soon as possible. If you develop any shortness of breath, difficulty swallowing, or difficulty opening your mouth, please go to the emergency room as soon as possible for further evaluation. Patient Language: Syriac Prescriptions: New amoxicillin 875 mg tablet 875 mg PO Q12H 10 Days Qty: 20 0RF No Action atorvastatin 40 mg tablet pantoprazole 40 mg tablet,delayed release (DR/EC) PO lisinopril 5 mg tablet amoxicillin 500 mg tablet 500 mg PO TID 7 Days Qty: 21 0RF doxycycline monohydrate 100 mg capsule 100 mg PO BID Qty: 14 0RF Follow-up/Referrals: PHYSICIAN,SYSTEMS SOFTWARE ENGINEER [Primary Care Provider] - Time of Disposition: 19:10
== END 2025-03-04 19:12 | disposition home or self-care (01) ==
PROVIDERS: Emergency Provider Nurse Practitioner
DX: K08.89 Other specified disorders of teeth and supporting structures (principal); Z87.891 Personal history of nicotine dependence; I10 Essential (primary) hypertension; E78.5 Hyperlipidemia, unspecified
CPT/HCPCS: 99213; G0463

== ENCOUNTER 2025-06-03 11:33 | Emergency (ER) | payer OTHER, MEDICARE, SELFPAY ==
[2025-06-03 11:47] VITALS: BP 118/87; PULSE 82; RESP 16; TEMP 36.3; O2SAT 99
--- NOTE | 2025-06-03 12:06 | ED.NECK ---
HPI - Neck Pain/Injury General Chief Complaint: Neck Pain/Injury Stated Complaint: Neck Pain Time Seen by Provider: 06/03/25 12:05 Source: patient and RN notes reviewed Mode of arrival: ambulatory Limitations: no limitations History of Present Illness HPI Narrative: 65-year-old female presents concern for left-sided neck pain. Reports it has been there for 2 days, she denies injury trauma. Reports she woke up and felt like she slept wrong, reports the pain has been getting worse. She reports no pain at rest and pain at when she strains or turns her neck a certain way. She took Tylenol without relief. She has been using heat with temporary relief. She denies any numbness or tingling. Denies weakness in the left extremity. MD complaint: neck pain Related Data Home Medications ?Medication ?Instructions ?Recorded ?Confirmed ?Last Taken ?Type lisinopril 5 mg tablet 5 mg PO DAILY 09/09/19 06/03/25 Unknown History famotidine 40 mg tablet 40 mg PO DAILY 06/03/25 06/03/25 Unknown History fenofibrate 54 mg tablet 54 mg PO DAILY 06/03/25 06/03/25 Unknown History metformin 500 mg tablet 500 mg PO DAILY 06/03/25 06/03/25 Unknown History rosuvastatin 20 mg tablet 20 mg PO DAILY 06/03/25 06/03/25 Unknown History Allergies Allergy/AdvReac Type Severity Reaction Status Date / Time No Known Allergies Allergy Verified 06/03/25 11:41 Review of Systems Review of Systems: CONSTITUTIONAL: Denies malaise, chills, sweats, or fever. CARDIOVASCULAR: Denies chest pain, palpitations, or edema. RESPIRATORY: Denies cough or dyspnea. GASTROINTESTINAL: Denies abdominal pain, nausea, vomiting, diarrhea, loss of bowel function GENITOURINARY: Denies dysuria, hematuria, frequency, loss of bladder function. SKIN: Denies rash or itching. MUSCULOSKELETAL: Reports left-sided neck pain NEUROLOGIC: Denies numbness, weakness, or headache. All systems reviewed & are unremarkable except as noted in HPI and below PMFSH Past Medical History Medical History Hypertension Hyperlipidemia Family History Family History Other Diabetes mellitus Hypertension Social History Social History Smoking status: Former smoker Comments At time of signature, agree with nursing past medical, surgical, social and family history. There is no relevant family history pertinent to the presenting complaint Exam Narrative: GENERAL: Well-appearing, well-nourished, and in no acute distress. HEAD: Normocephalic, atraumatic. EYES: PERRLA and EOMI. NECK: Supple. No lymphadenopathy. CHEST: Clear to auscultation. No respiratory distress. HEART: Regular rate and rhythm. Distal pulses palpable and equal, cap refill <3 seconds MUSCULOSKELETAL: Normal range of motion and strength in all extremities. Normal sensation in dermatomal distributions with sensitivity to light touch and pain. No midline neck tenderness to palpation. No paraspinal tenderness. Transfers from sitting to standing. SKIN: Warm, dry, no rash. No ecchymosis, erythema, open wounds to neck. NEURO: No focal deficits. Alert and oriented x3. PSYCH: Normal mood and affect Course Course Emergency Course: Patient is aware of diagnosis, understands and agrees to treatment plan. Anticipatory guidance given. Patient agrees to follow-up as directed and is aware of reasons to seek care at the emergency department. Portions of this record may have been created with voice recognition software Level of Care: Express Care Visit Vital Signs Vital signs: Vital Signs Temperature 97.3 F L 06/03/25 11:47 Pulse Rate 82 06/03/25 11:47 Respiratory Rate 16 06/03/25 11:47 Blood Pressure 118/87 06/03/25 11:47 Pulse Oximetry 99 06/03/25 11:47 Temperature 97.3 F L 06/03/25 11:47 Pulse Rate 82 06/03/25 11:47 Respiratory Rate 16 06/03/25 11:47 Blood Pressure 118/87 06/03/25 11:47 Pulse Oximetry 99 06/03/25 11:47 Reviewed. MDM - Neck Pain/Injury MDM Narrative Medical decision making narrative: I evaluated this patient in the express care. History is obtained from patient who is an independent historian and physical exam was performed.? Available medical records were reviewed. ? Exam findings and relevant testing show no acute concerns or changes; patient is non-toxic appearing and is in no distress. ? Differential diagnosis and treatment plan were discussed with the patient. Patient agrees with discussion and after shared medical decision making agrees with plan of care. All questions were answered to the patient's satisfaction. Patient is appropriate for outpatient treatment and follow-up. Critical Care Time Critical Care Time Critical Care Time: No Discharge Plan Discharge Clinical Impression: Strain of neck muscle Patient Disposition: Home Condition: Stable Instructions: Cervical Strain (ED) Additional Instructions: Please follow up with your Primary Care Doctor within 48-72 hours - call for an appointment. Walking and other gentle exercising several times a week has been shown to improve back pain; bed rest is not recommended. Take prednisone as directed, take muscle relaxers every 8 hours as needed for muscle spasm- do not drive or make any important decisions while on this medication for it can make you drowsy. You may apply ice followed by he to the area as needed. If you experience any worsening pain, swelling, numbness, weakness please go to ER. Patient Language: Telugu Prescriptions: New cyclobenzaprine 10 mg tablet 10 mg PO TID PRN (Reason: muscle spasm) Qty: 20 0RF prednisone 20 mg tablet 40 mg PO DAILY 5 Days Qty: 10 0RF No Action lisinopril 5 mg tablet 5 mg PO DAILY metformin 500 mg tablet 500 mg PO DAILY fenofibrate 54 mg tablet 54 mg PO DAILY famotidine 40 mg tablet 40 mg PO DAILY rosuvastatin 20 mg tablet 20 mg PO DAILY Follow-up/Referrals: PHYSICIAN,SUPERINTENDENT PRODUCTION [Primary Care Provider, Internal Medicine] Time of Disposition: 12:18
== END 2025-06-03 12:21 | disposition home or self-care (01) ==
PROVIDERS: Emergency Provider Nurse Practitioner
DX: S16.1XXA Strain of muscle, fascia and tendon at neck level, initial encounter (principal); X58.XXXA Exposure to other specified factors, initial encounter; I10 Essential (primary) hypertension; E78.5 Hyperlipidemia, unspecified; Z87.891 Personal history of nicotine dependence
CPT/HCPCS: 99213; G0463